=== PATIENT | male | born 1975 | race Hispanic/Latino ===

== ENCOUNTER 2025-02-27 14:03 | Inpatient (IN) | payer OTHER ==
[~2025-02-27] VITALS: Ht 182.9 cm; Wt 90.6 kg
[~2025-02-27 14:03] MED LIST: ATOR40TA69 PO; FAMO20TA8 PO; FLUO20TA29 PO; FOLI0.8C PO; HYDR25TA67 PO; PRAV20TA59 PO; SENN8.6T32 PO
[2025-02-27] MEDS: 0.9%NACL 1000ML 1,000 ML IV SCH ×2 (14:30→22:25)
[2025-02-27 14:57] LABS: BASOPHILS # (AUTO) 0.03 K/uL (0.00-0.20); BASOPHILS % (AUTO) 0.1 % (0.0-5.0); HEMATOCRIT 40.1 % (42-54); IMMATURE GRANULOCYTE ABSOLUTE 0.08 K/uL (0-1); LYMPHOCYTES # (AUTO) 1.2 K/uL (1.0-4.8); LYMPHOCYTES % (AUTO) 5.6 % (21.0-51.0); MEAN CORPUSCULAR HEMOGLOBIN 28.1 pg (27.0-33.0); MEAN CORPUSCULAR HGB CONC 34.2 g/dL (32.0-36.0); MEAN CORPUSCULAR VOLUME 82.3 fL (79-99); MONOCYTES # (AUTO) 0.7 K/uL (0.1-1.0); MONOCYTES % (AUTO) 3.2 % (3.0-13.0); NEUTROPHILS # (AUTO) 18.7 K/uL (1.8-7.7); NEUTROPHILS % (AUTO) 90.7 % (40.0-77.0); PLATELET COUNT (AUTO) 383 K/uL (130-400); RED BLOOD CELL COUNT(AUTO) 4.87 MIL/uL (4.50-6.20); RED CELL DISTRIBUTION WIDTH 13.9 % (11.0-15.5); WHITE BLOOD COUNT (AUTO) 20.6 K/uL (4.8-10.8)
[2025-02-27 15:01] LABS: CARBON DIOXIDE 24 mmol/L (21-32); CHLORIDE 104 mmol/L (101-111); CREATININE 4.4 mg/dL (0.5-1.3); GLOMERULAR FILTR. RATE CALC 16 mL/min (>90); GLUCOSE,RANDOM 291 mg/dL (70-105); SODIUM SERUM 141 mmol/L (136-145); UREA NITROGEN, BLOOD 51 mg/dL (7-18)
[2025-02-27 15:01] LABS: ABG BASE EXCESS -3.9 mmol/L (-2.0-3.0); ABG HCO3 20.1 mmol/L (21.0-28.0); ABG OXYGEN SATURATION 96.6 % (94.0-98.0); ABG PCO2 34 mmHg (35-48); ABG PH 7.394 (7.350-7.450); CARBON MONOXIDE 0.9 % (0.5-1.5); HHb 3.4; PO2, ARTERIAL BG 88.7 mmHg (83.0-108.0); VENT MODE, BG NC (ROOM AIR)
[2025-02-27] MEDS: hydrALAZine 20MG/ML VIAL IV STA (15:14)
[2025-02-27] MEDS: ondanSETRON 4MG INJ IVP ONE (15:15)
[2025-02-27] MEDS: FAMOTIDINE 20MG VIAL IV ONE (15:15)
[2025-02-27] MEDS: 0.9%NACL 1000ML 1,000 ML IV STA (15:17)
[2025-02-27 15:23] LABS: ALANINE AMINOTRANSFERASE 24 U/L (12-78); ALBUMIN 1.9 g/dL (3.5-5.0); ALCOHOL, BLOOD < 3 mg/dL (0-10); ASPARTATE AMINOTRANSFERASE 30 U/L (10-37); BILIRUBIN,TOTAL 0.5 mg/dL (0.2-1.0); TOTAL PROTEIN, SERUM 6.9 g/dL (6.0-8.3)
[2025-02-27 15:25] LABS: BILIRUBIN,DIRECT 0.1 mg/dL (0.0-0.3)
--- NOTE | 2025-02-27 15:33 | EKG ---
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
[2025-02-27] MEDS ORDERED: NITROGLYCERIN 0.4 MG SL TAB SL PRN (16:00)
[2025-02-27] MEDS: morPHINE 4 MG SYG IVP STA (16:01)
[2025-02-27] MEDS: ASPIRIN 81MG CHEW TAB PO STA (16:02)
[2025-02-27] MEDS: niCARDIpine 25MG INJ 50 MG in 0.9% NACL 250ML 230 ML IV STA ×2 (16:32)
--- NOTE | 2025-02-27 16:35 | NUR ---
cardene inititated at 5mg/hr for elevated blood pressure of 228/112
--- NOTE | 2025-02-27 16:47 | ERN ---
ED Note History of Present Illness Stated Complaint: VOMITTING,MULTIPLE Chief Complaint: Abdominal Pain Time Seen by MD: 14:07 Time Seen by Midlevel: 14:10 Dictation: 49 y/o male with history of HTN,CKD non HD, and DM coming in complaining of N/V/D, epigastric pain . Allergies: Coded Allergies: No Known Allergies (Verified Allergy, Unknown, 09/09/24) Home Meds Reported Medications Sennosides (Senna) 8.6 Mg Tablet, 2 TAB PO BID for constipation for 25 Days, #100 TAB 0 Refills 09/10/24 Famotidine (Famotidine) 20 Mg Tablet, 1 TAB PO HS for 30 Days, #60 TAB 0 Refills 09/10/24 Pravastatin Sodium (Pravastatin Sodium) 20 Mg Tablet, 1 TAB PO HS for 30 Days, #30 TAB 0 Refills 09/10/24 Atorvastatin Calcium (LIPITOR) 40 Mg Tablet, 1 TAB PO HS for 30 Days, #30 TAB 0 Refills 09/10/24 Folic Acid (Folic Acid) 0.8 Mg Capsule, 1 CAP PO DAILY for 30 Days, #30 CAP 0 Refills 09/10/24 Fluoxetine HCl (Fluoxetine HCl) 20 Mg Tablet, 1 TAB PO HS for 30 Days, #30 TAB 0 Refills 09/10/24 Hydralazine HCl (Hydralazine HCl) 25 Mg Tablet, 1 TAB PO TID for 30 Days, #90 TAB 0 Refills 09/10/24 Past Medical History Past Medical History: Anemia, Hypertension, Renal Disese, Renal Failure Surgical History: Other Surgical History Other: RT FOOT GREAT TOE AMPUTATION, LEFT HEEL I&D, BUTTOCK CYST Review of System Dictation Constitutional: Negative for fever,chills, and weight loss Eyes: Negative for injury, pain,redness, and discharge ENT: Negative for injury,pain or swelling Cardiovascular: Negative for chest pain, palpitations, and edema Respiratory: Negative for shortness of breath, cough, and wheezing, Abdomen/GI: Complaining of epigastric pain, nausea and vomiting Back: Negative for injury and pain : Negative for injury, bleeding and discharge MS/Extremity: Negative for injury and deformity Skin: Negative for rash, and discoloration Neuro: Negative for headache, weakness, numbness, tingling, and seizure Psych: Negative for suicide ideation, homicidal ideation, and hallucinations Review of Systems: was completed Initial Vital Sign VS Vital Signs Date Time Temp Pulse Resp B/P (MAP) Pulse Ox O2 Delivery O2 Flow Rate FiO2 02/27/25 14:16 98.2 89 16 231/118 98 0 02/27/25 14:52 Room Air* 21 Physical Exam Dictation General: awake, alert, NAD Head/Face: Normocephalic, atraumatic Eyes: PERRL, EOMI, vision at baseline ENT: oral cavity clear, TMs clear, no signs of infection Neck: Trachea midline, supple, no nuchal rigidity Cardiovascular: RRR, normal S1/S2, No MRGs, no JVD Respiratory: CTAB, no respiratory distress, No rales or wheezes Abdomen: Soft, non-tender, non-distended, normal bowel sounds, no guarding or rebound. Skin: Warm, dry, normal turgor, no rash MS/Extremity: Pulses equal, no cyanosis, neurovascular intact, FROM Neuro: COAx4, GCS 15, strength 5/5, CN 2-12 intact, normal cerebellar exam, normal gait, Psych: Normal behavior, mood, and affect normal Results (Laboratory/Radiology) Laboratory/Radiology Laboratory Tests Test 02/27/25 14:42 02/27/25 14:43 02/27/25 14:58 02/27/25 15:17 Whole Blood Glucose 265 MG/DL (70-110) H White Blood Count 20.6 K/uL (4.8-10.8) H Red Blood Count 4.87 MIL/uL (4.50-6.20) Hemoglobin 13.7 g/dL (14.0-18.0) L Hematocrit 40.1 % (42-54) L Mean Corpuscular Volume 82.3 fL (79-99) Mean Corpuscular Hemoglobin 28.1 pg (27.0-33.0) Mean Corpuscular Hemoglobin Concent 34.2 g/dL (32.0-36.0) Red Cell Distribution Width 13.9 % (11.0-15.5) Platelet Count 383 K/uL (130-400) Mean Platelet Volume 11.7 fL (7.5-10.5) H Immature Granulocyte % (Auto) 0.4 % (0-1) Neutrophils (%) (Auto) 90.7 % (40.0-77.0) H Lymphocytes (%) (Auto) 5.6 % (21.0-51.0) L Monocytes (%) (Auto) 3.2 % (3.0-13.0) Eosinophils (%) (Auto) 0.0 % (0.0-8.0) Basophils (%) (Auto) 0.1 % (0.0-5.0) Neutrophils # (Auto) 18.7 K/uL (1.8-7.7) H Lymphocytes # (Auto) 1.2 K/uL (1.0-4.8) Monocytes # (Auto) 0.7 K/uL (0.1-1.0) Eosinophils # (Auto) 0.00 K/uL (0.00-0.70) Basophils # (Auto) 0.03 K/uL (0.00-0.20) Absolute Immature Granulocyte (auto 0.08 K/uL (0-1) Nucleated Red Blood Cells 0.0 % (0.0-0.19) White Cell Morphology Comment See comments Sodium Level 141 mmol/L (136-145) Potassium Level 4.0 mmol/L (3.5-5.1) Chloride Level 104 mmol/L (101-111) Carbon Dioxide Level 24 mmol/L (21-32) Blood Urea Nitrogen 51 mg/dL (7-18) H Creatinine 4.4 mg/dL (0.5-1.3) H Glomerular Filtration Rate Calc 16 mL/min (>90) Random Glucose 291 mg/dL (70-105) H Whole Blood Ketones Quantitative 1.2 mmol/L (0.0-0.6) H Total Calcium 8.5 mg/dL (8.5-10.1) Total Bilirubin 0.5 mg/dL (0.2-1.0) Direct Bilirubin 0.1 mg/dL (0.0-0.3) Aspartate Amino Transf (AST/SGOT) 30 U/L (10-37) Alanine Aminotransferase (ALT/SGPT) 24 U/L (12-78) Alkaline Phosphatase 109 U/L (50-136) Troponin I High Sensitivity 1748 ng/L (4-75) *H Total Protein 6.9 g/dL (6.0-8.3) Albumin 1.9 g/dL (3.5-5.0) L Lipase 59 U/L (16-77) Serum Alcohol < 3 mg/dL (0-10) Blood Gas Specimen Type Arterial Arterial Blood pH 7.394 (7.350-7.450) Arterial Blood Partial Pressure CO2 34 mmHg (35-48) L Arterial Blood Partial Pressure O2 88.7 mmHg (83.0-108.0) Arterial Blood HCO3 20.1 mmol/L (21.0-28.0) L Arterial Blood Oxygen Saturation 96.6 % (94.0-98.0) Arterial Blood Base Excess -3.9 mmol/L (-2.0-3.0) L Hemoglobin (Blood Gas) 13.7 g/dL (13.5-17.5) Sodium (Blood Gas) 140 MMOL/L (136-145) Bedside Potassium (Blood Gas) 3.5 MMOL/L (3.4-4.5) Bedside Chloride (Blood Gas) 105 MMOL/L (98-107) Bedside Glucose (Blood Gas) 272 MG/DL (65-95) H Bedside Ionized Calcium (Blood Gas) 1.16 MMOL/L (1.15-1.33) Bedside Lactic Acid (Blood Gas) 1.29 MMOL/L (0.36-0.75) H Blood Gas Temperature 37.0 CELSIUS (35.5-37.0) Blood Gas Vent Mode NC (ROOM AIR) FiO2 21.0 % Blood Gas Specimen Comment MENA COELHO Lactic Acid Level 2.0 mmol/L (0.8-2.5) Test 02/27/25 15:58 02/27/25 21:01 02/27/25 21:41 02/27/25 21:44 Troponin I High Sensitivity 980 ng/L (4-75) *H 1512 ng/L (4-75) *H Urine Color LIGHT-YELLOW (YELLOW) Urine Appearance CLEAR (CLEAR) Urine pH 6.5 (5.0-8.0) Urine Specific [place] 1.019 (1.001-1.031) Urine Protein 600 mg/dL (NEGATIVE) H Urine Glucose (UA) >=1000 mg/dL (NEGATIVE) H Urine Ketones 10 mg/dL (NEGATIVE) H Urine Occult Blood MODERATE (NEGATIVE) H Urine Nitrate NEGATIVE (NEGATIVE) Urine Bilirubin NEGATIVE mg/dL (NEGATIVE) Urine Urobilinogen 0.2 mg/dL (0.2-1.0) Urine Leukocyte Esterase NEGATIVE German/uL Urine RBC 2-5 /HPF (0-1) H Urine WBC 2-5 /HPF (0-1) H Urine Squamous Epithelial Cells RARE /HPF (0-2) Urine Bacteria None /HPF (None Seen) Urine Opiates Screen NEGATIVE (NEGATIVE) Urine Barbiturates Screen NEGATIVE (NEGATIVE) Urine Phencyclidine Screen NEGATIVE (NEGATIVE) Urine Amphetamines Screen NEGATIVE (NEGATIVE) Urine Benzodiazepines Screen NEGATIVE (NEGATIVE) Urine Cocaine Screen NEGATIVE (NEGATIVE) Urine Marijuana (THC) Screen POSITIVE (NEGATIVE) H Whole Blood Glucose 215 MG/DL (70-110) H Test 02/27/25 23:15 02/28/25 01:28 02/28/25 01:30 02/28/25 06:19 Influenza Type A Antigen Negative For Type A Influenza Type B Antigen Negative For Type B SARS-CoV-2, RNA, NAAT NEGATIVE SARS CoV-2 Group A Streptococcus Rapid negative (NEGATIVE) Whole Blood Glucose 146 MG/DL (70-110) H 179 MG/DL (70-110) H White Blood Count 25.0 K/uL (4.8-10.8) H Red Blood Count 4.03 MIL/uL (4.50-6.20) L Hemoglobin 11.4 g/dL (14.0-18.0) L Hematocrit 32.7 % (42-54) L Mean Corpuscular Volume 81.1 fL (79-99) Mean Corpuscular Hemoglobin 28.3 pg (27.0-33.0) Mean Corpuscular Hemoglobin Concent 34.9 g/dL (32.0-36.0) Red Cell Distribution Width 13.9 % (11.0-15.5) Platelet Count 340 K/uL (130-400) Mean Platelet Volume 11.5 fL (7.5-10.5) H Immature Granulocyte % (Auto) 0.5 % (0-1) Neutrophils (%) (Auto) 87.0 % (40.0-77.0) H Lymphocytes (%) (Auto) 5.6 % (21.0-51.0) L Monocytes (%) (Auto) 6.7 % (3.0-13.0) Eosinophils (%) (Auto) 0.0 % (0.0-8.0) Basophils (%) (Auto) 0.2 % (0.0-5.0) Neutrophils # (Auto) 21.8 K/uL (1.8-7.7) H Lymphocytes # (Auto) 1.4 K/uL (1.0-4.8) Monocytes # (Auto) 1.7 K/uL (0.1-1.0) H Eosinophils # (Auto) 0.01 K/uL (0.00-0.70) Basophils # (Auto) 0.04 K/uL (0.00-0.20) Absolute Immature Granulocyte (auto 0.12 K/uL (0-1) Nucleated Red Blood Cells 0.0 % (0.0-0.19) Sodium Level 141 mmol/L (136-145) Potassium Level 3.2 mmol/L (3.5-5.1) L Chloride Level 108 mmol/L (101-111) Carbon Dioxide Level 26 mmol/L (21-32) Blood Urea Nitrogen 56 mg/dL (7-18) H Creatinine 4.4 mg/dL (0.5-1.3) H Glomerular Filtration Rate Calc 16 mL/min (>90) Random Glucose 164 mg/dL (70-105) H Hemoglobin A1c 7.5 % (4.0-6.0) H Estimated Average Glucose (eAG) 169 mg/dL (70-126) H Whole Blood Ketones Quantitative 0.1 mmol/L (0.0-0.6) Total Calcium 7.7 mg/dL (8.5-10.1) L Magnesium Level 1.70 mg/dL (1.80-2.40) L Iron Level 67 mcg/dL (65-175) # Total Iron Binding Capacity 169 mcg/dL (250-450) L Percent Iron Saturation 39.6 % (30-44) Total Bilirubin 0.3 mg/dL (0.2-1.0) # Aspartate Amino Transf (AST/SGOT) 22 U/L (10-37) Alanine Aminotransferase (ALT/SGPT) 21 U/L (12-78) Alkaline Phosphatase 85 U/L (50-136) Total Protein 5.5 g/dL (6.0-8.3) #L Albumin 1.5 g/dL (3.5-5.0) #L Test 02/28/25 06:30 Hemoglobin 12.1 g/dL (14.0-18.0) L Hematocrit 35.2 % (42-54) L Troponin I High Sensitivity 1402 ng/L (4-75) *H Labs Reviewed?: Yes EKG Comment: EKGs did not 15 30, sinus rhythm, rate of 88. Anterior infarct, old. No STEMI interpreted by ER MD. CT Scan Comment: [facility] [address] [place] [address] IMAGING REPORT Signed PATIENT: MOY SELF MR#: [id number] : 1975 SEX: M AGE: 49 LOCATION: [facility] ORDER 1540 STATUS: REG ER REPORT#: [id number] SERVICE 1534 REASON: cp/htn/n/v/ ORDERING PHYSICIAN: JOLENE WILLIS NP PROCEDURE: CAP WO - CT CHEST/ABD/PELV W/O CONTRAST CT CHEST/ABD/PELV W/O CONTRAST HISTORY: Chest pain COMPARISON: None TECHNIQUE: Multiple sequential axial images of the chest were obtained from the thoracic inlet through upper abdomen. Patient was not given contrast through intravenous route. FINDINGS: The study is limited due to poor positioning. Coronary arterial calcifications are seen. There is no evidence of pulmonary nodule or parenchymal disease. No pleural effusion or pericardial effusion is seen. There is no evidence of pneumothorax. There are normal size mediastinal and hilar lymph nodes. The heart is not enlarged. Degenerative changes of the thoracolumbar spine are present. There is no evidence of adrenal nodule. IMPRESSION: 1. No evidence of pulmonary nodule or effusion is seen. CT CHEST/ABD/PELV W/O CONTRAST HISTORY: Nausea and vomiting COMPARISON: None TECHNIQUE: Multiple sequential axial images of the abdomen and pelvis were obtained from the dome of the diaphragm through symphysis pubis. Patient was not given contrast through intravenous route. Oral contrast was not given. FINDINGS: Liver measures 20 cm. There are left renal cysts with the largest measuring 3.8 cm. The liver, spleen, adrenal glands and pancreas are unremarkable. There is no evidence of hydronephrosis bilaterally. Tiny 2 mm right renal pelvic stone is seen. There appears to be posterior type II right renal cyst versus cystic mass measuring 2.1 cm. Fecal material is seen in the colon. There are normal size retroperitoneal and mesenteric lymph nodes. No ascites is seen. There is diverticulosis. Appendix is not well seen limiting evaluation. Atherosclerotic changes are present. Pelvic sidewalls are symmetric bilaterally. Bladder is well distended without wall thickening. IMPRESSION: 1. Bilateral renal cysts. Diverticulosis. Tiny bilateral renal pelvic stones. CT was performed with one or more following dose reduction techniques: automated exposure control, adjustment of the mA and kv according to patient's size, or use of a iterative reconstruction technique. DICTATED BY: MARIA R LEHMAN MD DATE: 02/27/251749 ELECTRONICALLY SIGNED BY: MARIA R LEHMAN MD DATE: 02/27/251756 [place] [id number] [id number] IMAGING REPORT Signed PATIENT: MOY SELF MR#: [id number] : 1975 SEX: M AGE: 49 LOCATION: [facility] ORDER 07 STATUS: [facility] REPORT#: [id number] SERVICE REASON: htn, n/v ORDERING PHYSICIAN: JOLENE WILLIS NP PROCEDURE: HEAD WO - CT HEAD/BRAIN W/O CONTRAST CT HEAD/BRAIN W/O CONTRAST HISTORY: Hypertension, nausea and vomiting COMPARISON: None TECHNIQUE: Multiple sequential axial images of the head were obtained from the base of the skull through vertex. Patient was not given contrast through intravenous route. FINDINGS: The ventricles and extraventricular CSF spaces are dilated consistent with cerebral atrophy. Nonspecific white matter changes seen. Old right basal ganglia lacunar infarct is seen. There is no midline shift, mass effect or herniation. No acute intracranial bleed is seen. Visualized portion of the paranasal sinuses are grossly within normal limits. IMPRESSION: 1. No acute intracranial bleed is seen. 2. Atrophy with white matter changes. CT was performed with one or more following dose reduction techniques: automated exposure control, adjustment of the mA and kv according to patient's size, or use of a iterative reconstruction technique. DICTATED BY: MARIA R LEHMAN MD DATE: 02/27/251747 ELECTRONICALLY SIGNED BY: MARIA R LEHMAN MD DATE: 02/27/251754 ED Course ED Course Orders Procedure Category Date Status Time Cbc With Differential LAB 02/27/25 Complete 14:24 Basic Metabolic Panel LAB 02/27/25 Complete 14:24 Arterial Blood Gas + RT 02/27/25 Transmitted 14:24 Urinalysis Profile LAB 02/27/25 Complete 14:24 Lipase LAB 02/27/25 Complete 14:24 Hepatic Function Panel LAB 02/27/25 Complete 14:24 Ketone Blood LAB 02/27/25 Complete Quantitative 14:24 12 Lead Ekg Tracing- EKG 02/27/25 Complete Technical 14:25 Troponin I High LAB 02/27/25 Complete Sensitivity 14:25 0.9%Nacl 1000ml (Ns PHA 02/27/25 Complete 1000ml) 14:25 0.9%Nacl 1000ml (Ns PHA 02/27/25 In Process 1000ml) 14:30 Famotidine 20mg Vial PHA 02/27/25 Complete (Pepcid 20mg Vial) 14:30 Ondansetron 4mg Inj PHA 02/27/25 Complete (Zofran 4mg Inj) 14:30 Arterial Blood Gas LAB 02/27/25 Complete Arterial + 14:58 Ct Head/Brain W/O CT 02/27/25 Resulted Contrast 15:06 Lactic Acid LAB 02/27/25 Complete 15:06 Blood Cult JEANNETTE 02/27/25 In Process 15:06 Hydralazine 20mg Inj PHA 02/27/25 Complete (Apresoline 20mg In 15:06 Alcohol, Blood LAB 02/27/25 Complete 14:43 Drug Screen Urine LAB 02/27/25 Complete 14:24 Nicardipine 25mg Inj PHA 02/27/25 Complete (Cardene 25mg Inj) 15:34 Aspirin 81mg Chew Tab PHA 02/27/25 Complete (Aspirin 81mg Chew 15:34 Nitroglycerin 0.4mg PHA 02/27/25 In Process Sl Tab (Nitrostat) 16:00 Ct Chest/Abd/Pelv W/O CT 02/27/25 Resulted Contrast 15:34 Morphine 4mg Syg PHA 02/27/25 Complete (Morphine 4mg Syg) 15:41 Nicardipine 25mg Inj PHA 02/27/25 Complete (Cardene 25mg Inj) 15:45 Troponin I High LAB 02/27/25 Complete Sensitivity 15:47 Admit Orders ADM 02/27/25 Transmitted 18:39 Vital Signs(Adult CPOE 02/27/25 Transmitted Hospitalist) 19:59 Daily Weights CPOE 02/27/25 Transmitted 19:59 I&O Q Shift CPOE 02/27/25 Transmitted 19:59 Ondansetron 4mg Inj PHA 02/27/25 In Process (Zofran 4mg Inj) 20:00 Nurse To Enter Home CPOE 02/27/25 Transmitted Medication 19:59 Admit Orders ADM 02/27/25 Transmitted 19:59 Condition: CPOE 02/27/25 Transmitted 19:59 Telemetry Monitoring CPOE 02/27/25 Transmitted 19:59 Activity: Ad Ofelia CPOE 02/27/25 Transmitted 19:59 Nothing By Mouth DIET 02/28/25 Transmitted Breakfast Apply Scds CPOE 02/27/25 Transmitted 19:59 0.9%Nacl 1000ml (Ns PHA 02/27/25 In Process 1000ml) 20:00 Famotidine 20mg Vial PHA 02/28/25 Complete (Pepcid 20mg Vial) 09:00 Critcal Care Consult CONPHYSVC 02/27/25 Transmitted 19:59 Troponin I High LAB 02/27/25 Complete Sensitivity 19:59 Cardiology Consult CONPHYSVC 02/27/25 Transmitted 19:59 Occult Blood Stool LAB 02/27/25 Logged Single Only 19:59 Occult Blood, Gastric LAB 02/27/25 Logged Fluid 19:59 Iron Serum LAB 02/28/25 Complete 04:00 Iron Panel With %Sat LAB 02/28/25 Complete 04:00 Initiate MAHAD 02/27/25 In Process Hyperglycemia Protoco 19:59 Insulin Regular, PHA 02/27/25 In Process Human 3ml (Humulin R 21:00 Initiate Hypoglycemia MAHAD 02/27/25 In Process Protocol 19:59 Dextrose 50%-Water PHA 02/27/25 In Process (D50w) 20:00 Glucagon 1mg Kit PHA 02/27/25 In Process (Glucagon 1mg Kit) 20:00 Cbc With Differential LAB 02/28/25 Complete 04:00 Comprehensive LAB 02/28/25 Complete Metabolic Panel 04:00 Magnesium LAB 02/28/25 Complete 04:00 Hemoglobin A1c LAB 02/28/25 Complete 04:00 Dietary Cons For DIETOTHR 02/27/25 Transmitted Malnutrition 21:59 12 Lead Ekg Tracing- EKG 02/27/25 Complete Technical 22:29 Influenza Type A & B, LAB 02/27/25 Complete Rapid 22:46 Covid Rna Naat LAB 02/27/25 Complete 22:46 Rapid (Group A Strep) LAB 02/27/25 Complete 23:15 Pantoprazole 40mg Inj PHA 02/28/25 In Process (Protonix 40mg Inj 00:00 Mag/Alum/Simeth 30ml PHA 02/28/25 Complete (Maalox Plus 30ml) 00:00 Pantoprazole 40mg Inj PHA 02/27/25 Complete (Protonix 40mg Inj 23:45 Mag/Alum/Simeth 30ml PHA 02/27/25 Complete (Maalox Plus 30ml) 23:45 Nicardipine 25mg Inj PHA 02/28/25 In Process (Cardene 25mg Inj) 00:00 Metoprolol Tartrate PHA 02/28/25 In Process (Lopressor) 00:00 Metoprolol Tartrate PHA 02/28/25 In Process 25 Mg Tab (Lopressor 00:00 Occult Blood Stool LAB 02/27/25 Logged Single Only 23:53 Occult Blood, Gastric LAB 02/27/25 Uncollected Fluid 23:53 Troponin I High LAB 02/28/25 Complete Sensitivity 06:00 *Nursing CPOE 02/27/25 Transmitted Communication: 23:53 12 Lead Ekg Tracing- EKG 02/28/25 Complete Technical 06:00 Venous Blood Gas + RT 02/28/25 Transmitted 00:22 Ketone Blood LAB 02/28/25 Complete Quantitative 01:18 0.9% Nacl 500ml PHA 02/28/25 In Process Iv.Soln (Ns 500ml 01:30 Gastroenterology CONPHYSVC 02/28/25 Transmitted Consult 08:00 Nephrology Consult CONPHYSVC 02/28/25 Transmitted 08:00 Amlodipine 5 Mg Tab PHA 02/28/25 In Process (Norvasc 5mg Tab) 09:00 Nitroglycerin 1gm PHA 02/28/25 In Process Oint (Nitroglycerin 1g 03:30 Potassium Chloride PHA 02/28/25 Complete 10meq/100ml ([place] 04:00 Initiate Magnesium CPOE 02/28/25 Transmitted Protocol 05:52 Magnesium 2gm Premix PHA 02/28/25 In Process 50ml (Magnesium 2gm 06:00 Levofloxacin 500 PHA 02/28/25 Complete Mg/D5w 100 Ml 06:30 Hemoglobin And LAB 02/28/25 Complete Hematocrit 06:23 Hemoglobin And LAB 02/28/25 Logged Hematocrit 12:23 Hemoglobin And LAB 02/28/25 Logged Hematocrit 18:23 H&H Prn For Bleeding CPOE 02/28/25 Transmitted 06:23 Current Medications Medications (Trade) Dose Ordered Sig/Jyoti Route PRN Reason Start Time Stop Time Status Last Admin Dose Admin Aspirin (Aspirin 81mg Chew Tab) 324 mg ONCE STAT PO 02/27/25 15:34 02/27/25 15:41 DC 02/27/25 16:02 Famotidine (Pepcid 20mg Vial) 20 mg ONCE ONCE IV 02/27/25 14:30 02/27/25 14:31 DC 02/27/25 15:15 Hydralazine HCl (APRESOLine 20MG INJ) 10 mg ONCE STAT IV 02/27/25 15:06 02/27/25 15:08 DC 02/27/25 15:14 Morphine Sulfate (morPHINE 4MG SYG) 4 mg ONCE STAT IVP 02/27/25 15:41 02/27/25 15:42 DC 02/27/25 16:01 Nicardipine HCl 50 mg/Sodium Chloride 250 ml @ 0 mls/hr PROTOCOL STAT IV 02/27/25 15:34 02/27/25 15:42 DC Nicardipine HCl 50 mg/Sodium Chloride 250 ml @ 0 mls/hr PROTOCOL STAT IV 02/27/25 15:45 02/27/25 15:46 DC 02/27/25 16:32 Nitroglycerin (Nitrostat) 0.4 mg AD PRN SL CHEST PAIN 02/27/25 16:00 03/29/25 15:59 Ondansetron HCl (zoFRAN 4MG INJ) 4 mg ONCE ONCE IVP 02/27/25 14:30 02/27/25 14:31 DC 02/27/25 15:15 Sodium Chloride 1,000 ml @ 75 mls/hr [id number] IV 02/27/25 14:30 03/29/25 14:29 02/28/25 03:53 Sodium Chloride 1,000 ml @ 1,000 mls/hr Q1H STAT IV 02/27/25 14:25 02/27/25 15:24 DC 02/27/25 15:36 Vital Signs Date Time Temp Pulse Resp B/P (MAP) Pulse Ox O2 Delivery O2 Flow Rate FiO2 02/28/25 06:58 77 7 156/75 (102) 94 02/28/25 06:43 75 13 152/76 (101) 95 02/28/25 06:28 78 12 153/76 (101) 95 02/28/25 06:13 81 11 158/81 (106) 90 02/28/25 05:58 80 11 148/77 (100) 94 02/28/25 05:28 74 8 116/49 (71) 94 02/28/25 05:13 77 11 125/62 (83) 94 02/28/25 05:00 96 Room Air* 0 21 02/28/25 04:58 82 21 161/82 (108) 95 02/28/25 04:45 79 17 137/75 (95) 96 02/28/25 04:28 98.6 78 9 147/67 (93) 95 02/28/25 04:13 75 12 132/62 (85) 96 02/28/25 03:43 75 11 148/72 (97) 95 02/28/25 03:36 155/92 02/28/25 03:28 74 11 134/66 (88) 95 02/28/25 03:13 71 11 155/72 (99) 97 02/28/25 02:58 71 11 145/65 (91) 96 02/28/25 02:44 71 9 150/71 (97) 97 02/28/25 02:28 68 10 139/67 (91) 96 02/28/25 02:13 68 10 134/58 (83) 96 02/28/25 01:58 65 11 136/65 (88) 95 02/28/25 01:43 65 12 128/57 (80) 97 02/28/25 01:28 63 15 126/54 (78) 96 02/28/25 01:13 63 15 122/55 (77) 96 02/28/25 00:58 61 13 130/67 (88) 95 02/28/25 00:56 96 Room Air* 0 21 02/28/25 00:43 64 12 144/76 (98) 97 02/28/25 00:28 98.8 70 15 146/75 (98) 97 02/28/25 00:21 84 141/86 02/28/25 00:18 79 16 134/76 (95) 02/28/25 00:13 98.6 84 14 136/66 97 Room Air* 0 02/27/25 23:08 80 14 151/72 96 Room Air* 0 02/27/25 19:48 98.4 92 18 154/76 97 Room Air* 0 02/27/25 19:09 98.2 73 18 149/71 95 Room Air* 0 02/27/25 18:15 98.1 89 15 165/77 95 Room Air* 0 02/27/25 17:00 83 15 173/80 98 Room Air* 0 02/27/25 16:32 88 217/123 02/27/25 15:45 98.2 90 15 199/94 99 Room Air* 0 02/27/25 14:52 98.2 86 12 244/117 99 Room Air* 0 02/27/25 14:16 98.2 89 16 231/118 98 0 HEART Score Response (Comments) Value History: Low suspicion (0) 0 EKG: Normal 0 Age: 45-65yrs (+1) 1 Risk Factors: 3+ risk factors (+2) 2 Initial Troponin: >3x Normal Limit (+2) 2 Total 5 Medical Decision Making MDM MDM: 49 y/o male with history of HTN,CKD non HD, and DM coming in complaining of N/V/D, epigastric pain . Patient states he is noncompliant with the his diabetic and hypertensive medication. Does not recall the last time he took the medication. Denies having any fevers, blood in the stool [place] [address], this could be related to inflammatory process related to his nausea and vomiting. Mild anemia hemoglobin is 13.7 and hematocrit is 41. No thrombocytopenia. Chemistry shows no electrolyte abnormality. Elevated BUN and creatinine creatinine is 4.4, consistent with the his chronic kidney disease. Hyperglycemia of 265. PH of 7.39, pCO2 mildly low. No DKA. No transaminitis. T bili is normal. Lactic level is two. Initial troponin is 1748, aspirin, nitro, morphine initiated. Second troponin is 980. This could be related to his kidney disease as well. Patient denies having any chest pain only complaining of epigastric pain. Patient's blood pressures in the 200s, despite giving hydralazine 10 mg IV blood pressure remains in the 200s. Cardene initiated in the emergency room. Spoke to Berta ROLLER REPAIRER for hospitalist. Okay to admit patient. CT scan shows no acute findings. Differential diagnosis: DKA Rationale: Tests considered and ordered secondary to shared decision making include: labs, ECG and radiology Previous outside records reviewed: Old ER visits. Risk of complication and/or morbidity or mortality of patient management: None Medications-Per medication reconciliation Need for hospitalization: Patient does meet criteria for hospitalization. Need for emergency major/minor surgery: No There are no social concerns with this patient. Prescription drug management Prescriptions will include symptomatic care Patient's prior external medical records from other ER visits were reviewed by me as indicated. Prior testing and results from previous visits were reviewed. Prior tests were taken into account with medical decision making and resource utilization, independent historian/historians were used to obtain complete medical history. I independently interpreted the test that were performed, results were reviewed by me and considered findings on radiology if ordered. Medical management and examination interpretation discussions were had by me with other qualified healthcare professionals as indicated for the patient's care. DX & DISP Disposition: Inpatient Decision to Admit Date: Feb 27, 2025 Decision to Admit Time: 18:42 Departure Impression: Primary Impression: Elevated troponin Additional Impressions: Hypertensive emergency, CKD (chronic kidney disease) Critical Time: 30 minutes (Critical Care Procedure NoteAuthorized and Performed by: meTotal critical care time: Approximately 36 minutesDue to a high probability of clinically significant, life threatening deterioration, the patient required my highest level of preparedness to intervene emergently and I personally spent this critical care time directly and personally managing the patient. This critical care time included obtaining a history; examining the pat ient; pulse oximetry; ordering and review of studies; arranging urgent treatment with development of a management plan; evaluation of patient's response to treatment; frequent reassessment; and, discussions with other providers.This critical care time was performed to assess and manage the high probability of imminent, life-threatening deterioration that could result in multi-organ failure. It was exclusive of separately billable procedures and treating other patients and teaching time.Please see MDM section and the rest of the note for further information on patient assessment and treatment.) Condition: Stable Referrals: SELF,REFERRAL (PCP) Time of Disposition: 18:42 I have reviewed the case, and I agree with, Diagnosis and Plan I performed a substantive portion of the visit. I have reviewed and personally made and approve the management plan that is documented in the notes by myself with KIERRA/resident. I acknowledged full responsibility for the patient's management plan. JOLENE WILLIS NP Feb 27, 2025 16:47 LINDA FRAZIER DO Feb 28, 2025 08:33
--- NOTE | 2025-02-27 17:55 | HMCIMG ---
CT HEAD/BRAIN W/O CONTRAST HISTORY: Hypertension, nausea and vomiting COMPARISON: None TECHNIQUE: Multiple sequential axial images of the head were obtained from the base of the skull through vertex. Patient was not given contrast through intravenous route. FINDINGS: The ventricles and extraventricular CSF spaces are dilated consistent with cerebral atrophy. Nonspecific white matter changes seen. Old right basal ganglia lacunar infarct is seen. There is no midline shift, mass effect or herniation. No acute intracranial bleed is seen. Visualized portion of the paranasal sinuses are grossly within normal limits. IMPRESSION: 1. No acute intracranial bleed is seen. 2. Atrophy with white matter changes. CT was performed with one or more following dose reduction techniques: automated exposure control, adjustment of the mA and kv according to patient's size, or use of a iterative reconstruction technique.
--- NOTE | 2025-02-27 17:57 | HMCIMG ---
CT CHEST/ABD/PELV W/O CONTRAST HISTORY: Chest pain COMPARISON: None TECHNIQUE: Multiple sequential axial images of the chest were obtained from the thoracic inlet through upper abdomen. Patient was not given contrast through intravenous route. FINDINGS: The study is limited due to poor positioning. Coronary arterial calcifications are seen. There is no evidence of pulmonary nodule or parenchymal disease. No pleural effusion or pericardial effusion is seen. There is no evidence of pneumothorax. There are normal size mediastinal and hilar lymph nodes. The heart is not enlarged. Degenerative changes of the thoracolumbar spine are present. There is no evidence of adrenal nodule. IMPRESSION: 1. No evidence of pulmonary nodule or effusion is seen. CT CHEST/ABD/PELV W/O CONTRAST HISTORY: Nausea and vomiting COMPARISON: None TECHNIQUE: Multiple sequential axial images of the abdomen and pelvis were obtained from the dome of the diaphragm through symphysis pubis. Patient was not given contrast through intravenous route. Oral contrast was not given. FINDINGS: Liver measures 20 cm. There are left renal cysts with the largest measuring 3.8 cm. The liver, spleen, adrenal glands and pancreas are unremarkable. There is no evidence of hydronephrosis bilaterally. Tiny 2 mm right renal pelvic stone is seen. There appears to be posterior type II right renal cyst versus cystic mass measuring 2.1 cm. Fecal material is seen in the colon. There are normal size retroperitoneal and mesenteric lymph nodes. No ascites is seen. There is diverticulosis. Appendix is not well seen limiting evaluation. Atherosclerotic changes are present. Pelvic sidewalls are symmetric bilaterally. Bladder is well distended without wall thickening. IMPRESSION: 1. Bilateral renal cysts. Diverticulosis. Tiny bilateral renal pelvic stones. CT was performed with one or more following dose reduction techniques: automated exposure control, adjustment of the mA and kv according to patient's size, or use of a iterative reconstruction technique.
--- NOTE | 2025-02-27 19:48 | NUR ---
YG ECHOCARDIOGRAPHER AT BEDSIDE
[2025-02-27] MEDS ORDERED: DEXTROSE 50%-WATER 50 ML DISP.SYRIN IV PRN (20:00)
[2025-02-27] MEDS ORDERED: GLUCAGON 1MG KIT 1 MG ML IM PRN (20:00)
[2025-02-27 21:18] LABS: AMPHET/METH SCREEN,URINE NEGATIVE (NEGATIVE); BARBITURATE SCREEN, URINE NEGATIVE (NEGATIVE); BENZODIAZEPINES SCREEN,URINE NEGATIVE (NEGATIVE); CANNABINOID SCREEN,URINE POSITIVE (NEGATIVE); COCAINE SCREEN,URINE NEGATIVE (NEGATIVE); OPIATE SCREEN,URINE NEGATIVE (NEGATIVE); PHENCYCLIDINE SCREEN,URINE NEGATIVE (NEGATIVE)
[2025-02-27 21:28] LABS: ADD UA MICROSCOPIC YES; APPEARANCE,URINE CLEAR (CLEAR); BILIRUBIN,URINE NEGATIVE (NEGATIVE); COLOR,URINE LIGHT-YELLOW (YELLOW); GLUCOSE, URINE (UA) >=1000 mg/dL (NEGATIVE); KETONES,URINE 10 mg/dL (NEGATIVE); LEUKOCYTE ESTERASE ,URINE NEGATIVE Leu/uL (NEGATIVE); NITRATE,URINE NEGATIVE (NEGATIVE); OCCULT BLOOD,URINE MODERATE (NEGATIVE); PH,URINE 6.5 (5.0-8.0); PROTEIN,URINE 600 mg/dL (NEGATIVE); UROBILINOGEN,URINE 0.2 mg/dL (0.2-1.0)
[2025-02-27 21:29] LABS: SQUAMOUS EPITHELIAL CELL,UR RARE /HPF (0-2)
[2025-02-27] MEDS: INSULIN humuLIN R 100 UNIT/ML 3ML SQ SCH (21:53)
--- NOTE | 2025-02-27 22:06 | HP ---
[facility] HISTORY AND PHYSICAL Date of Service: Feb 27, 2025 Time of Service: 21:39 PCP: Self-referral HISTORY OF PRESENT ILLNESS: This is a 49-year-old male with history of anemia, hypertension, chronic kidney disease non hemodialysis, diabetes who presents to the ED for complaints of nausea vomiting and diarrhea and epigastric pain which started three days ago.As per patient he has been having bloody emesis upon ER arrival and was reported to the ER nurse.Patient reported he is using marijuana and denies alcohol,cigarette and cocaine use.Patient also reports he is not good in taking his medications and checking his BP and blood sugar at home.Patient also reports he has not seen a PCP. Seen and examined patient in the ER awake,alert and coherent.Patient denies fe glendy,chills,chest pain,palpitation and shortness of breath.Vital signs upon ER arrival temperature 98.2, heart rate 89, blood pressure 231/118 saturation 98% on room air. Labs: WBC 20 with negative left shift of neutrophils 90, globin 13, hematocrit 40, platelet count 383. BUN 51, creatinine 4.4, GFR 16 glucose 291 ketones 1.2 lactic acid two troponin 1748 to 980. Albumin 1.9. Urine toxicology positive for marijuana. CT head without contrast result is unremarkable. CT chest result revealed no evidence of pulmonary nodule or effusion is seen. CT abdomen and pelvis result revealed bilateral renal cyst diverticulosis. Tiny bilateral renal pelvic stones. While in the ER patient started on 1 L NS bolus, famotidine 20 mg IV, Zofran 4 mg IV hydralazine 10 mg IV and patient was started on Cardene drip. Patient also received aspirin 324 mg p.o.. We will admit patient to ICU for further medical management. REVIEW OF SYSTEMS CONSTITUTIONAL: Denies fevers, chills, or night sweats. No unintentional weight loss reported. NEUROLOGICAL: Denies headache, amaurosis fugax, motor weakness, sensory deficit, vertigo/spinning sensation, gait abnormalities, or tremors. ENT: No hearing loss, otalgia, otorrhea, rhinitis, rhinorrhea, hoarseness, or sore throat. CARDIOVASCULAR: Denies any exertional angina, dyspnea on exertion, orthopnea, paroxysmal nocturnal dyspnea, palpitations, life-threatening arrhythmias, claudication. PULMONARY: Denies any shortness of breath, cough, phlegm/sputum, hemoptysis, pleuritic chest pain. SLEEP: Denies morning headaches, daytime somnolence or napping. Denies difficulty falling asleep, staying asleep, waking from sleep. Denies knowledge of snoring. GASTROINTESTINAL: Patient complained of nausea, vomiting , hematemesis, diarrhea and epigastric pain Denies any type of dysphagia to either liquids or solids. Denies pyrosis, early satiety, constipation, or changes in stool consistency or caliber. Denies hematochezia, or melanotic stools. GENITOURINARY: Denies frequency, urgency, nocturia, hematuria or incontinence (Storage/Irritative symptoms.) Low urinary stream, straining to void, urinary intermittency or hesitancy, splitting of the voiding stream, terminal dribbling. ENDOCRINOLOGIC: Denies polyuria, polydipsia, polyphagia or heat/cold intol erances. HEMATOLOGIC: Denies thrombophilia/previous clots, or coagulopathy/bleeding disorders. ONCOLOGIC: Denies personal history of malignancy. DERMATOLOGIC: Denies rashes or pruritus. PSYCHIATRIC: Denies any suicidal or homicidal ideation. Denies hallucinations. PAST MEDICAL HISTORY: [ Diabetes type 2, hypertension, chronic kidney disease stage 3 ] PAST SURGICAL HISTORY: [ History of right a toe amputation and left heel I and D and left buttock I and D] PAST SOCIAL HISTORY: [Patient lives with mother Nesha . Patient admits to smoking marijuana last use was Wednesday two days ago patient denies alcohol cocaine and cigarette use. ] FAMILY HISTORY: [ Noncontributory] Coded Allergies: No Known Allergies (Verified Allergy, Unknown, 09/09/24) PHYSICAL EXAM GENERAL APPEARANCE: The patient is awake, alert, and oriented, in no acute cardiopulmonary distress. NEUROLOGICAL: Cranial nerves II-XII grossly intact. Motor is 5/5 in bilateral upper and lower extremities proximal to distal. No sensory deficits. HEENT: Face is symmetric. Pupils are equal and reactive. Extraocular movements are intact. NECK: Supple. No JVD. No thyromegaly. No submental, submandibular, pre- /postauricular, occipital or supraclavicular lymphadenopathy. CHEST: Normal chest expansion. No Telemetry. LUNGS: Absence of any rales, rhonchi or any wheezing. CARDIOVASCULAR: Regular. S1 and S2 normal. No appreciable rubs, murmurs or gallops. ABDOMEN: Soft, nontender, and nondistended. There is no rebound, voluntary guarding, or rigidity. : Deferred. No Shields. EXTREMITIES: Non-edematous and not cyanotic. No clubbing. Good capillary refill. SKIN: No skin breakdown. Vital Sign (Last 24 Hours) 02/27/25 19:48 Temp 98.4 Pulse 92 Resp 18 B/P (MAP) 154/76 Pulse Ox 97 O2 Delivery Room Air* O2 Flow Rate 0 FiO2 21 LABS: Laboratory: Test 02/27/25 21:01 02/27/25 15:58 02/27/25 15:17 02/27/25 14:58 Range/Units Urine Color LIGHT-YELLOW YELLOW Urine Appearance CLEAR CLEAR Urine pH 6.5 5.0-8.0 Urine Specific [place] 1.019 1.001-1.031 Urine Protein 600 H NEGATIVE mg/dL Urine Glucose (UA) >=1000 H NEGATIVE mg/dL Urine Ketones 10 H NEGATIVE mg/dL Urine Occult Blood MODERATE H NEGATIVE Urine Nitrate NEGATIVE NEGATIVE Urine Bilirubin NEGATIVE NEGATIVE mg/dL Urine Urobilinogen 0.2 0.2-1.0 mg/dL Urine Leukocyte Esterase NEGATIVE NEGATIVE [place]/uL Urine RBC 2-5 H 0-1 /HPF Urine WBC 2-5 H 0-1 /HPF Urine Squamous Epithelial Cells RARE 0-2 /HPF Urine Bacteria None None Seen /HPF Urine Opiates Screen NEGATIVE NEGATIVE Urine Barbiturates Screen NEGATIVE NEGATIVE Urine Phencyclidine Screen NEGATIVE NEGATIVE Urine Amphetamines Screen NEGATIVE NEGATIVE Urine Benzodiazepines Screen NEGATIVE NEGATIVE Urine Cocaine Screen NEGATIVE NEGATIVE Urine Marijuana (THC) Screen POSITIVE H NEGATIVE Troponin I High Sensitivity 980 *H 4-75 ng/L Lactic Acid Level 2.0 0.8-2.5 mmol/L Blood Gas Specimen Type Arterial Arterial Blood pH 7.394 7.350-7.450 Arterial Blood Partial Pressure CO2 34 L 35-48 mmHg Arterial Blood Partial Pressure O2 88.7 83.0-108.0 mmHg Arterial Blood HCO3 20.1 L 21.0-28.0 mmol/L Arterial Blood Oxygen Saturation 96.6 94.0-98.0 % Arterial Blood Base Excess -3.9 L -2.0-3.0 mmol/L Hemoglobin (Blood Gas) 13.7 13.5-17.5 g/dL Sodium (Blood Gas) 140 136-145 MMOL/L Bedside Potassium (Blood Gas) 3.5 3.4-4.5 MMOL/L Bedside Chloride (Blood Gas) 105 98-107 MMOL/L Bedside Glucose (Blood Gas) 272 H 65-95 MG/DL Bedside Ionized Calcium (Blood Gas) 1.16 1.15-1.33 MMOL/L Bedside Lactic Acid (Blood Gas) 1.29 H 0.36-0.75 MMOL/L Blood Gas Temperature 37.0 35.5-37.0 CELSIUS Blood Gas Vent Mode NC ROOM AIR FiO2 21.0 % Blood Gas Specimen Comment MENA COELHO Test 02/27/25 14:43 02/27/25 14:42 Range/Units White Blood Count 20.6 H 4.8-10.8 K/uL Red Blood Count 4.87 4.50-6.20 MIL/uL Hemoglobin 13.7 L 14.0-18.0 g/dL Hematocrit 40.1 L 42-54 % Mean Corpuscular Volume 82.3 79-99 fL Mean Corpuscular Hemoglobin 28.1 27.0-33.0 pg Mean Corpuscular Hemoglobin Concent 34.2 32.0-36.0 g/dL Red Cell Distribution Width 13.9 11.0-15.5 % Platelet Count 383 130-400 K/uL Mean Platelet Volume 11.7 H 7.5-10.5 fL Immature Granulocyte % (Auto) 0.4 0-1 % Neutrophils (%) (Auto) 90.7 H 40.0-77.0 % Lymphocytes (%) (Auto) 5.6 L 21.0-51.0 % Monocytes (%) (Auto) 3.2 3.0-13.0 % Eosinophils (%) (Auto) 0.0 0.0-8.0 % Basophils (%) (Auto) 0.1 0.0-5.0 % Neutrophils # (Auto) 18.7 H 1.8-7.7 K/uL Lymphocytes # (Auto) 1.2 1.0-4.8 K/uL Monocytes # (Auto) 0.7 0.1-1.0 K/uL Eosinophils # (Auto) 0.00 0.00-0.70 K/uL Basophils # (Auto) 0.03 0.00-0.20 K/uL Absolute Immature Granulocyte (auto 0.08 0-1 K/uL Nucleated Red Blood Cells 0.0 0.0-0.19 % White Cell Morphology Comment See comments Sodium Level 141 136-145 mmol/L Potassium Level 4.0 3.5-5.1 mmol/L Chloride Level 104 101-111 mmol/L Carbon Dioxide Level 24 21-32 mmol/L Blood Urea Nitrogen 51 H 7-18 mg/dL Creatinine 4.4 H 0.5-1.3 mg/dL Glomerular Filtration Rate Calc 16 >90 mL/min Random Glucose 291 H 70-105 mg/dL Whole Blood Ketones Quantitative 1.2 H 0.0-0.6 mmol/L Total Calcium 8.5 8.5-10.1 mg/dL Total Bilirubin 0.5 0.2-1.0 mg/dL Direct Bilirubin 0.1 0.0-0.3 mg/dL Aspartate Amino Transf (AST/SGOT) 30 10-37 U/L Alanine Aminotransferase (ALT/SGPT) 24 12-78 U/L Alkaline Phosphatase 109 50-136 U/L Total Protein 6.9 6.0-8.3 g/dL Albumin 1.9 L 3.5-5.0 g/dL Lipase 59 16-77 U/L Serum Alcohol < 3 0-10 mg/dL Whole Blood Glucose 265 H 70-110 MG/DL Current Medications Medications (Trade) Dose Ordered Sig/Jyoti Route PRN Reason Start Time Stop Time Status Last Admin Dose Admin Aspirin (Aspirin 81mg Chew Tab) 324 mg ONCE STAT PO 02/27/25 15:34 02/27/25 15:41 DC 02/27/25 16:02 324 MG Dextrose (D50w) 50 ml AD PRN IV HYPOGLYCEMIA PROTOCOL 02/27/25 20:00 03/29/25 19:59 Famotidine (Pepcid 20mg Vial) 20 mg DAILY IV 02/28/25 09:00 03/30/25 08:59 Glucagon (Glucagon 1mg Kit) 1 mg AD PRN IM HYPOGLYCEMIA PROTOCOL 02/27/25 20:00 03/29/25 19:59 Hydralazine HCl (APRESOLine 20MG INJ) 10 mg ONCE STAT IV 02/27/25 15:06 02/27/25 15:08 DC 02/27/25 15:14 10 MG Insulin Human Regular (humuLIN R 100 UNIT/ML 3ML) INSULIN SLIDING SCAL... ACHS SQ 02/27/25 21:00 03/29/25 20:59 Morphine Sulfate (morPHINE 4MG SYG) 4 mg ONCE STAT IVP 02/27/25 15:41 02/27/25 15:42 DC 02/27/25 16:01 4 MG Nicardipine HCl 50 mg/Sodium Chloride 250 ml @ 0 mls/hr PROTOCOL STAT IV 02/27/25 15:34 02/27/25 15:42 DC Nicardipine HCl 50 mg/Sodium Chloride 250 ml @ 0 mls/hr PROTOCOL STAT IV 02/27/25 15:45 02/27/25 15:46 DC 02/27/25 16:32 5 MLS/HR Nitroglycerin (Nitrostat) 0.4 mg AD PRN SL CHEST PAIN 02/27/25 16:00 03/29/25 15:59 Ondansetron HCl (zoFRAN 4MG INJ) 4 mg Q6H PRN IV NAUSEA/VOMITING 02/27/25 20:00 03/29/25 19:59 Sodium Chloride 1,000 ml @ 75 mls/hr [id number] IV 02/27/25 14:30 03/29/25 14:29 Sodium Chloride 1,000 ml @ 75 mls/hr [id number] IV 02/27/25 20:00 03/29/25 19:59 Sodium Chloride 1,000 ml @ 1,000 mls/hr Q1H STAT IV 02/27/25 14:25 02/27/25 15:24 DC 02/27/25 15:36 1,000 MLS/HR DIAGNOSTICS / RADIOLOGY: [ ] ASSESSMENT: Hypertensive emergency POA Elevated troponin POA Acute on chronic kidney disease POA Chronic anemia due to CKD POA Acute leukocytosis POA Uncontrolled diabetes POA Uncontrolled hypertension POA Medical noncompliance POA Severe protein calorie malnutrition POA Cannabinoid hyperemesis syndrome POA Positive marijuana POA Suspected hematemesis POA PLAN: We will admit patient in ICU We will keep patient nothing by mouth We will start NS @ 75 ml / hr x1 bag and re evaluate We will continue Cardene drip and titrate per ICU protocol We will start on Famotidine 20 mg IV daily for GI prophylaxis We will replace electrolytes as needed per protocol We will start on insulin sliding scale AC & HS with hypoglycemia protocol We will add prn medication for fever,pain,cough , nausea and vomiting We will request for fecal occult blood and occult blood gastric fluid analysis We will trend troponin q.6 x3 We will start aspirin once occult and gastric fluid result is negative We will reconcile home meds once medlist available We will seek critical care consultation We will seek Cardiology consultation Counseled patient on marijuana use cessation We will request dietary consultation to assess for malnutrition We will request labs in am Will do serial H&H Q6H x3 and H&H prn bleeding Further orders to follow depending on above results Case discussed with attending physician and came up with above treatment and plan of care. ADVANCED CARE PLANNING 1. Which of the following were discussed? Hospice Care - No Therapeutic options - Yes Advance Directives - No Other discussions - 2. Discussed with who? Patient and mother Nesha 3. Voluntary nature of this service was explained to the patient? Yes 4. Amount of time spent - _27 5. Reviewed by Physician? (if this service was performed by NPP) Yes Patient seen and examined by me. Agree with note by FINANCE CONTROLLER SEE ADDITIONAL ORDERS PER CHART DISCUSSED WITH NURSING STAFF WENCESLAO RONQUILLOP Feb 27, 2025 22:06
--- NOTE | 2025-02-27 22:20 | NUR ---
BENCHMARK AWARE OF LATEST TROP 1512- NO FURTHER ORDERS
[2025-02-27] MEDS: ondanSETRON 4MG INJ IV PRN (22:25)
--- NOTE | 2025-02-27 22:38 | CONS ---
[facility] CONSULTATION NOTE Date Patient Seen: Feb 27, 2025 Time of Visit: 22:38 Supervising Physician: Dr. Hernandez Reason for Consultation: Critical care management Primary Care Physician: Attending group: [facility] hospitalist team Outpatient Specialists: Inpatient Consults: Critical Care team Cardiology PROBLEM LIST: Hypertensive emergency, POA NSTEMI, POA Metabolic acidosis, POA, anion gap 14.9 on arrival Cannabinoid hyperemesis syndrome POA Acute dehydration/ketonuria/ ketonemia 2/2 N/V/D Acute kidney injury, GFR 16 Hematemesis, POA Acute on chronic kidney disease, POA, (GFR 26 on 09/16/2024) Chronic anemia due to CKD, POA Acute leukocytosis, POA Uncontrolled diabetes, POA Uncontrolled hypertension, POA Medical noncompliance, POA Albuminemia/ malnutrition, POA Positive marijuana POA HPI: Mr. Pham is a 49-year-old male with history of anemia, hypertension, chronic kidney disease non hemodialysis, diabetes who [place] [facility] [place] of nausea, bloody emesis, diarrhea, and epigastric pain onset three days ago. Patient reported he is using marijuana and denies alcohol, cigarette and cocaine use. Patient also reports he is not good in taking his medications and checking his BP and blood sugar at home. Patient also reports he has not seen a PCP. Vital signs upon ER arrival temperature 98.2, heart rate 89, blood pressure 231/118 saturation 98% on room air. Labs: WBC 20 with negative left shift of neutrophils 90, hemoglobin 13, hematocrit 40, platelet count 383. BUN 51, creatinine 4.4, GFR 16, glucose 291, ketones 1.2, lactic acid 2.0, troponin 1748 to 980. Albumin 1.9. Urine toxicology positive for marijuana. CT head without contrast result is unremarkable. CT chest result revealed no evidence of pulmonary nodule or effusion is seen. CT abdomen and pelvis result revealed bilateral renal cyst diverticulosis. Tiny bilateral renal pelvic stones. ABGs: PH 7.394, pCO2 34, PO2 88.7, bicarbonate 20.1, O2 sats 96.6, base excess-3.9. In the ER patient received aspirin 324 mg p.o., 1 L NS bolus, famotidine 20 mg IV, Zofran 4 mg IV, hydralazine 10 mg IV, and started on Cardene drip. Patient also received aspirin 324 mg p... We will admit patient to ICU for further medical management. I assessed the patient in room number ER 16. No family at bedside. Breathing was even, unlabored, in no distress. The patient was unkempt, had foul odor, reports epigastric pain. The patient denied chest pain, shortness of breath, any other pain, problem or concern. I informed patient of labs, diagnostics, plan of care. The patient verbalized understanding and is in agreement with the plan. Plan and assessment are listed below. Addendum: Anion gap was 14.9. Added venous blood gases, anion gap was 12, ketones improved from 1.2 to 0.1. BIS team we will continue monitoring patient closely. Addendum: 02/29/2020 01/31/2000 30: Dr. Woo, senior media planner has seen the patient, we will follow his recommendations. PAST MEDICAL HX: see above PAST SURGICAL HX: Right toe amputation and left heel I and D Buttocks I&D SOCIAL HISTORY: Admits to smoking marijuana, last use was Wednesday (two days ago). No tobacco, ETOH, or other illicit drug use Lives with mother. Coded Allergies: No Known Allergies (Verified Allergy, Unknown, 09/09/24) REVIEW OF SYSTEMS: 12 point ROS reviewed with patient. Pertinent positives mentioned above. Otherwise negative. PHYSICAL EXAM: GENERAL: Alert, weak, awake oriented x 3 HEENT: EOMI, Sclera non icteric, moist mucosa NECK: Supple, no JVD, trachea midline LUNGS: Clear breath sounds bilaterally. No wheezes HEART: Regular rate and rhythm. Normal S1 and S2, without murmurs ABD: Abdomen soft, nontender. Bowel sounds present EXT: No clubbing cyanosis or edema NEURO: Alert and oriented X3, follows commands Vital Signs (last 8hr) Date Time Temp Pulse Resp B/P (MAP) Pulse Ox O2 Delivery O2 Flow Rate FiO2 02/27/25 19:48 98.4 92 18 154/76 97 Room Air* 0 02/27/25 19:09 98.2 73 18 149/71 95 Room Air* 0 02/27/25 18:15 98.1 89 15 165/77 95 Room Air* 0 02/27/25 17:00 83 15 173/80 98 Room Air* 0 02/27/25 16:32 88 217/123 02/27/25 15:45 98.2 90 15 199/94 99 Room Air* 0 21 02/27/25 14:52 98.2 86 12 244/117 99 Room Air* 0 21 LABS: Hematology Labs: Test 02/27/25 14:43 Range/Units White Blood Count 20.6 H 4.8-10.8 K/uL Red Blood Count 4.87 4.50-6.20 MIL/uL Hemoglobin 13.7 L 14.0-18.0 g/dL Hematocrit 40.1 L 42-54 % Mean Corpuscular Volume 82.3 79-99 fL Mean Corpuscular Hemoglobin 28.1 27.0-33.0 pg Mean Corpuscular Hemoglobin Concent 34.2 32.0-36.0 g/dL Red Cell Distribution Width 13.9 11.0-15.5 % Platelet Count 383 130-400 K/uL Mean Platelet Volume 11.7 H 7.5-10.5 fL Immature Granulocyte % (Auto) 0.4 0-1 % Neutrophils (%) (Auto) 90.7 H 40.0-77.0 % Lymphocytes (%) (Auto) 5.6 L 21.0-51.0 % Monocytes (%) (Auto) 3.2 3.0-13.0 % Eosinophils (%) (Auto) 0.0 0.0-8.0 % Basophils (%) (Auto) 0.1 0.0-5.0 % Neutrophils # (Auto) 18.7 H 1.8-7.7 K/uL Lymphocytes # (Auto) 1.2 1.0-4.8 K/uL Monocytes # (Auto) 0.7 0.1-1.0 K/uL Eosinophils # (Auto) 0.00 0.00-0.70 K/uL Basophils # (Auto) 0.03 0.00-0.20 K/uL Absolute Immature Granulocyte (auto 0.08 0-1 K/uL Nucleated Red Blood Cells 0.0 0.0-0.19 % White Cell Morphology Comment See comments Chemistry Labs: Test 02/27/25 21:44 02/27/25 21:41 02/27/25 15:17 02/27/25 14:43 Range/Units Troponin I High Sensitivity 1512 *H 4-75 ng/L Whole Blood Glucose 215 H 70-110 MG/DL Lactic Acid Level 2.0 0.8-2.5 mmol/L Sodium Level 141 136-145 mmol/L Potassium Level 4.0 3.5-5.1 mmol/L Chloride Level 104 101-111 mmol/L Carbon Dioxide Level 24 21-32 mmol/L Blood Urea Nitrogen 51 H 7-18 mg/dL Creatinine 4.4 H 0.5-1.3 mg/dL Glomerular Filtration Rate Calc 16 >90 mL/min Random Glucose 291 H 70-105 mg/dL Whole Blood Ketones Quantitative 1.2 H 0.0-0.6 mmol/L Total Calcium 8.5 8.5-10.1 mg/dL Total Bilirubin 0.5 0.2-1.0 mg/dL Direct Bilirubin 0.1 0.0-0.3 mg/dL Aspartate Amino Transf (AST/SGOT) 30 10-37 U/L Alanine Aminotransferase (ALT/SGPT) 24 12-78 U/L Alkaline Phosphatase 109 50-136 U/L Total Protein 6.9 6.0-8.3 g/dL Albumin 1.9 L 3.5-5.0 g/dL Lipase 59 16-77 U/L DIAGNOSTICS / RADIOLOGY RESULTS: [ ] PLAN Admit to ICU with continuous cardiac and pulse oximetry monitoring. Continue Cardene drip per protocol. NS 500 mL bolus. Continue NS at 75 mL an hour. Monitor for fluid overload. Vital signs per ICU. Cardiology has seen patient, we will follow his recommendations. -metoprolol 12.5 mg q.8 hours, metoprolol5 mg IV q.4 to 6 hours prn systolic blood pressure greater than 150. -prn topical nitrites. -avoid heparin IV given reported upper GI bleed with hematemesis -avoid dual antiplatelet therapy for now - mg p.o. daily pending assessment of GI bleed. -if no evidence of GI be advanced to dual antiplatelet therapy. -add amlodipine5 mg p.o. daily after initial control of blood pressure with Cardene drip. Echo in a.m. [facility] heart clinic to read. Consult GI and nephrology. Monitor renal and liver function. Monitor electrolytes and treat accordingly. Trend troponins and H&H q.6 hours. Trend EKG DVT and GI prophylaxis: SCDs and Protonix. Glucometer checks with insulin sliding scale a.c. and HS with hypoglycemia protocol. P.r.n. medications for pain management, fever, nausea, vomiting, constipation, hypertension. Obtain stool for Hemoccult. Echo in a.m.. Reconcile home medications once available. Education on marijuana cessation. Education on medication compliance. A.m. labs. Further orders per hospitalization course. NEURO: Minimize central acting medications as possible. Fall Precautions. Well lighted room through the day and minimize interruptions through the night to prevent acute delirium. PULMONARY: Supplemental 02 as needed Titrate Fio2 to keep Spo2 > or = 90% DuoNebs and CPT as needed IS hourly while awake for pulmonary hygiene Out of bed to chair as tolerated VAP Bundle CARDIOVASCULAR: Follow hemodynamics. Titrate vasopressor to keep MAP >65 or systolic blood pressure >95mmHg GI & NUTRITION: Continue nutritional support Aspirations precautions Prokinetic agents and laxatives as needed KIDNEYS & ELECTROLYTES: Strict monitoring of intake and output Daily weights Avoid nephrotoxic agents Monitor electrolytes and replace as needed Goal urine output of 30mL/hr or 0.5mL/kg/hr ENDOCRINE: Maintain blood glucose between 100-180 at all times. Insulin sliding scale for blood glucose management INFECTIOUS DISEASE: Trend temperature. Pruitt-culture if febrile. HEMATOLOGY & COAGULATION: Monitor H&H. Keep Hgb > 7 Transfuse 1 unit of PRBC for Hgb < 7 Transfuse 1 pack of platelets of platelets < 20, 000 Watch for any signs and symptoms of bleeding SKIN: Pressure ulcer prevention per facility protocol Rehab: PT/OT Code Status: Full Resuscitation Disposition: [Admit to ICU ] ATTESTATION BY PHYSICIAN I attest that I reviewed and discussed the case with the Physician Statistics Teacher as well as agree with the Physician Statistics Teacher's findings, plans of care, and documentation above. Keon Scruggs MD, [facility] Feb 27, 2025 22:38
--- NOTE | 2025-02-27 23:11 | NUR ---
PER YG LANDFILL GAS TECHNICIAN, DR. MARTINEZ MADE AWARE OF CARDIOLOGY CONSULT.
[2025-02-27 23:34] LABS: SARS-CoV-2, RNA, NAAT NEGATIVE SARS CoV-2 (NEGATIVE)
[2025-02-27 23:40] LABS: INFLUENZA TYPE A Negative For Type A (NEGATIVE); INFLUENZA TYPE B Negative For Type B (NEGATIVE)
--- NOTE | 2025-02-27 23:43 | NUR ---
DR. MARTINEZ AT BEDSIDE AT THIS TIME
[2025-02-27] MEDS: MAG/ALUM/SIMETH 30 ML UDCUP PO ONE (23:54)
[2025-02-27] MEDS: PANTOPrazole 40 MG/VIAL IVP SCH (23:54)
[2025-02-27] MEDS: MAG/ALUM/SIMETH 30 ML UDCUP ONE (23:56)
[2025-02-27] MEDS: PANTOPrazole 40 MG/VIAL ONE (23:56)
[2025-02-28] VITALS (93 sets, daily range): BP systolic 116–188; BP diastolic 49–98; PULSE 57–82; RESP 5–32; TEMP 97.9–98.8; O2SAT 95–97
--- NOTE | 2025-02-28 00:05 | NUR ---
REPORT GIVEN TO SPEEDY BRENNAN
[2025-02-28] MEDS: metoPROLOL tartRATE 25 MG TAB PO SCH ×2 (00:17→09:02)
[2025-02-28] MEDS: niCARDIpine 25MG INJ 25 MG in 0.9% NACL 250ML 240 ML IV SCH (00:21)
--- NOTE | 2025-02-28 00:31 | CONS ---
[facility] CARDIOLOGY CONSULTATION REPORT Date Patient Seen: Feb 28, 2025 Time of Visit: 00:01 Requesting Physician: Chantal UFLLER Reason for Consultation: Elevated troponins History of Present Illness: This 49-year-old [place] male with a history of essential hypertension, type 2 diabetes with renal manifestations, chronic marijuana use, and history of gastritis presented with three days of recurrent nausea, vomiting, and epigastric pain. The patient relates that he has a history of prior gastritis, has not been taking his blood pressure diabetes medications, and has not followed up with a PCP since moving to the [facility] from [place] in June. Today he developed an episode of precordial chest discomfort associat ed with right facial numbness, right hand flapping movement, and right eye pressure and he sought medical attention in the ER today. On arrival he had severe uncontrolled hypertension (231/118 mm of mercury) and was initiated on a Cardene drip. His EKG demonstrates sinus rhythm, left axis deviation, and evidence of a possible old anterior MD with QS complexes in V1 and V2. There were no acute ST elevations or depressions consistent with ischemia. He had J- point elevation in lead V2 with persistent concavity of the ST segment consistent with LVH changes. He had no recurrent chest discomfort since arrival in the emergency department. Of note the patient also reported emesis of blood beginning today. A CT of the chest without contrast demonstrated no acute pathology. A CT of the abdomen and pelvis demonstrated bilateral renal cysts, tiny bilateral ureteral stones, and diverticulosis. Admission labs were remarkable for an initial troponin of 1512 decreasing to 980 and then increasing to 1748. Initial BUN was 51, creatinine 4.4, potassium 4.0, hemoglobin 13.7, hematocrit 40.1, white count 20.6 with 90.7% neutrophils, and platelet count of 445280. Arterial blood gas demonstrated a pH of 7.39, pCO2 of 34, PO2 of 88.7 with a base excess of-3.9. Twelve lead EKG x2 demonstrated sinus rhythm, left anterior fascicular block, QS complexes in V1 and V2 consistent with possible prior anteroseptal MD, and J- point elevation continue with LVH. There was 1/[address] elevation of AVR of uncertain significance. Past Medical History: Type 2 diabetes, insulin-dependent Essential hypertension Noncompliance Chronic marijuana use Chronic gastritis Chronic renal insufficiency Past Surgical History: Left heel infection status post incision and drainage Right great toe amputation Family History: Noncontributory. Social History: Moved to the [facility] from [place] June 2024 Habits: Never smoker. Rare alcohol consumption. Chronic marijuana use illicit drug use. Home Meds: None currently Review of Systems: CONST: No fever, fatigue, or weight changes. EYES: No recent vision problems. ENT: No congestion, ear pain, or sore throat. C/V: Single episode of chest pain prompting ER visit lasting 10 minutes at approximately noon today. Denies palpitations, edema, congestive symptoms. RESP: No cough, congestion, wheezing or shortness of breath. GI: Recurrent nausea and vomiting x3 days associated with midepigastric abdominal pain. Denies constipation and diarrhea. : No incontinence or dysuria. SKIN: No rash. NEURO: No headache, focal numbness or weakness, dizziness, or seizures. PSYCH: No depression or anxiety. HEME: No abnormal bruising or bleeding. LYMPH: No swollen glands. Physical Examination: GENERAL: No acute distress. HEAD: Normal with no signs of head trauma. EYES: PERRLA, EOMI, conjunctiva and sclera normal. ENT: Hearing grossly intact, normal oropharynx. NECK: Supple without JVD. There is no tenderness, lymphadenopathy, or masses. No thyromegaly. Hyperdynamic carotid upstrokes without bruits. LUNGS: Clear breath sounds bilaterally. No wheezes, or rhonchi. HEART: Normal rate and rhythm. Normal S1 and S2 without mumurs, gallop or rub. VASC: Peripheral pulses +2 bilaterally. ABD: Mild midepigastric tenderness. Bowel sounds normal, soft, nontender, no masses, no organomegaly. No audible bruits. : Not examined LYMPH: No lymphadenopathy noted. EXT: No clubbing, cyanosis or edema. SKIN: No rashes or lesions noted. NEURO: Awake, alert, and oriented x3. No focal sensory or strength deficits noted. Vital Signs (last 8hr) Date Time Temp Pulse Resp B/P (MAP) Pulse Ox O2 Delivery O2 Flow Rate FiO2 02/27/25 23:08 80 14 151/72 96 Room Air* 0 21 02/27/25 19:48 98.4 92 18 154/76 97 Room Air* 0 21 02/27/25 19:09 98.2 73 18 149/71 95 Room Air* 0 02/27/25 18:15 98.1 89 15 165/77 95 Room Air* 0 02/27/25 17:00 83 15 173/80 98 Room Air* 0 02/27/25 16:32 88 217/123 Laboratory: Hematology Labs: Test 02/27/25 14:43 Range/Units White Blood Count 20.6 H 4.8-10.8 K/uL Red Blood Count 4.87 4.50-6.20 MIL/uL Hemoglobin 13.7 L 14.0-18.0 g/dL Hematocrit 40.1 L 42-54 % Mean Corpuscular Volume 82.3 79-99 fL Mean Corpuscular Hemoglobin 28.1 27.0-33.0 pg Mean Corpuscular Hemoglobin Concent 34.2 32.0-36.0 g/dL Red Cell Distribution Width 13.9 11.0-15.5 % Platelet Count 383 130-400 K/uL Mean Platelet Volume 11.7 H 7.5-10.5 fL Immature Granulocyte % (Auto) 0.4 0-1 % Neutrophils (%) (Auto) 90.7 H 40.0-77.0 % Lymphocytes (%) (Auto) 5.6 L 21.0-51.0 % Monocytes (%) (Auto) 3.2 3.0-13.0 % Eosinophils (%) (Auto) 0.0 0.0-8.0 % Basophils (%) (Auto) 0.1 0.0-5.0 % Neutrophils # (Auto) 18.7 H 1.8-7.7 K/uL Lymphocytes # (Auto) 1.2 1.0-4.8 K/uL Monocytes # (Auto) 0.7 0.1-1.0 K/uL Eosinophils # (Auto) 0.00 0.00-0.70 K/uL Basophils # (Auto) 0.03 0.00-0.20 K/uL Absolute Immature Granulocyte (auto 0.08 0-1 K/uL Nucleated Red Blood Cells 0.0 0.0-0.19 % White Cell Morphology Comment See comments Chemistry Labs: Test 02/27/25 21:44 02/27/25 21:41 02/27/25 15:17 02/27/25 14:43 Range/Units Troponin I High Sensitivity 1512 *H 4-75 ng/L Whole Blood Glucose 215 H 70-110 MG/DL Lactic Acid Level 2.0 0.8-2.5 mmol/L Sodium Level 141 136-145 mmol/L Potassium Level 4.0 3.5-5.1 mmol/L Chloride Level 104 101-111 mmol/L Carbon Dioxide Level 24 21-32 mmol/L Blood Urea Nitrogen 51 H 7-18 mg/dL Creatinine 4.4 H 0.5-1.3 mg/dL Glomerular Filtration Rate Calc 16 >90 mL/min Random Glucose 291 H 70-105 mg/dL Whole Blood Ketones Quantitative 1.2 H 0.0-0.6 mmol/L Total Calcium 8.5 8.5-10.1 mg/dL Total Bilirubin 0.5 0.2-1.0 mg/dL Direct Bilirubin 0.1 0.0-0.3 mg/dL Aspartate Amino Transf (AST/SGOT) 30 10-37 U/L Alanine Aminotransferase (ALT/SGPT) 24 12-78 U/L Alkaline Phosphatase 109 50-136 U/L Total Protein 6.9 6.0-8.3 g/dL Albumin 1.9 L 3.5-5.0 g/dL Lipase 59 16-77 U/L Diagnostics / Radiology: Head CT 02/27/2025: No acute findings. Atrophy changes. CT chest, abdomen, pelvis noncontrast 02/27/2025: Bilateral tiny ureteral stones, bilateral renal cysts, diverticulosis, no lymphadenopathy or chest findings. Impression and Plan: Acute gastroenteritis: Upper GI bleeding by history (suspected hematemesis), possible G[place]-Mayo tear, possibly secondary to gastritis or peptic ulcer disease: -ensure cardiac status stable for 24 hours prior to clearing for upper endoscopy, with associated decline in cardiac enzymes -medical therapy with IV Protonix 40 q.12 hours, Zofran p.r.n. -follow serial H&H. Non ST-elevation MD with peak troponin thus far 1748: Abnormal EKG with evidence of possible old anteroseptal wall MD: Hypertensive emergency with admission blood pressure of 231/118 mm of mercury: -begin beta-clare therapy with metoprolol 12.5 mg Q 8 hours, IV metoprolol 5q 4-6 hours p.r.n. systolic blood pressure greater than 150 mm of mercury, and if needed topical nitrates -avoid IV heparin given reported upper GI bleeding with hematemesis -avoid dual antiplatelet therapy for now, agree with low-dose aspirin 81 mg daily pending assessment of GI bleeding. If no evidence of GI bleeding advanced to dual antiplatelet therapy. -GI evaluation -add amlodipine 5 mg p.o. daily after initial control of blood pressure with Cardene drip. -proceed with routine 2D echo in a.m. -case discussed with ALINA Angulo Acute on chronic renal insufficiency with admission BUN of 51 and creatinine of 4.4, uncertain baseline: -obtain records from the office of Dr. Ryan Woo, who has seen the patient in his office -avoid DRAKE inhibitor -cautious hydration Comorbidities: Type 2 diabetes mellitus previously on insulin, noncompliant Noncompliance Essential hypertension Chronic marijuana use SOLA WOO MD Feb 28, 2025 00:31
[2025-02-28] MEDS ORDERED: 0.9% NACL 500ML IV.SOLN 500 ML IV SCH (01:30)
[2025-02-28 01:40] LABS: BASOPHILS # (AUTO) 0.04 K/uL (0.00-0.20); BASOPHILS % (AUTO) 0.2 % (0.0-5.0); EOSINOPHILS # (AUTO) 0.01 K/uL (0.00-0.70); HEMATOCRIT 32.7 % (42-54); IMMATURE GRANULOCYTE ABSOLUTE 0.12 K/uL (0-1); LYMPHOCYTES # (AUTO) 1.4 K/uL (1.0-4.8); LYMPHOCYTES % (AUTO) 5.6 % (21.0-51.0); MEAN CORPUSCULAR HEMOGLOBIN 28.3 pg (27.0-33.0); MEAN CORPUSCULAR HGB CONC 34.9 g/dL (32.0-36.0); MEAN CORPUSCULAR VOLUME 81.1 fL (79-99); MONOCYTES # (AUTO) 1.7 K/uL (0.1-1.0); MONOCYTES % (AUTO) 6.7 % (3.0-13.0); NEUTROPHILS # (AUTO) 21.8 K/uL (1.8-7.7); PLATELET COUNT (AUTO) 340 K/uL (130-400); RED BLOOD CELL COUNT(AUTO) 4.03 MIL/uL (4.50-6.20); RED CELL DISTRIBUTION WIDTH 13.9 % (11.0-15.5)
[2025-02-28 01:56] LABS: % IRON SATURATION 39.6 % (30-44)
[2025-02-28 02:23] LABS: HEMOGLOBIN A1C 7.5 % (4.0-6.0)
[2025-02-28 02:24] LABS: ALBUMIN 1.5 g/dL (3.5-5.0); BILIRUBIN,TOTAL 0.3 mg/dL (0.2-1.0); CREATININE 4.4 mg/dL (0.5-1.3); MAGNESIUM 1.7 mg/dL (1.80-2.40); POTASSIUM 3.2 mmol/L (3.5-5.1); TOTAL PROTEIN, SERUM 5.5 g/dL (6.0-8.3)
[2025-02-28] MEDS: NITROGLYCERIN 1GM OINT 1 INCH/1GM TD SCH (03:53)
[2025-02-28] MEDS: PoTASSium chloRIDE 10MEQ/100ML 100 ML IV ONE (03:54)
[2025-02-28] MEDS: MAGNESIUM 2GM PREMIX 50ML 50 ML IV PRN (06:15)
[2025-02-28] MEDS ORDERED: levoFLOXacin 500 MG/D5W 100 ML 100 ML IV SCH (06:30)
[2025-02-28 06:42] LABS: HEMATOCRIT 35.2 % (42-54)
--- NOTE | 2025-02-28 07:15 | EKG ---
[facility] Test Date: 2025-02-28 Test Time: 05:16:47 Pat Name: MOY SELF Department: [facility] Room: 208 1 Gender: M Resourcing Advisor: LIZBETH BRENNAN : 1975 Requested By: SOLA MARTINEZ Order Number: [id number] Reading MD: Kristi Alvarado Measurements Intervals [place] Rate: 81 P: 67 [place]: 142 QRS: -40 QRSD: 96 T: 72 QT: 394 QTc: 457 Interpretive Statements Normal sinus rhythm Left axis deviation Nonspecific T wave abnormality Compared to ECG 02/27/2025 22:32:20 Left-axis deviation now present T-wave abnormality now present ST (T wave) deviation no longer present Myocardial infarct finding no longer present Electronically Signed On 03-01-2025 15:05:46 CDT by Kristi Alvarado Please click the below link to view image of tracing.
--- NOTE | 2025-02-28 07:15 | EKG ---
[facility] Test Date: 2025-02-27 Test Time: 22:32:20 Pat Name: MOY SELF Department: [facility] Room: 208 1 Gender: M Sack Keeper: [id number] : 1975 Requested By: ANTWAN KNIGHT Order Number: [id number] Reading MD: Kristi Alvarado Measurements Intervals [place] Rate: 87 P: 60 [place]: 142 QRS: -32 QRSD: 96 T: 60 QT: 390 QTc: 469 Interpretive Statements Sinus rhythm Probable left ventricular hypertrophy ST elevation, consider anterolateral injury Compared to ECG 02/27/2025 15:30:52 ST (T wave) deviation now present Myocardial infarct finding still present Electronically Signed On 03-01-2025 15:05:43 CDT by Kristi Alvarado Please click the below link to view image of tracing.
--- NOTE | 2025-02-28 08:50 | NUR ---
CONSULTED NEPHROLOGY CONSULT HAD PREVIOUSLY BEEN MADE FOR DR. MARTINEZ
--- NOTE | 2025-02-28 08:55 | NUR ---
DR MARTINEZ ROUNDED ON PATIENT UPDATED DR MARTINEZ ON STATUS OF PATIENT MD STATED HE WILL CHANGE MEDICATIONS
[2025-02-28] MEDS ORDERED: FAMOTIDINE 20MG VIAL IV SCH (09:00)
[2025-02-28] MEDS ORDERED: PoTASSium chloRIDE 10MEQ/100ML 100 ML IV PRN (09:00)
[2025-02-28] MEDS ORDERED: PoTASSium chloRIDE 20MEQ ER 20 MEQ ERTAB PO PRN (09:00)
[2025-02-28] MEDS ORDERED: amLODIPine 5 MG TAB PO SCH (09:00)
--- NOTE | 2025-02-28 09:01 | PN ---
[facility] PROGRESS NOTE Date Patient Seen: Feb 28, 2025 Time of Visit: 09:01 Supervising Physician: [ KEON LARSEN MD ] Primary Care Physician: Attending group: [facility] hospitalist team Outpatient Specialists: Inpatient Consults: Critical Care team Cardiology PROBLEM LIST: Hypertensive emergency, POA, RESOLVING NSTEMI, POA, on medical management Metabolic acidosis, POA, anion gap 14.9 on arrival, NOW RESOLVED Cannabinoid hyperemesis syndrome POA Acute dehydration/ketonuria/ ketonemia 2/2 N/V/D Acute kidney injury, GFR 16 Hematemesis, POA Acute on chronic kidney disease, POA, (GFR 26 on 09/16/2024) Chronic anemia due to CKD, POA Upper GI bleeding by history (suspected hematemesis), possible Gila-Mayo tear, possibly secondary to gastritis or peptic ulcer disease, POA Acute leukocytosis, POA Uncontrolled diabetes, POA Uncontrolled hypertension, POA Medical noncompliance, POA Albuminemia/ malnutrition, POA Positive marijuana POA INTERVAL HISTORY: Mr. Pham is a 49-year-old male with history of anemia, hypertension, chronic kidney disease non hemodialysis, diabetes who presented to [facility] evaluation of nausea, bloody emesis, diarrhea, and epigastric pain onset three days ago. Patient reported he is using marijuana and denies alcohol, cigarette and cocaine use. Patient also reports he is not good in taking his medications and checking his BP and blood sugar at home. Patient also reports he has not seen a PCP. Vital signs upon ER arrival temperature 98.2, heart rate 89, blood pressure 231/118 saturation 98% on room air. 02/28/25- DAY #2 IN ICU. Cardene gtt continues at a low dose. 2.5mg/hr. We will continue to wean. Per RN no major overnight events. Patient denies any chest pain palpitations or shortness for breath. Per Cardiology recommendations medical management unable to anticoagulate with heparin due to upper GI bleeding with hematemesis. Cardiology wants to void antiplatelet for now low-dose aspirin to continue pending assessment of GI. For now patient continues on low-dose aspirin. We have changed amlodipine to isosorbide mononitrate 30 mg p.o. daily plus hydralazine 25 mg q.i.d. for now. Latest blood pressure 119/78 with a map of 92 heart rate in the 70s respiratory rate of 13 unlabored saturating 95% on room air and afebrile. White count is 25 H&H is 11.9/34.2 platelet count of 340 K neutrophils 87 trending down. Blood cultures negative for growth. Renal artery doppler US -Normal bilateral renal artery Doppler ultrasound study.. CT Chest abdomen and pelvis with bilateral renal cysts, diverticulosis, tiny bilateral renal pelvic stones. We will await further cardiology recs and GI eval and recommendations. REVIEW OF SYSTEMS: General: No malaise or fever. Neurological: No fainting episodes or seizures. HEENT: No nasal congestion or nasal secretion. Respiratory: No cough, shortness of breath, or wheezing Cardiac: No chest pain or palpitations. Gastrointestinal: No vomiting or diarrhea. Genitourinary: No dysuria hematuria. Skin: No rashes or lesions. Hematological: No bruises or bleeding. Musculoskeletal: No joint pains or arthralgias. Psychiatric: No depression or panic attacks. PHYSICAL EXAM: GENERAL: Alert, weak, awake oriented x 3 HEENT: EOMI, Sclera non icteric, moist mucosa NECK: Supple, no JVD, trachea midline LUNGS: Clear breath sounds bilaterally. No wheezes HEART: Regular rate and rhythm. Normal S1 and S2, without murmurs ABD: Abdomen soft, nontender. Bowel sounds present EXT: No clubbing cyanosis or edema NEURO: Alert and oriented X3, follows commands Vital Signs (last 8hr) Date Time Temp Pulse Resp B/P (MAP) Pulse Ox O2 Delivery O2 Flow Rate FiO2 02/28/25 06:58 77 7 156/75 (102) 02/28/25 06:43 75 13 152/76 (101) 02/28/25 06:28 78 12 153/76 (101) 02/28/25 06:13 81 11 158/81 (106) 90 02/28/25 05:58 80 11 148/77 (100) 94 02/28/25 05:28 74 8 116/49 (71) 94 02/28/25 05:13 77 11 125/62 (83) 94 02/28/25 05:00 96 Room Air* 0 21 02/28/25 04:58 82 21 161/82 (108) 95 02/28/25 04:45 79 17 137/75 (95) 96 02/28/25 04:28 98.6 78 9 147/67 (93) 95 02/28/25 04:13 75 12 132/62 (85) 96 02/28/25 03:43 75 11 148/72 (97) 95 02/28/25 03:36 155/92 02/28/25 03:28 74 11 134/66 (88) 95 02/28/25 03:13 71 11 155/72 (99) 97 02/28/25 02:58 71 11 145/65 (91) 96 02/28/25 02:44 71 9 150/71 (97) 97 02/28/25 02:28 68 10 139/67 (91) 96 02/28/25 02:13 68 10 134/58 (83) 96 02/28/25 01:58 65 11 136/65 (88) 95 02/28/25 01:43 65 12 128/57 (80) 97 02/28/25 01:28 63 15 126/54 (78) 96 02/28/25 01:13 63 15 122/55 (77) 96 LABS: Hematology Labs: Test 02/28/25 06:30 02/28/25 01:30 02/27/25 14:43 Range/Units Hemoglobin 12.1 L 14.0-18.0 g/dL Hematocrit 35.2 L 42-54 % White Blood Count 25.0 H 4.8-10.8 K/uL Red Blood Count 4.03 L 4.50-6.20 MIL/uL Mean Corpuscular Volume 81.1 79-99 fL Mean Corpuscular Hemoglobin 28.3 27.0-33.0 pg Mean Corpuscular Hemoglobin Concent 34.9 32.0-36.0 g/dL Red Cell Distribution Width 13.9 11.0-15.5 % Platelet Count 340 130-400 K/uL Mean Platelet Volume 11.5 H 7.5-10.5 fL Immature Granulocyte % (Auto) 0.5 0-1 % Neutrophils (%) (Auto) 87.0 H 40.0-77.0 % Lymphocytes (%) (Auto) 5.6 L 21.0-51.0 % Monocytes (%) (Auto) 6.7 3.0-13.0 % Eosinophils (%) (Auto) 0.0 0.0-8.0 % Basophils (%) (Auto) 0.2 0.0-5.0 % Neutrophils # (Auto) 21.8 H 1.8-7.7 K/uL Lymphocytes # (Auto) 1.4 1.0-4.8 K/uL Monocytes # (Auto) 1.7 H 0.1-1.0 K/uL Eosinophils # (Auto) 0.01 0.00-0.70 K/uL Basophils # (Auto) 0.04 0.00-0.20 K/uL Absolute Immature Granulocyte (auto 0.12 0-1 K/uL Nucleated Red Blood Cells 0.0 0.0-0.19 % White Cell Morphology Comment See comments Chemistry Labs: Test 02/28/25 06:30 02/28/25 06:19 02/28/25 01:30 02/27/25 15:17 Range/Units Troponin I High Sensitivity 1402 *H 4-75 ng/L Whole Blood Glucose 179 H 70-110 MG/DL Sodium Level 141 136-145 mmol/L Potassium Level 3.2 L 3.5-5.1 mmol/L Chloride Level 108 101-111 mmol/L Carbon Dioxide Level 26 21-32 mmol/L Blood Urea Nitrogen 56 H 7-18 mg/dL Creatinine 4.4 H 0.5-1.3 mg/dL Glomerular Filtration Rate Calc 16 >90 mL/min Random Glucose 164 H 70-105 mg/dL Hemoglobin A1c 7.5 H 4.0-6.0 % Estimated Average Glucose (eAG) 169 H 70-126 mg/dL Whole Blood Ketones Quantitative 0.1 0.0-0.6 mmol/L Total Calcium 7.7 L 8.5-10.1 mg/dL Magnesium Level 1.70 L 1.80-2.40 mg/dL Iron Level 67 # 65-175 mcg/dL Total Iron Binding Capacity 169 L 250-450 mcg/dL Percent Iron Saturation 39.6 30-44 % Total Bilirubin 0.3 # 0.2-1.0 mg/dL Aspartate Amino Transf (AST/SGOT) 22 10-37 U/L Alanine Aminotransferase (ALT/SGPT) 21 12-78 U/L Alkaline Phosphatase 85 50-136 U/L Total Protein 5.5 #L 6.0-8.3 g/dL Albumin 1.5 #L 3.5-5.0 g/dL Lactic Acid Level 2.0 0.8-2.5 mmol/L Test 02/27/25 14:43 Range/Units Direct Bilirubin 0.1 0.0-0.3 mg/dL Lipase 59 16-77 U/L DIAGNOSTICS / RADIOLOGY RESULTS: [[facility] [address] [place] [address] IMAGING REPORT Signed PATIENT: MOY PHAM MR#: [id number] : 1975 SEX: M AGE: 49 LOCATION: 2BH ORDER 1304 STATUS: ADM IN REPORT#: [id number] SERVICE 1302 REASON: R/O renal artery stenosis ORDERING PHYSICIAN: PAOLO SANCHEZ PROCEDURE: LEO ART DO - US RENAL ARTERY DOPPLER US RENAL ARTERY DOPPLER HISTORY: Renal artery stenosis COMPARISON: None TECHNIQUE: Renal and renal arterial Doppler ultrasound study was performed. FINDINGS: The right kidney measures 14 x 6.6 x 6.2 cm. The left kidney measures 12.7 x 5.9 x 4.4 cm. There are bilateral simple renal cyst with largest on the right measuring 2.4 x 2.5 x 2.4 cm and on the left measuring 3.8 x 2.9 x 3.2 cm. No evidence of hydronephrosis is seen of either kidney. Both kidneys are seen. Normal arterial waveforms are noted renal arteries bilaterally. Peak systolic velocity of right internal artery is 128 cm/s, left renal artery is 114 cm/s in the abdominal aorta is adjacent second. Right renal artery aortic ratio is 1.2. Left renal artery aortic ratio is 1.1. IMPRESSION: 1. No hydronephrosis is seen. 2. Normal bilateral renal artery Doppler ultrasound study. DICTATED BY: MARIA R LEHMAN MD DATE: 02/28/25 1517 ELECTRONICALLY SIGNED BY: MARIA R LEMHAN MD DATE: 02/28/25 1523 ] PLAN continue baby aspirin daily start indur 30mg po daily hydralazine 25mg po qid wean cardene as possible 2D echo pending follow GI recs follow cardiology recs follow nephrology recs DUE to CKD avoid DRAKE/ARBs NEURO: Minimize central acting medications as possible. Fall Precautions. Well lighted room through the day and minimize interruptions through the night to prevent acute delirium. PULMONARY: Supplemental 02 as needed Titrate Fio2 to keep Spo2 > or = 90% DuoNebs and CPT as needed IS hourly while awake for pulmonary hygiene Out of bed to chair as tolerated VAP Bundle CARDIOVASCULAR: Follow hemodynamics. Titrate vasopressor to keep MAP >65 or systolic blood pressure >95mmHg GI & NUTRITION: Continue nutritional support Aspirations precautions Prokinetic agents and laxatives as needed KIDNEYS & ELECTROLYTES: Strict monitoring of intake and output Daily weights Avoid nephrotoxic agents Monitor electrolytes and replace as needed Goal urine output of 30mL/hr or 0.5mL/kg/hr ENDOCRINE: Maintain blood glucose between 100-180 at all times. Insulin sliding scale for blood glucose management INFECTIOUS DISEASE: Trend temperature. Pruitt-culture if febrile. HEMATOLOGY & COAGULATION: Monitor H&H. Keep Hgb > 7 Transfuse 1 unit of PRBC for Hgb < 7 Transfuse 1 pack of platelets of platelets < 20, 000 Watch for any signs and symptoms of bleeding SKIN: Pressure ulcer prevention per facility protocol Rehab: PT/OT Code Status: Full Resuscitation Disposition: TBD Critical care time This patient required multiple bedside visits to manage the patient, review blood gases, coordinate with respiratory, nurses, review radiology exams, talk to the family members and discuss advanced directives. I personally spent [45] minutes of critical care time in treatment of this patient. This includes patient management, time at bedside, time reviewing tests, labs, appropriate images and studies, documentation, and patient care coordination. This time excludes separately billable procedures. ATTESTATION BY PHYSICIAN I attest that I reviewed and discussed the case with the Physician Cardiovascular Surgeon as well as agree with the Physician Cardiovascular Surgeon's findings, plans of care, and documentation above. Keon Scruggs MD, [facility] Feb 28, 2025 09:01
[2025-02-28] MEDS: SODIUM BICARBONATE 650 MG TAB PO SCH (09:11)
--- NOTE | 2025-02-28 09:31 | PN ---
[facility] PROGRESS NOTE Date Patient Seen: Feb 28, 2025 Time of Visit: 09:14 Interval History: This 49-year-old Latin-Swedish male with a history of essential hypertension, type 2 diabetes with renal manifestations, chronic marijuana use, and history of gastritis presented with three days of recurrent nausea, vomiting, bloody emesis, and epigastric pain followed by onset of chest pressure associated with right facial numbness, right hand flapping movement, and right eye pressure on the date of admission. On arrival he had severe uncontrolled hypertension (231/118 mm Hg), no acute EKG changes, and serial troponins of 1512 >>> 980 >>> 1748 >>> 1402. Admission labs were also remarkable for a BUN of 51, creatinine 4.4, potassium 4.0, hemoglobin 13.7, hematocrit 40.1, white count 20.6 with 90.7% neutrophils, and platelet count of 383,000. Arterial blood gas demonstrated a pH of 7.39, pCO2 of 34, PO2 of 88.7 with a base excess of -3.9. He was initiated on IV Protonix, IV Cardene, metoprolol, and normal saline hydration. A CT of the chest without contrast demonstrated no acute pathology. A CT of the abdomen and pelvis demonstrated bilateral renal cysts, tiny bilateral ureteral stones, and diverticulosis. Twelve lead EKG x2 demonstrated sinus rhythm, left anterior fascicular block, QS complexes in V1 and V2 consistent with possible prior anteroseptal DE, and J- point elevation continue with LVH. There was 1/[address] elevation of AVR of uncertain significance. Physical Examination: GENERAL: No acute distress. HEAD: Normal with no signs of head trauma. EYES: PERRLA, EOMI, conjunctiva and sclera normal. NECK: Supple without JVD. There is no tenderness, lymphadenopathy, or masses. No thyromegaly. Normal carotid upstrokes without bruits. LUNGS: Clear breath sounds bilaterally. No wheezes, or rhonchi. HEART: Normal rate and rhythm. Normal S1 and S2 without murmurs, gallop or rub. VASC: Peripheral pulses +2 bilaterally. EXT: No clubbing, cyanosis or edema. NEURO: Awake, alert, and oriented x3. No focal neurological deficits noted. Laboratory: Hematology Labs: Test 02/28/25 06:30 02/28/25 01:30 02/27/25 14:43 Range/Units Hemoglobin 12.1 L 14.0-18.0 g/dL Hematocrit 35.2 L 42-54 % White Blood Count 25.0 H 4.8-10.8 K/uL Red Blood Count 4.03 L 4.50-6.20 MIL/uL Mean Corpuscular Volume 81.1 79-99 fL Mean Corpuscular Hemoglobin 28.3 27.0-33.0 pg Mean Corpuscular Hemoglobin Concent 34.9 32.0-36.0 g/dL Red Cell Distribution Width 13.9 11.0-15.5 % Platelet Count 340 130-400 K/uL Mean Platelet Volume 11.5 H 7.5-10.5 fL Immature Granulocyte % (Auto) 0.5 0-1 % Neutrophils (%) (Auto) 87.0 H 40.0-77.0 % Lymphocytes (%) (Auto) 5.6 L 21.0-51.0 % Monocytes (%) (Auto) 6.7 3.0-13.0 % Eosinophils (%) (Auto) 0.0 0.0-8.0 % Basophils (%) (Auto) 0.2 0.0-5.0 % Neutrophils # (Auto) 21.8 H 1.8-7.7 K/uL Lymphocytes # (Auto) 1.4 1.0-4.8 K/uL Monocytes # (Auto) 1.7 H 0.1-1.0 K/uL Eosinophils # (Auto) 0.01 0.00-0.70 K/uL Basophils # (Auto) 0.04 0.00-0.20 K/uL Absolute Immature Granulocyte (auto 0.12 0-1 K/uL Nucleated Red Blood Cells 0.0 0.0-0.19 % White Cell Morphology Comment See comments Chemistry Labs: Test 02/28/25 06:30 02/28/25 06:19 02/28/25 01:30 02/27/25 15:17 Range/Units Troponin I High Sensitivity 1402 *H 4-75 ng/L Whole Blood Glucose 179 H 70-110 MG/DL Sodium Level 141 136-145 mmol/L Potassium Level 3.2 L 3.5-5.1 mmol/L Chloride Level 108 101-111 mmol/L Carbon Dioxide Level 26 21-32 mmol/L Blood Urea Nitrogen 56 H 7-18 mg/dL Creatinine 4.4 H 0.5-1.3 mg/dL Glomerular Filtration Rate Calc 16 >90 mL/min Random Glucose 164 H 70-105 mg/dL Hemoglobin A1c 7.5 H 4.0-6.0 % Estimated Average Glucose (eAG) 169 H 70-126 mg/dL Whole Blood Ketones Quantitative 0.1 0.0-0.6 mmol/L Total Calcium 7.7 L 8.5-10.1 mg/dL Magnesium Level 1.70 L 1.80-2.40 mg/dL Iron Level 67 # 65-175 mcg/dL Total Iron Binding Capacity 169 L 250-450 mcg/dL Percent Iron Saturation 39.6 30-44 % Total Bilirubin 0.3 # 0.2-1.0 mg/dL Aspartate Amino Transf (AST/SGOT) 22 10-37 U/L Alanine Aminotransferase (ALT/SGPT) 21 12-78 U/L Alkaline Phosphatase 85 50-136 U/L Total Protein 5.5 #L 6.0-8.3 g/dL Albumin 1.5 #L 3.5-5.0 g/dL Lactic Acid Level 2.0 0.8-2.5 mmol/L Test 02/27/25 14:43 Range/Units Direct Bilirubin 0.1 0.0-0.3 mg/dL Lipase 59 16-77 U/L Diagnostics / Radiology: Impression and Plan: Acute gastroenteritis: Upper GI bleeding by history (suspected hematemesis), possible Gila-Mayo tear, possibly secondary to gastritis or peptic ulcer disease: -cardiac enzymes are declining and blood pressure is under improved control. Cleared for upper endoscopy 03/01/2025 if continues stable and blood pressure normalized -medical therapy with IV Protonix 40 q.12 hours, Zofran p.r.n. -follow serial H&H. 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 systolic blood pressure -avoid IV heparin given reported upper GI bleeding with hematemesis -avoid dual antiplatelet therapy for now, agree with low-dose aspirin 81 mg daily pending assessment of GI bleeding. If no evidence of GI bleeding advance to dual antiplatelet therapy. -GI evaluation (cardiac enzymes are declining and blood pressure is under improved control. Cleared for upper endoscopy 03/01/2025 if continues stable and blood pressure normalized) -add amlodipine 5 mg p.o. daily -proceed with routine 2D echo this a.m. -no plans for invasive evaluation given creatinine of 4.4 (EGFR of 16) -consider Lexiscan Cardiolite stress test Wednesday a.m. Acute on chronic renal insufficiency with admission BUN of 51 and creatinine of 4.4 >>> 56 and 4.4 on 02/28/2025 with uncertain baseline: -obtain records from the office of Dr. Ryan Martinez, who has seen the patient in his office -avoid DRAKE inhibitor -continue cautious hydration Comorbidities: Type 2 diabetes mellitus previously on insulin, noncompliant Noncompliance Essential hypertension Chronic marijuana use SOLA MARTINEZ MD Feb 28, 2025 09:31
--- NOTE | 2025-02-28 11:00 | PN ---
[facility] PROGRESS NOTE Date of Service: Feb 28, 2025 Time of Service: 10:52 SUBJECTIVE: This is a 49-year-old male with history of anemia, hypertension, chronic kidney disease non hemodialysis, diabetes who presented to the ED February 27, 2025 for complaints of nausea vomiting and diarrhea and epigastric pain which started three days ago.As per patient he has been having bloody emesis upon ER arrival and was reported to the ER nurse.Patient reported he is using marijuana and denied alcohol,cigarette and cocaine use.Patient also reported he is not good in taking his medications and checking his BP and blood sugar at home. Seen and examined patient in the ER awake,alert and coherent.Patient denied fever,chills,chest pain,palpitation and shortness of breath. Vital signs upon ER arrival temperature 98.2, heart rate 89, blood pressure 231/118 saturation 98% on room air. In the ER Labs: WBC 20 with negative left shift of neutrophils 90, globin 13, hematocrit 40, platelet count 383. BUN 51, creatinine 4.4, GFR 16 glucose 291 ketones 1.2 lactic acid two troponin 1748 to 980. Albumin 1.9. Urine toxicology positive for marijuana. CT head without contrast result is unremarkable. CT chest result revealed no evidence of pulmonary nodule or effusion is seen. CT abdomen and pelvis result revealed bilateral renal cyst diverticulosis. Tiny bilateral renal pelvic stones. While in the ER patient started on 1 L NS bolus, famotidine 20 mg IV, Zofran 4 mg IV hydralazine 10 mg IV and patient was started on Cardene drip. Patient also received aspirin 324 mg p.o.. Patient admitted to the intensive care unit for further evaluation and medical management 02/28 patient remains admitted to the intensive care unit, BP 156/75, heart rate of 77, afebrile, saturating 94% on room air. Hemoglobin of 12.1, hematocrit 35.2, platelet count of 340, WBC 25.0, sodium 141, potassium 3.2, glucose 164, BUN of 56, creatinine 4.4, magnesium 1.7, albumin 1.5, serology test to include influenza, SARS antigen and group a strep negative, CT chest abdomen and pelvis no evidence of pulmonary nodule or effusion, bilateral renal cysts, diverticulosis, tiny bilateral renal pelvic stones, patient on amlodipine 10 mg p.o. daily, sodium bicarbonate 650 mg p.o. t.i.d., hypokalemia protocol, metoprolol tartrate 25 mg p.o. t.i.d., Patient on PPI with Protonix 40 mg IV b.i.d.. Twelve lead EKG demonstrated sinus rhythm, left anterior fascicular block, complex in V1 and V2 consistent with a possible prior anteroseptal GA and J-point elevation continue with the LVH. There was a 1/[address] elevation of AVR of uncertain significance. Cardiac consultation requested due to positive troponin, per cardiac input, cardiac enzymes are declining and blood pressure is under improved control, cleared for upper endoscopy. Increase metoprolol to 25 mg p.o. q.8 hours and continue IV metoprolol as needed, avoid IV heparin, avoid dual antiplatelet therapy, agreed with low-dose aspirin 81 mg p.o. daily pending assessment by GI, add amlodipine 5 mg p.o. daily, follow echocardiogram to assess LVEF, no plan for invasive evaluation given creatinine of 4.4, consider Lexiscan Cardiolite stress test Wednesday a.m.. Due to creatinine of 4.4, obtain records from the office of Dr. Brian Woo, fluid DRAKE inhibitors, continue cautious hydration. We will follow GI input and recommendation. During my visit today the patient is sitting comfortable at the edge of the bed, alert oriented x3, no chest pain, shortness shortness for breath, no nausea, no vomiting, off nicardipine drip. REVIEW OF SYSTEMS CONSTITUTIONAL: Denies fevers, chills, or night sweats. No unintentional weight loss reported. NEUROLOGICAL: Denies headache, amaurosis fugax, motor weakness, sensory deficit, vertigo/spinning sensation, gait abnormalities, or tremors. ENT: No hearing loss, otalgia, otorrhea, rhinitis, rhinorrhea, hoarseness, or sore throat. CARDIOVASCULAR: Denies any exertional angina, dyspnea on exertion, orthopnea, paroxysmal nocturnal dyspnea, palpitations, life-threatening arrhythmias, cl audication. PULMONARY: Denies any shortness of breath, cough, phlegm/sputum, hemoptysis, pleuritic chest pain. SLEEP: Denies morning headaches, daytime somnolence or napping. Denies difficulty falling asleep, staying asleep, waking from sleep. Denies knowledge of snoring. GASTROINTESTINAL: Patient complained of nausea, vomiting , hematemesis, diarrhea and epigastric pain Denies any type of dysphagia to either liquids or solids. Denies pyrosis, early satiety, constipation, or changes in stool consistency or caliber. Denies hematochezia, or melanotic stools. GENITOURINARY: Denies frequency, urgency, nocturia, hematuria or incontinence (Storage/Irritative symptoms.) Low urinary stream, straining to void, urinary intermittency or hesitancy, splitting of the voiding stream, terminal dribbling. ENDOCRINOLOGIC: Denies polyuria, polydipsia, polyphagia or heat/cold intolerances. HEMATOLOGIC: Denies thrombophilia/previous clots, or coagulopathy/bleeding disorders. ONCOLOGIC: Denies personal history of malignancy. DERMATOLOGIC: Denies rashes or pruritus. PSYCHIATRIC: Denies any suicidal or homicidal ideation. Denies hallucinations. PHYSICAL EXAM GENERAL APPEARANCE: The patient is awake, alert, and oriented, in no acute cardiopulmonary distress. NEUROLOGICAL: Cranial nerves II-XII grossly intact. Motor is 5/5 in bilateral upper and lower extremities proximal to distal. No sensory deficits. HEENT: Face is symmetric. Pupils are equal and reactive. Extraocular movements are intact. NECK: Supple. No JVD. No thyromegaly. No submental, submandibular, pre- /postauricular, occipital or supraclavicular lymphadenopathy. CHEST: Normal chest expansion. No Telemetry. LUNGS: Absence of any rales, rhonchi or any wheezing. CARDIOVASCULAR: Regular. S1 and S2 normal. No appreciable rubs, murmurs or gallops. ABDOMEN: Soft, nontender, and nondistended. There is no rebound, voluntary guarding, or rigidity. : Deferred. No Shields. EXTREMITIES: Non-edematous and not cyanotic. No clubbing. Good capillary refill. SKIN: No skin breakdown. Vital Signs (last 8hr) Date Time Temp Pulse Resp B/P (MAP) Pulse Ox O2 Delivery O2 Flow Rate FiO2 02/28/25 06:58 77 7 156/75 (102) 94 02/28/25 06:43 75 13 152/76 (101) 95 02/28/25 06:28 78 12 153/76 (101) 95 02/28/25 06:13 81 11 158/81 (106) 90 02/28/25 05:58 80 11 148/77 (100) 94 02/28/25 05:28 74 8 116/49 (71) 94 02/28/25 05:13 77 11 125/62 (83) 94 02/28/25 05:00 96 Room Air* 0 21 02/28/25 04:58 82 21 161/82 (108) 95 02/28/25 04:45 79 17 137/75 (95) 96 02/28/25 04:28 98.6 78 9 147/67 (93) 95 02/28/25 04:13 75 12 132/62 (85) 96 02/28/25 03:43 75 11 148/72 (97) 95 02/28/25 03:36 155/92 02/28/25 03:28 74 11 134/66 (88) 95 02/28/25 03:13 71 11 155/72 (99) 97 02/28/25 02:58 71 11 145/65 (91) 96 LABS: Laboratory: Test 02/28/25 06:30 02/28/25 06:19 02/28/25 01:30 02/27/25 23:15 Range/Units Hemoglobin 12.1 L 14.0-18.0 g/dL Hematocrit 35.2 L 42-54 % Troponin I High Sensitivity 1402 *H 4-75 ng/L Whole Blood Glucose 179 H 70-110 MG/DL White Blood Count 25.0 H 4.8-10.8 K/uL Red Blood Count 4.03 L 4.50-6.20 MIL/uL Mean Corpuscular Volume 81.1 79-99 fL Mean Corpuscular Hemoglobin 28.3 27.0-33.0 pg Mean Corpuscular Hemoglobin Concent 34.9 32.0-36.0 g/dL Red Cell Distribution Width 13.9 11.0-15.5 % Platelet Count 340 130-400 K/uL Mean Platelet Volume 11.5 H 7.5-10.5 fL Immature Granulocyte % (Auto) 0.5 0-1 % Neutrophils (%) (Auto) 87.0 H 40.0-77.0 % Lymphocytes (%) (Auto) 5.6 L 21.0-51.0 % Monocytes (%) (Auto) 6.7 3.0-13.0 % Eosinophils (%) (Auto) 0.0 0.0-8.0 % Basophils (%) (Auto) 0.2 0.0-5.0 % Neutrophils # (Auto) 21.8 H 1.8-7.7 K/uL Lymphocytes # (Auto) 1.4 1.0-4.8 K/uL Monocytes # (Auto) 1.7 H 0.1-1.0 K/uL Eosinophils # (Auto) 0.01 0.00-0.70 K/uL Basophils # (Auto) 0.04 0.00-0.20 K/uL Absolute Immature Granulocyte (auto 0.12 0-1 K/uL Nucleated Red Blood Cells 0.0 0.0-0.19 % Sodium Level 141 136-145 mmol/L Potassium Level 3.2 L 3.5-5.1 mmol/L Chloride Level 108 101-111 mmol/L Carbon Dioxide Level 26 21-32 mmol/L Blood Urea Nitrogen 56 H 7-18 mg/dL Creatinine 4.4 H 0.5-1.3 mg/dL Glomerular Filtration Rate Calc 16 >90 mL/min Random Glucose 164 H 70-105 mg/dL Hemoglobin A1c 7.5 H 4.0-6.0 % Estimated Average Glucose (eAG) 169 H 70-126 mg/dL Whole Blood Ketones Quantitative 0.1 0.0-0.6 mmol/L Total Calcium 7.7 L 8.5-10.1 mg/dL Magnesium Level 1.70 L 1.80-2.40 mg/dL Iron Level 67 # 65-175 mcg/dL Total Iron Binding Capacity 169 L 250-450 mcg/dL Percent Iron Saturation 39.6 30-44 % Total Bilirubin 0.3 # 0.2-1.0 mg/dL Aspartate Amino Transf (AST/SGOT) 22 10-37 U/L Alanine Aminotransferase (ALT/SGPT) 21 12-78 U/L Alkaline Phosphatase 85 50-136 U/L Total Protein 5.5 #L 6.0-8.3 g/dL Albumin 1.5 #L 3.5-5.0 g/dL Influenza Type A Antigen Negative For Type A NEGATIVE Influenza Type B Antigen Negative For Type B NEGATIVE SARS-CoV-2, RNA, NAAT NEGATIVE SARS CoV-2 NEGATIVE Group A Streptococcus Rapid negative NEGATIVE Test 02/27/25 21:01 02/27/25 15:17 02/27/25 14:58 02/27/25 14:43 Range/Units Urine Color LIGHT-YELLOW YELLOW Urine Appearance CLEAR CLEAR Urine pH 6.5 5.0-8.0 Urine Specific [place] 1.019 1.001-1.031 Urine Protein 600 H NEGATIVE mg/dL Urine Glucose (UA) >=1000 H NEGATIVE mg/dL Urine Ketones 10 H NEGATIVE mg/dL Urine Occult Blood MODERATE H NEGATIVE Urine Nitrate NEGATIVE NEGATIVE Urine Bilirubin NEGATIVE NEGATIVE mg/dL Urine Urobilinogen 0.2 0.2-1.0 mg/dL Urine Leukocyte Esterase NEGATIVE NEGATIVE [place]/uL Urine RBC 2-5 H 0-1 /HPF Urine WBC 2-5 H 0-1 /HPF Urine Squamous Epithelial Cells RARE 0-2 /HPF Urine Bacteria None None Seen /HPF Urine Opiates Screen NEGATIVE NEGATIVE Urine Barbiturates Screen NEGATIVE NEGATIVE Urine Phencyclidine Screen NEGATIVE NEGATIVE Urine Amphetamines Screen NEGATIVE NEGATIVE Urine Benzodiazepines Screen NEGATIVE NEGATIVE Urine Cocaine Screen NEGATIVE NEGATIVE Urine Marijuana (THC) Screen POSITIVE H NEGATIVE Lactic Acid Level 2.0 0.8-2.5 mmol/L Blood Gas Specimen Type Arterial Arterial Blood pH 7.394 7.350-7.450 Arterial Blood Partial Pressure CO2 34 L 35-48 mmHg Arterial Blood Partial Pressure O2 88.7 83.0-108.0 mmHg Arterial Blood HCO3 20.1 L 21.0-28.0 mmol/L Arterial Blood Oxygen Saturation 96.6 94.0-98.0 % Arterial Blood Base Excess -3.9 L -2.0-3.0 mmol/L Hemoglobin (Blood Gas) 13.7 13.5-17.5 g/dL Sodium (Blood Gas) 140 136-145 MMOL/L Bedside Potassium (Blood Gas) 3.5 3.4-4.5 MMOL/L Bedside Chloride (Blood Gas) 105 98-107 MMOL/L Bedside Glucose (Blood Gas) 272 H 65-95 MG/DL Bedside Ionized Calcium (Blood Gas) 1.16 1.15-1.33 MMOL/L Bedside Lactic Acid (Blood Gas) 1.29 H 0.36-0.75 MMOL/L Blood Gas Temperature 37.0 35.5-37.0 CELSIUS Blood Gas Vent Mode NC ROOM AIR FiO2 21.0 % Blood Gas Specimen Comment MENA [place]ELHO White Cell Morphology Comment See comments Direct Bilirubin 0.1 0.0-0.3 mg/dL Lipase 59 16-77 U/L Serum Alcohol < 3 0-10 mg/dL Current Medications Medications (Trade) Dose Ordered Sig/Jyoti Route PRN Reason Start Time Stop Time Status Last Admin Dose Admin Amlodipine Besylate (NorvASC 5MG TAB) 5 mg DAILY PO 02/28/25 09:00 02/28/25 09:02 DC Amlodipine Besylate (NorvASC 5MG TAB) 10 mg DAILY PO 03/01/25 09:00 03/31/25 08:59 Aspirin (Aspirin 81mg Chew Tab) 324 mg ONCE STAT PO 02/27/25 15:34 02/27/25 15:41 DC 02/27/25 16:02 324 MG Dextrose (D50w) 50 ml AD PRN IV HYPOGLYCEMIA PROTOCOL 02/27/25 20:00 03/29/25 19:59 Famotidine (Pepcid 20mg Vial) 20 mg DAILY IV 02/28/25 09:00 02/27/25 23:45 DC Glucagon (Glucagon 1mg Kit) 1 mg AD PRN IM HYPOGLYCEMIA PROTOCOL 02/27/25 20:00 03/29/25 19:59 Hydralazine HCl (APRESOLine 20MG INJ) 10 mg ONCE STAT IV 02/27/25 15:06 02/27/25 15:08 DC 02/27/25 15:14 10 MG Insulin Human Regular (humuLIN R 100 UNIT/ML 3ML) INSULIN SLIDING SCAL... ACHS SQ 02/27/25 21:00 03/29/25 20:59 02/28/25 06:28 2 UNIT Levofloxacin/ Dextrose 100 ml @ 100 mls/hr Q24H IV 02/28/25 06:30 02/28/25 06:46 DC Magnesium Sulfate 50 ml @ 0 mls/hr PROTOCOL PRN IV MAGNESIUM PROTOCOL 02/28/25 06:00 03/30/25 05:59 02/28/25 06:15 25 MLS/HR Metoprolol Tartrate (loprESSOR) 5 mg Q4H PRN IV ADMINISTER FOR SBP > 150 02/28/25 00:00 03/30/25 00:00 Metoprolol Tartrate (loprESSOR) 12.5 mg TID PO 02/28/25 00:00 02/28/25 08:58 DC 02/28/25 00:17 12.5 MG Metoprolol Tartrate (loprESSOR) 25 mg TID PO 02/28/25 09:00 03/30/25 08:59 02/28/25 09:02 25 MG Morphine Sulfate (morPHINE 4MG SYG) 4 mg ONCE STAT IVP 02/27/25 15:41 02/27/25 15:42 DC 02/27/25 16:01 4 MG Nicardipine HCl 25 mg/Sodium Chloride 250 ml @ 0 mls/hr PROTOCOL IV 02/28/25 00:00 03/30/25 00:00 02/28/25 03:36 75 MLS/HR Nicardipine HCl 50 mg/Sodium Chloride 250 ml @ 0 mls/hr PROTOCOL STAT IV 02/27/25 15:34 02/27/25 15:42 DC Nicardipine HCl 50 mg/Sodium Chloride 250 ml @ 0 mls/hr PROTOCOL STAT IV 02/27/25 15:45 02/27/25 15:46 DC 02/27/25 16:32 5 MLS/HR Nitroglycerin (Nitroglycerin 1gm Oint) 1 inch Q8H TD 02/28/25 03:30 03/30/25 03:29 02/28/25 03:53 1 INCH Nitroglycerin (Nitrostat) 0.4 mg AD PRN SL CHEST PAIN 02/27/25 16:00 03/29/25 15:59 Ondansetron HCl (zoFRAN 4MG INJ) 4 mg Q6H PRN IV NAUSEA/VOMITING 02/27/25 20:00 03/29/25 19:59 02/27/25 22:25 4 MG Pantoprazole Sodium (PROTonix 40MG INJ) 40 mg BID IVP 02/28/25 00:00 03/30/25 00:00 02/28/25 09:01 40 MG Potassium Chloride 100 ml @ 100 mls/hr AD PRN IV POTASSIUM PROTOCOL 02/28/25 09:00 02/28/25 09:06 DC Potassium Chloride 100 ml @ 100 mls/hr AD PRN IV POTASSIUM PROTOCOL 02/28/25 09:00 03/30/25 08:59 Potassium Chloride (K-Dur/Klor-Con 20meq) 10 meq AD PRN PO POTASSIUM PROTOCOL 02/28/25 09:00 03/30/25 08:59 Potassium Chloride (KCl 10% Elixir 20meq/15ml) 10 meq AD PRN PO POTASSIUM PROTOCOL 02/28/25 09:00 03/30/25 08:59 Sodium Bicarbonate (Sodium Bicarbonate) 650 mg TID PO 02/28/25 09:00 03/30/25 08:59 02/28/25 09:11 650 MG Sodium Chloride 500 ml @ 0 mls/hr Q0M IV 02/28/25 01:30 02/28/25 08:58 DC Sodium Chloride 1,000 ml @ 75 mls/hr [id number] IV 02/27/25 14:30 03/29/25 14:29 02/28/25 03:53 75 MLS/HR Sodium Chloride 1,000 ml @ 75 mls/hr [id number] IV 02/27/25 20:00 03/29/25 19:59 02/28/25 09:27 75 MLS/HR Sodium Chloride 1,000 ml @ 1,000 mls/hr Q1H STAT IV 02/27/25 14:25 02/27/25 15:24 DC 02/27/25 15:36 1,000 MLS/HR DIAGNOSTICS / RADIOLOGY: [ ] ASSESSMENT: Hypertensive emergency POA Non ST-elevation GA POA Abnormal EKG with the evidence of possible old anteroseptal wall GA Acute on chronic kidney disease POA Chronic anemia due to CKD POA Possible acute upper gastrointestinal bleed Acute leukocytosis POA Uncontrolled diabetes mellitus type 2 POA Uncontrolled hypertension POA Medical noncompliance POA Severe protein calorie malnutrition POA Cannabinoid hyperemesis syndrome POA Positive marijuana POA PLAN: patient remains admitted to the intensive care unit, BP 156/75, heart rate of 77, afebrile, saturating 94% on room air. Hemoglobin of 12.1, hematocrit 35.2, platelet count of 340, WBC 25.0, sodium 141, potassium 3.2, glucose 164, BUN of 56, creatinine 4.4, magnesium 1.7, albumin 1.5, serology test to include influenza, SARS antigen and group a strep negative, CT chest abdomen and pelvis no evidence of pulmonary nodule or effusion, bilateral renal cysts, diverticulosis, tiny bilateral renal pelvic stones, patient on amlodipine 10 mg p.o. daily, sodium bicarbonate 650 mg p.o. t.i.d., hypokalemia protocol, metoprolol tartrate 25 mg p.o. t.i.d., as well as nicardipine drip. Patient on PPI with Protonix 40 mg IV b.i.d.. Twelve lead EKG demonstrated sinus rhythm, left anterior fascicular block, complex in V1 and V2 consistent with a possible prior anteroseptal GA and J-point elevation continue with the LVH. There was a 1/[address] elevation of AVR of uncertain significance. Cardiac consultation requested due to positive troponin, per cardiac input, cardiac enzymes are declining and blood pressure is under improved control, cleared for upper endoscopy. Increase metoprolol to 25 mg p.o. q.8 hours and continue IV metoprolol as needed, avoid IV heparin, avoid dual antiplatelet therapy, agreed with low-dose aspirin 81 mg p.o. daily pending assessment by GI, add amlodipine 5 mg p.o. daily, follow echocardiogram to assess LVEF, no plan for invasive evaluation given creatinine of 4.4, consider Lexiscan Cardiolite stress test Wednesday a.m.. Due to creatinine of 4.4, obtain records from the office of Dr. Brian Woo, fluid DRAKE inhibitors, continue cautious hydration. We will follow GI input and recommendation. NEURO: Minimize central acting medications as possible. Fall Precautions. Well lighted room through the day and minimize interruptions through the night to prevent acute delirium. PULMONARY: Supplemental 02 as needed BiPAP as necessary, for respiratory distress Titrate Fio2 to keep Spo2 > or = 90% DuoNebs and CPT as needed IS hourly while awake for pulmonary hygiene prn Out of bed to chair as tolerated Maintain aspiration precautions at all times CARDIOVASCULAR: Follow hemodynamics. Vital signs per facility protocol GI & NUTRITION: Continue nutritional support Aspirations precautions Prokinetic agents and laxatives as needed KIDNEYS & ELECTROLYTES: Strict monitoring of intake and output Daily weights Avoid nephrotoxic agents Monitor electrolytes and replace as needed Goal urine output of 30mL/hr or 0.5mL/kg/hr Medications to be dosed according to renal function. Avoid contrast if possible ENDOCRINE: Maintain blood glucose between 100-180 at all times. Insulin sliding scale for blood glucose management Hypoglycemia and hyperglycemia protocol in place INFECTIOUS DISEASE: Trend temperature, WBC and procalcitonin level Follow cultures, deescalate antibiotics as soon as possible. Panculture if new onset fever HEMATOLOGY & COAGULATION: Monitor H&H. Keep Hgb > 7 Transfuse 1 unit of PRBC for Hgb < 7 Transfuse 1 pack of platelets of platelets < 20, 000 Watch for any signs and symptoms of bleeding SKIN: Pressure ulcer prevention per facility protocol Specialty mattress as needed ORTHO/REHAB Continue PT/OT PRN: MEDICATIONS Tylenol 650 mg po every 4 hrs for fever zofran 4 mg IV every 6 hrs for n/v Hydralazine 5 mg IV every 4 hrs systolic pressure > 160 bowel regiment: lactulose 20 gm PO BID PRN constipation Supportive measures: Continue GI and DVT prophylaxis Disposition: Pending improvement in clinical condition All questions answered time spent: > 35 min ANTWAN KNIGHT MD Feb 28, 2025 11:00
--- NOTE | 2025-02-28 11:30 | NUR ---
SENT RELEASE OF MEDICAL RECORDS TO DR. MARTINEZ' ([facility]) OFFICE FOR LABS OF LAST VISIT. FAXED FORM TO [phone].
--- NOTE | 2025-02-28 11:47 | CONS ---
REFERRING PHYSICIAN: Jaime Salvador MD REASON FOR CONSULTATION: Renal failure, uncontrolled hypertension. HISTORY OF PRESENT ILLNESS: A 49-year-old male with a history of diabetes mellitus and hypertension. The patient with a history of known chronic renal insufficiency. The patient presented to the hospital with epigastric pain. The patient is also complaining of hematemesis. The patient was found to have hypertensive urgency with systolic blood pressure is about 200 mmHg. Laboratory values revealed an elevated creatinine. The patient was also noted to have elevated troponin. The patient was started on nicardipine and he is being seen in consultation for all the above. The patient does admit to noncompliance as an outpatient. PAST MEDICAL HISTORY: Diabetes mellitus, hypertension, renal dysfunction, and vascular disease. PAST SURGICAL HISTORY: Foot surgery, I and D of wounds. SOCIAL HISTORY: He lives independently. There is no alcohol or tobacco use. He does have a history of marijuana use. FAMILY HISTORY: There is no renal disease in the family. ALLERGIES: There are no allergies. MEDICATIONS: Noted. REVIEW OF SYSTEMS: GENERAL: He is feeling weak and tired. HEENT: No change in vision. No change in hearing. CARDIOVASCULAR: There is no current chest pain or palpitation. PULMONARY: There is no shortness of breath or orthopnea. GASTROINTESTINAL: As described above. MUSCULOSKELETAL: Complains of weakness. NEUROLOGIC: No history of seizures or focal deficit. PSYCHIATRIC: No history of hallucinations or psychosis. ENDOCRINE: Diabetes mellitus. No history of thyroid disease. HEME: No history of anemia or malignancy. PHYSICAL EXAMINATION: VITAL SIGNS: Blood pressure is 156/75, pulse 70s. He is afebrile. GENERAL: He is a chronically ill, much older than appearing male, lying in bed on the medical floor. HEENT: Head is atraumatic. Pupils are equal, roving to light. Oropharynx is without exudate. Nares clear. NECK: There is no JVP. There is no thyromegaly, no mass. CARDIOVASCULAR: Regular. There is no S3 or S4 gallop. LUNGS: Coarse with equal thoracic movement. ABDOMEN: Soft, nondistended, nontender. EXTREMITIES: There is no edema. NEUROLOGICAL: He is awake. He is alert. He is oriented. SKIN: Reveals no rash or nodules. BACK: There is no CVA tenderness or back deformities. LABORATORY DATA: Sodium 141, potassium 3.2, BUN 56, creatinine is 4.4, albumin is 1.5. Troponin is 1500. Hemoglobin 12, hematocrit 35. Urinalysis reveals protein and blood in the urine. IMPRESSION: * Acute on chronic renal dysfunction. * Hypertensive urgency. * Coronary artery disease. * Diabetes mellitus. PLAN: The patient presents with hypertensive urgency. The patient has been started on a Cardene drip. The patient has been resumed on his antihypertensive medications. The patient's Cardene will be weaned as tolerated. The patient does have hematuria on urinalysis. We will obtain a CPK for completeness. We will send of a spot urine for protein and creatinine as the patient most likely has diabetic nephropathy. We will continue to follow closely. There is no acute need for any form of renal replacement therapy at this time. All labs can be repeated in the morning. TID: [id number] RECEIPT: [id number]
--- NOTE | 2025-02-28 12:20 | HMCIMG ---
CHEST 1VW HISTORY: Leukocytosis COMPARISON: None FINDINGS: A frontal projection of the chest was obtained. No acute pulmonary infiltrates is seen. The heart is borderline enlarged. Degenerative changes are seen. Prominent interstitial markings are seen. No evidence of aortic calcification is seen. IMPRESSION: 1. No acute pulmonary infiltrate is seen.
[2025-02-28 12:23] LABS: HEMATOCRIT 36.7 % (42-54)
--- NOTE | 2025-02-28 12:26 | CONS ---
GASTROENTEROLOGY CONSULTATION NOTE Date of Consultation: Feb 28, 2025 Time of Consultation: 12:26 History of Present Illness: This is a 49-year-old male with past medical history of anemia, hypertension, CKD, diabetes who presented due to nausea, vomiting and diarrhea. He also reported epigastric pain and hematemesis. Patient does report marijuana use however denies alcohol and cocaine use. Upon further evaluation he underwent CT scan which revealed diverticulosis. Hemoglobin on admission was 13.7 and has been trending down to 11.4. Platelet count 340. He had an elevated troponin for which cardiology is following. BUN and creatinine were elevated. Review of Systems: CONSTITUTIONAL: No malaise or change in sensation of wellbeing. ENMT: No rhinorrhea, otorrhea, sinus pain, ear ache. CARDIOVASCULAR: No angina, palpitations, orthopnea or paroxysmal dyspnea. RESPIRATORY: No SOB. GASTROINTESTINAL: No abdominal pain, nausea, vomiting, diarrhea, hematemesis, melena or change in the patient's habitual bowel movements consistency/number. GENITOURINARY: No dysuria, hematuria or change in bladder continence. MUSCULOSKELETAL: No new muscle pain or decrease in muscular strength. No new joint swelling, redness or tenderness. SKIN: No new rash. Past Medical History: PAST MEDICAL HISTORY: [ Diabetes type 2, hypertension, chronic kidney disease stage 3 ] PAST SURGICAL HISTORY: [ History of right a toe amputation and left heel I and D and left buttock I and D] PAST SOCIAL HISTORY: [Patient lives with mother Nesha . Patient admits to smoking marijuana last use was Wednesday two days ago patient denies alcohol cocaine and cigarette use. ] FAMILY HISTORY: [ Noncontributory] Coded Allergies: No Known Allergies (Verified Allergy, Unknown, 09/09/24) Physical Exam: GEN: Awake, alert, oriented in person, time and place, and in no acute distress. HEENT: No sinus tenderness. Tympanic membranes were not examined. No rhinorrhea. Oral pharyngeal mucosa is pink, moist and within normal limits. Neck is supple with no cervical lymphadenopathy, thyromegaly or JVD. CHEST: Inspection, palpation and percussion of the chest were unremarkable. Lung auscultation revealed normal breath sounds bilaterally. CARDIAC: PMI is within normal limits. Heart sounds are regular. Normal S1, S2. No gallop or murmur. ABD: Soft, non-tender and not distended. No peritoneal signs on palpation. No organomegaly. Normal bowel sounds. EXT: No cyanosis or clubbing. No edema. SKIN: Intact. No rashes. JOINTS: No evidence of synovitis or acute arthritis. NEURO: Alert and oriented to name, place and person. Cranial nerve examination is unremarkable. No focal motor deficits. Normal speech. Gait is normal. Strength is normal. Vital Sign (Last 24 Hours) 02/28/25 02/28/25 02/28/25 05:00 06:58 08:00 Temp 98.4 Pulse 77 Resp 7 B/P (MAP) 156/75 (102) Pulse Ox 94 O2 Delivery Room Air* O2 Flow Rate 0 FiO2 21 Intake & Output (last 24hrs) 02/27/25 02/27/25 02/28/25 15:00 23:00 07:00 Intake Total 1132.5 ml Output Total 450 ml Balance 682.5 ml Laboratory: [ ] Laboratory: Test 02/28/25 12:17 02/28/25 06:30 02/28/25 06:19 02/28/25 01:30 Range/Units Hemoglobin 12.3 L 14.0-18.0 g/dL Hematocrit 36.7 L 42-54 % Troponin I High Sensitivity 1402 *H 4-75 ng/L Whole Blood Glucose 179 H 70-110 MG/DL White Blood Count 25.0 H 4.8-10.8 K/uL Red Blood Count 4.03 L 4.50-6.20 MIL/uL Mean Corpuscular Volume 81.1 79-99 fL Mean Corpuscular Hemoglobin 28.3 27.0-33.0 pg Mean Corpuscular Hemoglobin Concent 34.9 32.0-36.0 g/dL Red Cell Distribution Width 13.9 11.0-15.5 % Platelet Count 340 130-400 K/uL Mean Platelet Volume 11.5 H 7.5-10.5 fL Immature Granulocyte % (Auto) 0.5 0-1 % Neutrophils (%) (Auto) 87.0 H 40.0-77.0 % Lymphocytes (%) (Auto) 5.6 L 21.0-51.0 % Monocytes (%) (Auto) 6.7 3.0-13.0 % Eosinophils (%) (Auto) 0.0 0.0-8.0 % Basophils (%) (Auto) 0.2 0.0-5.0 % Neutrophils # (Auto) 21.8 H 1.8-7.7 K/uL Lymphocytes # (Auto) 1.4 1.0-4.8 K/uL Monocytes # (Auto) 1.7 H 0.1-1.0 K/uL Eosinophils # (Auto) 0.01 0.00-0.70 K/uL Basophils # (Auto) 0.04 0.00-0.20 K/uL Absolute Immature Granulocyte (auto 0.12 0-1 K/uL Nucleated Red Blood Cells 0.0 0.0-0.19 % Sodium Level 141 136-145 mmol/L Potassium Level 3.2 L 3.5-5.1 mmol/L Chloride Level 108 101-111 mmol/L Carbon Dioxide Level 26 21-32 mmol/L Blood Urea Nitrogen 56 H 7-18 mg/dL Creatinine 4.4 H 0.5-1.3 mg/dL Glomerular Filtration Rate Calc 16 >90 mL/min Random Glucose 164 H 70-105 mg/dL Hemoglobin A1c 7.5 H 4.0-6.0 % Estimated Average Glucose (eAG) 169 H 70-126 mg/dL Whole Blood Ketones Quantitative 0.1 0.0-0.6 mmol/L Total Calcium 7.7 L 8.5-10.1 mg/dL Magnesium Level 1.70 L 1.80-2.40 mg/dL Iron Level 67 # 65-175 mcg/dL Total Iron Binding Capacity 169 L 250-450 mcg/dL Percent Iron Saturation 39.6 30-44 % Total Bilirubin 0.3 # 0.2-1.0 mg/dL Aspartate Amino Transf (AST/SGOT) 22 10-37 U/L Alanine Aminotransferase (ALT/SGPT) 21 12-78 U/L Alkaline Phosphatase 85 50-136 U/L Total Protein 5.5 #L 6.0-8.3 g/dL Albumin 1.5 #L 3.5-5.0 g/dL Test 02/27/25 23:15 02/27/25 21:01 02/27/25 15:17 02/27/25 14:58 Range/Units Influenza Type A Antigen Negative For Type A NEGATIVE Influenza Type B Antigen Negative For Type B NEGATIVE SARS-CoV-2, RNA, NAAT NEGATIVE SARS CoV-2 NEGATIVE Group A Streptococcus Rapid negative NEGATIVE Urine Color LIGHT-YELLOW YELLOW Urine Appearance CLEAR CLEAR Urine pH 6.5 5.0-8.0 Urine Specific [place] 1.019 1.001-1.031 Urine Protein 600 H NEGATIVE mg/dL Urine Glucose (UA) >=1000 H NEGATIVE mg/dL Urine Ketones 10 H NEGATIVE mg/dL Urine Occult Blood MODERATE H NEGATIVE Urine Nitrate NEGATIVE NEGATIVE Urine Bilirubin NEGATIVE NEGATIVE mg/dL Urine Urobilinogen 0.2 0.2-1.0 mg/dL Urine Leukocyte Esterase NEGATIVE NEGATIVE German/uL Urine RBC 2-5 H 0-1 /HPF Urine WBC 2-5 H 0-1 /HPF Urine Squamous Epithelial Cells RARE 0-2 /HPF Urine Bacteria None None Seen /HPF Urine Opiates Screen NEGATIVE NEGATIVE Urine Barbiturates Screen NEGATIVE NEGATIVE Urine Phencyclidine Screen NEGATIVE NEGATIVE Urine Amphetamines Screen NEGATIVE NEGATIVE Urine Benzodiazepines Screen NEGATIVE NEGATIVE Urine Cocaine Screen NEGATIVE NEGATIVE Urine Marijuana (THC) Screen POSITIVE H NEGATIVE Lactic Acid Level 2.0 0.8-2.5 mmol/L Blood Gas Specimen Type Arterial Arterial Blood pH 7.394 7.350-7.450 Arterial Blood Partial Pressure CO2 34 L 35-48 mmHg Arterial Blood Partial Pressure O2 88.7 83.0-108.0 mmHg Arterial Blood HCO3 20.1 L 21.0-28.0 mmol/L Arterial Blood Oxygen Saturation 96.6 94.0-98.0 % Arterial Blood Base Excess -3.9 L -2.0-3.0 mmol/L Hemoglobin (Blood Gas) 13.7 13.5-17.5 g/dL Sodium (Blood Gas) 140 136-145 MMOL/L Bedside Potassium (Blood Gas) 3.5 3.4-4.5 MMOL/L Bedside Chloride (Blood Gas) 105 98-107 MMOL/L Bedside Glucose (Blood Gas) 272 H 65-95 MG/DL Bedside Ionized Calcium (Blood Gas) 1.16 1.15-1.33 MMOL/L Bedside Lactic Acid (Blood Gas) 1.29 H 0.36-0.75 MMOL/L Blood Gas Temperature 37.0 35.5-37.0 CELSIUS Blood Gas Vent Mode NC ROOM AIR FiO2 21.0 % Blood Gas Specimen Comment MENA COELHO Test 02/27/25 14:43 Range/Units White Cell Morphology Comment See comments Direct Bilirubin 0.1 0.0-0.3 mg/dL Lipase 59 16-77 U/L Serum Alcohol < 3 0-10 mg/dL Current Medications Medications (Trade) Dose Ordered Sig/Jyoti Route PRN Reason Start Time Stop Time Status Last Admin Dose Admin Amlodipine Besylate (NorvASC 5MG TAB) 5 mg DAILY PO 02/28/25 09:00 02/28/25 09:02 DC Amlodipine Besylate (NorvASC 5MG TAB) 10 mg DAILY PO 03/01/25 09:00 03/31/25 08:59 Aspirin (Aspirin 81mg Chew Tab) 324 mg ONCE STAT PO 02/27/25 15:34 02/27/25 15:41 DC 02/27/25 16:02 324 MG Dextrose (D50w) 50 ml AD PRN IV HYPOGLYCEMIA PROTOCOL 02/27/25 20:00 03/29/25 19:59 Famotidine (Pepcid 20mg Vial) 20 mg DAILY IV 02/28/25 09:00 02/27/25 23:45 DC Glucagon (Glucagon 1mg Kit) 1 mg AD PRN IM HYPOGLYCEMIA PROTOCOL 02/27/25 20:00 03/29/25 19:59 Hydralazine HCl (APRESOLine 20MG INJ) 10 mg ONCE STAT IV 02/27/25 15:06 02/27/25 15:08 DC 02/27/25 15:14 10 MG Insulin Human Regular (humuLIN R 100 UNIT/ML 3ML) INSULIN SLIDING SCAL... ACHS SQ 02/27/25 21:00 03/29/25 20:59 02/28/25 06:28 2 UNIT Levofloxacin/ Dextrose 100 ml @ 100 mls/hr Q24H IV 02/28/25 06:30 02/28/25 06:46 DC Magnesium Sulfate 50 ml @ 0 mls/hr PROTOCOL PRN IV MAGNESIUM PROTOCOL 02/28/25 06:00 03/30/25 05:59 02/28/25 06:15 25 MLS/HR Metoprolol Tartrate (loprESSOR) 5 mg Q4H PRN IV ADMINISTER FOR SBP > 150 02/28/25 00:00 03/30/25 00:00 Metoprolol Tartrate (loprESSOR) 12.5 mg TID PO 02/28/25 00:00 02/28/25 08:58 DC 02/28/25 00:17 12.5 MG Metoprolol Tartrate (loprESSOR) 25 mg TID PO 02/28/25 09:00 03/30/25 08:59 02/28/25 09:02 25 MG Morphine Sulfate (morPHINE 4MG SYG) 4 mg ONCE STAT IVP 02/27/25 15:41 02/27/25 15:42 DC 02/27/25 16:01 4 MG Nicardipine HCl 25 mg/Sodium Chloride 250 ml @ 0 mls/hr PROTOCOL IV 02/28/25 00:00 03/30/25 00:00 02/28/25 03:36 75 MLS/HR Nicardipine HCl 50 mg/Sodium Chloride 250 ml @ 0 mls/hr PROTOCOL STAT IV 02/27/25 15:34 02/27/25 15:42 DC Nicardipine HCl 50 mg/Sodium Chloride 250 ml @ 0 mls/hr PROTOCOL STAT IV 02/27/25 15:45 02/27/25 15:46 DC 02/27/25 16:32 5 MLS/HR Nitroglycerin (Nitroglycerin 1gm Oint) 1 inch Q8H TD 02/28/25 03:30 03/30/25 03:29 02/28/25 03:53 1 INCH Nitroglycerin (Nitrostat) 0.4 mg AD PRN SL CHEST PAIN 02/27/25 16:00 03/29/25 15:59 Ondansetron HCl (zoFRAN 4MG INJ) 4 mg Q6H PRN IV NAUSEA/VOMITING 02/27/25 20:00 03/29/25 19:59 02/27/25 22:25 4 MG Pantoprazole Sodium (PROTonix 40MG INJ) 40 mg BID IVP 02/28/25 00:00 03/30/25 00:00 02/28/25 09:01 40 MG Potassium Chloride 100 ml @ 100 mls/hr AD PRN IV POTASSIUM PROTOCOL 02/28/25 09:00 02/28/25 09:06 DC Potassium Chloride 100 ml @ 100 mls/hr AD PRN IV POTASSIUM PROTOCOL 02/28/25 09:00 03/30/25 08:59 Potassium Chloride (K-Dur/Klor-Con 20meq) 10 meq AD PRN PO POTASSIUM PROTOCOL 02/28/25 09:00 03/30/25 08:59 Potassium Chloride (KCl 10% Elixir 20meq/15ml) 10 meq AD PRN PO POTASSIUM PROTOCOL 02/28/25 09:00 03/30/25 08:59 Sodium Bicarbonate (Sodium Bicarbonate) 650 mg TID PO 02/28/25 09:00 03/30/25 08:59 02/28/25 09:11 650 MG Sodium Chloride 500 ml @ 0 mls/hr Q0M IV 02/28/25 01:30 02/28/25 08:58 DC Sodium Chloride 1,000 ml @ 75 mls/hr [id number] IV 02/27/25 14:30 03/29/25 14:29 02/28/25 03:53 75 MLS/HR Sodium Chloride 1,000 ml @ 75 mls/hr [id number] IV 02/27/25 20:00 03/29/25 19:59 02/28/25 09:27 75 MLS/HR Sodium Chloride 1,000 ml @ 1,000 mls/hr Q1H STAT IV 02/27/25 14:25 02/27/25 15:24 DC 02/27/25 15:36 1,000 MLS/HR Diagnostics / Radiology: [COPY/PASTE HERE IF NO REPORTS PLEASE DELETE SECTION] Assessment: Hematemesis Epigastric pain CKD DM Plan: 1. NPO 2. EGD in AM. I have discussed the risks, benefits, alternatives, and potential complications. Questions were answered and they agree to proceed. 3. GI prophylaxis 4. Protonix PO BID 5. Recommend checking Hg every 6 hours and transfuse to goal Hg >7. Please do not overtransfuse 6. Please contact our service if the patient has significant bleeding such as hematemesis and we can proceed sooner with the EGD Thanks you for allowing us to participate in the care of this patient! [facility] Feb 28, 2025 12:26
--- NOTE | 2025-02-28 13:42 | NUR ---
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 Pt considers himself homeless, he has family in [place] - mother Nesha Lora [phone] .Pt does not like mother's and will not stay there permanently. Pt states he stays "here and there" with family or friends. Pt was at mother's home when he became ill and states he will return there for a few days at [place]. Pt is waiting for SSD determination. Pt is independent of ADLS, uses a walking stick, no in home care services. No PCP and uses [facility] for rx. MPOA completed, copy placed on shelton and original given to pt. DCP home with mother Addendum: 02/28/25 at 1343 by TALIA CASH Amended: Links added.
[2025-02-28] MEDS: ASPIRIN 81 MG EC TAB PO SCH (13:46)
[2025-02-28] MEDS: ISOSORBIDE MONO 30MG SR TAB PO SCH (13:54)
[2025-02-28] MEDS: hydrALAZine 25MG TABLET PO SCH ×2 (13:55→16:48)
--- NOTE | 2025-02-28 14:41 | NUR ---
Nutritional Note: Chart, meds, and labs Reviewed. Recommend: -when medically feasible advance diet to 75gm cc Renal non HD diet as tolerated. -Nephrovite MVI combination of B vitamins may be used to treat or prevent vitamin deficiency due to poor diet.- Electrolyte replacements per protocol -Monitor feeding tolerance, %, wt, and labs -Document PO intake and wt daily. -If No BM >3days consider bowel stimulant. -Schedule outpatient RD f/u for long-term nutrition care. - Notify RD if additional nutrition concerns arise. SEE RD Nutritional Assessment for additional assessment information. Addendum: 02/28/25 at [address] Amended: Links added.
--- NOTE | 2025-02-28 15:05 | NUR ---
[facility] ICU Skin Assessment: Patient assessed by wound healing team. Patient with no wounds or skin breakdown noted. Assessment and recommendations provided to primary nurse. Education provided. Addendum: 03/01/25 at 1338 by CAMILO BUNDY RN RN/ Amended: Links added.
--- NOTE | 2025-02-28 15:23 | HMCIMG ---
US RENAL ARTERY DOPPLER HISTORY: Renal artery stenosis COMPARISON: None TECHNIQUE: Renal and renal arterial Doppler ultrasound study was performed. FINDINGS: The right kidney measures 14 x 6.6 x 6.2 cm. The left kidney measures 12.7 x 5.9 x 4.4 cm. There are bilateral simple renal cyst with largest on the right measuring 2.4 x 2.5 x 2.4 cm and on the left measuring 3.8 x 2.9 x 3.2 cm. No evidence of hydronephrosis is seen of either kidney. Both kidneys are seen. Normal arterial waveforms are noted renal arteries bilaterally. Peak systolic velocity of right internal artery is 128 cm/s, left renal artery is 114 cm/s in the abdominal aorta is adjacent second. Right renal artery aortic ratio is 1.2. Left renal artery aortic ratio is 1.1. IMPRESSION: 1. No hydronephrosis is seen. 2. Normal bilateral renal artery Doppler ultrasound study.
[2025-02-28 15:40] LABS: CREATININE,URINE RANDOM 76.3 mg/dL (30-135)
--- NOTE | 2025-02-28 15:49 | NUR ---
Spoke with Ted Dunn NP regarding patient downgrade. Updated FUSING LINE INSPECTOR on patient status. FUSING LINE INSPECTOR ordered changes to medications and stated we can downgrade at 2100 if systolic is <160. Addendum: 02/28/25 at 1553 by DUONG GRAMAJO RN RN May downgrade as long as systolic stays below 170.
[2025-02-28] MEDS: PoTASSium chloRIDE 10MEQ SR 10 MEQ/TAB TAB.SR.24H PO PRN (17:06)
[2025-02-28] MEDS: metoPROLOL tartRATE 1 MG/ML 5ML VIAL IV PRN (18:40)
[2025-02-28 19:13] LABS: HEMATOCRIT 34.2 % (42-54)
[2025-03-01] VITALS (87 sets, daily range): BP systolic 124–188; BP diastolic 53–114; PULSE 60–85; RESP 5–45; TEMP 97.9–98.5; O2SAT 94–97
[2025-03-01 04:26] LABS: BASOPHILS # (AUTO) 0.04 K/uL (0.00-0.20); BASOPHILS % (AUTO) 0.3 % (0.0-5.0); EOSINOPHILS # (AUTO) 0.08 K/uL (0.00-0.70); EOSINOPHILS % (AUTO) 0.5 % (0.0-8.0); HEMATOCRIT 36.6 % (42-54); IMMATURE GRANULOCYTE ABSOLUTE 0.07 K/uL (0-1); LYMPHOCYTES # (AUTO) 1.8 K/uL (1.0-4.8); LYMPHOCYTES % (AUTO) 11.8 % (21.0-51.0); MEAN CORPUSCULAR HEMOGLOBIN 27.9 pg (27.0-33.0); MEAN CORPUSCULAR HGB CONC 33.3 g/dL (32.0-36.0); MEAN CORPUSCULAR VOLUME 83.6 fL (79-99); MONOCYTES # (AUTO) 0.9 K/uL (0.1-1.0); MONOCYTES % (AUTO) 5.9 % (3.0-13.0); NEUTROPHILS # (AUTO) 12.6 K/uL (1.8-7.7); PLATELET COUNT (AUTO) 364 K/uL (130-400); RED BLOOD CELL COUNT(AUTO) 4.38 MIL/uL (4.50-6.20); RED CELL DISTRIBUTION WIDTH 13.5 % (11.0-15.5); WHITE BLOOD COUNT (AUTO) 15.5 K/uL (4.8-10.8)
[2025-03-01 04:54] LABS: B-TYPE NATRIURETIC PEPTIDE 475 pg/mL (0-100)
[2025-03-01 04:57] LABS: ALBUMIN 1.7 g/dL (3.5-5.0); BILIRUBIN,TOTAL 0.4 mg/dL (0.2-1.0); CREATININE 4.2 mg/dL (0.5-1.3); PHOSPHORUS 5.1 mg/dL (2.5-4.9); POTASSIUM 3.3 mmol/L (3.5-5.1); TOTAL PROTEIN, SERUM 5.8 g/dL (6.0-8.3)
[2025-03-01] MEDS: PoTASSium chloRIDE 10MEQ/100ML 100 ML IV PRN (05:34)
--- NOTE | 2025-03-01 08:14 | NUR ---
PATIENT TAKEN TO GI LAB VIA STRETCHER BY BURR FILER.
--- NOTE | 2025-03-01 08:54 | NUR ---
Dr. Woo (nephrology) rounded on patient. MD updated on patient status. No new orders given.
--- NOTE | 2025-03-01 08:56 | NUR ---
Dr. Woo (cardiology) rounded on patient. MD updated on patient status. MD spoke with critical care regarding patient hypertensive medication and will make changes. No other orders given.
--- NOTE | 2025-03-01 08:59 | PN ---
[facility] PROGRESS NOTE Date Patient Seen: Mar 01, 2025 Time of Visit: 08:59 Supervising Physician: [KEON LARSEN MD ] Primary Care Physician: Attending group: [facility] hospitalist team Outpatient Specialists: Inpatient Consults: Critical Care team Cardiology PROBLEM LIST: Hypertensive emergency, POA, RESOLVING NSTEMI, POA, on medical management Metabolic acidosis, POA, anion gap 14.9 on arrival, NOW RESOLVED Cannabinoid hyperemesis syndrome POA Acute dehydration/ketonuria/ ketonemia 2/2 N/V/D Acute kidney injury, GFR 16 Hematemesis, POA Acute on chronic kidney disease, POA, (GFR 26 on 09/16/2024) Chronic anemia due to CKD, POA Upper GI bleeding by history (suspected hematemesis), possible Gila-Mayo tear, possibly secondary to gastritis or peptic ulcer disease, POA s/p EGD findingd of LAD esophagitis POA Acute leukocytosis, POA Uncontrolled diabetes, POA Uncontrolled hypertension, POA Medical noncompliance, POA Albuminemia/ malnutrition, POA Positive marijuana POA INTERVAL HISTORY: Mr. Pham is a 49-year-old male with history of anemia, hypertension, chronic kidney disease non hemodialysis, diabetes who presented to [facility] ED evaluation of nausea, bloody emesis, diarrhea, and epigastric pain onset three days ago. Patient reported he is using marijuana and denies alcohol, cigarette and cocaine use. Patient also reports he is not good in taking his medications and checking his BP and blood sugar at home. Patient also reports he has not seen a PCP. Vital signs upon ER arrival temperature 98.2, heart rate 89, blood pressure 231/118 saturation 98% on room air. 02/28/25- DAY #2 IN ICU. Cardene gtt continues at a low dose. 2.5mg/hr. We will continue to wean. Per RN no major overnight events. Patient denies any chest pain palpitations or shortness for breath. Per Cardiology recommendations medical management unable to anticoagulate with heparin due to upper GI bleeding with hematemesis. Cardiology wants to void antiplatelet for now low-dose aspirin to continue pending assessment of GI. For now patient continues on low-dose aspirin. We have changed amlodipine to isosorbide mononitrate 30 mg p.o. daily plus hydralazine 25 mg q.i.d. for now. Latest blood pressure 119/78 with a map of 92 heart rate in the 70s respiratory rate of 13 unlabored saturating 95% on room air and afebrile. White count is 25 H&H is 11.9/34.2 platelet count of 340 K neutrophils 87 trending down. Blood cultures negative for growth. Renal artery doppler US -Normal bilateral renal artery Doppler ultrasound study.. CT Chest abdomen and pelvis with bilateral renal cysts, diverticulosis, tiny bilateral renal pelvic stones. We will await further cardiology recs and GI eval and recommendations. 03/01/25- DAY 3 IN ICU. Patient was restarted on Cardene drip this morning at 5 milligrams/hour. Per sales agent financial report service stop hydralazine due to pt with Hx of noncompliance and would benefit from a once a day amlodipine 10 mg, instead of hydralazine. Metoprolol XL 100 mg p.o. daily also has been added. We will follow cardiology recs for antihypertensive medications. Otherwise pt with no major complains other than feeling "very tired". Plans for lexiscan per cardiology. He is pending a 2D echo today to assess EF. Creatinine is 4.2. H&H stable 12.2/36.6. otherwise unremarkable. will keep in ICU due to cardene gtt. REVIEW OF SYSTEMS: General: No malaise or fever. Neurological: No fainting episodes or seizures. HEENT: No nasal congestion or nasal secretion. Respiratory: No cough, shortness of breath, or wheezing Cardiac:+ fatigue Gastrointestinal: No vomiting or diarrhea. Genitourinary: No dysuria hematuria. Skin: No rashes or lesions. Hematological: No bruises or bleeding. Musculoskeletal: No joint pains or arthralgias. Psychiatric: No depression or panic attacks. PHYSICAL EXAM: GENERAL: Alert, weak, awake oriented x 3 HEENT: EOMI, Sclera non icteric, moist mucosa NECK: Supple, no JVD, trachea midline LUNGS: Clear breath sounds bilaterally. No wheezes HEART: Regular rate and rhythm. Normal S1 and S2, without murmurs ABD: Abdomen soft, nontender. Bowel sounds present EXT: No clubbing cyanosis or edema NEURO: Alert and oriented X3, follows commands Vital Signs (last 8hr) Date Time Temp Pulse Resp B/P (MAP) Pulse Ox O2 Delivery O2 Flow Rate FiO2 03/01/25 06:33 171/89 03/01/25 06:14 80 9 166/90 (115) 95 03/01/25 05:58 79 13 171/89 (116) 96 03/01/25 05:43 83 172/88 (116) 97 03/01/25 05:13 73 166/78 (107) 97 03/01/25 04:58 72 10 160/76 (104) 93 03/01/25 04:43 70 6 159/65 (96) 97 03/01/25 04:28 71 9 154/74 (100) 96 03/01/25 04:13 97.9 73 6 170/73 (105) 97 03/01/25 04:06 96 Room Air* 0 21 03/01/25 03:43 76 5 179/89 (119) 97 03/01/25 03:13 73 11 158/80 (106) 94 03/01/25 02:58 69 17 151/68 (95) 94 03/01/25 02:43 71 10 156/63 (94) 84 03/01/25 02:28 73 5 160/66 (97) 96 03/01/25 02:13 78 11 171/78 (109) 93 03/01/25 01:43 69 5 143/77 (99) 95 03/01/25 01:28 62 7 124/53 (76) 95 03/01/25 01:13 61 7 135/54 (81) 94 LABS: Hematology Labs: Test 03/01/25 04:08 02/27/25 14:43 Range/Units White Blood Count 15.5 H 4.8-10.8 K/uL Red Blood Count 4.38 L 4.50-6.20 MIL/uL Hemoglobin 12.2 L 14.0-18.0 g/dL Hematocrit 36.6 L 42-54 % Mean Corpuscular Volume 83.6 79-99 fL Mean Corpuscular Hemoglobin 27.9 27.0-33.0 pg Mean Corpuscular Hemoglobin Concent 33.3 32.0-36.0 g/dL Red Cell Distribution Width 13.5 11.0-15.5 % Platelet Count 364 130-400 K/uL Mean Platelet Volume 11.4 H 7.5-10.5 fL Immature Granulocyte % (Auto) 0.5 0-1 % Neutrophils (%) (Auto) 81.0 H 40.0-77.0 % Lymphocytes (%) (Auto) 11.8 L 21.0-51.0 % Monocytes (%) (Auto) 5.9 3.0-13.0 % Eosinophils (%) (Auto) 0.5 0.0-8.0 % Basophils (%) (Auto) 0.3 0.0-5.0 % Neutrophils # (Auto) 12.6 H 1.8-7.7 K/uL Lymphocytes # (Auto) 1.8 1.0-4.8 K/uL Monocytes # (Auto) 0.9 0.1-1.0 K/uL Eosinophils # (Auto) 0.08 0.00-0.70 K/uL Basophils # (Auto) 0.04 0.00-0.20 K/uL Absolute Immature Granulocyte (auto 0.07 0-1 K/uL Nucleated Red Blood Cells 0.0 0.0-0.19 % White Cell Morphology Comment See comments Chemistry Labs: Test 03/01/25 06:36 03/01/25 04:08 02/28/25 01:30 02/27/25 14:43 Range/Units Whole Blood Glucose 155 H 70-110 MG/DL Sodium Level 142 136-145 mmol/L Potassium Level 3.3 L 3.5-5.1 mmol/L Chloride Level 107 101-111 mmol/L Carbon Dioxide Level 24 21-32 mmol/L Blood Urea Nitrogen 51 H 7-18 mg/dL Creatinine 4.2 H 0.5-1.3 mg/dL Glomerular Filtration Rate Calc 16 >90 mL/min Random Glucose 171 H 70-105 mg/dL Lactic Acid Level 1.2 0.8-2.5 mmol/L Total Calcium 7.9 L 8.5-10.1 mg/dL Phosphorus Level 5.1 H 2.5-4.9 mg/dL Total Bilirubin 0.4 0.2-1.0 mg/dL Aspartate Amino Transf (AST/SGOT) 21 10-37 U/L Alanine Aminotransferase (ALT/SGPT) 22 12-78 U/L Alkaline Phosphatase 88 50-136 U/L Total Creatine Kinase 266 #H 21-232 U/L Troponin I High Sensitivity 1259.6 *H 4-75 ng/L B-Type Natriuretic Peptide 475 H 0-100 pg/mL Total Protein 5.8 L 6.0-8.3 g/dL Albumin 1.7 L 3.5-5.0 g/dL Procalcitonin < 0.05 L 0.05-0.5 ng/mL Hemoglobin A1c 7.5 H 4.0-6.0 % Estimated Average Glucose (eAG) 169 H 70-126 mg/dL Whole Blood Ketones Quantitative 0.1 0.0-0.6 mmol/L Magnesium Level 1.70 L 1.80-2.40 mg/dL Iron Level 67 # 65-175 mcg/dL Total Iron Binding Capacity 169 L 250-450 mcg/dL Percent Iron Saturation 39.6 30-44 % Direct Bilirubin 0.1 0.0-0.3 mg/dL Lipase 59 16-77 U/L DIAGNOSTICS / RADIOLOGY RESULTS: [[facility] [address] [place] [address] IMAGING REPORT Signed PATIENT: MOY PHAM MR#: [id number] : 1975 SEX: M AGE: 49 LOCATION: 2BH ORDER 1304 STATUS: ADM IN REPORT#: [id number] SERVICE 1302 REASON: R/O renal artery stenosis ORDERING PHYSICIAN: PAOLO SANCHEZ PROCEDURE: LEO ART DO - US RENAL ARTERY DOPPLER US RENAL ARTERY DOPPLER HISTORY: Renal artery stenosis COMPARISON: None TECHNIQUE: Renal and renal arterial Doppler ultrasound study was performed. FINDINGS: The right kidney measures 14 x 6.6 x 6.2 cm. The left kidney measures 12.7 x 5.9 x 4.4 cm. There are bilateral simple renal cyst with largest on the right measuring 2.4 x 2.5 x 2.4 cm and on the left measuring 3.8 x 2.9 x 3.2 cm. No evidence of hydronephrosis is seen of either kidney. Both kidneys are seen. Normal arterial waveforms are noted renal arteries bilaterally. Peak systolic velocity of right internal artery is 128 cm/s, left renal artery is 114 cm/s in the abdominal aorta is adjacent second. Right renal artery aortic ratio is 1.2. Left renal artery aortic ratio is 1.1. IMPRESSION: 1. No hydronephrosis is seen. 2. Normal bilateral renal artery Doppler ultrasound study. DICTATED BY: MARIA R LEHMAN MD DATE: 02/28/25 1517 ELECTRONICALLY SIGNED BY: MARIA R LEHMAN MD DATE: 02/28/25 1523 ] PLAN continue baby aspirin daily wean Cardene as possible Antihypertensives per Cardiology 2D echo pending reading follow GI recs post EGD with findings of LAD esophagitis, continue protonix po bid cleared from GI for DAPT follow cardiology recs follow nephrology recs DUE to CKD avoid DRAKE/ARBs NEURO: Minimize central acting medications as possible. Fall Precautions. Well lighted room through the day and minimize interruptions through the night to prevent acute delirium. PULMONARY: Supplemental 02 as needed Titrate Fio2 to keep Spo2 > or = 90% DuoNebs and CPT as needed IS hourly while awake for pulmonary hygiene Out of bed to chair as tolerated VAP Bundle CARDIOVASCULAR: Follow hemodynamics. Titrate vasopressor to keep MAP >65 or systolic blood pressure >95mmHg GI & NUTRITION: Continue nutritional support Aspirations precautions Prokinetic agents and laxatives as needed KIDNEYS & ELECTROLYTES: Strict monitoring of intake and output Daily weights Avoid nephrotoxic agents Monitor electrolytes and replace as needed Goal urine output of 30mL/hr or 0.5mL/kg/hr ENDOCRINE: Maintain blood glucose between 100-180 at all times. Insulin sliding scale for blood glucose management INFECTIOUS DISEASE: Trend temperature. Pruitt-culture if febrile. HEMATOLOGY & COAGULATION: Monitor H&H. Keep Hgb > 7 Transfuse 1 unit of PRBC for Hgb < 7 Transfuse 1 pack of platelets of platelets < 20, 000 Watch for any signs and symptoms of bleeding SKIN: Pressure ulcer prevention per facility protocol Rehab: PT/OT Code Status: Full Resuscitation Disposition: TBD Critical care time This patient required multiple bedside visits to manage the patient, review blood gases, coordinate with respiratory, nurses, review radiology exams, talk to the family members and discuss advanced directives. I personally spent [45] minutes of critical care time in treatment of this patient. This includes patient management, time at bedside, time reviewing tests, labs, appropriate images and studies, documentation, and patient care coordination. This time excludes separately billable procedures. ATTESTATION BY PHYSICIAN I attest that I reviewed and discussed the case with the Physician Wet Process Operator as well as agree with the Physician Wet Process Operator's findings, plans of care, and documentation above. Keon Scruggs MD, [facility] Mar 01, 2025 08:59
[2025-03-01] MEDS ORDERED: amLODIPine 5 MG TAB PO SCH (09:00)
[2025-03-01] MEDS ORDERED: proPOFol 10 MG/ML 20ML VIAL IV ONE (09:02)
[2025-03-01] MEDS ORDERED: LIDOCAINE PF 100MG/5ML (2%) SYRINGE 5ML ONE (09:02)
--- NOTE | 2025-03-01 09:11 | PN ---
[facility]IOLOG[facility] PROGRESS NOTE Date Patient Seen: Mar 01, 2025 Time of Visit: 09:05 Interval History: This 49-year-old Latin-E[place]ian male with a history of essential hypertension, type 2 diabetes with renal manifestations, chronic marijuana use, and history of gastritis presented with three days of recurrent nausea, vomiting, bloody emesis, and epigastric pain followed by onset of chest pressure associated with right facial numbness, right hand flapping movement, and right eye pressure on the date of admission. On arrival he had severe uncontrolled hypertension (231/118 mm Hg), no acute EKG changes, and serial troponins of 1512 >>> 980 >>> 1748 >>> 1402. Admission labs were also remarkable for a BUN of 51, creatinine 4.4, potassium 4.0, hemoglobin 13.7, hematocrit 40.1, white count 20.6 with 90.7% neutrophils, and platelet count of 383,000. Arterial blood gas demonstrated a pH of 7.39, pCO2 of 34, PO2 of 88.7 with a base excess of -3.9. He was initiated on IV Protonix, IV Cardene, metoprolol, and normal saline hydration. He is currently undergoing upper endoscopy by our GI colleagues. A 2D echo is pending this morning. We would like to use once daily medications given history of noncompliance. Plans are for a Lexiscan Cardiolite stress test tomorrow to screen for residual reversible ischemia. Physical Examination: Not examined 03/01/2025 (in endoscopy suite) Previously: GENERAL: No acute distress. HEAD: Normal with no signs of head trauma. EYES: PERRLA, EOMI, conjunctiva and sclera normal. NECK: Supple without JVD. There is no tenderness, lymphadenopathy, or masses. No thyromegaly. Normal carotid upstrokes without bruits. LUNGS: Clear breath sounds bilaterally. No wheezes, or rhonchi. HEART: Normal rate and rhythm. Normal S1 and S2 without murmurs, gallop or rub. VASC: Peripheral pulses +2 bilaterally. EXT: No clubbing, cyanosis or edema. NEURO: Awake, alert, and oriented x3. No focal neurological deficits noted. Laboratory: Hematology Labs: Test 03/01/25 04:08 02/27/25 14:43 Range/Units White Blood Count 15.5 H 4.8-10.8 K/uL Red Blood Count 4.38 L 4.50-6.20 MIL/uL Hemoglobin 12.2 L 14.0-18.0 g/dL Hematocrit 36.6 L 42-54 % Mean Corpuscular Volume 83.6 79-99 fL Mean Corpuscular Hemoglobin 27.9 27.0-33.0 pg Mean Corpuscular Hemoglobin Concent 33.3 32.0-36.0 g/dL Red Cell Distribution Width 13.5 11.0-15.5 % Platelet Count 364 130-400 K/uL Mean Platelet Volume 11.4 H 7.5-10.5 fL Immature Granulocyte % (Auto) 0.5 0-1 % Neutrophils (%) (Auto) 81.0 H 40.0-77.0 % Lymphocytes (%) (Auto) 11.8 L 21.0-51.0 % Monocytes (%) (Auto) 5.9 3.0-13.0 % Eosinophils (%) (Auto) 0.5 0.0-8.0 % Basophils (%) (Auto) 0.3 0.0-5.0 % Neutrophils # (Auto) 12.6 H 1.8-7.7 K/uL Lymphocytes # (Auto) 1.8 1.0-4.8 K/uL Monocytes # (Auto) 0.9 0.1-1.0 K/uL Eosinophils # (Auto) 0.08 0.00-0.70 K/uL Basophils # (Auto) 0.04 0.00-0.20 K/uL Absolute Immature Granulocyte (auto 0.07 0-1 K/uL Nucleated Red Blood Cells 0.0 0.0-0.19 % White Cell Morphology Comment See comments Chemistry Labs: Test 03/01/25 06:36 03/01/25 04:08 02/28/25 01:30 02/27/25 14:43 Range/Units Whole Blood Glucose 155 H 70-110 MG/DL Sodium Level 142 136-145 mmol/L Potassium Level 3.3 L 3.5-5.1 mmol/L Chloride Level 107 101-111 mmol/L Carbon Dioxide Level 24 21-32 mmol/L Blood Urea Nitrogen 51 H 7-18 mg/dL Creatinine 4.2 H 0.5-1.3 mg/dL Glomerular Filtration Rate Calc 16 >90 mL/min Random Glucose 171 H 70-105 mg/dL Lactic Acid Level 1.2 0.8-2.5 mmol/L Total Calcium 7.9 L 8.5-10.1 mg/dL Phosphorus Level 5.1 H 2.5-4.9 mg/dL Total Bilirubin 0.4 0.2-1.0 mg/dL Aspartate Amino Transf (AST/SGOT) 21 10-37 U/L Alanine Aminotransferase (ALT/SGPT) 22 12-78 U/L Alkaline Phosphatase 88 50-136 U/L Total Creatine Kinase 266 #H 21-232 U/L Troponin I High Sensitivity 1259.6 *H 4-75 ng/L B-Type Natriuretic Peptide 475 H 0-100 pg/mL Total Protein 5.8 L 6.0-8.3 g/dL Albumin 1.7 L 3.5-5.0 g/dL Procalcitonin < 0.05 L 0.05-0.5 ng/mL Hemoglobin A1c 7.5 H 4.0-6.0 % Estimated Average Glucose (eAG) 169 H 70-126 mg/dL Whole Blood Ketones Quantitative 0.1 0.0-0.6 mmol/L Magnesium Level 1.70 L 1.80-2.40 mg/dL Iron Level 67 # 65-175 mcg/dL Total Iron Binding Capacity 169 L 250-450 mcg/dL Percent Iron Saturation 39.6 30-44 % Direct Bilirubin 0.1 0.0-0.3 mg/dL Lipase 59 16-77 U/L Diagnostics / Radiology: 2D echo 03/01/2025: Pending Impression and Plan: Acute gastroenteritis: Upper GI bleeding by history (suspected hematemesis), possible Gila-Mayo tear, possibly secondary to gastritis or peptic ulcer disease: Hemoglobin dropped from 13.7 on admission to 12.2 03/01/2025: -upper endoscopy in progress this morning -medical therapy with IV Protonix 40 q.12 hours, Zofran p.r.n. Non ST-elevation [place] with serial troponins of 1512 >>> 980 >>> 1748 >>> 1402: Abnormal EKG with evidence of possible old anteroseptal wall [place]: Hypertensive emergency with admission blood pressure of 231/118 mm of mercury: -transition metoprolol to metoprolol succinate ER 100 mg daily -avoid dual antiplatelet therapy for now, agree with low-dose aspirin 81 mg daily pending assessment of GI bleeding. If no evidence of GI bleeding advance to dual antiplatelet therapy. -continue amlodipine 10 mg p.o. daily -proceed with routine 2D echo this a.m. -no plans for invasive evaluation given creatinine of 4.4 (EGFR of 16) -Lexiscan Cardiolite stress test scheduled for 03/02/2025 Acute on chronic renal insufficiency with admission BUN of 51 and creatinine of 4.4 >>> 51 and 4.2 on 02/28/2025 with uncertain baseline: -obtain records from the office of Dr. Ryan Martinez, who has seen the patient in his office -avoid DRAKE inhibitor -continue cautious hydration Comorbidities: Type 2 diabetes mellitus previously on insulin, noncompliant Noncompliance Essential hypertension Chronic marijuana use SOLA MARTINEZ MD Mar 01, 2025 09:11
--- NOTE | 2025-03-01 09:19 | PN ---
SUBJECTIVE: A 49-year-old male initially presented with hypertensive urgency. The patient has had acute on chronic renal failure in the hospital. The patient also with upper GI bleed. The patient is scheduled for EGD later today. He remains on the nicardipine drip. I did discuss the case in detail with Cardiology and the patient is being seen as a followup visit for all of the above. REVIEW OF SYSTEMS: CONSTITUTIONAL: He is feeling somewhat improved. HEENT: No change in vision. No change in hearing. CARDIOVASCULAR: There is no current chest pain or palpitation. PULMONARY: Denies any shortness of breath. GASTROINTESTINAL: As described above. MUSCULOSKELETAL: Complains of weakness. PHYSICAL EXAMINATION: VITAL SIGNS: Blood pressure is 171/89, pulse 80s, afebrile. GENERAL: Chronically ill male, lying in bed on the medical floor. HEENT: Head is atraumatic. Pupils are equal, roving to light. Oropharynx is without exudate. Nares clear. NECK: There is no JVP. There is no thyromegaly, no mass. CARDIOVASCULAR: Regular. There is no S3 or S4 gallop. LUNGS: Coarse with equal thoracic movement. ABDOMEN: Abdomen is soft, nondistended, and nontender. EXTREMITIES: There is no clubbing, no cyanosis. NEUROLOGICAL: He is awake. He is alert. He is at his baseline. LABORATORY DATA: Hemoglobin 12, hematocrit 36, white blood cell count is 15,000. BUN 51, creatinine is 4, potassium is 3.3. Troponin is 1200. IMPRESSION: * Acute on chronic renal failure. * Hypertensive urgency. * GI bleeding. * Coronary artery disease. PLAN: The patient's creatinine has remained fairly stable overnight. The patient's blood pressure medications continue to be adjusted. The patient is scheduled for EGD later today. I did discuss the case in detail with Cardiology. The patient would be extremely high risk for any contrast load. We will continue to follow closely. All labs can be repeated in the morning. TID: [id number] RECEIPT: [id number]
--- NOTE | 2025-03-01 09:22 | NUR ---
Patient returned from GI procedure.
[2025-03-01] MEDS: amLODIPine 5 MG TAB PO SCH (10:10)
[2025-03-01] MEDS: metOPROLol sucCINATE 50 MG TAB.SR.24H PO SCH (10:10)
--- NOTE | 2025-03-01 10:51 | PN ---
[facility] PROGRESS NOTE Date of Service: Mar 01, 2025 Time of Service: 10:48 SUBJECTIVE: This is a 49-year-old male with history of anemia, hypertension, chronic kidney disease non hemodialysis, diabetes who presented to the ED February 27, 2025 for complaints of nausea vomiting and diarrhea and epigastric pain which started three days ago.As per patient he has been having bloody emesis upon ER arrival and was reported to the ER nurse.Patient reported he is using marijuana and denied alcohol,cigarette and cocaine use.Patient also reported he is not good in taking his medications and checking his BP and blood sugar at home. Seen and examined patient in the ER awake,alert and coherent.Patient denied fever,chills,chest pain,palpitation and shortness of breath. Vital signs upon ER arrival temperature 98.2, heart rate 89, blood pressure 231/118 saturation 98% on room air. In the ER Labs: WBC 20 with negative left shift of neutrophils 90, globin 13, hematocrit 40, platelet count 383. BUN 51, creatinine 4.4, GFR 16 glucose 291 ketones 1.2 lactic acid two troponin 1748 to 980. Albumin 1.9. Urine toxicology positive for marijuana. CT head without contrast result is unremarkable. CT chest result revealed no evidence of pulmonary nodule or effusion is seen. CT abdomen and pelvis result revealed bilateral renal cyst diverticulosis. Tiny bilateral renal pelvic stones. While in the ER patient started on 1 L NS bolus, famotidine 20 mg IV, Zofran 4 mg IV hydralazine 10 mg IV and patient was started on Cardene drip. Patient also received aspirin 324 mg p.o.. Patient admitted to the intensive care unit for further evaluation and medical management 02/28 patient remains admitted to the intensive care unit, BP 156/75, heart rate of 77, afebrile, saturating 94% on room air. Hemoglobin of 12.1, hematocrit 35.2, platelet count of 340, WBC 25.0, sodium 141, potassium 3.2, glucose 164, BUN of 56, creatinine 4.4, magnesium 1.7, albumin 1.5, serology test to include influenza, SARS antigen and group a strep negative, CT chest abdomen and pelvis no evidence of pulmonary nodule or effusion, bilateral renal cysts, diverticulosis, tiny bilateral renal pelvic stones, patient on amlodipine 10 mg p.o. daily, sodium bicarbonate 650 mg p.o. t.i.d., hypokalemia protocol, metoprolol tartrate 25 mg p.o. t.i.d., Patient on PPI with Protonix 40 mg IV b.i.d.. Twelve lead EKG demonstrated sinus rhythm, left anterior fascicular block, complex in V1 and V2 consistent with a possible prior anteroseptal KS and J-point elevation continue with the LVH. There was a 1/[address] elevation of AVR of uncertain significance. Cardiac consultation requested due to positive troponin, per cardiac input, cardiac enzymes are declining and blood pressure is under improved control, cleared for upper endoscopy. Increase metoprolol to 25 mg p.o. q.8 hours and continue IV metoprolol as needed, avoid IV heparin, avoid dual antiplatelet therapy, agreed with low-dose aspirin 81 mg p.o. daily pending assessment by GI, add amlodipine 5 mg p.o. daily, follow echocardiogram to assess LVEF, no plan for invasive evaluation given creatinine of 4.4, consider Lexiscan Cardiolite stress test Wednesday a.m.. Due to creatinine of 4.4, obtain records from the office of Dr. Brian Woo, fluid DRAKE inhibitors, continue cautious hydration. We will follow GI input and recommendation. During my visit today the patient is sitting comfortable at the edge of the bed, alert oriented x3, no chest pain, shortness shortness for breath, no nausea, no vomiting, off nicardipine drip. 03/01 patient admitted secondary to hematemesis, patient remains admitted to the intensive care unit, AO x 3, case discussed with RN, no acute events, denies dizziness, no chest pain, blood pressure 171/89, afebrile, saturating normal on room air, leukocytosis improving, WBC 15.5. Creatinine 4.2. Latest troponin 1259. Toxicology screen positive for marijuana. Cardiology consultation requested, cleared for upper endoscopy by GI. Doppler of the renal arteries normal. Remains on Carafate 1 g p.o. q.6 hours, and Protonix 40 mg IV b.i.d.. Cardiology input noted and appreciated, -no plans for invasive evaluation given creatinine of 4.4 (EGFR of 16), Lexiscan Cardiolite stress test scheduled for 03/02/2025 EGD done, impression: -LA grade D esophagitis with no bleeding -esophageal ulcers -erythematous mucosa in the stomach -normal duodenal bulb and 2nd portion of the duodenum Recommendations: -clear liquid diet -Protonix 40 mg p.o. b.i.d. -Carafate 1 g p.o. q.i.d. REVIEW OF SYSTEMS CONSTITUTIONAL: Denies fevers, chills, or night sweats. No unintentional weight loss reported. NEUROLOGICAL: Denies headache, amaurosis fugax, motor weakness, sensory deficit, vertigo/spinning sensation, gait abnormalities, or tremors. ENT: No hearing loss, otalgia, otorrhea, rhinitis, rhinorrhea, hoarseness, or sore throat. CARDIOVASCULAR: Denies any exertional angina, dyspnea on exertion, orthopnea, paroxysmal nocturnal dyspnea, palpitations, life-threatening arrhythmias, claudication. PULMONARY: Denies any shortness of breath, cough, phlegm/sputum, hemoptysis, pleuritic chest pain. SLEEP: Denies morning headaches, daytime somnolence or napping. Denies difficulty falling asleep, staying asleep, waking from sleep. Denies knowledge of snoring. GASTROINTESTINAL: Patient complained of nausea, vomiting , hematemesis, diarrhea and epigastric pain Denies any type of dysphagia to either liquids or solids. Denies pyrosis, early satiety, constipation, or changes in stool consistency or caliber. Denies hematochezia, or melanotic stools. GENITOURINARY: Denies frequency, urgency, nocturia, hematuria or incontinence (Storage/Irritative symptoms.) Low urinary stream, straining to void, urinary intermittency or hesitancy, splitting of the voiding stream, terminal dribbling. ENDOCRINOLOGIC: Denies polyuria, polydipsia, polyphagia or heat/cold intolerances. HEMATOLOGIC: Denies thrombophilia/previous clots, or coagulopathy/bleeding disorders. ONCOLOGIC: Denies personal history of malignancy. DERMATOLOGIC: Denies rashes or pruritus. PSYCHIATRIC: Denies any suicidal or homicidal ideation. Denies hallucinations. PHYSICAL EXAM GENERAL APPEARANCE: The patient is awake, alert, and oriented, in no acute cardiopulmonary distress. NEUROLOGICAL: Cranial nerves II-XII grossly intact. Motor is 5/5 in bilateral upper and lower extremities proximal to distal. No sensory deficits. HEENT: Face is symmetric. Pupils are equal and reactive. Extraocular movements are intact. NECK: Supple. No JVD. No thyromegaly. No submental, submandibular, pre- /postauricular, occipital or supraclavicular lymphadenopathy. CHEST: Normal chest expansion. No Telemetry. LUNGS: Absence of any rales, rhonchi or any wheezing. CARDIOVASCULAR: Regular. S1 and S2 normal. No appreciable rubs, murmurs or gallops. ABDOMEN: Soft, nontender, and nondistended. There is no rebound, voluntary guarding, or rigidity. : Deferred. No Shields. EXTREMITIES: Non-edematous and not cyanotic. No clubbing. Good capillary refill. SKIN: No skin breakdown. Vital Signs (last 8hr) Date Time Temp Pulse Resp B/P (MAP) Pulse Ox O2 Delivery O2 Flow Rate FiO2 03/01/25 08:00 98.2 03/01/25 06:33 171/89 03/01/25 06:14 80 9 166/90 (115) 95 03/01/25 05:58 79 13 171/89 (116) 96 03/01/25 05:43 83 172/88 (116) 97 03/01/25 05:13 73 166/78 (107) 97 03/01/25 04:58 72 10 160/76 (104) 93 03/01/25 04:43 70 6 159/65 (96) 97 03/01/25 04:28 71 9 154/74 (100) 96 03/01/25 04:13 97.9 73 6 170/73 (105) 97 03/01/25 04:06 96 Room Air* 0 21 03/01/25 03:43 76 5 179/89 (119) 97 03/01/25 03:13 73 11 158/80 (106) 94 03/01/25 02:58 69 17 151/68 (95) 94 LABS: Laboratory: Test 03/01/25 06:36 03/01/25 04:08 02/28/25 15:10 02/28/25 01:30 Range/Units Whole Blood Glucose 155 H 70-110 MG/DL White Blood Count 15.5 H 4.8-10.8 K/uL Red Blood Count 4.38 L 4.50-6.20 MIL/uL Hemoglobin 12.2 L 14.0-18.0 g/dL Hematocrit 36.6 L 42-54 % Mean Corpuscular Volume 83.6 79-99 fL Mean Corpuscular Hemoglobin 27.9 27.0-33.0 pg Mean Corpuscular Hemoglobin Concent 33.3 32.0-36.0 g/dL Red Cell Distribution Width 13.5 11.0-15.5 % Platelet Count 364 130-400 K/uL Mean Platelet Volume 11.4 H 7.5-10.5 fL Immature Granulocyte % (Auto) 0.5 0-1 % Neutrophils (%) (Auto) 81.0 H 40.0-77.0 % Lymphocytes (%) (Auto) 11.8 L 21.0-51.0 % Monocytes (%) (Auto) 5.9 3.0-13.0 % Eosinophils (%) (Auto) 0.5 0.0-8.0 % Basophils (%) (Auto) 0.3 0.0-5.0 % Neutrophils # (Auto) 12.6 H 1.8-7.7 K/uL Lymphocytes # (Auto) 1.8 1.0-4.8 K/uL Monocytes # (Auto) 0.9 0.1-1.0 K/uL Eosinophils # (Auto) 0.08 0.00-0.70 K/uL Basophils # (Auto) 0.04 0.00-0.20 K/uL Absolute Immature Granulocyte (auto 0.07 0-1 K/uL Nucleated Red Blood Cells 0.0 0.0-0.19 % Sodium Level 142 136-145 mmol/L Potassium Level 3.3 L 3.5-5.1 mmol/L Chloride Level 107 101-111 mmol/L Carbon Dioxide Level 24 21-32 mmol/L Blood Urea Nitrogen 51 H 7-18 mg/dL Creatinine 4.2 H 0.5-1.3 mg/dL Glomerular Filtration Rate Calc 16 >90 mL/min Random Glucose 171 H 70-105 mg/dL Lactic Acid Level 1.2 0.8-2.5 mmol/L Total Calcium 7.9 L 8.5-10.1 mg/dL Phosphorus Level 5.1 H 2.5-4.9 mg/dL Total Bilirubin 0.4 0.2-1.0 mg/dL Aspartate Amino Transf (AST/SGOT) 21 10-37 U/L Alanine Aminotransferase (ALT/SGPT) 22 12-78 U/L Alkaline Phosphatase 88 50-136 U/L Total Creatine Kinase 266 #H 21-232 U/L Troponin I High Sensitivity 1259.6 *H 4-75 ng/L B-Type Natriuretic Peptide 475 H 0-100 pg/mL Total Protein 5.8 L 6.0-8.3 g/dL Albumin 1.7 L 3.5-5.0 g/dL Procalcitonin < 0.05 L 0.05-0.5 ng/mL Urine Random Creatinine 76.30 30-135 mg/dL Urine Random Total Protein 1398.0 H 0-11.9 mg/dL Hemoglobin A1c 7.5 H 4.0-6.0 % Estimated Average Glucose (eAG) 169 H 70-126 mg/dL Whole Blood Ketones Quantitative 0.1 0.0-0.6 mmol/L Magnesium Level 1.70 L 1.80-2.40 mg/dL Iron Level 67 # 65-175 mcg/dL Total Iron Binding Capacity 169 L 250-450 mcg/dL Percent Iron Saturation 39.6 30-44 % Test 02/27/25 23:15 02/27/25 21:01 02/27/25 14:58 02/27/25 14:43 Range/Units Influenza Type A Antigen Negative For Type A NEGATIVE Influenza Type B Antigen Negative For Type B NEGATIVE SARS-CoV-2, RNA, NAAT NEGATIVE SARS CoV-2 NEGATIVE Group A Streptococcus Rapid negative NEGATIVE Urine Color LIGHT-YELLOW YELLOW Urine Appearance CLEAR CLEAR Urine pH 6.5 5.0-8.0 Urine Specific [place] 1.019 1.001-1.031 Urine Protein 600 H NEGATIVE mg/dL Urine Glucose (UA) >=1000 H NEGATIVE mg/dL Urine Ketones 10 H NEGATIVE mg/dL Urine Occult Blood MODERATE H NEGATIVE Urine Nitrate NEGATIVE NEGATIVE Urine Bilirubin NEGATIVE NEGATIVE mg/dL Urine Urobilinogen 0.2 0.2-1.0 mg/dL Urine Leukocyte Esterase NEGATIVE NEGATIVE German/uL Urine RBC 2-5 H 0-1 /HPF Urine WBC 2-5 H 0-1 /HPF Urine Squamous Epithelial Cells RARE 0-2 /HPF Urine Bacteria None None Seen /HPF Urine Opiates Screen NEGATIVE NEGATIVE Urine Barbiturates Screen NEGATIVE NEGATIVE Urine Phencyclidine Screen NEGATIVE NEGATIVE Urine Amphetamines Screen NEGATIVE NEGATIVE Urine Benzodiazepines Screen NEGATIVE NEGATIVE Urine Cocaine Screen NEGATIVE NEGATIVE Urine Marijuana (THC) Screen POSITIVE H NEGATIVE Blood Gas Specimen Type Arterial Arterial Blood pH 7.394 7.350-7.450 Arterial Blood Partial Pressure CO2 34 L 35-48 mmHg Arterial Blood Partial Pressure O2 88.7 83.0-108.0 mmHg Arterial Blood HCO3 20.1 L 21.0-28.0 mmol/L Arterial Blood Oxygen Saturation 96.6 94.0-98.0 % Arterial Blood Base Excess -3.9 L -2.0-3.0 mmol/L Hemoglobin (Blood Gas) 13.7 13.5-17.5 g/dL Sodium (Blood Gas) 140 136-145 MMOL/L Bedside Potassium (Blood Gas) 3.5 3.4-4.5 MMOL/L Bedside Chloride (Blood Gas) 105 98-107 MMOL/L Bedside Glucose (Blood Gas) 272 H 65-95 MG/DL Bedside Ionized Calcium (Blood Gas) 1.16 1.15-1.33 MMOL/L Bedside Lactic Acid (Blood Gas) 1.29 H 0.36-0.75 MMOL/L Blood Gas Temperature 37.0 35.5-37.0 CELSIUS Blood Gas Vent Mode NC ROOM AIR FiO2 21.0 % Blood Gas Specimen Comment RBMENA White Cell Morphology Comment See comments Direct Bilirubin 0.1 0.0-0.3 mg/dL Lipase 59 16-77 U/L Serum Alcohol < 3 0-10 mg/dL Current Medications Medications (Trade) Dose Ordered Sig/Jyoti Route PRN Reason Start Time Stop Time Status Last Admin Dose Admin Amlodipine Besylate (NorvASC 5MG TAB) 5 mg DAILY PO 02/28/25 09:00 02/28/25 09:02 DC Amlodipine Besylate (NorvASC 5MG TAB) 10 mg DAILY PO 03/01/25 09:00 02/28/25 13:09 DC Amlodipine Besylate (NorvASC 5MG TAB) 10 mg DAILY PO 03/01/25 09:00 03/31/25 08:59 03/01/25 10:10 10 MG Aspirin (Aspirin 81mg Chew Tab) 324 mg ONCE STAT PO 02/27/25 15:34 02/27/25 15:41 DC 02/27/25 16:02 324 MG Aspirin (Aspirin 81mg Ec Tab) 81 mg DAILY PO 02/28/25 13:30 03/30/25 13:29 03/01/25 10:09 81 MG Dextrose (D50w) 50 ml AD PRN IV HYPOGLYCEMIA PROTOCOL 02/27/25 20:00 03/29/25 19:59 Famotidine (Pepcid 20mg Vial) 20 mg DAILY IV 02/28/25 09:00 02/27/25 23:45 DC Glucagon (Glucagon 1mg Kit) 1 mg AD PRN IM HYPOGLYCEMIA PROTOCOL 02/27/25 20:00 03/29/25 19:59 Hydralazine HCl (APRESOLine 20MG INJ) 10 mg ONCE STAT IV 02/27/25 15:06 02/27/25 15:08 DC 02/27/25 15:14 10 MG Hydralazine HCl ([id number] TAB) 25 mg QID PO 02/28/25 17:00 03/01/25 08:58 DC 02/28/25 19:46 25 MG Hydralazine HCl ([id number] TAB) 25 mg TID PO 02/28/25 14:00 02/28/25 15:49 DC 02/28/25 13:55 25 MG Insulin Human Regular (humuLIN R 100 UNIT/ML 3ML) INSULIN SLIDING SCAL... ACHS SQ 02/27/25 21:00 03/29/25 20:59 02/28/25 06:28 2 UNIT Isosorbide Mononitrate (Imdur 30mg Sr) 30 mg DAILY PO 02/28/25 13:30 03/30/25 13:29 03/01/25 10:09 30 MG Levofloxacin/ Dextrose 100 ml @ 100 mls/hr Q24H IV 02/28/25 06:30 02/28/25 06:46 DC Magnesium Sulfate 50 ml @ 0 mls/hr PROTOCOL PRN IV MAGNESIUM PROTOCOL 02/28/25 06:00 03/30/25 05:59 02/28/25 06:15 25 MLS/HR Metoprolol Succinate (TopROL XL) 100 mg DAILY PO 03/01/25 09:00 03/31/25 08:59 03/01/25 10:10 100 MG Metoprolol Tartrate (loprESSOR) 5 mg Q4H PRN IV ADMINISTER FOR SBP > 150 02/28/25 00:00 03/30/25 00:00 02/28/25 22:09 5 MG Metoprolol Tartrate (loprESSOR) 12.5 mg TID PO 02/28/25 00:00 02/28/25 08:58 DC 02/28/25 00:17 12.5 MG Metoprolol Tartrate (loprESSOR) 25 mg TID PO 02/28/25 09:00 03/01/25 08:58 DC 02/28/25 19:46 25 MG Morphine Sulfate (morPHINE 4MG SYG) 4 mg ONCE STAT IVP 02/27/25 15:41 02/27/25 15:42 DC 02/27/25 16:01 4 MG Nicardipine HCl 25 mg/Sodium Chloride 250 ml @ 0 mls/hr PROTOCOL IV 02/28/25 00:00 03/30/25 00:00 03/01/25 06:33 50 MLS/HR Nicardipine HCl 50 mg/Sodium Chloride 250 ml @ 0 mls/hr PROTOCOL STAT IV 02/27/25 15:34 02/27/25 15:42 DC Nicardipine HCl 50 mg/Sodium Chloride 250 ml @ 0 mls/hr PROTOCOL STAT IV 02/27/25 15:45 02/27/25 15:46 DC 02/27/25 16:32 5 MLS/HR Nitroglycerin (Nitroglycerin 1gm Oint) 1 inch Q8H TD 02/28/25 03:30 02/28/25 13:09 DC 02/28/25 03:53 1 INCH Nitroglycerin (Nitrostat) 0.4 mg AD PRN SL CHEST PAIN 02/27/25 16:00 03/29/25 15:59 Ondansetron HCl (zoFRAN 4MG INJ) 4 mg Q6H PRN IV NAUSEA/VOMITING 02/27/25 20:00 03/29/25 19:59 02/27/25 22:25 4 MG Pantoprazole Sodium (PROTonix 40MG INJ) 40 mg BID IVP 02/28/25 00:00 03/30/25 00:00 03/01/25 10:07 40 MG Potassium Chloride 100 ml @ 100 mls/hr AD PRN IV POTASSIUM PROTOCOL 02/28/25 09:00 02/28/25 09:06 DC Potassium Chloride 100 ml @ 100 mls/hr AD PRN IV POTASSIUM PROTOCOL 02/28/25 09:00 03/30/25 08:59 03/01/25 05:34 100 MLS/HR Potassium Chloride (K-Dur 10meq Sr Tab) 10 meq AD PRN PO POTASSIUM PROTOCOL 02/28/25 16:30 03/30/25 08:59 02/28/25 17:06 10 MEQ Potassium Chloride (K-Dur/Klor-Con 20meq) 10 meq AD PRN PO POTASSIUM PROTOCOL 02/28/25 09:00 02/28/25 16:29 DC Potassium Chloride (KCl 10% Elixir 20meq/15ml) 10 meq AD PRN PO POTASSIUM PROTOCOL 02/28/25 09:00 03/30/25 08:59 Sodium Bicarbonate (Sodium Bicarbonate) 650 mg TID PO 02/28/25 09:00 03/30/25 08:59 03/01/25 10:10 650 MG Sodium Chloride 500 ml @ 0 mls/hr Q0M IV 02/28/25 01:30 02/28/25 08:58 DC Sodium Chloride 1,000 ml @ 75 mls/hr [id number] IV 02/27/25 14:30 03/29/25 14:29 03/01/25 05:34 75 MLS/HR Sodium Chloride 1,000 ml @ 75 mls/hr [id number] IV 02/27/25 20:00 02/28/25 13:11 DC 02/28/25 09:27 75 MLS/HR Sodium Chloride 1,000 ml @ 1,000 mls/hr Q1H STAT IV 02/27/25 14:25 02/27/25 15:24 DC 02/27/25 15:36 1,000 MLS/HR Sucralfate (Carafate) 1 gm Q6H PO 03/01/25 12:00 03/31/25 11:59 DIAGNOSTICS / RADIOLOGY: [ ] ASSESSMENT: Hypertensive emergency POA Non ST-elevation KS POA Abnormal EKG with the evidence of 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 Acute on chronic kidney disease POA Chronic anemia due to CKD POA Acute upper GI bleed, POA Status post EGD 03/01/2025 -LA grade D esophagitis with no bleeding -esophageal ulcers -erythematous mucosa in the stomach -normal duodenal bulb and 2nd portion of the duodenum Acute leukocytosis POA Uncontrolled diabetes mellitus type 2 POA Uncontrolled hypertension POA Medical noncompliance POA Severe protein calorie malnutrition POA Cannabinoid hyperemesis syndrome POA Positive marijuana POA PLAN: patient admitted secondary to hematemesis, patient remains admitted to the intensive care unit, blood pressure 171/89, afebrile, saturating normal on room air, leukocytosis improving, WBC 15.5. Creatinine 4.2. Latest troponin 1259. Toxicology screen positive for marijuana. Cardiology consultation requested, cleared for upper endoscopy by GI. Doppler of the renal arteries normal. Remains on Carafate 1 g p.o. q.6 hours, and Protonix 40 mg IV b.i.d.. Cardiology input noted and appreciated, -no plans for invasive evaluation given creatinine of 4.4 (EGFR of 16), Lexiscan Cardiolite stress test scheduled for 03/02/2025 EGD done, impression: -LA grade D esophagitis with no bleeding -esophageal ulcers -erythematous mucosa in the stomach -normal duodenal bulb and 2nd portion of the duodenum Recommendations: -clear liquid diet -Protonix 40 mg p.o. b.i.d. -Carafate 1 g p.o. q.i.d. NEURO: Minimize central acting medications as possible. Fall Precautions. Well lighted room through the day and minimize interruptions through the night to prevent acute delirium. PULMONARY: Supplemental 02 as needed BiPAP as necessary, for respiratory distress Titrate Fio2 to keep Spo2 > or = 90% DuoNebs and CPT as needed IS hourly while awake for pulmonary hygiene prn Out of bed to chair as tolerated Maintain aspiration precautions at all times CARDIOVASCULAR: Follow hemodynamics. Vital signs per facility protocol GI & NUTRITION: Continue nutritional support Aspirations precautions Prokinetic agents and laxatives as needed KIDNEYS & ELECTROLYTES: Strict monitoring of intake and output Daily weights Avoid nephrotoxic agents Monitor electrolytes and replace as needed Goal urine output of 30mL/hr or 0.5mL/kg/hr Medications to be dosed according to renal function. Avoid contrast if possible ENDOCRINE: Maintain blood glucose between 100-180 at all times. Insulin sliding scale for blood glucose management Hypoglycemia and hyperglycemia protocol in place INFECTIOUS DISEASE: Trend temperature, WBC and procalcitonin level Follow cultures, deescalate antibiotics as soon as possible. Panculture if new onset fever HEMATOLOGY & COAGULATION: Monitor H&H. Keep Hgb > 7 Transfuse 1 unit of PRBC for Hgb < 7 Transfuse 1 pack of platelets of platelets < 20, 000 Watch for any signs and symptoms of bleeding SKIN: Pressure ulcer prevention per facility protocol Specialty mattress as needed ORTHO/REHAB Continue PT/OT PRN: MEDICATIONS Tylenol 650 mg po every 4 hrs for fever zofran 4 mg IV every 6 hrs for n/v Hydralazine 5 mg IV every 4 hrs systolic pressure > 160 bowel regiment: lactulose 20 gm PO BID PRN constipation Supportive measures: Continue GI and DVT prophylaxis Disposition: Pending improvement in clinical condition All questions answered time spent: > 35 min ANTWAN KNIGHT MD Mar 01, 2025 10:51
[2025-03-01 12:11] LABS: BASE EXCESS,VENOUS BLOOD GAS -3.1 (-2.0-3.0); DEVICE COMMENT VENOUS RN; HCO3,VENOUS BLOOD GAS 21.2 (22.0-29.0); PCO2,VENOUS BLOOD GAS 36 (38-54); PH,VENOUS BLOOD GAS 7.392 (7.320-7.430); PO2,VENOUS BLOOD GAS 78.7 mmHg (23.0-48.0); VENT MODE, BG RA (ROOM AIR)
[2025-03-01] MEDS: SUCRALFATE 1 GM/10 ML PO SCH (12:18)
--- NOTE | 2025-03-01 12:47 | NUR ---
Dr. Salvador rounded on patient. Updated MD on patient status. No new orders given.
[2025-03-01] MEDS: NITROGLYCERIN 1GM OINT 1 INCH/1GM TD SCH (15:12)
--- NOTE | 2025-03-01 17:30 | HMCSR ---
APPROVED REPORT EXAM: Two-dimensional and M-mode echocardiogram with Doppler and color Doppler. INDICATION ICD: Assess ejection fraction 2D Dimensions RVDd4.3 cmLVEF(%)61.7 (>50%)LVED Vol(simp.)124.0 mL IVSd1.1 (0.7-1.1cm)FS(%)33 %LVES Vol(simp.)49.0 mL LVDd5.2 (3.8-5.6cm)LA (2D)4.2 (1.6-4.0cm)LVEF(%, simp.)60 % PWd1.5 (0.7-1.1cm)Ao Root(2D)3.4 (2.0-3.7cm)LA ESV INDEX (BP)44.09 mL/m2 LVDs3.5 (2.5-4.0cm)LVOT diam2.2 (1.8-2.4cm) IVC diam1.3 cm Deformation Strain Apical 4-15.7 % Apical 2-20.1 % Apical 3-15.5 % Global Strain-17.1 % M-Mode Dimensions EPSS0.9 cm LA (MM)4.2 (1.6-4.0cm) Ao Root(MM)3.0 (2.0-3.7cm) Aortic Valve AoV Vmax1.5 m/Jace Peak GR8.6 mmHgLVOT Vmax1.2 m/s AoV VTI0.3 mAo Mean GR4.5 mmHgLVOT VTI0.24 m STEPHANIE (VMAX)2.95 cm2AVA (VTI) 2.8 cm2 Mitral Valve MV E Vmax94.6 cm/sDECEL [id number] msMV Peak GR4 mmHg MV A Vmax77.8 cm/sP 1/2 T52 msMV Mean GR1 mmHg E/A ratio1.2MVA (PHT)4.3 cm2MVA (VTI)3.16 cm2 TDI E/E' [id number]/E' [id number] Medial E' Peak V5.92 cm/sLateral E' Peak V6.78 cm/s Pulmonary Valve PV Vmax1.1 m/sPV VTI0.26 mPV Mean GR2.5 mmHg PV Peak GR4.5 mmHg Tricuspid Valve RAP (EST) 8 mmHgRVSP8.0 mmHg Left Ventricle The left ventricle is normal size. GLS -17.0%. Moderate concentric left ventricular hypertrophy. LVE F is 55-60%.3D volume EF 58%. Indeterminate diastolic dysfunction. Right Ventricle The right ventricle is mildly dilated. The right ventricular systolic function is normal. RV GLS -16. 0%. Atria The left atrium is moderately dilated. The right atrium is moderately dilated. Aortic Valve The aortic valve is normal in structure. No aortic regurgitation is present. There is no aortic valvu lar stenosis. Mitral Valve The mitral valve is normal in structure. There is no mitral valve regurgitation noted. There is no mi tral valve stenosis. Tricuspid Valve The tricuspid valve is normal in structure. There is trace of tricuspid valve regurgitation noted. Pulmonic Valve The pulmonary valve is normal in structure. There is no pulmonic valvular regurgitation. Great Vessels The aortic root is normal in size. The IVC is normal in size and collapses <50% with inspiration. Pericardium There is trace of pericardial effusion. Other Information Quality : Adequate Conclusion The left ventricle is normal size. Moderate concentric left ventricular hypertrophy. LVEF is 55-60%.3D volume EF 58%. Indeterminate diastolic dysfunction. The right ventricle is mildly dilated. The right ventricular systolic function is normal. RV GLS -16.0%. The left atrium is moderately dilated. The right atrium is moderately dilated. There is trace of pericardial effusion.
[2025-03-01] MEDS ORDERED: ONDA-104 PO (18:30)
[2025-03-01] MEDS ORDERED: FOLI0.8C PO (18:30)
[2025-03-01] MEDS ORDERED: METO25TA6 PO (18:30)
[2025-03-01] MEDS ORDERED: CLON0.1T PO (18:30)
[2025-03-01] MEDS ORDERED: NIFE-79 PO (18:30)
[2025-03-01] MEDS ORDERED: HYDR50TA37 PO (18:30)
[2025-03-01] MEDS ORDERED: ondanSETRON 4MG TABLET PO PRN (21:00)
[2025-03-01] MEDS ORDERED: metoPROLOL tartRATE 25 MG TAB PO SCH (21:00)
[2025-03-01] MEDS: FLUoxetine HCL 20 MG CAPSULE PO SCH (21:18)
[2025-03-01] MEDS: FAMOTIDINE 20MG TAB PO SCH (21:19)
[2025-03-01] MEDS: atorVAStatin 40 MG TABLET PO SCH (21:19)
[2025-03-01] MEDS: hydrALAZine 25MG TABLET PO SCH (21:19)
[2025-03-01] MEDS: acetaMINOPHEN 325 MG TAB PO PRN (21:31)
[2025-03-02] VITALS (37 sets, daily range): BP systolic 136–189; BP diastolic 61–99; PULSE 54–86; RESP 8–21; TEMP 98.1–98.9; O2SAT 95–98
[2025-03-02] MEDS: cloNIDine HCL 0.1 MG TABLET PO PRN (04:11)
[2025-03-02 06:03] LABS: BASOPHILS # (AUTO) 0.05 K/uL (0.00-0.20); BASOPHILS % (AUTO) 0.5 % (0.0-5.0); EOSINOPHILS % (AUTO) 1.9 % (0.0-8.0); HEMATOCRIT 31.7 % (42-54); IMMATURE GRANULOCYTE ABSOLUTE 0.04 K/uL (0-1); LYMPHOCYTES % (AUTO) 18.8 % (21.0-51.0); MEAN CORPUSCULAR HEMOGLOBIN 27.9 pg (27.0-33.0); MEAN CORPUSCULAR HGB CONC 34.4 g/dL (32.0-36.0); MEAN CORPUSCULAR VOLUME 81.1 fL (79-99); MONOCYTES % (AUTO) 9.8 % (3.0-13.0); NEUTROPHILS # (AUTO) 7.2 K/uL (1.8-7.7); NEUTROPHILS % (AUTO) 68.6 % (40.0-77.0); PLATELET COUNT (AUTO) 326 K/uL (130-400); RED BLOOD CELL COUNT(AUTO) 3.91 MIL/uL (4.50-6.20); RED CELL DISTRIBUTION WIDTH 13.4 % (11.0-15.5); WHITE BLOOD COUNT (AUTO) 10.4 K/uL (4.8-10.8)
[2025-03-02 06:16] LABS: ALBUMIN 1.5 g/dL (3.5-5.0); BILIRUBIN,TOTAL 0.3 mg/dL (0.2-1.0); CREATININE 4.1 mg/dL (0.5-1.3); POTASSIUM 3.2 mmol/L (3.5-5.1)
[2025-03-02] MEDS ORDERED: REGADENOSON 0.4 MG/5 ML PF SYG IVP ONE (07:54)
[2025-03-02] MEDS: FOLic ACID 1 MG TABLET PO SCH (07:54)
[2025-03-02] MEDS: nifeDIPine ER 30 MG TAB PO SCH (07:55)
--- NOTE | 2025-03-02 08:00 | PN ---
[facility] PROGRESS NOTE Date Patient Seen: Mar 02, 2025 Time of Visit: 08:00 Supervising Physician: Keon Hernandez MD Primary Care Physician: Attending group: [facility] hospitalist team Outpatient Specialists: Inpatient Consults: Critical Care team Cardiology PROBLEM LIST: Hypertensive emergency, POA, RESOLVING NSTEMI, POA, on medical management Metabolic acidosis, POA, anion gap 14.9 on arrival, NOW RESOLVED Cannabinoid hyperemesis syndrome POA Acute dehydration/ketonuria/ ketonemia 2/2 N/V/D Acute kidney injury, GFR 16 Hematemesis, POA Acute on chronic kidney disease, POA, (GFR 26 on 09/16/2024) Chronic anemia due to CKD, POA Upper GI bleeding by history (suspected hematemesis), possible Gila-Mayo tear, possibly secondary to gastritis or peptic ulcer disease, POA s/p EGD findingd of LAD esophagitis POA Acute leukocytosis, POA Uncontrolled diabetes, POA Uncontrolled hypertension, POA Medical noncompliance, POA Albuminemia/ malnutrition, POA Positive marijuana POA INTERVAL HISTORY: Mr. Pham is a 49-year-old male with history of anemia, hypertension, chronic kidney disease non hemodialysis, diabetes who [place] [facility] [place] of nausea, bloody emesis, diarrhea, and epigastric pain onset three days ago. Pat shabbir reported he is using marijuana and denies alcohol, cigarette and cocaine use. Patient also reports he is not good in taking his medications and checking his BP and blood sugar at home. Patient also reports he has not seen a PCP. Vital signs upon ER arrival temperature 98.2, heart rate 89, blood pressure 231/118 saturation 98% on room air. 03/02/25- Day 4 in ICU. Off Cardene gtt since yesterday. stable to downgrade to PCCU w/ cardiac monitoring. undergoing Lexiscan today per cardiology recs. 2D echo shows EF of 55-60%. Blood pressures have improved. Pt has been afebrile. White count has improved. CR 4.1 , BUN of 48 and GFR of 17. K 3.2 covered per protocol. Continue to follow cardiology and nephrology recommendations. REVIEW OF SYSTEMS: General: No malaise or fever. Neurological: No fainting episodes or seizures. HEENT: No nasal congestion or nasal secretion. Respiratory: No cough, shortness of breath, or wheezing Cardiac:+ fatigue Gastrointestinal: No vomiting or diarrhea. Genitourinary: No dysuria hematuria. Skin: No rashes or lesions. Hematological: No bruises or bleeding. Musculoskeletal: No joint pains or arthralgias. Psychiatric: No depression or panic attacks. PHYSICAL EXAM: GENERAL: Alert, weak, awake oriented x 3 HEENT: EOMI, Sclera non icteric, moist mucosa NECK: Supple, no JVD, trachea midline LUNGS: Clear breath sounds bilaterally. No wheezes HEART: Regular rate and rhythm. Normal S1 and S2, without murmurs ABD: Abdomen soft, nontender. Bowel sounds present EXT: No clubbing cyanosis or edema NEURO: Alert and oriented X3, follows commands Vital Signs (last 8hr) Date Time Temp Pulse Resp B/P (MAP) Pulse Ox O2 Delivery O2 Flow Rate FiO2 03/02/25 06:15 58 10 161/61 (94) 93 03/02/25 06:00 59 10 157/67 (97) 95 21 03/02/25 05:45 63 10 167/68 (101) 94 03/02/25 05:30 65 14 167/88 (114) 96 03/02/25 05:15 56 14 147/70 (95) 95 03/02/25 05:00 54 10 137/77 (97) 97 21 03/02/25 04:45 56 13 138/73 (94) 93 03/02/25 04:30 57 11 153/69 (97) 93 03/02/25 04:15 62 11 186/81 (116) 96 03/02/25 04:11 64 170/79 03/02/25 04:00 95 Room Air* 0 21 03/02/25 04:00 99.0 68 10 178/86 (116) 96 03/02/25 03:00 64 11 159/70 (99) 96 03/02/25 02:00 61 11 166/79 (108) 98 03/02/25 01:00 60 9 150/67 (94) 96 LABS: Hematology Labs: Test 03/02/25 05:47 Range/Units White Blood Count 10.4 4.8-10.8 K/uL Red Blood Count 3.91 L 4.50-6.20 MIL/uL Hemoglobin 10.9 L 14.0-18.0 g/dL Hematocrit 31.7 L 42-54 % Mean Corpuscular Volume 81.1 79-99 fL Mean Corpuscular Hemoglobin 27.9 27.0-33.0 pg Mean Corpuscular Hemoglobin Concent 34.4 32.0-36.0 g/dL Red Cell Distribution Width 13.4 11.0-15.5 % Platelet Count 326 130-400 K/uL Mean Platelet Volume 11.4 H 7.5-10.5 fL Immature Granulocyte % (Auto) 0.4 0-1 % Neutrophils (%) (Auto) 68.6 40.0-77.0 % Lymphocytes (%) (Auto) 18.8 L 21.0-51.0 % Monocytes (%) (Auto) 9.8 3.0-13.0 % Eosinophils (%) (Auto) 1.9 0.0-8.0 % Basophils (%) (Auto) 0.5 0.0-5.0 % Neutrophils # (Auto) 7.2 1.8-7.7 K/uL Lymphocytes # (Auto) 2.0 1.0-4.8 K/uL Monocytes # (Auto) 1.0 0.1-1.0 K/uL Eosinophils # (Auto) 0.20 0.00-0.70 K/uL Basophils # (Auto) 0.05 0.00-0.20 K/uL Absolute Immature Granulocyte (auto 0.04 0-1 K/uL Nucleated Red Blood Cells 0.0 0.0-0.19 % Chemistry Labs: Test 03/02/25 05:47 03/01/25 21:23 03/01/25 04:08 Range/Units Sodium Level 141 136-145 mmol/L Potassium Level 3.2 L 3.5-5.1 mmol/L Chloride Level 110 101-111 mmol/L Carbon Dioxide Level 22 21-32 mmol/L Blood Urea Nitrogen 48 H 7-18 mg/dL Creatinine 4.1 H 0.5-1.3 mg/dL Glomerular Filtration Rate Calc 17 >90 mL/min Random Glucose 133 H 70-105 mg/dL Lactic Acid Level 0.9 0.8-2.5 mmol/L Total Calcium 7.6 L 8.5-10.1 mg/dL Magnesium Level 2.00 1.80-2.40 mg/dL Total Bilirubin 0.3 0.2-1.0 mg/dL Aspartate Amino Transf (AST/SGOT) 16 10-37 U/L Alanine Aminotransferase (ALT/SGPT) 15 12-78 U/L Alkaline Phosphatase 74 50-136 U/L Total Protein 5.0 L 6.0-8.3 g/dL Albumin 1.5 L 3.5-5.0 g/dL Whole Blood Glucose 134 H 70-110 MG/DL Phosphorus Level 5.1 H 2.5-4.9 mg/dL Total Creatine Kinase 266 #H 21-232 U/L Troponin I High Sensitivity 1259.6 *H 4-75 ng/L B-Type Natriuretic Peptide 475 H 0-100 pg/mL Procalcitonin < 0.05 L 0.05-0.5 ng/mL DIAGNOSTICS / RADIOLOGY RESULTS: [ ] PLAN downgrade to PCCU continue baby aspirin daily off cardene Antihypertensives per Cardiology Lexiscan today follow GI recs post EGD with findings of LAD esophagitis,continue protonix cleared from GI for DAPT follow cardiology recs follow nephrology recs DUE to CKD avoid DRAKE/ARBs NEURO: Minimize central acting medications as possible. Fall Precautions. Well lighted room through the day and minimize interruptions through the night to prevent acute delirium. PULMONARY: Supplemental 02 as needed Titrate Fio2 to keep Spo2 > or = 90% DuoNebs and CPT as needed IS hourly while awake for pulmonary hygiene Out of bed to chair as tolerated VAP Bundle CARDIOVASCULAR: Follow hemodynamics. Titrate vasopressor to keep MAP >65 or systolic blood pressure >95mmHg GI & NUTRITION: Continue nutritional support Aspirations precautions Prokinetic agents and laxatives as needed KIDNEYS & ELECTROLYTES: Strict monitoring of intake and output Daily weights Avoid nephrotoxic agents Monitor electrolytes and replace as needed Goal urine output of 30mL/hr or 0.5mL/kg/hr ENDOCRINE: Maintain blood glucose between 100-180 at all times. Insulin sliding scale for blood glucose management INFECTIOUS DISEASE: Trend temperature. Pruitt-culture if febrile. HEMATOLOGY & COAGULATION: Monitor H&H. Keep Hgb > 7 Transfuse 1 unit of PRBC for Hgb < 7 Transfuse 1 pack of platelets of platelets < 20, 000 Watch for any signs and symptoms of bleeding SKIN: Pressure ulcer prevention per facility protocol Rehab: PT/OT Code Status: Full Resuscitation Disposition: TBD Critical care time This patient required multiple bedside visits to manage the patient, review blood gases, coordinate with respiratory, nurses, review radiology exams, talk to the family members and discuss advanced directives. I personally spent [45] minutes of critical care time in treatment of this patient. This includes patient management, time at bedside, time reviewing tests, labs, appropriate images and studies, documentation, and patient care coordination. This time excludes separately billable procedures. ATTESTATION BY PHYSICIAN I attest that I reviewed and discussed the case with the Physician Tap Grinder as well as agree with the Physician Tap Grinder's findings, plans of care, and documentation above. Keon Scruggs MD, NELLY J ARNP Mar 02, 2025 08:00
--- NOTE | 2025-03-02 08:59 | PN ---
[facility] CARDIOLOGY PROGRESS NOTE Date Patient Seen: Mar 02, 2025 Time of Visit: 08:50 Interval History: This 49-year-old [place] male with a history of essential hypertension, type 2 diabetes with renal manifestations, chronic marijuana use, and history of gastritis presented with three days of recurrent nausea, vomiting, bloody emesis, and epigastric pain followed by onset of chest pressure associated with right facial numbness, right hand flapping movement, and right eye pressure on the date of admission. On arrival he had severe uncontrolled hypertension (231/118 mm Hg), no acute EKG changes, and serial troponins of 1512 >>> 980 >>> 1748 >>> 1402. Admission labs were also remarkable for a BUN of 51, creatinine 4.4, potassium 4.0, hemoglobin 13.7, hematocrit 40.1, white count 20.6 with 90.7% neutrophils, and platelet count of 383,000. A 2D echocardiogram on 03/01/2025 demonstrated a normal LVEF of 55-60%. The patient is currently undergoing a Lexiscan Cardiolite stress test. Per nursing, no acute events overnight and the EGD was reported to be unremarkable yesterday. Report pending review. Physical Examination: Physical exam deferred, patient is currently undergoing Lexiscan Cardiolite stress test Laboratory: Hematology Labs: Test 03/02/25 05:47 Range/Units White Blood Count 10.4 4.8-10.8 K/uL Red Blood Count 3.91 L 4.50-6.20 MIL/uL Hemoglobin 10.9 L 14.0-18.0 g/dL Hematocrit 31.7 L 42-54 % Mean Corpuscular Volume 81.1 79-99 fL Mean Corpuscular Hemoglobin 27.9 27.0-33.0 pg Mean Corpuscular Hemoglobin Concent 34.4 32.0-36.0 g/dL Red Cell Distribution Width 13.4 11.0-15.5 % Platelet Count 326 130-400 K/uL Mean Platelet Volume 11.4 H 7.5-10.5 fL Immature Granulocyte % (Auto) 0.4 0-1 % Neutrophils (%) (Auto) 68.6 40.0-77.0 % Lymphocytes (%) (Auto) 18.8 L 21.0-51.0 % Monocytes (%) (Auto) 9.8 3.0-13.0 % Eosinophils (%) (Auto) 1.9 0.0-8.0 % Basophils (%) (Auto) 0.5 0.0-5.0 % Neutrophils # (Auto) 7.2 1.8-7.7 K/uL Lymphocytes # (Auto) 2.0 1.0-4.8 K/uL Monocytes # (Auto) 1.0 0.1-1.0 K/uL Eosinophils # (Auto) 0.20 0.00-0.70 K/uL Basophils # (Auto) 0.05 0.00-0.20 K/uL Absolute Immature Granulocyte (auto 0.04 0-1 K/uL Nucleated Red Blood Cells 0.0 0.0-0.19 % Chemistry Labs: Test 03/02/25 05:47 03/01/25 21:23 03/01/25 04:08 Range/Units Sodium Level 141 136-145 mmol/L Potassium Level 3.2 L 3.5-5.1 mmol/L Chloride Level 110 101-111 mmol/L Carbon Dioxide Level 22 21-32 mmol/L Blood Urea Nitrogen 48 H 7-18 mg/dL Creatinine 4.1 H 0.5-1.3 mg/dL Glomerular Filtration Rate Calc 17 >90 mL/min Random Glucose 133 H 70-105 mg/dL Lactic Acid Level 0.9 0.8-2.5 mmol/L Total Calcium 7.6 L 8.5-10.1 mg/dL Magnesium Level 2.00 1.80-2.40 mg/dL Total Bilirubin 0.3 0.2-1.0 mg/dL Aspartate Amino Transf (AST/SGOT) 16 10-37 U/L Alanine Aminotransferase (ALT/SGPT) 15 12-78 U/L Alkaline Phosphatase 74 50-136 U/L Total Protein 5.0 L 6.0-8.3 g/dL Albumin 1.5 L 3.5-5.0 g/dL Whole Blood Glucose 134 H 70-110 MG/DL Phosphorus Level 5.1 H 2.5-4.9 mg/dL Total Creatine Kinase 266 #H 21-232 U/L Troponin I High Sensitivity 1259.6 *H 4-75 ng/L B-Type Natriuretic Peptide 475 H 0-100 pg/mL Procalcitonin < 0.05 L 0.05-0.5 ng/mL Diagnostics / Radiology: 2D echo 03/01/2025: Conclusion The left ventricle is normal size. Moderate concentric left ventricular hypertrophy. LVEF is 55-60%.3D volume EF 58%. Indeterminate diastolic dysfunction. The right ventricle is mildly dilated. The right ventricular systolic function is normal. RV GLS -16.0%. The left atrium is moderately dilated. The right atrium is moderately dilated. There is trace of pericardial effusion. Impression and Plan: Acute gastroenteritis: Upper GI bleeding by history (suspected hematemesis): Hemoglobin dropped from 13.7 on admission to 12.2 03/01/2025: -EGD 03/01/2025 reported unremarkable -medical therapy with IV Protonix 40 q.12 hours, Zofran p.r.n. Non ST-elevation AK with serial troponins of 1512 >>> 980 >>> 1748 >>> 1402: Abnormal EKG with evidence of possible old anteroseptal wall AK: Hypertensive emergency with admission blood pressure of 231/118 mm of mercury: Normal LV systolic function with an LVEF of 55-60% by 2D echocardiogram 0 03/01/2025: -continue metoprolol succinate ER 100 mg daily -avoid dual antiplatelet therapy for now, agree with low-dose aspirin 81 mg daily pending assessment of GI bleeding. If no evidence of GI bleeding advance to dual antiplatelet therapy. -amlodipine has been transitioned to nifedipine ER 60 mg p.o. b.i.d. today and we will monitor blood pressure response -if blood pressure remains elevated, add doxazosin to his medical regimen. Avoid Edmond/Arb given his advanced renal failure -continue oral nitrates and hydralazine -no plans for invasive evaluation given creatinine of 4.4 (EGFR of 16) -await results of the Lexiscan Cardiolite stress test to screen for any residual ischemia Acute on chronic renal insufficiency with admission BUN of 51 and creatinine of 4.4 >>> 51 and 4.2 on 02/28/2025 with uncertain baseline: -avoid EDMOND inhibitor -continue cautious hydration Comorbidities: Type 2 diabetes mellitus previously on insulin, noncompliant Noncompliance Essential hypertension Chronic marijuana use TYRA FONTANA Mar 02, 2025 08:59
--- NOTE | 2025-03-02 09:10 | NUR ---
[facility] ICU Skin Assessment: Patient assessed by wound healing team. Patient with no wounds or skin breakdown noted. Assessment and recommendations provided to primary nurse. Education provided. Addendum: 03/02/25 at 1230 by CAMILO BUNDY RN RN/ Amended: Links added.
--- NOTE | 2025-03-02 11:11 | PN ---
GASTROENTEROLOGY PROGRESS NOTE Date of Visit: Mar 02, 2025 Time of Visit: 11:11 Events / Notes: [ ] Review of Systems: CONSTITUTIONAL: No malaise or change in sensation of wellbeing. ENMT: No rhinorrhea, otorrhea, sinus pain, ear ache. CARDIOVASCULAR: No angina, palpitations, orthopnea or paroxysmal dyspnea. RESPIRATORY: No SOB. GASTROINTESTINAL: No abdominal pain, nausea, vomiting, diarrhea, hematemesis, melena or change in the patient's habitual bowel movements consistency/number. GENITOURINARY: No dysuria, hematuria or change in bladder continence. MUSCULOSKELETAL: No new muscle pain or decrease in muscular strength. No new joint swelling, redness or tenderness. SKIN: No new rash. Physical Exam: GEN: Awake, alert, oriented in person, time and place, and in no acute distress. HEENT: No sinus tenderness. Tympanic membranes were not examined. No rhinorrhea. Oral pharyngeal mucosa is pink, moist and within normal limits. Neck is supple with no cervical lymphadenopathy, thyromegaly or JVD. CHEST: Inspection, palpation and percussion of the chest were unremarkable. Lung auscultation revealed normal breath sounds bilaterally. CARDIAC: PMI is within normal limits. Heart sounds are regular. Normal S1, S2. No gallop or murmur. ABD: Soft, non-tender and not distended. No peritoneal signs on palpation. No organomegaly. Normal bowel sounds. EXT: No cyanosis or clubbing. No edema. SKIN: Intact. No rashes. JOINTS: No evidence of synovitis or acute arthritis. NEURO: Alert and oriented to name, place and person. Cranial nerve examination is unremarkable. No focal motor deficits. Normal speech. Gait is normal. Strength is normal. Vital Signs (last 8hr) Date Time Temp Pulse Resp B/P (MAP) Pulse Ox O2 Delivery O2 Flow Rate FiO2 03/02/25 10:00 98.8 70 10 165/79 96 Room Air 03/02/25 09:43 68 13 167/77 97 Room Air 03/02/25 09:28 65 14 175/96 97 Room Air 03/02/25 09:13 62 11 164/78 96 Room Air 03/02/25 09:00 86 15 170/61 97 Room Air 03/02/25 09:00 98 Room Air* 0 21 03/02/25 08:52 67 9 158/85 98 Room Air 03/02/25 07:45 68 8 189/99 (129) 97 21 03/02/25 07:43 68 8 189/99 97 Room Air 03/02/25 07:33 65 10 173/89 (117) 96 21 03/02/25 07:33 65 10 173/89 96 Room Air 03/02/25 07:32 66 11 170/94 96 Room Air 03/02/25 07:32 66 11 170/94 (119) 96 21 03/02/25 07:30 63 10 164/75 (104) 95 21 03/02/25 07:28 63 10 164/75 95 Room Air 03/02/25 07:15 61 10 155/76 (102) 95 21 03/02/25 07:13 61 10 155/76 95 Room Air 03/02/25 07:00 61 9 166/75 (105) 95 21 03/02/25 06:45 61 13 94 21 03/02/25 06:15 58 10 161/61 (94) 93 03/02/25 06:00 59 10 157/67 (97) 95 21 03/02/25 05:45 63 10 167/68 (101) 94 03/02/25 05:30 65 14 167/88 (114) 96 03/02/25 05:15 56 14 147/70 (95) 95 03/02/25 05:00 54 10 137/77 (97) 97 21 03/02/25 04:45 56 13 138/73 (94) 93 03/02/25 04:30 57 11 153/69 (97) 93 03/02/25 04:15 62 11 186/81 (116) 96 03/02/25 04:11 64 170/79 03/02/25 04:00 95 Room Air* 0 21 03/02/25 04:00 99.0 68 10 178/86 (116) 96 Laboratory: [ ] Laboratory: Test 03/02/25 05:47 03/01/25 21:23 03/01/25 04:08 02/28/25 15:10 Range/Units White Blood Count 10.4 4.8-10.8 K/uL Red Blood Count 3.91 L 4.50-6.20 MIL/uL Hemoglobin 10.9 L 14.0-18.0 g/dL Hematocrit 31.7 L 42-54 % Mean Corpuscular Volume 81.1 79-99 fL Mean Corpuscular Hemoglobin 27.9 27.0-33.0 pg Mean Corpuscular Hemoglobin Concent 34.4 32.0-36.0 g/dL Red Cell Distribution Width 13.4 11.0-15.5 % Platelet Count 326 130-400 K/uL Mean Platelet Volume 11.4 H 7.5-10.5 fL Immature Granulocyte % (Auto) 0.4 0-1 % Neutrophils (%) (Auto) 68.6 40.0-77.0 % Lymphocytes (%) (Auto) 18.8 L 21.0-51.0 % Monocytes (%) (Auto) 9.8 3.0-13.0 % Eosinophils (%) (Auto) 1.9 0.0-8.0 % Basophils (%) (Auto) 0.5 0.0-5.0 % Neutrophils # (Auto) 7.2 1.8-7.7 K/uL Lymphocytes # (Auto) 2.0 1.0-4.8 K/uL Monocytes # (Auto) 1.0 0.1-1.0 K/uL Eosinophils # (Auto) 0.20 0.00-0.70 K/uL Basophils # (Auto) 0.05 0.00-0.20 K/uL Absolute Immature Granulocyte (auto 0.04 0-1 K/uL Nucleated Red Blood Cells 0.0 0.0-0.19 % Sodium Level 141 136-145 mmol/L Potassium Level 3.2 L 3.5-5.1 mmol/L Chloride Level 110 101-111 mmol/L Carbon Dioxide Level 22 21-32 mmol/L Blood Urea Nitrogen 48 H 7-18 mg/dL Creatinine 4.1 H 0.5-1.3 mg/dL Glomerular Filtration Rate Calc 17 >90 mL/min Random Glucose 133 H 70-105 mg/dL Lactic Acid Level 0.9 0.8-2.5 mmol/L Total Calcium 7.6 L 8.5-10.1 mg/dL Magnesium Level 2.00 1.80-2.40 mg/dL Total Bilirubin 0.3 0.2-1.0 mg/dL Aspartate Amino Transf (AST/SGOT) 16 10-37 U/L Alanine Aminotransferase (ALT/SGPT) 15 12-78 U/L Alkaline Phosphatase 74 50-136 U/L Total Protein 5.0 L 6.0-8.3 g/dL Albumin 1.5 L 3.5-5.0 g/dL Whole Blood Glucose 134 H 70-110 MG/DL Phosphorus Level 5.1 H 2.5-4.9 mg/dL Total Creatine Kinase 266 #H 21-232 U/L Troponin I High Sensitivity 1259.6 *H 4-75 ng/L B-Type Natriuretic Peptide 475 H 0-100 pg/mL Procalcitonin < 0.05 L 0.05-0.5 ng/mL Urine Random Creatinine 76.30 30-135 mg/dL Urine Random Total Protein 1398.0 H 0-11.9 mg/dL Current Medications Medications (Trade) Dose Ordered Sig/Jyoti Route PRN Reason Start Time Stop Time Status Last Admin Dose Admin Acetaminophen (TYLenol 325MG TAB) 650 mg Q6H PRN PO MILD PAIN (1-3) 03/01/25 21:00 03/31/25 20:59 03/01/25 21:31 650 MG Amlodipine Besylate (NorvASC 5MG TAB) 5 mg DAILY PO 02/28/25 09:00 02/28/25 09:02 DC Amlodipine Besylate (NorvASC 5MG TAB) 10 mg DAILY PO 03/01/25 09:00 02/28/25 13:09 DC Amlodipine Besylate (NorvASC 5MG TAB) 10 mg DAILY PO 03/01/25 09:00 03/01/25 21:31 DC 03/01/25 10:10 10 MG Aspirin (Aspirin 81mg Chew Tab) 324 mg ONCE STAT PO 02/27/25 15:34 02/27/25 15:41 DC 02/27/25 16:02 324 MG Aspirin (Aspirin 81mg Ec Tab) 81 mg DAILY PO 02/28/25 13:30 03/30/25 13:29 03/02/25 07:54 81 MG Atorvastatin Calcium (LIPItor 40MG) 40 mg HS PO 03/01/25 21:00 03/31/25 20:59 03/01/25 21:19 40 MG Clonidine HCl (CATApres 0.1 mg TAB) 0.1 mg Q8H PRN PO IF SBP GREATER THAN 160 03/01/25 21:00 03/31/25 20:59 03/02/25 04:11 0.1 MG Dextrose (D50w) 50 ml AD PRN IV HYPOGLYCEMIA PROTOCOL 02/27/25 20:00 03/29/25 19:59 Famotidine (Pepcid 20mg Vial) 20 mg DAILY IV 02/28/25 09:00 02/27/25 23:45 DC Famotidine (Pepcid 20mg Tab) 20 mg Q48H PO 03/01/25 21:00 03/31/25 20:59 03/01/25 21:19 20 MG Fluoxetine HCl (FLUoxetine HCL 20 MG CAPSULE) 20 mg HS PO 03/01/25 21:00 03/31/25 20:59 03/01/25 21:18 20 MG Folic Acid (FOLic ACID 1 MG TABLET) 1 mg DAILY PO 03/02/25 09:00 04/01/25 08:59 03/02/25 07:54 1 MG Glucagon (Glucagon 1mg Kit) 1 mg AD PRN IM HYPOGLYCEMIA PROTOCOL 02/27/25 20:00 03/29/25 19:59 Hydralazine HCl (APRESOLine 20MG INJ) 10 mg ONCE STAT IV 02/27/25 15:06 02/27/25 15:08 DC 02/27/25 15:14 10 MG Hydralazine HCl ([id number] TAB) 25 mg QID PO 02/28/25 17:00 03/01/25 08:58 DC 02/28/25 19:46 25 MG Hydralazine HCl ([id number] TAB) 25 mg TID PO 02/28/25 14:00 02/28/25 15:49 DC 02/28/25 13:55 25 MG Hydralazine HCl ([id number] TAB) 50 mg TID PO 03/01/25 21:00 03/31/25 20:59 03/02/25 08:04 50 MG Insulin Human Regular (humuLIN R 100 UNIT/ML 3ML) INSULIN SLIDING SCAL... ACHS SQ 02/27/25 21:00 03/29/25 20:59 02/28/25 06:28 2 UNIT Isosorbide Mononitrate (Imdur 30mg Sr) 30 mg DAILY PO 02/28/25 13:30 03/30/25 13:29 03/02/25 07:55 30 MG Levofloxacin/ Dextrose 100 ml @ 100 mls/hr Q24H IV 02/28/25 06:30 02/28/25 06:46 DC Magnesium Sulfate 50 ml @ 0 mls/hr PROTOCOL PRN IV MAGNESIUM PROTOCOL 02/28/25 06:00 03/30/25 05:59 02/28/25 06:15 25 MLS/HR Metoprolol Succinate (TopROL XL) 100 mg DAILY PO 03/01/25 09:00 03/31/25 08:59 03/02/25 08:09 100 MG Metoprolol Tartrate (loprESSOR) 5 mg Q4H PRN IV ADMINISTER FOR SBP > 150 02/28/25 00:00 03/30/25 00:00 02/28/25 22:09 5 MG Metoprolol Tartrate (loprESSOR) 12.5 mg TID PO 02/28/25 00:00 02/28/25 08:58 DC 02/28/25 00:17 12.5 MG Metoprolol Tartrate (loprESSOR) 25 mg BID PO 03/01/25 21:00 03/01/25 21:30 DC Metoprolol Tartrate (loprESSOR) 25 mg TID PO 02/28/25 09:00 03/01/25 08:58 DC 02/28/25 19:46 25 MG Morphine Sulfate (morPHINE 4MG SYG) 4 mg ONCE STAT IVP 02/27/25 15:41 02/27/25 15:42 DC 02/27/25 16:01 4 MG Nicardipine HCl 25 mg/Sodium Chloride 250 ml @ 0 mls/hr PROTOCOL IV 02/28/25 00:00 03/30/25 00:00 03/01/25 12:24 20 MLS/HR Nicardipine HCl 50 mg/Sodium Chloride 250 ml @ 0 mls/hr PROTOCOL STAT IV 02/27/25 15:34 02/27/25 15:42 DC Nicardipine HCl 50 mg/Sodium Chloride 250 ml @ 0 mls/hr PROTOCOL STAT IV 02/27/25 15:45 02/27/25 15:46 DC 02/27/25 16:32 5 MLS/HR Nifedipine (adALAT 30MG) 60 mg BID PO 03/02/25 09:00 04/01/25 08:59 03/02/25 07:55 60 MG Nitroglycerin (Nitroglycerin 1gm Oint) 1 inch Q6H6 TD 03/01/25 15:00 03/31/25 14:59 03/02/25 05:40 1 INCH Nitroglycerin (Nitroglycerin 1gm Oint) 1 inch Q8H TD 02/28/25 03:30 02/28/25 13:09 DC 02/28/25 03:53 1 INCH Nitroglycerin (Nitrostat) 0.4 mg AD PRN SL CHEST PAIN 02/27/25 16:00 03/29/25 15:59 Ondansetron HCl (zoFRAN 4MG TABLET) 4 mg Q6H6 PRN PO nausea/vomiting 03/01/25 21:00 03/31/25 20:59 Ondansetron HCl (zoFRAN 4MG INJ) 4 mg Q6H PRN IV NAUSEA/VOMITING 02/27/25 20:00 03/01/25 20:41 DC 02/27/25 22:25 4 MG Pantoprazole Sodium (PROTonix 40MG INJ) 40 mg BID IVP 02/28/25 00:00 03/30/25 00:00 03/02/25 07:54 40 MG Potassium Chloride 100 ml @ 100 mls/hr AD PRN IV POTASSIUM PROTOCOL 02/28/25 09:00 02/28/25 09:06 DC Potassium Chloride 100 ml @ 100 mls/hr AD PRN IV POTASSIUM PROTOCOL 02/28/25 09:00 03/30/25 08:59 03/02/25 06:53 100 MLS/HR Potassium Chloride (K-Dur 10meq Sr Tab) 10 meq AD PRN PO POTASSIUM PROTOCOL 02/28/25 16:30 03/30/25 08:59 03/01/25 18:37 10 MEQ Potassium Chloride (K-Dur/Klor-Con 20meq) 10 meq AD PRN PO POTASSIUM PROTOCOL 02/28/25 09:00 02/28/25 16:29 DC Potassium Chloride (KCl 10% Elixir 20meq/15ml) 10 meq AD PRN PO POTASSIUM PROTOCOL 02/28/25 09:00 03/30/25 08:59 Sodium Bicarbonate (Sodium Bicarbonate) 650 mg TID PO 02/28/25 09:00 03/30/25 08:59 03/02/25 08:07 650 MG Sodium Chloride 500 ml @ 0 mls/hr Q0M IV 02/28/25 01:30 02/28/25 08:58 DC Sodium Chloride 1,000 ml @ 75 mls/hr [id number] IV 02/27/25 14:30 03/29/25 14:29 03/02/25 06:54 75 MLS/HR Sodium Chloride 1,000 ml @ 75 mls/hr [id number] IV 02/27/25 20:00 02/28/25 13:11 DC 02/28/25 09:27 75 MLS/HR Sodium Chloride 1,000 ml @ 1,000 mls/hr Q1H STAT IV 02/27/25 14:25 02/27/25 15:24 DC 02/27/25 15:36 1,000 MLS/HR Sucralfate (Carafate) 1 gm Q6H PO 03/01/25 12:00 03/31/25 11:59 03/01/25 18:37 1 GM Diagnostics / Radiology: [COPY/PASTE HERE IF NO REPORTS PLEASE DELETE SECTION] Assessment: Hematemesis Epigastric pain CKD DM Plan: [facility] Mar 02, 2025 11:11
[2025-03-02 11:48] LABS: HIV 1&2 ANTIBODY Non-Reactive (Negative); HIV-1 p24 Antigen Non-Reactive (Negative)
--- NOTE | 2025-03-02 12:45 | PN ---
[facility] PROGRESS NOTE Date of Service: Mar 02, 2025 Time of Service: 12:35 SUBJECTIVE: This is a 49-year-old male with history of anemia, hypertension, chronic kidney disease non hemodialysis, diabetes who presented to the ED February 27, 2025 for complaints of nausea vomiting and diarrhea and epigastric pain which started three days ago.As per patient he has been having bloody emesis upon ER arrival and was reported to the ER nurse.Patient reported he is using marijuana and denied alcohol,cigarette and cocaine use.Patient also reported he is not good in taking his medications and checking his BP and blood sugar at home. Seen and examined patient in the ER awake,alert and coherent.Patient denied fever,chills,chest pain,palpitation and shortness of breath. Vital signs upon ER arrival temperature 98.2, heart rate 89, blood pressure 231/118 saturation 98% on room air. In the ER Labs: WBC 20 with negative left shift of neutrophils 90, globin 13, hematocrit 40, platelet count 383. BUN 51, creatinine 4.4, GFR 16 glucose 291 ketones 1.2 lactic acid two troponin 1748 to 980. Albumin 1.9. Urine toxicology positive for marijuana. CT head without contrast result is unremarkable. CT chest result revealed no evidence of pulmonary nodule or effusion is seen. CT abdomen and pelvis result revealed bilateral renal cyst diverticulosis. Tiny bilateral renal pelvic stones. While in the ER patient started on 1 L NS bolus, famotidine 20 mg IV, Zofran 4 mg IV hydralazine 10 mg IV and patient was started on Cardene drip. Patient also received aspirin 324 mg p.o.. Patient admitted to the intensive care unit for further evaluation and medical management 02/28 patient remains admitted to the intensive care unit, BP 156/75, heart rate of 77, afebrile, saturating 94% on room air. Hemoglobin of 12.1, hematocrit 35.2, platelet count of 340, WBC 25.0, sodium 141, potassium 3.2, glucose 164, BUN of 56, creatinine 4.4, magnesium 1.7, albumin 1.5, serology test to include influenza, SARS antigen and group a strep negative, CT chest abdomen and pelvis no evidence of pulmonary nodule or effusion, bilateral renal cysts, diverticulosis, tiny bilateral renal pelvic stones, patient on amlodipine 10 mg p.o. daily, sodium bicarbonate 650 mg p.o. t.i.d., hypokalemia protocol, metoprolol tartrate 25 mg p.o. t.i.d., Patient on PPI with Protonix 40 mg IV b.i.d.. Twelve lead EKG demonstrated sinus rhythm, left anterior fascicular block, complex in V1 and V2 consistent with a possible prior anteroseptal AZ and J-point elevation continue with the LVH. There was a 1/[address] elevation of AVR of uncertain significance. Cardiac consultation requested due to positive troponin, per cardiac input, cardiac enzymes are declining and blood pressure is under improved control, cleared for upper endoscopy. Increase metoprolol to 25 mg p.o. q.8 hours and continue IV metoprolol as needed, avoid IV heparin, avoid dual antiplatelet therapy, agreed with low-dose aspirin 81 mg p.o. daily pending assessment by GI, add amlodipine 5 mg p.o. daily, follow echocardiogram to assess LVEF, no plan for invasive evaluation given creatinine of 4.4, consider Lexiscan Cardiolite stress test Wednesday a.m.. Due to creatinine of 4.4, obtain records from the office of Dr. Brian Woo, fluid DRAKE inhibitors, continue cautious hydration. We will follow GI input and recommendation. During my visit today the patient is sitting comfortable at the edge of the bed, alert oriented x3, no chest pain, shortness shortness for breath, no nausea, no vomiting, off nicardipine drip. 03/01 patient admitted secondary to hematemesis, patient remains admitted to the intensive care unit, AO x 3, case discussed with RN, no acute events, denies dizziness, no chest pain, blood pressure 171/89, afebrile, saturating normal on room air, leukocytosis improving, WBC 15.5. Creatinine 4.2. Latest troponin 1259. Toxicology screen positive for marijuana. Cardiology consultation requested, cleared for upper endoscopy by GI. Doppler of the renal arteries normal. Remains on Carafate 1 g p.o. q.6 hours, and Protonix 40 mg IV b.i.d.. Cardiology input noted and appreciated, -no plans for invasive evaluation given creatinine of 4.4 (EGFR of 16), Lexiscan Cardiolite stress test scheduled for 03/02/2025 EGD done, impression: -LA grade D esophagitis with no bleeding -esophageal ulcers -erythematous mucosa in the stomach -normal duodenal bulb and 2nd portion of the duodenum Recommendations: -clear liquid diet -Protonix 40 mg p.o. b.i.d. -Carafate 1 g p.o. q.i.d. 03/02 No acute events overnight, blood pressure mildly elevated, nifedipine 60mg twice daily. Stress test pending today, will follow up. Patient with nephrotic range proteinuria, possibly due to hx of diabetes however patient is young and elevated troponins unaccounted for. May be secondary to other underlying cause will order, HIV, Hepatitis, SIMI, C3/C4, SPEP, UPEP, and [place]/Lambda light chains and follow up. REVIEW OF SYSTEMS 12 point ROS negative unless noted in HPI PHYSICAL EXAM GENERAL APPEARANCE: The patient is awake, alert, and oriented, in no acute cardiopulmonary distress. NEUROLOGICAL: Cranial nerves II-XII grossly intact. Motor is 5/5 in bilateral upper and lower extremities proximal to distal. No sensory deficits. HEENT: Face is symmetric. Pupils are equal and reactive. Extraocular movements are intact. NECK: Supple. No JVD. No thyromegaly. No submental, submandibular, pre- /postauricular, occipital or supraclavicular lymphadenopathy. CHEST: Normal chest expansion. No Telemetry. LUNGS: Absence of any rales, rhonchi or any wheezing. CARDIOVASCULAR: Regular. S1 and S2 normal. No appreciable rubs, murmurs or gallops. ABDOMEN: Soft, nontender, and nondistended. There is no rebound, voluntary guarding, or rigidity. : Deferred. No Shields. EXTREMITIES: Non-edematous and not cyanotic. No clubbing. Good capillary refill. SKIN: No skin breakdown. Vital Signs (last 8hr) Date Time Temp Pulse Resp B/P (MAP) Pulse Ox O2 Delivery O2 Flow Rate FiO2 03/02/25 10:00 98.8 70 10 165/79 96 Room Air 03/02/25 09:43 68 13 167/77 97 Room Air 03/02/25 09:28 65 14 175/96 97 Room Air 03/02/25 09:13 62 11 164/78 96 Room Air 03/02/25 09:00 86 15 170/61 97 Room Air 03/02/25 09:00 98 Room Air* 0 21 03/02/25 08:52 67 9 158/85 98 Room Air 03/02/25 07:45 68 8 189/99 (129) 97 21 03/02/25 07:43 68 8 189/99 97 Room Air 03/02/25 07:33 65 10 173/89 (117) 96 21 03/02/25 07:33 65 10 173/89 96 Room Air 03/02/25 07:32 66 11 170/94 96 Room Air 03/02/25 07:32 66 11 170/94 (119) 96 21 03/02/25 07:30 63 10 164/75 (104) 95 21 03/02/25 07:28 63 10 164/75 95 Room Air 03/02/25 07:15 61 10 155/76 (102) 95 21 03/02/25 07:13 61 10 155/76 95 Room Air 03/02/25 07:00 61 9 166/75 (105) 95 21 03/02/25 06:45 61 13 94 21 03/02/25 06:15 58 10 161/61 (94) 93 03/02/25 06:00 59 10 157/67 (97) 95 21 03/02/25 05:45 63 10 167/68 (101) 94 03/02/25 05:30 65 14 167/88 (114) 96 03/02/25 05:15 56 14 147/70 (95) 95 03/02/25 05:00 54 10 137/77 (97) 97 21 03/02/25 04:45 56 13 138/73 (94) 93 LABS: Laboratory: Test 03/02/25 11:52 03/02/25 10:23 03/02/25 05:47 03/01/25 04:08 Range/Units Whole Blood Glucose 171 H 70-110 MG/DL HIV (1&2) Antibody Non-Reactive Negative HIV P24 Antigen, Qualitative Non-Reactive Negative White Blood Count 10.4 4.8-10.8 K/uL Red Blood Count 3.91 L 4.50-6.20 MIL/uL Hemoglobin 10.9 L 14.0-18.0 g/dL Hematocrit 31.7 L 42-54 % Mean Corpuscular Volume 81.1 79-99 fL Mean Corpuscular Hemoglobin 27.9 27.0-33.0 pg Mean Corpuscular Hemoglobin Concent 34.4 32.0-36.0 g/dL Red Cell Distribution Width 13.4 11.0-15.5 % Platelet Count 326 130-400 K/uL Mean Platelet Volume 11.4 H 7.5-10.5 fL Immature Granulocyte % (Auto) 0.4 0-1 % Neutrophils (%) (Auto) 68.6 40.0-77.0 % Lymphocytes (%) (Auto) 18.8 L 21.0-51.0 % Monocytes (%) (Auto) 9.8 3.0-13.0 % Eosinophils (%) (Auto) 1.9 0.0-8.0 % Basophils (%) (Auto) 0.5 0.0-5.0 % Neutrophils # (Auto) 7.2 1.8-7.7 K/uL Lymphocytes # (Auto) 2.0 1.0-4.8 K/uL Monocytes # (Auto) 1.0 0.1-1.0 K/uL Eosinophils # (Auto) 0.20 0.00-0.70 K/uL Basophils # (Auto) 0.05 0.00-0.20 K/uL Absolute Immature Granulocyte (auto 0.04 0-1 K/uL Nucleated Red Blood Cells 0.0 0.0-0.19 % Sodium Level 141 136-145 mmol/L Potassium Level 3.2 L 3.5-5.1 mmol/L Chloride Level 110 101-111 mmol/L Carbon Dioxide Level 22 21-32 mmol/L Blood Urea Nitrogen 48 H 7-18 mg/dL Creatinine 4.1 H 0.5-1.3 mg/dL Glomerular Filtration Rate Calc 17 >90 mL/min Random Glucose 133 H 70-105 mg/dL Lactic Acid Level 0.9 0.8-2.5 mmol/L Total Calcium 7.6 L 8.5-10.1 mg/dL Magnesium Level 2.00 1.80-2.40 mg/dL Total Bilirubin 0.3 0.2-1.0 mg/dL Aspartate Amino Transf (AST/SGOT) 16 10-37 U/L Alanine Aminotransferase (ALT/SGPT) 15 12-78 U/L Alkaline Phosphatase 74 50-136 U/L Total Protein 5.0 L 6.0-8.3 g/dL Albumin 1.5 L 3.5-5.0 g/dL Phosphorus Level 5.1 H 2.5-4.9 mg/dL Total Creatine Kinase 266 #H 21-232 U/L Troponin I High Sensitivity 1259.6 *H 4-75 ng/L B-Type Natriuretic Peptide 475 H 0-100 pg/mL Procalcitonin < 0.05 L 0.05-0.5 ng/mL Test 02/28/25 15:10 Range/Units Urine Random Creatinine 76.30 30-135 mg/dL Urine Random Total Protein 1398.0 H 0-11.9 mg/dL Current Medications Medications (Trade) Dose Ordered Sig/Jyoti Route PRN Reason Start Time Stop Time Status Last Admin Dose Admin Acetaminophen (TYLenol 325MG TAB) 650 mg Q6H PRN PO MILD PAIN (1-3) 03/01/25 21:00 03/31/25 20:59 03/01/25 21:31 650 MG Amlodipine Besylate (NorvASC 5MG TAB) 5 mg DAILY PO 02/28/25 09:00 02/28/25 09:02 DC Amlodipine Besylate (NorvASC 5MG TAB) 10 mg DAILY PO 03/01/25 09:00 02/28/25 13:09 DC Amlodipine Besylate (NorvASC 5MG TAB) 10 mg DAILY PO 03/01/25 09:00 03/01/25 21:31 DC 03/01/25 10:10 10 MG Aspirin (Aspirin 81mg Chew Tab) 324 mg ONCE STAT PO 02/27/25 15:34 02/27/25 15:41 DC 02/27/25 16:02 324 MG Aspirin (Aspirin 81mg Ec Tab) 81 mg DAILY PO 02/28/25 13:30 03/30/25 13:29 03/02/25 07:54 81 MG Atorvastatin Calcium (LIPItor 40MG) 40 mg HS PO 03/01/25 21:00 03/31/25 20:59 03/01/25 21:19 40 MG Clonidine HCl (CATApres 0.1 mg TAB) 0.1 mg Q8H PRN PO IF SBP GREATER THAN 160 03/01/25 21:00 03/31/25 20:59 03/02/25 04:11 0.1 MG Dextrose (D50w) 50 ml AD PRN IV HYPOGLYCEMIA PROTOCOL 02/27/25 20:00 03/29/25 19:59 Famotidine (Pepcid 20mg Vial) 20 mg DAILY IV 6/18/25 09:00 02/27/25 23:45 DC Famotidine (Pepcid 20mg Tab) 20 mg Q48H PO 03/01/25 21:00 03/31/25 20:59 03/01/25 21:19 20 MG Fluoxetine HCl (FLUoxetine HCL 20 MG CAPSULE) 20 mg HS PO 03/01/25 21:00 03/31/25 20:59 03/01/25 21:18 20 MG Folic Acid (FOLic ACID 1 MG TABLET) 1 mg DAILY PO 03/02/25 09:00 04/01/25 08:59 03/02/25 07:54 1 MG Glucagon (Glucagon 1mg Kit) 1 mg AD PRN IM HYPOGLYCEMIA PROTOCOL 02/27/25 20:00 03/29/25 19:59 Hydralazine HCl (APRESOLine 20MG INJ) 10 mg ONCE STAT IV 02/27/25 15:06 02/27/25 15:08 DC 02/27/25 15:14 10 MG Hydralazine HCl ([id number] TAB) 25 mg QID PO 02/28/25 17:00 03/01/25 08:58 DC 02/28/25 19:46 25 MG Hydralazine HCl ([id number] TAB) 25 mg TID PO 02/28/25 14:00 02/28/25 15:49 DC 02/28/25 13:55 25 MG Hydralazine HCl ([id number] TAB) 50 mg TID PO 03/01/25 21:00 03/31/25 20:59 03/02/25 08:04 50 MG Insulin Human Regular (humuLIN R 100 UNIT/ML 3ML) INSULIN SLIDING SCAL... ACHS SQ 02/27/25 21:00 03/29/25 20:59 02/28/25 06:28 2 UNIT Isosorbide Mononitrate (Imdur 30mg Sr) 30 mg DAILY PO 02/28/25 13:30 03/30/25 13:29 03/02/25 07:55 30 MG Levofloxacin/ Dextrose 100 ml @ 100 mls/hr Q24H IV 02/28/25 06:30 02/28/25 06:46 DC Magnesium Sulfate 50 ml @ 0 mls/hr PROTOCOL PRN IV MAGNESIUM PROTOCOL 02/28/25 06:00 03/30/25 05:59 02/28/25 06:15 25 MLS/HR Metoprolol Succinate (TopROL XL) 100 mg DAILY PO 03/01/25 09:00 03/31/25 08:59 03/02/25 08:09 100 MG Metoprolol Tartrate (loprESSOR) 5 mg Q4H PRN IV ADMINISTER FOR SBP > 150 02/28/25 00:00 03/30/25 00:00 02/28/25 22:09 5 MG Metoprolol Tartrate (loprESSOR) 12.5 mg TID PO 02/28/25 00:00 02/28/25 08:58 DC 02/28/25 00:17 12.5 MG Metoprolol Tartrate (loprESSOR) 25 mg BID PO 03/01/25 21:00 03/01/25 21:30 DC Metoprolol Tartrate (loprESSOR) 25 mg TID PO 02/28/25 09:00 03/01/25 08:58 DC 02/28/25 19:46 25 MG Morphine Sulfate (morPHINE 4MG SYG) 4 mg ONCE STAT IVP 02/27/25 15:41 02/27/25 15:42 DC 02/27/25 16:01 4 MG Nicardipine HCl 25 mg/Sodium Chloride 250 ml @ 0 mls/hr PROTOCOL IV 02/28/25 00:00 03/30/25 00:00 03/01/25 12:24 20 MLS/HR Nicardipine HCl 50 mg/Sodium Chloride 250 ml @ 0 mls/hr PROTOCOL STAT IV 02/27/25 15:34 02/27/25 15:42 DC Nicardipine HCl 50 mg/Sodium Chloride 250 ml @ 0 mls/hr PROTOCOL STAT IV 02/27/25 15:45 02/27/25 15:46 DC 02/27/25 16:32 5 MLS/HR Nifedipine (adALAT 30MG) 60 mg BID PO 03/02/25 09:00 04/01/25 08:59 03/02/25 07:55 60 MG Nitroglycerin (Nitroglycerin 1gm Oint) 1 inch Q6H6 TD 03/01/25 15:00 03/31/25 14:59 03/02/25 12:03 1 INCH Nitroglycerin (Nitroglycerin 1gm Oint) 1 inch Q8H TD 02/28/25 03:30 02/28/25 13:09 DC 02/28/25 03:53 1 INCH Nitroglycerin (Nitrostat) 0.4 mg AD PRN SL CHEST PAIN 02/27/25 16:00 03/29/25 15:59 Ondansetron HCl (zoFRAN 4MG TABLET) 4 mg Q6H6 PRN PO nausea/vomiting 03/01/25 21:00 03/31/25 20:59 Ondansetron HCl (zoFRAN 4MG INJ) 4 mg Q6H PRN IV NAUSEA/VOMITING 02/27/25 20:00 03/01/25 20:41 DC 02/27/25 22:25 4 MG Pantoprazole Sodium (PROTonix 40MG INJ) 40 mg BID IVP 02/28/25 00:00 03/30/25 00:00 03/02/25 07:54 40 MG Potassium Chloride 100 ml @ 100 mls/hr AD PRN IV POTASSIUM PROTOCOL 02/28/25 09:00 02/28/25 09:06 DC Potassium Chloride 100 ml @ 100 mls/hr AD PRN IV POTASSIUM PROTOCOL 02/28/25 09:00 03/30/25 08:59 03/02/25 06:53 100 MLS/HR Potassium Chloride (K-Dur 10meq Sr Tab) 10 meq AD PRN PO POTASSIUM PROTOCOL 02/28/25 16:30 03/30/25 08:59 03/02/25 12:26 10 MEQ Potassium Chloride (K-Dur/Klor-Con 20meq) 10 meq AD PRN PO POTASSIUM PROTOCOL 02/28/25 09:00 02/28/25 16:29 DC Potassium Chloride (KCl 10% Elixir 20meq/15ml) 10 meq AD PRN PO POTASSIUM PROTOCOL 02/28/25 09:00 03/30/25 08:59 Sodium Bicarbonate (Sodium Bicarbonate) 650 mg TID PO 02/28/25 09:00 03/30/25 08:59 03/02/25 08:07 650 MG Sodium Chloride 500 ml @ 0 mls/hr Q0M IV 02/28/25 01:30 02/28/25 08:58 DC Sodium Chloride 1,000 ml @ 75 mls/hr [id number] IV 02/27/25 14:30 03/02/25 11:18 DC 03/02/25 06:54 75 MLS/HR Sodium Chloride 1,000 ml @ 75 mls/hr [id number] IV 02/27/25 20:00 02/28/25 13:11 DC 02/28/25 09:27 75 MLS/HR Sodium Chloride 1,000 ml @ 1,000 mls/hr Q1H STAT IV 02/27/25 14:25 02/27/25 15:24 DC 02/27/25 15:36 1,000 MLS/HR Sucralfate (Carafate) 1 gm Q6H PO 03/01/25 12:00 03/31/25 11:59 03/02/25 12:00 1 GM DIAGNOSTICS / RADIOLOGY: [ ] ASSESSMENT: Hypertensive emergency POA Non ST-elevation AZ POA Abnormal EKG with the evidence of possible old anteroseptal wall AZ Acute on chronic kidney disease POA Chronic anemia due to CKD POA Acute upper GI bleed, POA Status post EGD 03/01/2025 -LA grade D esophagitis with no bleeding -esophageal ulcers -erythematous mucosa in the stomach -normal duodenal bulb and 2nd portion of the duodenum Acute leukocytosis POA Uncontrolled diabetes mellitus type 2 POA Uncontrolled hypertension POA Medical noncompliance POA Severe protein calorie malnutrition POA Cannabinoid hyperemesis syndrome POA Positive marijuana POA PLAN: - Stress test pending, will follow up - HIV, Hep B panels pending, will follow up - SIMI, C3/C4 pending, will follow up - SPEP, UPEP and [place] light chains ordered, will follow up - Continue nifedipine 60mg BID - Continue atorvastatin 40mg HS - Continue metoprolol 100mg q24h - Continue isosorbide mononitrate 30mg q24h - Continue aspirin 81mg q24h - Continue sliding scale insulin - Continue hypoglycemia protocol - Cardiology consulted, appreciate recommendations - Nephrology consulted, appreciate recommendations Disposition: Pending improvement in clinical status Greater than 35 minutes ICU time spent in care of patient JOS PATEL MD Mar 02, 2025 12:45
--- NOTE | 2025-03-02 13:11 | HMCSR ---
APPROVED REPORT Height: 6 ft 0in Weight: 184 lbs TEST INDICATIONS Non STEMI The imaging protocol used to acquire images was Rest Tc-99m/stress Tc-99m 1 day Consent: The procedure was explained and understood by the patient. Informerd consent was witnessed William Nam RN First, low dose rest was performed then high dose stress. RESTING DATA: The resting ekg shows: NSR with poor R wave progression, TWI aVL Rest SPECT myocardial perfusion imaging was performed in supine position minutes following the intra venous injection of 11 mCi of Tc-99 Sestamibi. Time of rest injection: 07:30: Date: 03/02/2025 PHARMACOLOGIC STRESS: Pharmacologic stress test was performed by injecting regadenoson 0.4 mg IV push followed by the intra venous injection of 28 mCi of Tc-99 Sestamibi. Time of stress injection: 08:55: Date: 03/02/2025 Heart Rate at time of stress injection: 57 bpm. Gated Stress SPECT was performed 60 minutes after stress injection. The images were gated to evaluate regional wall motion and calculate left ventricular ejection fracti on. STRESS DETAILS Reason for Termination: Infusion complete Stress Symptoms: Dyspnea Max HR Achieved: 67 bpm % of APMHR Achieved: 46 Max Blood Pressure: 162/79 mmHg Stress ECG: NSR with poor R wave progression Arrhythmia: No. ST Change: No. LEFT VENTRICLE Size: The left ventricular size is normal. Systolic Function:The left ventricular systolic function is borderline decreased. Wall Motion: Global hypokinesis of the left ventricle. The left ventricular ejection fraction was calculated to be 40%.TID = 1.13. LV PERFUSION Small size mild severity reversible perfusion defect of the lateral wall. There are perfusion defects at rest involving the inferolateral and distal septal segments however wi th partial improvement in stress imaging. RV Size/Shape Not well visualized. IMPRESSION Abnormal nuclear stress test. Diseased Vessels: Left Circumflex Global LV Function: Mildy reduced Stress ECG Summary: Nondiagnostic LV Perfusion Summary: Abnormal LV Viability Summary: Potentially viable myocardium Conclusion Small degree of ischemia involving the lateral wall. Borderline decreased left ventricular systolic function with LVEF 40% however no regional wall motion abnormalities
[2025-03-02 15:32] LABS: HEPATITIS B SURFACE ANTIGEN Non-Reactive (Nonreactive)
[2025-03-02 15:33] LABS: HEPATITIS B CORE AB TOTAL Non-Reactive (Nonreactive); HEPATITIS B CORE IGM ANTIBODY Non-Reactive (Negative); HEPATITIS B SURFACE ANTIBODY Negative (Reactive); HEPATITIS C ANTIBODY Non-Reactive (Nonreactive)
--- NOTE | 2025-03-02 17:10 | PN ---
FOLLOWUP PROGRESS NOTE SUBJECTIVE: A 49-year-old male, history of diabetes mellitus, hypertension. The patient presented to the hospital with underlying GI bleeding. The patient was found to have peptic ulcer disease. The patient has had acute on chronic renal failure in the hospital. Creatinine has remained fairly stable. He has known advanced renal dysfunction. Blood pressure is under better control and he is being seen as a followup visit for all of the above. REVIEW OF SYSTEMS: CONSTITUTIONAL: He is feeling weak and tired. HEENT: No change in vision. No change in hearing. CARDIOVASCULAR: There is no current chest pain or palpitations. PULMONARY: He denies any shortness of breath. GASTROINTESTINAL: The patient is on a liquid diet. MUSCULOSKELETAL: Complains of weakness. OBJECTIVE: VITAL SIGNS: Blood pressure is 167/77, pulse 60s, afebrile. GENERAL: He is a chronically ill male, much older than appearing. HEENT: Head is atraumatic. Pupils are equal, roving to light. Oropharynx is without exudate. Nares are clear. NECK: There is no JVP. There is no thyromegaly. No mass. CARDIOVASCULAR: Regular. There is no S3, S4 gallop. LUNGS: Coarse with equal thoracic movement. ABDOMEN: Soft, nondistended, nontender. EXTREMITIES: No clubbing, no cyanosis. NEUROLOGICAL: He is awake. He is alert. LABORATORY DATA: Sodium 141, potassium 3.2, BUN 48, creatinine is 4. Hemoglobin 10, hematocrit 31. IMPRESSION: * Acute on chronic renal failure. * Difficult to control hypertension. * Peptic ulcer disease. * Anemia. PLAN: The patient's creatinine has remained fairly stable. There is no acute need for any form of renal replacement therapy at this time. Blood pressure is under better control. The patient's GI workup is ongoing. IV fluids can safely be discontinued and we will follow closely. TID: [id number] RECEIPT: [id number]
[2025-03-03] VITALS (11 sets, daily range): BP systolic 138–166; BP diastolic 69–87; PULSE 57–69; RESP 18; TEMP 97.4–98.4; O2SAT 96–98
[2025-03-03 03:47] LABS: BASOPHILS # (AUTO) 0.06 K/uL (0.00-0.20); BASOPHILS % (AUTO) 0.6 % (0.0-5.0); EOSINOPHILS # (AUTO) 0.31 K/uL (0.00-0.70); EOSINOPHILS % (AUTO) 3.1 % (0.0-8.0); HEMATOCRIT 31.8 % (42-54); IMMATURE GRANULOCYTE ABSOLUTE 0.05 K/uL (0-1); LYMPHOCYTES # (AUTO) 2.2 K/uL (1.0-4.8); LYMPHOCYTES % (AUTO) 21.8 % (21.0-51.0); MEAN CORPUSCULAR HEMOGLOBIN 27.6 pg (27.0-33.0); MEAN CORPUSCULAR VOLUME 83.5 fL (79-99); MONOCYTES # (AUTO) 0.9 K/uL (0.1-1.0); MONOCYTES % (AUTO) 9.4 % (3.0-13.0); NEUTROPHILS # (AUTO) 6.4 K/uL (1.8-7.7); NEUTROPHILS % (AUTO) 64.6 % (40.0-77.0); PLATELET COUNT (AUTO) 295 K/uL (130-400); RED BLOOD CELL COUNT(AUTO) 3.81 MIL/uL (4.50-6.20); RED CELL DISTRIBUTION WIDTH 13.3 % (11.0-15.5)
[2025-03-03 04:14] LABS: ALBUMIN 1.5 g/dL (3.5-5.0); BILIRUBIN,TOTAL 0.2 mg/dL (0.2-1.0); CREATININE 4.2 mg/dL (0.5-1.3); POTASSIUM 3.6 mmol/L (3.5-5.1)
[2025-03-03] MEDS: PANTOPrazole 40 MG TAB DR PO SCH (08:58)
--- NOTE | 2025-03-03 09:05 | HMCIMG ---
Exam Type: CHEST 1VW Clinical Information: hypoxic resp failure Comparison: None Findings: Ill-defined infiltrates of both lungs are seen consistent with bilateral pneumonia. . The heart is normal in size. The bony and soft tissue structures show no worrisome pathology. IMPRESSION: Findings consistent with pneumonia. Follow-up is advised.
--- NOTE | 2025-03-03 09:51 | PN ---
[facility] PROGRESS NOTE Date Patient Seen: Mar 03, 2025 Time of Visit: 09:50 Supervising Physician: Cristobal Lira MD Primary Care Physician: Attending group: [facility] hospitalist team Outpatient Specialists: Inpatient Consults: Critical Care team Cardiology PROBLEM LIST: NSTEMI, POA, on medical management Abnormal nuclear stress test on 03/03/25 Hypertensive emergency, POA, RESOLVING Acute on chronic HFpEF LVEF 40% on Lexiscan 02/2025 Cannabinoid hyperemesis syndrome POA, resolved Acute kidney injury on CKD stage IV , POA Hematemesis, POA Acute on chronic kidney disease, POA, (GFR 26 on 09/16/2024) Chronic anemia due to CKD, POA Upper GI bleeding by history (suspected hematemesis), possible Gila-Mayo tear, possibly secondary to gastritis or peptic ulcer disease, POA s/p EGD findingd of LAD esophagitis POA Acute leukocytosis, POA Uncontrolled diabetes, POA Uncontrolled hypertension, POA Medical noncompliance, POA Albuminemia/ malnutrition, POA Positive marijuana POA INTERVAL HISTORY: Mr. Pham is a 49-year-old male with history of anemia, hypertension, chronic kidney disease non hemodialysis, diabetes who [place] [facility] [place] of nausea, bloody emesis, diarrhea, and epigastric pain onset three days ago. Patient reported he is using marijuana and denies alcohol, cigarette and cocaine use. Patient also reports he is not good in taking his medications and checking his BP and blood sugar at home. Patient also reports he has not seen a PCP. Vital signs upon ER arrival temperature 98.2, heart rate 89, blood pressure 231/118 saturation 98% on room air. 03/02/25- Pt has Abnormal nuclear stress test.Small degree of ischemia involving the lateral wall. Borderline decreased left ventricular systolic function with LVEF 40% however no regional wall motion abnormalities. The patient would be at high risk of any form of contrast from a renal standpoint. No major overnight events. Patient is hemodynamically stable saturating 98% on room air and afebrile. Pending further Cardiology recommendations at this time. REVIEW OF SYSTEMS: General: No malaise or fever. Neurological: No fainting episodes or seizures. HEENT: No nasal congestion or nasal secretion. Respiratory: No cough, shortness of breath, or wheezing Cardiac:+ fatigue Gastrointestinal: No vomiting or diarrhea. Genitourinary: No dysuria hematuria. Skin: No rashes or lesions. Hematological: No bruises or bleeding. Musculoskeletal: No joint pains or arthralgias. Psychiatric: No depression or panic attacks. PHYSICAL EXAM: GENERAL: Alert, weak, awake oriented x 3 HEENT: EOMI, Sclera non icteric, moist mucosa NECK: Supple, no JVD, trachea midline LUNGS: Clear breath sounds bilaterally. No wheezes HEART: Regular rate and rhythm. Normal S1 and S2, without murmurs ABD: Abdomen soft, nontender. Bowel sounds present EXT: No clubbing cyanosis or edema NEURO: Alert and oriented X3, follows commands Vital Signs (last 8hr) Date Time Temp Pulse Resp B/P (MAP) Pulse Ox O2 Delivery O2 Flow Rate FiO2 03/03/25 07:58 98.1 63 18 144/87 95 Room Air 03/03/25 03:50 98.4 61 18 138/69 96 Room Air LABS: Hematology Labs: Test 03/03/25 03:36 Range/Units White Blood Count 10.0 4.8-10.8 K/uL Red Blood Count 3.81 L 4.50-6.20 MIL/uL Hemoglobin 10.5 L 14.0-18.0 g/dL Hematocrit 31.8 L 42-54 % Mean Corpuscular Volume 83.5 79-99 fL Mean Corpuscular Hemoglobin 27.6 27.0-33.0 pg Mean Corpuscular Hemoglobin Concent 33.0 32.0-36.0 g/dL Red Cell Distribution Width 13.3 11.0-15.5 % Platelet Count 295 130-400 K/uL Mean Platelet Volume 11.4 H 7.5-10.5 fL Immature Granulocyte % (Auto) 0.5 0-1 % Neutrophils (%) (Auto) 64.6 40.0-77.0 % Lymphocytes (%) (Auto) 21.8 21.0-51.0 % Monocytes (%) (Auto) 9.4 3.0-13.0 % Eosinophils (%) (Auto) 3.1 0.0-8.0 % Basophils (%) (Auto) 0.6 0.0-5.0 % Neutrophils # (Auto) 6.4 1.8-7.7 K/uL Lymphocytes # (Auto) 2.2 1.0-4.8 K/uL Monocytes # (Auto) 0.9 0.1-1.0 K/uL Eosinophils # (Auto) 0.31 0.00-0.70 K/uL Basophils # (Auto) 0.06 0.00-0.20 K/uL Absolute Immature Granulocyte (auto 0.05 0-1 K/uL Nucleated Red Blood Cells 0.0 0.0-0.19 % Chemistry Labs: Test 03/03/25 06:40 03/03/25 03:36 03/02/25 05:47 Range/Units Whole Blood Glucose 141 H 70-110 MG/DL Sodium Level 138 136-145 mmol/L Potassium Level 3.6 3.5-5.1 mmol/L Chloride Level 106 101-111 mmol/L Carbon Dioxide Level 24 21-32 mmol/L Blood Urea Nitrogen 48 H 7-18 mg/dL Creatinine 4.2 H 0.5-1.3 mg/dL Glomerular Filtration Rate Calc 16 >90 mL/min Random Glucose 170 H 70-105 mg/dL Lactic Acid Level 0.9 0.8-2.5 mmol/L Total Calcium 7.7 L 8.5-10.1 mg/dL Total Bilirubin 0.2 # 0.2-1.0 mg/dL Aspartate Amino Transf (AST/SGOT) 19 10-37 U/L Alanine Aminotransferase (ALT/SGPT) 16 12-78 U/L Alkaline Phosphatase 69 50-136 U/L B-Type Natriuretic Peptide 425 H 0-100 pg/mL Total Protein 5.0 L 6.0-8.3 g/dL Albumin 1.5 L 3.5-5.0 g/dL Magnesium Level 2.00 1.80-2.40 mg/dL DIAGNOSTICS / RADIOLOGY RESULTS: IMPRESSION Abnormal nuclear stress test. Diseased Vessels: Left Circumflex Global LV Function: Mildy reduced Stress ECG Summary: Nondiagnostic LV Perfusion Summary: Abnormal LV Viability Summary: Potentially viable myocardium Conclusion Small degree of ischemia involving the lateral wall. Borderline decreased left ventricular systolic function with LVEF 40% however no regional wall motion abnormalities PLAN Continue cardioprotective medication: Aspirin Atorvastatin Metoprolol follow cardiology medications NEURO: Minimize central acting medications as possible. Maintain fall precautions, adequate lighting during the day PULMONARY: Supplemental 02 as needed. Maintain aspiration precautions at all times CARDIOVASCULAR: Follow hemodynamics. Vital signs per facility protocol GI & NUTRITION: Continue with nutritional support. Continue stool softeners and laxatives as needed. KIDNEYS & ELECTROLYTES: Strict monitoring of intake, output and overall fluid balance. Avoid nephrotoxic medications to the extent possible. Medications to be dosed according to renal function. Monitor electrolytes and replace as needed ENDOCRINE: Maintain blood glucose between 100-180 at all times. Hypoglycemia protocol in place INFECTIOUS DISEASE: Trend temperature, WBC and procalcitonin level Follow cultures, deescalate antibiotics as soon as possible. Panculture if new onset fever ONCOLOGY/HEMATOLOGY/COAGULATION: Monitor for s/s of bleeding Monitor hemoglobin, coagulation studies as needed SKIN: Pressure ulcer prevention per facility protocol Specialty mattress ORTHO/REHAB: Continue PT/OT Prophylaxis: Continue GI and DVT prophylaxis Code Status: Full Resuscitation Disposition: TBD Other: ATTESTATION BY PHYSICIAN I reviewed the documentation, medical decision making, and treatment plan as noted by the mid-level provider above. I agree with the findings and plan of care. Cristobal Lira MD, NELLY J ARNP Mar 03, 2025 09:51
[2025-03-03] MEDS ORDERED: IpraTROPium 0.5 MG/2.5 ML INH IH PRN (10:00)
[2025-03-03] MEDS: furoSEMIDE 20MG VIAL IV ONE (10:13)
[2025-03-03] MEDS: LACTULOSE 20 GM/30 ML UDCUP PO ONE (10:13)
[2025-03-03] MEDS: PoTASSium chl 10% ELIXIR 20MEQ 20 MEQ/15 ML UDCUP PO PRN (10:16)
[2025-03-03] MEDS ORDERED: LACTULOSE 20 GM/30 ML UDCUP PO PRN (10:30)
--- NOTE | 2025-03-03 12:10 | PN ---
FOLLOWUP PROGRESS NOTE SUBJECTIVE: A 49-year-old male initially presented with hypertensive urgency. The patient has a history of known chronic renal insufficiency. The patient's creatinine has been elevated. The patient is also being seen by Cardiology. The patient did undergo stress test, results of which are all noted, and the patient is being seen as a followup visit for all of the above. REVIEW OF SYSTEMS: CONSTITUTIONAL: He is feeling improved. HEENT: No change in vision. No change in hearing. CARDIOVASCULAR: There is no current chest pain or palpitations. PULMONARY: He denies any shortness of breath. GASTROINTESTINAL: He has now been started on a diet. MUSCULOSKELETAL: Complaints of weakness. PHYSICAL EXAMINATION: VITAL SIGNS: Blood pressure is 144/87, pulse in the 60s. He is afebrile. GENERAL: He is a chronically ill male, much older than appearing. HEENT: Head is atraumatic. Pupils are equal, roving to light. Oropharynx is without exudate. Nares clear. NECK: There is no JVP. There is no thyromegaly. No mass. CARDIOVASCULAR: Regular. There is no S3 or S4 gallop. LUNGS: Coarse with equal thoracic movement. ABDOMEN: Soft, nondistended, nontender. EXTREMITIES: There is no edema. NEUROLOGICAL: He is awake. He is alert. LABORATORY DATA: BUN 48, creatinine is 4.2. Hemoglobin 10, hematocrit 31. IMPRESSION: * Acute on chronic renal failure. * Hypertensive urgency. * Coronary artery disease. * Anemia. PLAN: The patient does have advanced renal dysfunction. The patient's blood pressure is under much better control. The patient is encouraged with his compliance. The patient's stress test is noted. The patient would be at high risk of any form of contrast from a renal standpoint. We will continue to follow closely. I did discuss previously with Cardiology. TID: [id number] RECEIPT: [id number]
--- NOTE | 2025-03-03 13:25 | PN ---
[facility] PROGRESS NOTE Date of Service: Mar 03, 2025 Time of Service: 13:22 SUBJECTIVE: This is a 49-year-old male with history of anemia, hypertension, chronic kidney disease non hemodialysis, diabetes who presented to the ED February 27, 2025 for complaints of nausea vomiting and diarrhea and epigastric pain which started three days ago.As per patient he has been having bloody emesis upon ER arrival and was reported to the ER nurse.Patient reported he is using marijuana and denied alcohol,cigarette and cocaine use.Patient also reported he is not good in taking his medications and checking his BP and blood sugar at home. Seen and examined patient in the ER awake,alert and coherent.Patient denied fever,chills,chest pain,palpitation and shortness of breath. Vital signs upon ER arrival temperature 98.2, heart rate 89, blood pressure 231/118 saturation 98% on room air. In the ER Labs: WBC 20 with negative left shift of neutrophils 90, globin 13, hematocrit 40, platelet count 383. BUN 51, creatinine 4.4, GFR 16 glucose 291 ketones 1.2 lactic acid two troponin 1748 to 980. Albumin 1.9. Urine toxicology positive for marijuana. CT head without contrast result is unremarkable. CT chest result revealed no evidence of pulmonary nodule or effusion is seen. CT abdomen and pelvis result revealed bilateral renal cyst diverticulosis. Tiny bilateral renal pelvic stones. While in the ER patient started on 1 L NS bolus, famotidine 20 mg IV, Zofran 4 mg IV hydralazine 10 mg IV and patient was started on Cardene drip. Patient also received aspirin 324 mg p.o.. Patient admitted to the intensive care unit for further evaluation and medical management 02/28 patient remains admitted to the intensive care unit, BP 156/75, heart rate of 77, afebrile, saturating 94% on room air. Hemoglobin of 12.1, hematocrit 35.2, platelet count of 340, WBC 25.0, sodium 141, potassium 3.2, glucose 164, BUN of 56, creatinine 4.4, magnesium 1.7, albumin 1.5, serology test to include influenza, SARS antigen and group a strep negative, CT chest abdomen and pelvis no evidence of pulmonary nodule or effusion, bilateral renal cysts, diverticulosis, tiny bilateral renal pelvic stones, patient on amlodipine 10 mg p.o. daily, sodium bicarbonate 650 mg p.o. t.i.d., hypokalemia protocol, metoprolol tartrate 25 mg p.o. t.i.d., Patient on PPI with Protonix 40 mg IV b.i.d.. Twelve lead EKG demonstrated sinus rhythm, left anterior fascicular block, complex in V1 and V2 consistent with a possible prior anteroseptal GA and J-point elevation continue with the LVH. There was a 1/[address] elevation of AVR of uncertain significance. Cardiac consultation requested due to positive troponin, per cardiac input, cardiac enzymes are declining and blood pressure is under improved control, cleared for upper endoscopy. Increase metoprolol to 25 mg p.o. q.8 hours and continue IV metoprolol as needed, avoid IV heparin, avoid dual antiplatelet therapy, agreed with low-dose aspirin 81 mg p.o. daily pending assessment by GI, add amlodipine 5 mg p.o. daily, follow echocardiogram to assess LVEF, no plan for invasive evaluation given creatinine of 4.4, consider Lexiscan Cardiolite stress test Wednesday a.m.. Due to creatinine of 4.4, obtain records from the office of Dr. Brian Woo, fluid DRAKE inhibitors, continue cautious hydration. We will follow GI input and recommendation. During my visit today the patient is sitting comfortable at the edge of the bed, alert oriented x3, no chest pain, shortness shortness for breath, no nausea, no vomiting, off nicardipine drip. 03/01 patient admitted secondary to hematemesis, patient remains admitted to the intensive care unit, AO x 3, case discussed with RN, no acute events, denies dizziness, no chest pain, blood pressure 171/89, afebrile, saturating normal on room air, leukocytosis improving, WBC 15.5. Creatinine 4.2. Latest troponin 1259. Toxicology screen positive for marijuana. Cardiology consultation requested, cleared for upper endoscopy by GI. Doppler of the renal arteries normal. Remains on Carafate 1 g p.o. q.6 hours, and Protonix 40 mg IV b.i.d.. Cardiology input noted and appreciated, -no plans for invasive evaluation given creatinine of 4.4 (EGFR of 16), Lexiscan Cardiolite stress test scheduled for 03/02/2025 EGD done, impression: -LA grade D esophagitis with no bleeding -esophageal ulcers -erythematous mucosa in the stomach -normal duodenal bulb and 2nd portion of the duodenum Recommendations: -clear liquid diet -Protonix 40 mg p.o. b.i.d. -Carafate 1 g p.o. q.i.d. 03/02 No acute events overnight, blood pressure mildly elevated, nifedipine 60mg twice daily. Stress test pending today, will follow up. Patient with nephrotic range proteinuria, possibly due to hx of diabetes however patient is young and elevated troponins unaccounted for. May be secondary to other underlying cause will order, HIV, Hepatitis, ISMI, C3/C4, SPEP, UPEP, and Leith/Lambda light chains and follow up. 03/03 No acute events overnight. Abnormal stress test, however patient high risk for contrast load due to underlying renal dysfunction. Will follow up with cardiology recommendations. Creatinine stable at 4.2, remainder of vitals and labs relatively unremarkable. REVIEW OF SYSTEMS 12 point ROS negative unless noted in HPI PHYSICAL EXAM GENERAL APPEARANCE: The patient is awake, alert, and oriented, in no acute cardiopulmonary distress. NEUROLOGICAL: Cranial nerves II-XII grossly intact. Motor is 5/5 in bilateral upper and lower extremities proximal to distal. No sensory deficits. HEENT: Face is symmetric. Pupils are equal and reactive. Extraocular movements are intact. NECK: Supple. No JVD. No thyromegaly. No submental, submandibular, pre- /postauricular, occipital or supraclavicular lymphadenopathy. CHEST: Normal chest expansion. No Telemetry. LUNGS: Absence of any rales, rhonchi or any wheezing. CARDIOVASCULAR: Regular. S1 and S2 normal. No appreciable rubs, murmurs or gallops. ABDOMEN: Soft, nontender, and nondistended. There is no rebound, voluntary guarding, or rigidity. : Deferred. No Shields. EXTREMITIES: Non-edematous and not cyanotic. No clubbing. Good capillary refill. SKIN: No skin breakdown. Vital Signs (last 8hr) Date Time Temp Pulse Resp B/P (MAP) Pulse Ox O2 Delivery O2 Flow Rate FiO2 03/03/25 12:11 97.3 59 18 159/76 96 Room Air 03/03/25 11:40 69 18 N/A Room Air 21 03/03/25 07:58 98.1 63 18 144/87 95 Room Air 03/03/25 07:30 98 Room Air* 0 21 LABS: Laboratory: Test 03/03/25 12:15 03/03/25 03:36 03/02/25 10:23 03/02/25 05:47 Range/Units Whole Blood Glucose 203 H 70-110 MG/DL White Blood Count 10.0 4.8-10.8 K/uL Red Blood Count 3.81 L 4.50-6.20 MIL/uL Hemoglobin 10.5 L 14.0-18.0 g/dL Hematocrit 31.8 L 42-54 % Mean Corpuscular Volume 83.5 79-99 fL Mean Corpuscular Hemoglobin 27.6 27.0-33.0 pg Mean Corpuscular Hemoglobin Concent 33.0 32.0-36.0 g/dL Red Cell Distribution Width 13.3 11.0-15.5 % Platelet Count 295 130-400 K/uL Mean Platelet Volume 11.4 H 7.5-10.5 fL Immature Granulocyte % (Auto) 0.5 0-1 % Neutrophils (%) (Auto) 64.6 40.0-77.0 % Lymphocytes (%) (Auto) 21.8 21.0-51.0 % Monocytes (%) (Auto) 9.4 3.0-13.0 % Eosinophils (%) (Auto) 3.1 0.0-8.0 % Basophils (%) (Auto) 0.6 0.0-5.0 % Neutrophils # (Auto) 6.4 1.8-7.7 K/uL Lymphocytes # (Auto) 2.2 1.0-4.8 K/uL Monocytes # (Auto) 0.9 0.1-1.0 K/uL Eosinophils # (Auto) 0.31 0.00-0.70 K/uL Basophils # (Auto) 0.06 0.00-0.20 K/uL Absolute Immature Granulocyte (auto 0.05 0-1 K/uL Nucleated Red Blood Cells 0.0 0.0-0.19 % Sodium Level 138 136-145 mmol/L Potassium Level 3.6 3.5-5.1 mmol/L Chloride Level 106 101-111 mmol/L Carbon Dioxide Level 24 21-32 mmol/L Blood Urea Nitrogen 48 H 7-18 mg/dL Creatinine 4.2 H 0.5-1.3 mg/dL Glomerular Filtration Rate Calc 16 >90 mL/min Random Glucose 170 H 70-105 mg/dL Lactic Acid Level 0.9 0.8-2.5 mmol/L Total Calcium 7.7 L 8.5-10.1 mg/dL Total Bilirubin 0.2 # 0.2-1.0 mg/dL Aspartate Amino Transf (AST/SGOT) 19 10-37 U/L Alanine Aminotransferase (ALT/SGPT) 16 12-78 U/L Alkaline Phosphatase 69 50-136 U/L B-Type Natriuretic Peptide 425 H 0-100 pg/mL Total Protein 5.0 L 6.0-8.3 g/dL Albumin 1.5 L 3.5-5.0 g/dL Procalcitonin < 0.05 L 0.05-0.5 ng/mL Anti-Nuclear Antibody Screen Negative Negative MILLICENT-1 Antibody SS-A/Ro Antibody SS-B/La Antibody Sm (Roblero) IgG Antibody, Quant CAR BUILDER IgG Antibody, Quantitative Scl-70 (Scleroderma) Antibody Anti-Double Strand DNA Antibody Anti-Centromere IgG Antibody Hepatitis B Surface Antigen. Non-Reactive Nonreactive Hepatitis B Surface Antibody. Negative L Reactive Hepatitis B Core Total Antibody. Non-Reactive Nonreactive Hepatitis B Core IgM Antibody Non-Reactive Negative Hepatitis C Antibody Non-Reactive Nonreactive HIV (1&2) Antibody Non-Reactive Negative HIV P24 Antigen, Qualitative Non-Reactive Negative Magnesium Level 2.00 1.80-2.40 mg/dL Current Medications Medications (Trade) Dose Ordered Sig/Jyoti Route PRN Reason Start Time Stop Time Status Last Admin Dose Admin Acetaminophen (TYLenol 325MG TAB) 650 mg Q6H PRN PO MILD PAIN (1-3) 03/01/25 21:00 03/31/25 20:59 03/01/25 21:31 650 MG Amlodipine Besylate (NorvASC 5MG TAB) 5 mg DAILY PO 02/28/25 09:00 02/28/25 09:02 DC Amlodipine Besylate (NorvASC 5MG TAB) 10 mg DAILY PO 03/01/25 09:00 02/28/25 13:09 DC Amlodipine Besylate (NorvASC 5MG TAB) 10 mg DAILY PO 03/01/25 09:00 03/01/25 21:31 DC 03/01/25 10:10 10 MG Aspirin (Aspirin 81mg Chew Tab) 324 mg ONCE STAT PO 02/27/25 15:34 02/27/25 15:41 DC 02/27/25 16:02 324 MG Aspirin (Aspirin 81mg Ec Tab) 81 mg DAILY PO 02/28/25 13:30 03/30/25 13:29 03/03/25 08:58 81 MG Atorvastatin Calcium (LIPItor 40MG) 40 mg HS PO 03/01/25 21:00 03/31/25 20:59 03/02/25 20:36 40 MG Clonidine HCl (CATApres 0.1 mg TAB) 0.1 mg Q8H PRN PO IF SBP GREATER THAN 160 03/01/25 21:00 03/31/25 20:59 03/02/25 04:11 0.1 MG Dextrose (D50w) 50 ml AD PRN IV HYPOGLYCEMIA PROTOCOL 02/27/25 20:00 03/29/25 19:59 Famotidine (Pepcid 20mg Vial) 20 mg DAILY IV 02/28/25 09:00 02/27/25 23:45 DC Famotidine (Pepcid 20mg Tab) 20 mg Q48H PO 03/01/25 21:00 03/03/25 08:00 DC 03/01/25 21:19 20 MG Fluoxetine HCl (FLUoxetine HCL 20 MG CAPSULE) 20 mg HS PO 03/01/25 21:00 03/31/25 20:59 03/02/25 20:36 20 MG Folic Acid (FOLic ACID 1 MG TABLET) 1 mg DAILY PO 03/02/25 09:00 04/01/25 08:59 03/03/25 08:58 1 MG Glucagon (Glucagon 1mg Kit) 1 mg AD PRN IM HYPOGLYCEMIA PROTOCOL 02/27/25 20:00 03/29/25 19:59 Hydralazine HCl (APRESOLine 20MG INJ) 10 mg ONCE STAT IV 02/27/25 15:06 02/27/25 15:08 DC 02/27/25 15:14 10 MG Hydralazine HCl ([id number] TAB) 25 mg QID PO 02/28/25 17:00 03/01/25 08:58 DC 02/28/25 19:46 25 MG Hydralazine HCl ([id number] TAB) 25 mg TID PO 02/28/25 14:00 02/28/25 15:49 DC 02/28/25 13:55 25 MG Hydralazine HCl ([id number] TAB) 50 mg TID PO 03/01/25 21:00 03/31/25 20:59 03/03/25 09:01 50 MG Insulin Human Regular (humuLIN R 100 UNIT/ML 3ML) INSULIN SLIDING SCAL... ACHS SQ 02/27/25 21:00 03/29/25 20:59 03/03/25 13:00 3 UNIT Ipratropium [place] (AtrovENT UD) 0.5 MG Q8H PRN IH SHORTNESS OF BREATH 03/03/25 10:00 04/02/25 09:59 Isosorbide Mononitrate (Imdur 30mg Sr) 30 mg DAILY PO 02/28/25 13:30 03/30/25 13:29 03/03/25 08:56 30 MG Lactulose (Constulose 20gm/ 30ml Udcup) 20 gm BID PRN PO CONSTIPATION 03/03/25 10:30 04/02/25 10:29 Levofloxacin/ Dextrose 100 ml @ 100 mls/hr Q24H IV 02/28/25 06:30 02/28/25 06:46 DC Magnesium Sulfate 50 ml @ 0 mls/hr PROTOCOL PRN IV MAGNESIUM PROTOCOL 02/28/25 06:00 03/30/25 05:59 02/28/25 06:15 25 MLS/HR Metoprolol Succinate (TopROL XL) 100 mg DAILY PO 03/01/25 09:00 03/31/25 08:59 03/03/25 08:57 100 MG Metoprolol Tartrate (loprESSOR) 5 mg Q4H PRN IV ADMINISTER FOR SBP > 150 02/28/25 00:00 03/30/25 00:00 02/28/25 22:09 5 MG Metoprolol Tartrate (loprESSOR) 12.5 mg TID PO 02/28/25 00:00 02/28/25 08:58 DC 02/28/25 00:17 12.5 MG Metoprolol Tartrate (loprESSOR) 25 mg BID PO 03/01/25 21:00 03/01/25 21:30 DC Metoprolol Tartrate (loprESSOR) 25 mg TID PO 02/28/25 09:00 03/01/25 08:58 DC 02/28/25 19:46 25 MG Morphine Sulfate (morPHINE 4MG SYG) 4 mg ONCE STAT IVP 02/27/25 15:41 02/27/25 15:42 DC 02/27/25 16:01 4 MG Nicardipine HCl 25 mg/Sodium Chloride 250 ml @ 0 mls/hr PROTOCOL IV 02/28/25 00:00 03/03/25 13:17 DC 03/01/25 12:24 20 MLS/HR Nicardipine HCl 50 mg/Sodium Chloride 250 ml @ 0 mls/hr PROTOCOL STAT IV 02/27/25 15:34 02/27/25 15:42 DC Nicardipine HCl 50 mg/Sodium Chloride 250 ml @ 0 mls/hr PROTOCOL STAT IV 02/27/25 15:45 02/27/25 15:46 DC 02/27/25 16:32 5 MLS/HR Nifedipine (adALAT 30MG) 60 mg BID PO 03/02/25 09:00 04/01/25 08:59 03/03/25 08:57 120 MG Nitroglycerin (Nitroglycerin 1gm Oint) 1 inch Q6H6 TD 03/01/25 15:00 03/31/25 14:59 03/03/25 12:55 1 INCH Nitroglycerin (Nitroglycerin 1gm Oint) 1 inch Q8H TD 02/28/25 03:30 02/28/25 13:09 DC 02/28/25 03:53 1 INCH Nitroglycerin (Nitrostat) 0.4 mg AD PRN SL CHEST PAIN 02/27/25 16:00 03/29/25 15:59 Ondansetron HCl (zoFRAN 4MG TABLET) 4 mg Q6H6 PRN PO nausea/vomiting 03/01/25 21:00 03/31/25 20:59 Ondansetron HCl (zoFRAN 4MG INJ) 4 mg Q6H PRN IV NAUSEA/VOMITING 02/27/25 20:00 03/01/25 20:41 DC 02/27/25 22:25 4 MG Pantoprazole Sodium (PROTonix 40MG INJ) 40 mg BID IVP 02/28/25 00:00 03/03/25 07:57 DC 03/02/25 20:36 40 MG Pantoprazole Sodium (PROTonix 40MG TAB) 40 mg DAILY PO 03/03/25 09:00 04/02/25 08:59 03/03/25 08:58 40 MG Potassium Chloride 100 ml @ 100 mls/hr AD PRN IV POTASSIUM PROTOCOL 02/28/25 09:00 02/28/25 09:06 DC Potassium Chloride 100 ml @ 100 mls/hr AD PRN IV POTASSIUM PROTOCOL 02/28/25 09:00 03/30/25 08:59 03/02/25 06:53 100 MLS/HR Potassium Chloride (K-Dur 10meq Sr Tab) 10 meq AD PRN PO POTASSIUM PROTOCOL 02/28/25 16:30 03/30/25 08:59 03/03/25 05:51 10 MEQ Potassium Chloride (K-Dur/Klor-Con 20meq) 10 meq AD PRN PO POTASSIUM PROTOCOL 02/28/25 09:00 02/28/25 16:29 DC Potassium Chloride (KCl 10% Elixir 20meq/15ml) 10 meq AD PRN PO POTASSIUM PROTOCOL 02/28/25 09:00 03/30/25 08:59 03/03/25 10:16 10 MEQ Sodium Bicarbonate (Sodium Bicarbonate) 650 mg TID PO 02/28/25 09:00 03/30/25 08:59 03/03/25 08:58 650 MG Sodium Chloride 500 ml @ 0 mls/hr Q0M IV 02/28/25 01:30 02/28/25 08:58 DC Sodium Chloride 1,000 ml @ 75 mls/hr [id number] IV 02/27/25 14:30 03/02/25 11:18 DC 03/02/25 06:54 75 MLS/HR Sodium Chloride 1,000 ml @ 75 mls/hr [id number] IV 02/27/25 20:00 02/28/25 13:11 DC 02/28/25 09:27 75 MLS/HR Sodium Chloride 1,000 ml @ 1,000 mls/hr Q1H STAT IV 02/27/25 14:25 02/27/25 15:24 DC 02/27/25 15:36 1,000 MLS/HR Sucralfate (Carafate) 1 gm Q6H PO 03/01/25 12:00 03/31/25 11:59 03/03/25 12:54 1 GM DIAGNOSTICS / RADIOLOGY: [ ] ASSESSMENT: Hypertensive emergency POA Non ST-elevation GA POA Abnormal EKG with the evidence of possible old anteroseptal wall GA Acute on chronic kidney disease POA Chronic anemia due to CKD POA Acute upper GI bleed, POA Status post EGD 03/01/2025 -LA grade D esophagitis with no bleeding -esophageal ulcers -erythematous mucosa in the stomach -normal duodenal bulb and 2nd portion of the duodenum Acute leukocytosis POA Uncontrolled diabetes mellitus type 2 POA Uncontrolled hypertension POA Medical noncompliance POA Severe protein calorie malnutrition POA Cannabinoid hyperemesis syndrome POA Positive marijuana POA PLAN: - Stress test pending, will follow up - HIV, Hep B panels pending, will follow up - SIMI, C3/C4 pending, will follow up - SPEP, UPEP and kappa/kenan light chains ordered, will follow up - Continue nifedipine 60mg BID - Continue atorvastatin 40mg HS - Continue metoprolol 100mg q24h - Continue isosorbide mononitrate 30mg q24h - Continue aspirin 81mg q24h - Continue sliding scale insulin - Continue hypoglycemia protocol - Cardiology consulted, appreciate recommendations - Nephrology consulted, appreciate recommendations Disposition: Pending improvement in clinical status, cardiology recommendations JOS PATEL MD Mar 03, 2025 13:25
--- NOTE | 2025-03-03 15:30 | NUR ---
MATTHEW KAPOOR NP SPOKE WITH THE PATIENT CONCERNING HEART CATH AND THE NEED TO START DIALYSIS AFTER HEART CATH. PT STATED THAT HE WAS WILLING TO HAVE HEART CATH AND THEN START HAVING DIALYSIS DUE TO HIS KIDNEY FUNCTION AT PRESENT. WILL GET CASE MANAGEMENT TO SEE IF PT WILL BE ABLE TO QUALIFY FOR DIALYSIS AFTER HEART CATH.
--- NOTE | 2025-03-03 15:38 | PN ---
Cardiology Progress Note Date of Service: 03/03/2025 Attending Herbicide Service Sales Representative: Dr. Tristin Gauthier Primary Herbicide Service Sales Representative: Dr. Elmer Woo Reason for Consult: Elevated troponin Problem List: -Leukocytosis -Viral gastroenteritis with hematemesis s/p EGD done on 03/01/2025 which did not identify any acute abnormalities -Hypertensive emergency -ACS-NSTEMI -CKD stage IV -Normal LV systolic function (LVEF: 55-60% by echo done 03/01/2025) -Abnormal Lexiscan stress test done on 03/02/2025 -Normocytic normochromic anemia -Hypoalbuminemia -HLP -DM2 -Marijuana abuse -Noncompliance Subjective: This is a 49y/o male who was seen and evaluated at the bedside today. The patient complains of episodes of chest pain (pressure), but denies any palpitations or shortness of breath. As per the nurse, there were no overnight events. Vitals/Labs Vital Signs Date Time Temp Pulse Resp B/P (MAP) Pulse Ox O2 Delivery O2 Flow Rate FiO2 03/03/25 12:11 97.3 59 18 159/76 96 Room Air 03/03/25 11:40 21 03/03/25 07:30 0 General: Awake and alert. No acute distress. Chronically ill appearing. HEENT: Normocephalic, atraumatic, EOMI, oral mucosa was moist. Neck: No masses, JVD, or carotid bruits noted. Lungs: No respiratory distress. SCM. Bilateral air entry. Clear to auscultation bilaterally. No rales, wheezing, or rhonchi noted. Cardio: Regular rate. Normal S1 and S2. +S4. No obvious murmurs, gallops, or rubs noted. Abdomen: Soft, nontender, nondistended, no organomegaly. Normal active bowel sounds x4 quadrants. Extremities: No edema, clubbing, or cyanosis noted. +2 pulses noted throughout. Neuro: Cranial nerves II through XII are grossly intact. No focal deficit identified. Laboratory Tests 03/03/25 03:36 Assessment: -Leukocytosis -Viral gastroenteritis with hematemesis s/p EGD done on 03/01/2025 which did not identify any acute abnormalities -Hypertensive emergency -ACS-NSTEMI -CKD stage IV -Normal LV systolic function (LVEF: 55-60% by echo done 03/01/2025) -Abnormal Lexiscan stress test done on 03/02/2025 -Normocytic normochromic anemia -Hypoalbuminemia -HLP -DM2 -Marijuana abuse -Noncompliance Plan: 1. Hypertensive emergency -Continue nifedipine ER 60 mg BID, hydralazine 50 mg TID, and metoprolol succinate 100 mg daily. 2. ACS-NSTEMI -HS troponin I: 1748 -Lexiscan stress test: Small ischemia involving the lateral wall. LVEF: 40%. No wall motion abnormalities. -In order to optimize medical therapy, we will start the patient on clopidogrel 75 mg daily and increase isosorbide mononitrate ER to 60 mg daily. In addition, he will continue on aspirin 81 mg daily, metoprolol succinate 100 mg daily, and atorvastatin 40 mg QHS. -We will assess the patient's tolerance to DAPT (stability of his H/H) before we can consider pursing any further ischemic cardiac workup with an LHC/coronary angiogram. -In addition, if we proceed with a LHC/coronary angiogram with possible intervention, the procedure will likely result in the need for hemodialysis moving forward given the patient's advanced renal dysfunction. -The patient states he will discuss whether to continue on medical management vs further ischemic evaluation and probable initiation of HD with his mother and will let us know his decision in the AM, and if we proceed, then we will need CM consultation in order to determine the patient's outpatient benefits. This case was discussed with my Supervising Physician, Dr. Tristin Gauthier, and the above-mentioned plan was formulated and agreed upon. -Progress Note written by Matthew Kapoor, MSN, TRAVELERS' AID WORKER, AGACNP-BC MATTHEW KAPOOR SHEET METAL MECHANIC Mar 03, 2025 15:38
[2025-03-03] MEDS: MELATONIN 5 MG TABLET PO ONE (22:25)
[2025-03-04] VITALS (10 sets, daily range): BP systolic 146–170; BP diastolic 72–85; PULSE 61–66; RESP 18–20; TEMP 97.6–98.6; O2SAT 95–98
[2025-03-04] MEDS: cloPIDOgrel 75MG TAB PO SCH (08:41)
[2025-03-04] MEDS: ISOSORBIDE MONO 30MG SR TAB PO SCH (08:42)
--- NOTE | 2025-03-04 10:32 | PN ---
[facility] PROGRESS NOTE Date Patient Seen: Mar 04, 2025 Time of Visit: 10:32 Supervising Physician: [Cristobal Lira MD ] Primary Care Physician: Attending group: [facility] hospitalist team Outpatient Specialists: Inpatient Consults: Critical Care team Cardiology PROBLEM LIST: NSTEMI, POA, on medical management Abnormal nuclear stress test on 03/03/25 Hypertensive emergency, POA, RESOLVING Acute on chronic HFpEF LVEF 40% on Lexiscan 02/2025 Cannabinoid hyperemesis syndrome POA, resolved Acute kidney injury on CKD stage IV , POA Hematemesis, POA Acute on chronic kidney disease, POA, (GFR 26 on 09/16/2024) Chronic anemia due to CKD, POA Upper GI bleeding by history (suspected hematemesis), possible Gila-Mayo tear, possibly secondary to gastritis or peptic ulcer disease, POA s/p EGD findingd of LAD esophagitis POA Acute leukocytosis, POA Uncontrolled diabetes, POA Uncontrolled hypertension, POA Medical noncompliance, POA Albuminemia/ malnutrition, POA Positive marijuana POA INTERVAL HISTORY: Mr. Pham is a 49-year-old male with history of anemia, hypertension, chronic kidney disease non hemodialysis, diabetes who presented to [facility] ED evaluation of nausea, bloody emesis, diarrhea, and epigastric pain onset three days ago. Patient reported he is using marijuana and denies alcohol, cigarette and cocaine use. Patient also reports he is not good in taking his medications and checking his BP and blood sugar at home. Patient also reports he has not seen a PCP. Vital signs upon ER arrival temperature 98.2, heart rate 89, blood pressure 231/118 saturation 98% on room air. 03/04/25: Patient is awake alert and oriented x3. No chest pain palpitation or shortness for breath over the night. He has been afebrile blood pressure of 146/73, heart rate in the 60s respiratory rate of 19 saturating 98% on room air. No labs for today. Currently on medical management for NSTEMI. We will continue to follow cardiology and Nephrology recommendation REVIEW OF SYSTEMS: General: No malaise or fever. Neurological: No fainting episodes or seizures. HEENT: No nasal congestion or nasal secretion. Respiratory: No cough, shortness of breath, or wheezing Cardiac:+ fatigue Gastrointestinal: No vomiting or diarrhea. Genitourinary: No dysuria hematuria. Skin: No rashes or lesions. Hematological: No bruises or bleeding. Musculoskeletal: No joint pains or arthralgias. Psychiatric: No depression or panic attacks. PHYSICAL EXAM: GENERAL: Alert, weak, awake oriented x 3 HEENT: EOMI, Sclera non icteric, moist mucosa NECK: Supple, no JVD, trachea midline LUNGS: Clear breath sounds bilaterally. No wheezes HEART: Regular rate and rhythm. Normal S1 and S2, without murmurs ABD: Abdomen soft, nontender. Bowel sounds present EXT: No clubbing cyanosis or edema NEURO: Alert and oriented X3, follows commands Vital Signs (last 8hr) Date Time Temp Pulse Resp B/P (MAP) Pulse Ox O2 Delivery O2 Flow Rate FiO2 03/04/25 08:00 98.1 62 19 146/73 94 Room Air 03/04/25 07:25 98 Room Air* 0 21 03/04/25 07:00 66 18 N/A Room Air 21 03/04/25 04:40 98.6 61 18 151/72 97 Room Air LABS: Hematology Labs: Test 03/03/25 03:36 Range/Units White Blood Count 10.0 4.8-10.8 K/uL Red Blood Count 3.81 L 4.50-6.20 MIL/uL Hemoglobin 10.5 L 14.0-18.0 g/dL Hematocrit 31.8 L 42-54 % Mean Corpuscular Volume 83.5 79-99 fL Mean Corpuscular Hemoglobin 27.6 27.0-33.0 pg Mean Corpuscular Hemoglobin Concent 33.0 32.0-36.0 g/dL Red Cell Distribution Width 13.3 11.0-15.5 % Platelet Count 295 130-400 K/uL Mean Platelet Volume 11.4 H 7.5-10.5 fL Immature Granulocyte % (Auto) 0.5 0-1 % Neutrophils (%) (Auto) 64.6 40.0-77.0 % Lymphocytes (%) (Auto) 21.8 21.0-51.0 % Monocytes (%) (Auto) 9.4 3.0-13.0 % Eosinophils (%) (Auto) 3.1 0.0-8.0 % Basophils (%) (Auto) 0.6 0.0-5.0 % Neutrophils # (Auto) 6.4 1.8-7.7 K/uL Lymphocytes # (Auto) 2.2 1.0-4.8 K/uL Monocytes # (Auto) 0.9 0.1-1.0 K/uL Eosinophils # (Auto) 0.31 0.00-0.70 K/uL Basophils # (Auto) 0.06 0.00-0.20 K/uL Absolute Immature Granulocyte (auto 0.05 0-1 K/uL Nucleated Red Blood Cells 0.0 0.0-0.19 % Chemistry Labs: Test 03/04/25 05:34 03/03/25 03:36 Range/Units Whole Blood Glucose 114 H 70-110 MG/DL Sodium Level 138 136-145 mmol/L Potassium Level 3.6 3.5-5.1 mmol/L Chloride Level 106 101-111 mmol/L Carbon Dioxide Level 24 21-32 mmol/L Blood Urea Nitrogen 48 H 7-18 mg/dL Creatinine 4.2 H 0.5-1.3 mg/dL Glomerular Filtration Rate Calc 16 >90 mL/min Random Glucose 170 H 70-105 mg/dL Lactic Acid Level 0.9 0.8-2.5 mmol/L Total Calcium 7.7 L 8.5-10.1 mg/dL Total Bilirubin 0.2 # 0.2-1.0 mg/dL Aspartate Amino Transf (AST/SGOT) 19 10-37 U/L Alanine Aminotransferase (ALT/SGPT) 16 12-78 U/L Alkaline Phosphatase 69 50-136 U/L B-Type Natriuretic Peptide 425 H 0-100 pg/mL Total Protein 5.0 L 6.0-8.3 g/dL Albumin 1.5 L 3.5-5.0 g/dL Procalcitonin < 0.05 L 0.05-0.5 ng/mL DIAGNOSTICS / RADIOLOGY RESULTS: [ ] PLAN Continue cardioprotective medication: Aspirin Atorvastatin Metoprolol follow cardiology medications NEURO: Minimize central acting medications as possible. Maintain fall precautions, adequate lighting during the day PULMONARY: Supplemental 02 as needed. Maintain aspiration precautions at all times CARDIOVASCULAR: Follow hemodynamics. Vital signs per facility protocol GI & NUTRITION: Continue with nutritional support. Continue stool softeners and laxatives as needed. KIDNEYS & ELECTROLYTES: Strict monitoring of intake, output and overall fluid balance. Avoid nephrotoxic medications to the extent possible. Medications to be dosed according to renal function. Monitor electrolytes and replace as needed ENDOCRINE: Maintain blood glucose between 100-180 at all times. Hypoglycemia protocol in place INFECTIOUS DISEASE: Trend temperature, WBC and procalcitonin level Follow cultures, deescalate antibiotics as soon as possible. Panculture if new onset fever ONCOLOGY/HEMATOLOGY/COAGULATION: Monitor for s/s of bleeding Monitor hemoglobin, coagulation studies as needed SKIN: Pressure ulcer prevention per facility protocol Specialty mattress ORTHO/REHAB: Continue PT/OT Prophylaxis: Continue GI and DVT prophylaxis Code Status: Full Resuscitation Disposition: TBD Other: ATTESTATION BY PHYSICIAN I reviewed the documentation, medical decision making, and treatment plan as noted by the mid-level provider above. I agree with the findings and plan of care. Cristobal Lira MD, NELLY J RESPIRATORY SCIENTIST Mar 04, 2025 10:32
--- NOTE | 2025-03-04 12:51 | PN ---
FOLLOWUP PROGRESS NOTE SUBJECTIVE: A 49-year-old male with a history of diabetes mellitus and hypertension. The patient with a history of difficult to control hypertension. He remains on multiple antihypertensive medications. Blood pressure is under better control. The patient did have stress test that revealed underlying ischemia. The patient has been offered heart catheterization and the patient is being seen for all of the above. REVIEW OF SYSTEMS: CONSTITUTIONAL: He is feeling improved. HEENT: No change in vision. No change in hearing. CARDIOVASCULAR: There is no chest pain or palpitations. PULMONARY: There is no shortness of breath. GASTROINTESTINAL: The patient is tolerating a diet. MUSCULOSKELETAL: Complaints of weakness. PHYSICAL EXAMINATION: VITAL SIGNS: Blood pressure is 146/73, pulse in the 60s. He is afebrile. GENERAL: He is a chronically ill male, much older than appearing. HEENT: Head is atraumatic. Pupils are equal, roving to light. Oropharynx is without exudate. Nares clear. NECK: There is no JVP. There is no thyromegaly. No mass. CARDIOVASCULAR: Regular. There is no S3 or S4 gallop. LUNGS: Coarse with equal thoracic movement. ABDOMEN: Soft, nondistended, and nontender. EXTREMITIES: There is no clubbing or cyanosis. NEUROLOGICAL: He is awake. He is alert. LABORATORY DATA: BUN 48, creatinine is 4.2. IMPRESSION: * Advanced renal dysfunction. * Coronary artery disease. * Hypertension. * Diabetes mellitus. PLAN: I did have a long discussion with the patient. He has a history of known chronic renal insufficiency. The patient would be at high risk for any contrast load from a renal standpoint. The patient has to agree with dialysis if needed with the heart cath. The patient is to discuss with the patient's family. Blood pressure is under much better control. Electrolytes have all been aggressively repleted. All labs can be repeated in the morning. TID: [id number] RECEIPT: [id number]
--- NOTE | 2025-03-04 14:03 | PN ---
[facility] PROGRESS NOTE Date of Service: Mar 04, 2025 Time of Service: 13:59 SUBJECTIVE: This is a 49-year-old male with history of anemia, hypertension, chronic kidney disease non hemodialysis, diabetes who presented to the ED February 27, 2025 for complaints of nausea vomiting and diarrhea and epigastric pain which started three days ago.As per patient he has been having bloody emesis upon ER arrival and was reported to the ER nurse.Patient reported he is using marijuana and denied alcohol,cigarette and cocaine use.Patient also reported he is not good in taking his medications and checking his BP and blood sugar at home. Seen and examined patient in the ER awake,alert and coherent.Patient denied fever,chills,chest pain,palpitation and shortness of breath. Vital signs upon ER arrival temperature 98.2, heart rate 89, blood pressure 231/118 saturation 98% on room air. In the ER Labs: WBC 20 with negative left shift of neutrophils 90, globin 13, hematocrit 40, platelet count 383. BUN 51, creatinine 4.4, GFR 16 glucose 291 ketones 1.2 lactic acid two troponin 1748 to 980. Albumin 1.9. Urine toxicology positive for marijuana. CT head without contrast result is unremarkable. CT chest result revealed no evidence of pulmonary nodule or effusion is seen. CT abdomen and pelvis result revealed bilateral renal cyst diverticulosis. Tiny bilateral renal pelvic stones. While in the ER patient started on 1 L NS bolus, famotidine 20 mg IV, Zofran 4 mg IV hydralazine 10 mg IV and patient was started on Cardene drip. Patient also received aspirin 324 mg p.o.. Patient admitted to the intensive care unit for further evaluation and medical management 02/28 patient remains admitted to the intensive care unit, BP 156/75, heart rate of 77, afebrile, saturating 94% on room air. Hemoglobin of 12.1, hematocrit 35.2, platelet count of 340, WBC 25.0, sodium 141, potassium 3.2, glucose 164, BUN of 56, creatinine 4.4, magnesium 1.7, albumin 1.5, serology test to include influenza, SARS antigen and group a strep negative, CT chest abdomen and pelvis no evidence of pulmonary nodule or effusion, bilateral renal cysts, diverticulosis, tiny bilateral renal pelvic stones, patient on amlodipine 10 mg p.o. daily, sodium bicarbonate 650 mg p.o. t.i.d., hypokalemia protocol, metoprolol tartrate 25 mg p.o. t.i.d., Patient on PPI with Protonix 40 mg IV b.i.d.. Twelve lead EKG demonstrated sinus rhythm, left anterior fascicular block, complex in V1 and V2 consistent with a possible prior anteroseptal PA and J-point elevation continue with the LVH. There was a 1/[address] elevation of AVR of uncertain significance. Cardiac consultation requested due to positive troponin, per cardiac input, cardiac enzymes are declining and blood pressure is under improved control, cleared for upper endoscopy. Increase metoprolol to 25 mg p.o. q.8 hours and continue IV metoprolol as needed, avoid IV heparin, avoid dual antiplatelet therapy, agreed with low-dose aspirin 81 mg p.o. daily pending assessment by GI, add amlodipine 5 mg p.o. daily, follow echocardiogram to assess LVEF, no plan for invasive evaluation given creatinine of 4.4, consider Lexiscan Cardiolite stress test Wednesday a.m.. Due to creatinine of 4.4, obtain records from the office of Dr. Brian Woo, fluid DRAKE inhibitors, continue cautious hydration. We will follow GI input and recommendation. During my visit today the patient is sitting comfortable at the edge of the bed, alert oriented x3, no chest pain, shortness shortness for breath, no nausea, no vomiting, off nicardipine drip. 03/01 patient admitted secondary to hematemesis, patient remains admitted to the intensive care unit, AO x 3, case discussed with RN, no acute events, denies dizziness, no chest pain, blood pressure 171/89, afebrile, saturating normal on room air, leukocytosis improving, WBC 15.5. Creatinine 4.2. Latest troponin 1259. Toxicology screen positive for marijuana. Cardiology consultation requested, cleared for upper endoscopy by GI. Doppler of the renal arteries normal. Remains on Carafate 1 g p.o. q.6 hours, and Protonix 40 mg IV b.i.d.. Cardiology input noted and appreciated, -no plans for invasive evaluation given creatinine of 4.4 (EGFR of 16), Lexiscan Cardiolite stress test scheduled for 03/02/2025 EGD done, impression: -LA grade D esophagitis with no bleeding -esophageal ulcers -erythematous mucosa in the stomach -normal duodenal bulb and 2nd portion of the duodenum Recommendations: -clear liquid diet -Protonix 40 mg p.o. b.i.d. -Carafate 1 g p.o. q.i.d. 03/02 No acute events overnight, blood pressure mildly elevated, nifedipine 60mg twice daily. Stress test pending today, will follow up. Patient with nephrotic range proteinuria, possibly due to hx of diabetes however patient is young and elevated troponins unaccounted for. May be secondary to other underlying cause will order, HIV, Hepatitis, SIMI, C3/C4, SPEP, UPEP, and Maybeury/Lambda light chains and follow up. 03/03 No acute events overnight. Abnormal stress test, however patient high risk for contrast load due to underlying renal dysfunction. Will follow up with cardiology recommendations. Creatinine stable at 4.2, remainder of vitals and labs relatively unremarkable. 03/04 no acute events overnight. Patient opting for left heart cath despite possibly requiring dialysis afterwards. Case management to determine appropriate disposition as regular dialysis appointments and medical compliance will be important REVIEW OF SYSTEMS 12 point ROS negative unless noted in HPI PHYSICAL EXAM GENERAL APPEARANCE: The patient is awake, alert, and oriented, in no acute cardiopulmonary distress. NEUROLOGICAL: Cranial nerves II-XII grossly intact. Motor is 5/5 in bilateral upper and lower extremities proximal to distal. No sensory deficits. HEENT: Face is symmetric. Pupils are equal and reactive. Extraocular movements are intact. NECK: Supple. No JVD. No thyromegaly. No submental, submandibular, pre- /postauricular, occipital or supraclavicular lymphadenopathy. CHEST: Normal chest expansion. No Telemetry. LUNGS: Absence of any rales, rhonchi or any wheezing. CARDIOVASCULAR: Regular. S1 and S2 normal. No appreciable rubs, murmurs or gallops. ABDOMEN: Soft, nontender, and nondistended. There is no rebound, voluntary guarding, or rigidity. : Deferred. No Shields. EXTREMITIES: Non-edematous and not cyanotic. No clubbing. Good capillary refill. SKIN: No skin breakdown. Vital Signs (last 8hr) Date Time Temp Pulse Resp B/P (MAP) Pulse Ox O2 Delivery O2 Flow Rate FiO2 03/04/25 12:00 98.1 64 19 150/77 94 Room Air 03/04/25 08:00 98.1 62 19 146/73 94 Room Air 03/04/25 07:25 98 Room Air* 0 21 03/04/25 07:00 66 18 N/A Room Air 21 LABS: Laboratory: Test 03/04/25 11:32 03/03/25 03:36 Range/Units Whole Blood Glucose 144 H 70-110 MG/DL White Blood Count 10.0 4.8-10.8 K/uL Red Blood Count 3.81 L 4.50-6.20 MIL/uL Hemoglobin 10.5 L 14.0-18.0 g/dL Hematocrit 31.8 L 42-54 % Mean Corpuscular Volume 83.5 79-99 fL Mean Corpuscular Hemoglobin 27.6 27.0-33.0 pg Mean Corpuscular Hemoglobin Concent 33.0 32.0-36.0 g/dL Red Cell Distribution Width 13.3 11.0-15.5 % Platelet Count 295 130-400 K/uL Mean Platelet Volume 11.4 H 7.5-10.5 fL Immature Granulocyte % (Auto) 0.5 0-1 % Neutrophils (%) (Auto) 64.6 40.0-77.0 % Lymphocytes (%) (Auto) 21.8 21.0-51.0 % Monocytes (%) (Auto) 9.4 3.0-13.0 % Eosinophils (%) (Auto) 3.1 0.0-8.0 % Basophils (%) (Auto) 0.6 0.0-5.0 % Neutrophils # (Auto) 6.4 1.8-7.7 K/uL Lymphocytes # (Auto) 2.2 1.0-4.8 K/uL Monocytes # (Auto) 0.9 0.1-1.0 K/uL Eosinophils # (Auto) 0.31 0.00-0.70 K/uL Basophils # (Auto) 0.06 0.00-0.20 K/uL Absolute Immature Granulocyte (auto 0.05 0-1 K/uL Nucleated Red Blood Cells 0.0 0.0-0.19 % Sodium Level 138 136-145 mmol/L Potassium Level 3.6 3.5-5.1 mmol/L Chloride Level 106 101-111 mmol/L Carbon Dioxide Level 24 21-32 mmol/L Blood Urea Nitrogen 48 H 7-18 mg/dL Creatinine 4.2 H 0.5-1.3 mg/dL Glomerular Filtration Rate Calc 16 >90 mL/min Random Glucose 170 H 70-105 mg/dL Lactic Acid Level 0.9 0.8-2.5 mmol/L Total Calcium 7.7 L 8.5-10.1 mg/dL Total Bilirubin 0.2 # 0.2-1.0 mg/dL Aspartate Amino Transf (AST/SGOT) 19 10-37 U/L Alanine Aminotransferase (ALT/SGPT) 16 12-78 U/L Alkaline Phosphatase 69 50-136 U/L B-Type Natriuretic Peptide 425 H 0-100 pg/mL Total Protein 5.0 L 6.0-8.3 g/dL Albumin 1.5 L 3.5-5.0 g/dL Procalcitonin < 0.05 L 0.05-0.5 ng/mL Current Medications Medications (Trade) Dose Ordered Sig/Jyoti Route PRN Reason Start Time Stop Time Status Last Admin Dose Admin Acetaminophen (TYLenol 325MG TAB) 650 mg Q6H PRN PO MILD PAIN (1-3) 03/01/25 21:00 03/31/25 20:59 03/01/25 21:31 650 MG Amlodipine Besylate (NorvASC 5MG TAB) 5 mg DAILY PO 02/28/25 09:00 02/28/25 09:02 DC Amlodipine Besylate (NorvASC 5MG TAB) 10 mg DAILY PO 03/01/25 09:00 02/28/25 13:09 DC Amlodipine Besylate (NorvASC 5MG TAB) 10 mg DAILY PO 03/01/25 09:00 03/01/25 21:31 DC 03/01/25 10:10 10 MG Aspirin (Aspirin 81mg Chew Tab) 324 mg ONCE STAT PO 02/27/25 15:34 02/27/25 15:41 DC 02/27/25 16:02 324 MG Aspirin (Aspirin 81mg Ec Tab) 81 mg DAILY PO 02/28/25 13:30 03/30/25 13:29 03/04/25 08:42 81 MG Atorvastatin Calcium (LIPItor 40MG) 40 mg HS PO 03/01/25 21:00 03/31/25 20:59 03/03/25 20:54 40 MG Clonidine HCl (CATApres 0.1 mg TAB) 0.1 mg Q8H PRN PO IF SBP GREATER THAN 160 03/01/25 21:00 03/31/25 20:59 03/02/25 04:11 0.1 MG Clopidogrel Bisulfate (plaVIX 75MG) 75 mg DAILY PO 03/04/25 09:00 04/03/25 08:59 03/04/25 08:41 75 MG Dextrose (D50w) 50 ml AD PRN IV HYPOGLYCEMIA PROTOCOL 02/27/25 20:00 03/29/25 19:59 Famotidine (Pepcid 20mg Vial) 20 mg DAILY IV 02/28/25 09:00 02/27/25 23:45 DC Famotidine (Pepcid 20mg Tab) 20 mg Q48H PO 03/01/25 21:00 03/03/25 08:00 DC 03/01/25 21:19 20 MG Fluoxetine HCl (FLUoxetine HCL 20 MG CAPSULE) 20 mg HS PO 03/01/25 21:00 03/31/25 20:59 03/03/25 20:54 20 MG Folic Acid (FOLic ACID 1 MG TABLET) 1 mg DAILY PO 03/02/25 09:00 04/01/25 08:59 03/04/25 08:43 1 MG Glucagon (Glucagon 1mg Kit) 1 mg AD PRN IM HYPOGLYCEMIA PROTOCOL 02/27/25 20:00 03/29/25 19:59 Hydralazine HCl (APRESOLine 20MG INJ) 10 mg ONCE STAT IV 02/27/25 15:06 02/27/25 15:08 DC 02/27/25 15:14 10 MG Hydralazine HCl ([id number] TAB) 25 mg QID PO 02/28/25 17:00 03/01/25 08:58 DC 02/28/25 19:46 25 MG Hydralazine HCl ([id number] TAB) 25 mg TID PO 02/28/25 14:00 02/28/25 15:49 DC 02/28/25 13:55 25 MG Hydralazine HCl ([id number] TAB) 50 mg TID PO 03/01/25 21:00 03/31/25 20:59 03/04/25 08:41 50 MG Insulin Human Regular (humuLIN R 100 UNIT/ML 3ML) INSULIN SLIDING SCAL... ACHS SQ 02/27/25 21:00 03/29/25 20:59 03/03/25 13:00 3 UNIT Ipratropium [place] (AtrovENT UD) 0.5 MG Q8H PRN IH SHORTNESS OF BREATH 03/03/25 10:00 04/02/25 09:59 Isosorbide Mononitrate (Imdur 30mg Sr) 30 mg DAILY PO 02/28/25 13:30 03/03/25 17:17 DC 03/03/25 08:56 30 MG Isosorbide Mononitrate (Imdur 30mg Sr) 60 mg DAILY PO 03/04/25 09:00 04/03/25 08:59 03/04/25 08:42 60 MG Lactulose (Constulose 20gm/ 30ml Udcup) 20 gm BID PRN PO CONSTIPATION 03/03/25 10:30 04/02/25 10:29 Levofloxacin/ Dextrose 100 ml @ 100 mls/hr Q24H IV 02/28/25 06:30 02/28/25 06:46 DC Magnesium Sulfate 50 ml @ 0 mls/hr PROTOCOL PRN IV MAGNESIUM PROTOCOL 02/28/25 06:00 03/30/25 05:59 02/28/25 06:15 25 MLS/HR Metoprolol Succinate (TopROL XL) 100 mg DAILY PO 03/01/25 09:00 03/31/25 08:59 03/04/25 08:43 100 MG Metoprolol Tartrate (loprESSOR) 5 mg Q4H PRN IV ADMINISTER FOR SBP > 150 02/28/25 00:00 03/30/25 00:00 02/28/25 22:09 5 MG Metoprolol Tartrate (loprESSOR) 12.5 mg TID PO 02/28/25 00:00 02/28/25 08:58 DC 02/28/25 00:17 12.5 MG Metoprolol Tartrate (loprESSOR) 25 mg BID PO 03/01/25 21:00 03/01/25 21:30 DC Metoprolol Tartrate (loprESSOR) 25 mg TID PO 02/28/25 09:00 03/01/25 08:58 DC 02/28/25 19:46 25 MG Morphine Sulfate (morPHINE 4MG SYG) 4 mg ONCE STAT IVP 02/27/25 15:41 02/27/25 15:42 DC 02/27/25 16:01 4 MG Nicardipine HCl 25 mg/Sodium Chloride 250 ml @ 0 mls/hr PROTOCOL IV 02/28/25 00:00 03/03/25 13:17 DC 03/01/25 12:24 20 MLS/HR Nicardipine HCl 50 mg/Sodium Chloride 250 ml @ 0 mls/hr PROTOCOL STAT IV 02/27/25 15:34 02/27/25 15:42 DC Nicardipine HCl 50 mg/Sodium Chloride 250 ml @ 0 mls/hr PROTOCOL STAT IV 02/27/25 15:45 02/27/25 15:46 DC 02/27/25 16:32 5 MLS/HR Nifedipine (adALAT 30MG) 60 mg BID PO 03/02/25 09:00 04/01/25 08:59 03/04/25 08:43 60 MG Nitroglycerin (Nitroglycerin 1gm Oint) 1 inch Q6H6 TD 03/01/25 15:00 03/03/25 17:17 DC 03/03/25 12:55 1 INCH Nitroglycerin (Nitroglycerin 1gm Oint) 1 inch Q8H TD 02/28/25 03:30 02/28/25 13:09 DC 02/28/25 03:53 1 INCH Nitroglycerin (Nitrostat) 0.4 mg AD PRN SL CHEST PAIN 02/27/25 16:00 03/29/25 15:59 Ondansetron HCl (zoFRAN 4MG TABLET) 4 mg Q6H6 PRN PO nausea/vomiting 03/01/25 21:00 03/31/25 20:59 Ondansetron HCl (zoFRAN 4MG INJ) 4 mg Q6H PRN IV NAUSEA/VOMITING 02/27/25 20:00 03/01/25 20:41 DC 02/27/25 22:25 4 MG Pantoprazole Sodium (PROTonix 40MG INJ) 40 mg BID IVP 02/28/25 00:00 03/03/25 07:57 DC 03/02/25 20:36 40 MG Pantoprazole Sodium (PROTonix 40MG TAB) 40 mg DAILY PO 03/03/25 09:00 04/02/25 08:59 03/04/25 08:43 40 MG Potassium Chloride 100 ml @ 100 mls/hr AD PRN IV POTASSIUM PROTOCOL 02/28/25 09:00 02/28/25 09:06 DC Potassium Chloride 100 ml @ 100 mls/hr AD PRN IV POTASSIUM PROTOCOL 02/28/25 09:00 03/30/25 08:59 03/02/25 06:53 100 MLS/HR Potassium Chloride (K-Dur 10meq Sr Tab) 10 meq AD PRN PO POTASSIUM PROTOCOL 02/28/25 16:30 03/30/25 08:59 03/03/25 05:51 10 MEQ Potassium Chloride (K-Dur/Klor-Con 20meq) 10 meq AD PRN PO POTASSIUM PROTOCOL 02/28/25 09:00 02/28/25 16:29 DC Potassium Chloride (KCl 10% Elixir 20meq/15ml) 10 meq AD PRN PO POTASSIUM PROTOCOL 02/28/25 09:00 03/30/25 08:59 03/03/25 10:16 10 MEQ Sodium Bicarbonate (Sodium Bicarbonate) 650 mg TID PO 02/28/25 09:00 03/30/25 08:59 03/04/25 08:42 650 MG Sodium Chloride 500 ml @ 0 mls/hr Q0M IV 02/28/25 01:30 02/28/25 08:58 DC Sodium Chloride 1,000 ml @ 75 mls/hr [id number] IV 02/27/25 14:30 03/02/25 11:18 DC 03/02/25 06:54 75 MLS/HR Sodium Chloride 1,000 ml @ 75 mls/hr [id number] IV 02/27/25 20:00 02/28/25 13:11 DC 02/28/25 09:27 75 MLS/HR Sodium Chloride 1,000 ml @ 1,000 mls/hr Q1H STAT IV 02/27/25 14:25 02/27/25 15:24 DC 02/27/25 15:36 1,000 MLS/HR Sucralfate (Carafate) 1 gm Q6H PO 03/01/25 12:00 03/31/25 11:59 03/04/25 06:22 1 GM DIAGNOSTICS / RADIOLOGY: [ ] ASSESSMENT: Hypertensive emergency POA Non ST-elevation PA POA Abnormal EKG with the evidence of possible old anteroseptal wall PA Acute on chronic kidney disease POA Chronic anemia due to CKD POA Acute upper GI bleed, POA Status post EGD 03/01/2025 -LA grade D esophagitis with no bleeding -esophageal ulcers -erythematous mucosa in the stomach -normal duodenal bulb and 2nd portion of the duodenum Acute leukocytosis POA Uncontrolled diabetes mellitus type 2 POA Uncontrolled hypertension POA Medical noncompliance POA Severe protein calorie malnutrition POA Cannabinoid hyperemesis syndrome POA Positive marijuana POA PLAN: - Stress test pending, will follow up - HIV, Hep B panels pending, will follow up - SIMI, C3/C4 pending, will follow up - SPEP, UPEP and kappa/kenan light chains ordered, will follow up - Continue nifedipine 60mg BID - Continue atorvastatin 40mg HS - Continue metoprolol 100mg q24h - Continue isosorbide mononitrate 30mg q24h - Continue aspirin 81mg q24h - Continue sliding scale insulin - Continue hypoglycemia protocol - Cardiology consulted, appreciate recommendations - Nephrology consulted, appreciate recommendations Disposition: Pending possible left heart cath, cardiology recommendations JOS PATEL MD Mar 04, 2025 14:03
--- NOTE | 2025-03-04 21:05 | PN ---
Cardiology Progress Note Date of Service: 03/04/2025 Attending Filter Helper: Dr. Tristin Gauthier Primary Filter Helper: Dr. Elmer Woo Reason for Consult: Elevated troponin Problem List: -Leukocytosis -Viral gastroenteritis with hematemesis s/p EGD done on 03/01/2025 which did not identify any acute abnormalities -Hypertensive emergency -ACS-NSTEMI -CKD stage IV -Normal LV systolic function (LVEF: 55-60% by echo done 03/01/2025) -Abnormal Lexiscan stress test done on 03/02/2025 -Normocytic normochromic anemia -Hypoalbuminemia -HLP -DM2 -Marijuana abuse -Noncompliance Subjective: This is a 49y/o male who was seen and evaluated at the bedside today. The patient denies any active complaints including recurrent chest pain, chest pressure, palpitations or shortness of breath. As per the nurse, there were no overnight events. Vitals/Labs Vital Signs Date Time Temp Pulse Resp B/P (MAP) Pulse Ox O2 Delivery O2 Flow Rate FiO2 03/04/25 19:03 64 18 N/A Room Air 21 03/04/25 16:00 97.5 150/72 96 03/04/25 07:25 0 General: Awake and alert. No acute distress. Chronically ill appearing. HEENT: Normocephalic, atraumatic, EOMI, oral mucosa was moist. Neck: No masses, JVD, or carotid bruits noted. Lungs: No respiratory distress. SCM. Bilateral air entry. Clear to auscultation bilaterally. No rales, wheezing, or rhonchi noted. Cardio: Regular rate. Normal S1 and S2. +S4. No obvious murmurs, gallops, or rubs noted. Abdomen: Soft, nontender, nondistended, no organomegaly. Normal active bowel sounds x4 quadrants. Extremities: No edema, clubbing, or cyanosis noted. +2 pulses noted throughout. Neuro: Cranial nerves II through XII are grossly intact. No focal deficit identified. Assessment: -Leukocytosis -Viral gastroenteritis with hematemesis s/p EGD done on 03/01/2025 which did not identify any acute abnormalities -Hypertensive emergency -ACS-NSTEMI -CKD stage IV -Normal LV systolic function (LVEF: 55-60% by echo done 03/01/2025) -Abnormal Lexiscan stress test done on 03/02/2025 -Normocytic normochromic anemia -Hypoalbuminemia -HLP -DM2 -Marijuana abuse -Noncompliance Plan: 1. Hypertensive emergency -Continue nifedipine ER 60 mg BID, hydralazine 50 mg TID, and metoprolol succinate 100 mg daily. 2. ACS-NSTEMI -HS troponin I: 1748 -Lexiscan stress test: Small ischemia involving the lateral wall. LVEF: 40%. No wall motion abnormalities. -The patient will continue on goal directed ACS therapy which includes aspirin 81 mg daily, clopidogrel 75 mg daily, isosorbide mononitrate ER 60 mg daily, metoprolol succinate 100 mg daily, and atorvastatin 40 mg QHS. -In order to further evaluate the patient's symptoms, we recommend he undergo a LHC/coronary angiogram with possible intervention. -However, the patient's advanced renal dysfunction places him at increased risk of contrast induced nephropathy, worsening renal dysfunction resulting in end stage renal disease > resulting in the need for initiating of hemodialysis. -The patient understands the above mentioned risks, but is requesting to speak with case management first in order to ensure that he will qualify for outpatie nt assistance with dialysis before he fully commits to undergoing the procedure. -We will reevaluate tomorrow in order to determine if we will proceed with further ischemic evaluation. This case was discussed with my Supervising Physician, Dr. Tristin Gauthier, and the above-mentioned plan was formulated and agreed upon. -Progress Note written by Matthew Kapoor, MSN, [employer]PERVISOR, AGACNP-BC MATTHEW KAPOOR NP Mar 04, 2025 21:05
[2025-03-04] MEDS: ZOLPidem TARTrate 5 MG TAB PO SCH (22:24)
[2025-03-05] VITALS (7 sets, daily range): BP systolic 137–155; BP diastolic 71–79; PULSE 59–70; RESP 18–20; TEMP 97.6–98.6; O2SAT 96–98
[2025-03-05 04:05] LABS: BASOPHILS # (AUTO) 0.06 K/uL (0.00-0.20); BASOPHILS % (AUTO) 0.6 % (0.0-5.0); EOSINOPHILS # (AUTO) 0.33 K/uL (0.00-0.70); HEMATOCRIT 30.3 % (42-54); IMMATURE GRANULOCYTE ABSOLUTE 0.05 K/uL (0-1); LYMPHOCYTES # (AUTO) 2.1 K/uL (1.0-4.8); LYMPHOCYTES % (AUTO) 19.5 % (21.0-51.0); MEAN CORPUSCULAR HEMOGLOBIN 27.8 pg (27.0-33.0); MEAN CORPUSCULAR HGB CONC 33.7 g/dL (32.0-36.0); MEAN CORPUSCULAR VOLUME 82.6 fL (79-99); MONOCYTES # (AUTO) 1.1 K/uL (0.1-1.0); NEUTROPHILS # (AUTO) 7.2 K/uL (1.8-7.7); NEUTROPHILS % (AUTO) 66.4 % (40.0-77.0); PLATELET COUNT (AUTO) 286 K/uL (130-400); RED BLOOD CELL COUNT(AUTO) 3.67 MIL/uL (4.50-6.20); RED CELL DISTRIBUTION WIDTH 13.3 % (11.0-15.5); WHITE BLOOD COUNT (AUTO) 10.9 K/uL (4.8-10.8)
[2025-03-05 04:18] LABS: MAGNESIUM 1.7 mg/dL (1.80-2.40); PHOSPHORUS 3.8 mg/dL (2.5-4.9); POTASSIUM 3.2 mmol/L (3.5-5.1)
--- NOTE | 2025-03-05 09:07 | PN ---
SUBJECTIVE: A 49-year-old male with a history of diabetes mellitus and hypertension. He initially presented with hypertensive urgency. The patient has a history of noncompliance with his general medical care including his medications. The patient's creatinine has stabilized, although he does have advanced renal dysfunction. The patient with a positive stress test. The patient is being seen by Cardiology in regards to possible heart cath, and he is being seen as a followup visit for all the above. REVIEW OF SYSTEMS: CONSTITUTIONAL: He is feeling somewhat improved since admission. HEENT: No change in vision. No change in hearing. CARDIOVASCULAR: There is no current chest pain or palpitation. PULMONARY: He denies shortness of breath. GASTROINTESTINAL: He is tolerating a diet. MUSCULOSKELETAL: Complains of weakness. PHYSICAL EXAMINATION: VITAL SIGNS: Blood pressure 154/78, pulse 60s. He is afebrile. GENERAL: He is a chronically ill male, much older than appearing. HEENT: Head is atraumatic. Pupils are equal, roving to light. Oropharynx is without exudate. Nares clear. NECK: There is no JVP. There is no thyromegaly, no mass. CARDIOVASCULAR: Regular. There is no S3 or S4 gallop. LUNGS: Coarse with equal thoracic movement. ABDOMEN: Soft, nondistended, and nontender. EXTREMITIES: There is no edema. NEUROLOGICAL: He is awake. He is alert. LABORATORY DATA: Sodium 140, potassium 3.2, BUN 44, creatinine is 4. Hemoglobin 10, hematocrit 30, white blood cell count is 10,000. IMPRESSION: * Acute on chronic renal failure. * Hypertensive urgency. * Coronary artery disease. * Anemia. PLAN: The patient does have advanced renal dysfunction. I did have a long discussion with the patient. The patient would be at extremely high risk for any contrast load from a renal standpoint. The patient must be agreeable to renal replacement therapy if needed post heart cath. The patient states he is agreeable for the risk. The patient to be seen by Cardiology. We will continue to follow closely. Blood pressure is under much better control. TID: [id number] RECEIPT: [id number]
--- NOTE | 2025-03-05 10:05 | PN ---
GASTROENTEROLOGY PROGRESS NOTE Date of Visit: Mar 05, 2025 Time of Visit: 10:05 Events / Notes: [ ] Review of Systems: CONSTITUTIONAL: No malaise or change in sensation of wellbeing. ENMT: No rhinorrhea, otorrhea, sinus pain, ear ache. CARDIOVASCULAR: No angina, palpitations, orthopnea or paroxysmal dyspnea. RESPIRATORY: No SOB. GASTROINTESTINAL: No abdominal pain, nausea, vomiting, diarrhea, hematemesis, melena or change in the patient's habitual bowel movements consistency/number. GENITOURINARY: No dysuria, hematuria or change in bladder continence. MUSCULOSKELETAL: No new muscle pain or decrease in muscular strength. No new joint swelling, redness or tenderness. SKIN: No new rash. Physical Exam: GEN: Awake, alert, oriented in person, time and place, and in no acute distress. HEENT: No sinus tenderness. Tympanic membranes were not examined. No rhinorrhea. Oral pharyngeal mucosa is pink, moist and within normal limits. Neck is supple with no cervical lymphadenopathy, thyromegaly or JVD. CHEST: Inspection, palpation and percussion of the chest were unremarkable. Lung auscultation revealed normal breath sounds bilaterally. CARDIAC: PMI is within normal limits. Heart sounds are regular. Normal S1, S2. No gallop or murmur. ABD: Soft, non-tender and not distended. No peritoneal signs on palpation. No organomegaly. Normal bowel sounds. EXT: No cyanosis or clubbing. No edema. SKIN: Intact. No rashes. JOINTS: No evidence of synovitis or acute arthritis. NEURO: Alert and oriented to name, place and person. Cranial nerve examination is unremarkable. No focal motor deficits. Normal speech. Gait is normal. Strength is normal. Vital Signs (last 8hr) Date Time Temp Pulse Resp B/P (MAP) Pulse Ox O2 Delivery O2 Flow Rate FiO2 03/05/25 08:12 70 18 N/A Room Air 21 03/05/25 08:04 98.6 65 20 154/78 96 Room Air 03/05/25 03:50 98.2 66 20 155/75 96 Laboratory: [ ] Laboratory: Test 03/05/25 05:46 03/05/25 03:54 Range/Units Whole Blood Glucose 117 H 70-110 MG/DL White Blood Count 10.9 H 4.8-10.8 K/uL Red Blood Count 3.67 L 4.50-6.20 MIL/uL Hemoglobin 10.2 L 14.0-18.0 g/dL Hematocrit 30.3 L 42-54 % Mean Corpuscular Volume 82.6 79-99 fL Mean Corpuscular Hemoglobin 27.8 27.0-33.0 pg Mean Corpuscular Hemoglobin Concent 33.7 32.0-36.0 g/dL Red Cell Distribution Width 13.3 11.0-15.5 % Platelet Count 286 130-400 K/uL Mean Platelet Volume 11.5 H 7.5-10.5 fL Immature Granulocyte % (Auto) 0.5 0-1 % Neutrophils (%) (Auto) 66.4 40.0-77.0 % Lymphocytes (%) (Auto) 19.5 L 21.0-51.0 % Monocytes (%) (Auto) 10.0 3.0-13.0 % Eosinophils (%) (Auto) 3.0 0.0-8.0 % Basophils (%) (Auto) 0.6 0.0-5.0 % Neutrophils # (Auto) 7.2 1.8-7.7 K/uL Lymphocytes # (Auto) 2.1 1.0-4.8 K/uL Monocytes # (Auto) 1.1 H 0.1-1.0 K/uL Eosinophils # (Auto) 0.33 0.00-0.70 K/uL Basophils # (Auto) 0.06 0.00-0.20 K/uL Absolute Immature Granulocyte (auto 0.05 0-1 K/uL Nucleated Red Blood Cells 0.0 0.0-0.19 % Sodium Level 140 136-145 mmol/L Potassium Level 3.2 L 3.5-5.1 mmol/L Chloride Level 108 101-111 mmol/L Carbon Dioxide Level 27 21-32 mmol/L Blood Urea Nitrogen 45 H 7-18 mg/dL Creatinine 4.0 H 0.5-1.3 mg/dL Glomerular Filtration Rate Calc 17 >90 mL/min Random Glucose 118 H 70-105 mg/dL Total Calcium 7.7 L 8.5-10.1 mg/dL Phosphorus Level 3.8 2.5-4.9 mg/dL Magnesium Level 1.70 L 1.80-2.40 mg/dL Current Medications Medications (Trade) Dose Ordered Sig/Jyoti Route PRN Reason Start Time Stop Time Status Last Admin Dose Admin Acetaminophen (TYLenol 325MG TAB) 650 mg Q6H PRN PO MILD PAIN (1-3) 03/01/25 21:00 03/31/25 20:59 03/04/25 20:18 650 MG Amlodipine Besylate (NorvASC 5MG TAB) 5 mg DAILY PO 02/28/25 09:00 02/28/25 09:02 DC Amlodipine Besylate (NorvASC 5MG TAB) 10 mg DAILY PO 03/01/25 09:00 02/28/25 13:09 DC Amlodipine Besylate (NorvASC 5MG TAB) 10 mg DAILY PO 03/01/25 09:00 03/01/25 21:31 DC 03/01/25 10:10 10 MG Aspirin (Aspirin 81mg Chew Tab) 324 mg ONCE STAT PO 02/27/25 15:34 02/27/25 15:41 DC 02/27/25 16:02 324 MG Aspirin (Aspirin 81mg Ec Tab) 81 mg DAILY PO 02/28/25 13:30 03/30/25 13:29 03/05/25 09:09 81 MG Atorvastatin Calcium (LIPItor 40MG) 40 mg HS PO 03/01/25 21:00 03/31/25 20:59 03/04/25 20:17 40 MG Clonidine HCl (CATApres 0.1 mg TAB) 0.1 mg Q8H PRN PO IF SBP GREATER THAN 160 03/01/25 21:00 03/31/25 20:59 03/02/25 04:11 0.1 MG Clopidogrel Bisulfate (plaVIX 75MG) 75 mg DAILY PO 03/04/25 09:00 04/03/25 08:59 03/05/25 09:11 75 MG Dextrose (D50w) 50 ml AD PRN IV HYPOGLYCEMIA PROTOCOL 02/27/25 20:00 03/29/25 19:59 Famotidine (Pepcid 20mg Vial) 20 mg DAILY IV 02/28/25 09:00 02/27/25 23:45 DC Famotidine (Pepcid 20mg Tab) 20 mg Q48H PO 03/01/25 21:00 03/03/25 08:00 DC 03/01/25 21:19 20 MG Fluoxetine HCl (FLUoxetine HCL 20 MG CAPSULE) 20 mg HS PO 03/01/25 21:00 03/31/25 20:59 03/04/25 20:17 20 MG Folic Acid (FOLic ACID 1 MG TABLET) 1 mg DAILY PO 03/02/25 09:00 04/01/25 08:59 03/05/25 09:11 1 MG Glucagon (Glucagon 1mg Kit) 1 mg AD PRN IM HYPOGLYCEMIA PROTOCOL 02/27/25 20:00 03/29/25 19:59 Hydralazine HCl (APRESOLine 20MG INJ) 10 mg ONCE STAT IV 02/27/25 15:06 02/27/25 15:08 DC 02/27/25 15:14 10 MG Hydralazine HCl ([id number] TAB) 25 mg QID PO 02/28/25 17:00 03/01/25 08:58 DC 02/28/25 19:46 25 MG Hydralazine HCl ([id number] TAB) 25 mg TID PO 02/28/25 14:00 02/28/25 15:49 DC 02/28/25 13:55 25 MG Hydralazine HCl ([id number] TAB) 50 mg TID PO 03/01/25 21:00 03/31/25 20:59 03/05/25 09:10 50 MG Insulin Human Regular (humuLIN R 100 UNIT/ML 3ML) INSULIN SLIDING SCAL... ACHS SQ 02/27/25 21:00 03/29/25 20:59 03/04/25 20:25 2 UNIT Ipratropium [place] (AtrovENT UD) 0.5 MG Q8H PRN IH SHORTNESS OF BREATH 03/03/25 10:00 04/02/25 09:59 Isosorbide Mononitrate (Imdur 30mg Sr) 30 mg DAILY PO 02/28/25 13:30 03/03/25 17:17 DC 03/03/25 08:56 30 MG Isosorbide Mononitrate (Imdur 30mg Sr) 60 mg DAILY PO 03/04/25 09:00 04/03/25 08:59 03/05/25 09:10 60 MG Lactulose (Constulose 20gm/ 30ml Udcup) 20 gm BID PRN PO CONSTIPATION 03/03/25 10:30 04/02/25 10:29 Levofloxacin/ Dextrose 100 ml @ 100 mls/hr Q24H IV 02/28/25 06:30 02/28/25 06:46 DC Magnesium Sulfate 50 ml @ 0 mls/hr PROTOCOL PRN IV MAGNESIUM PROTOCOL 02/28/25 06:00 03/30/25 05:59 03/05/25 05:11 20 MLS/HR Metoprolol Succinate (TopROL XL) 100 mg DAILY PO 03/01/25 09:00 03/31/25 08:59 03/05/25 09:10 100 MG Metoprolol Tartrate (loprESSOR) 5 mg Q4H PRN IV ADMINISTER FOR SBP > 150 02/28/25 00:00 03/30/25 00:00 02/28/25 22:09 5 MG Metoprolol Tartrate (loprESSOR) 12.5 mg TID PO 02/28/25 00:00 02/28/25 08:58 DC 02/28/25 00:17 12.5 MG Metoprolol Tartrate (loprESSOR) 25 mg BID PO 03/01/25 21:00 03/01/25 21:30 DC Metoprolol Tartrate (loprESSOR) 25 mg TID PO 02/28/25 09:00 03/01/25 08:58 DC 02/28/25 19:46 25 MG Morphine Sulfate (morPHINE 4MG SYG) 4 mg ONCE STAT IVP 02/27/25 15:41 02/27/25 15:42 DC 02/27/25 16:01 4 MG Nicardipine HCl 25 mg/Sodium Chloride 250 ml @ 0 mls/hr PROTOCOL IV 02/28/25 00:00 03/03/25 13:17 DC 03/01/25 12:24 20 MLS/HR Nicardipine HCl 50 mg/Sodium Chloride 250 ml @ 0 mls/hr PROTOCOL STAT IV 02/27/25 15:34 02/27/25 15:42 DC Nicardipine HCl 50 mg/Sodium Chloride 250 ml @ 0 mls/hr PROTOCOL STAT IV 02/27/25 15:45 02/27/25 15:46 DC 02/27/25 16:32 5 MLS/HR Nifedipine (adALAT 30MG) 60 mg BID PO 03/02/25 09:00 04/01/25 08:59 03/05/25 09:09 60 MG Nitroglycerin (Nitroglycerin 1gm Oint) 1 inch Q6H6 TD 03/01/25 15:00 03/03/25 17:17 DC 03/03/25 12:55 1 INCH Nitroglycerin (Nitroglycerin 1gm Oint) 1 inch Q8H TD 02/28/25 03:30 02/28/25 13:09 DC 02/28/25 03:53 1 INCH Nitroglycerin (Nitrostat) 0.4 mg AD PRN SL CHEST PAIN 02/27/25 16:00 03/29/25 15:59 Ondansetron HCl (zoFRAN 4MG TABLET) 4 mg Q6H6 PRN PO nausea/vomiting 03/01/25 21:00 03/31/25 20:59 Ondansetron HCl (zoFRAN 4MG INJ) 4 mg Q6H PRN IV NAUSEA/VOMITING 02/27/25 20:00 03/01/25 20:41 DC 02/27/25 22:25 4 MG Pantoprazole Sodium (PROTonix 40MG INJ) 40 mg BID IVP 02/28/25 00:00 03/03/25 07:57 DC 03/02/25 20:36 40 MG Pantoprazole Sodium (PROTonix 40MG TAB) 40 mg DAILY PO 03/03/25 09:00 04/02/25 08:59 03/05/25 09:09 40 MG Potassium Chloride 100 ml @ 100 mls/hr AD PRN IV POTASSIUM PROTOCOL 02/28/25 09:00 02/28/25 09:06 DC Potassium Chloride 100 ml @ 100 mls/hr AD PRN IV POTASSIUM PROTOCOL 02/28/25 09:00 03/30/25 08:59 03/02/25 06:53 100 MLS/HR Potassium Chloride (K-Dur 10meq Sr Tab) 10 meq AD PRN PO POTASSIUM PROTOCOL 02/28/25 16:30 03/30/25 08:59 03/05/25 09:11 10 MEQ Potassium Chloride (K-Dur/Klor-Con 20meq) 10 meq AD PRN PO POTASSIUM PROTOCOL 02/28/25 09:00 02/28/25 16:29 DC Potassium Chloride (KCl 10% Elixir 20meq/15ml) 10 meq AD PRN PO POTASSIUM PROTOCOL 02/28/25 09:00 03/30/25 08:59 03/03/25 10:16 10 MEQ Sodium Bicarbonate (Sodium Bicarbonate) 650 mg TID PO 02/28/25 09:00 03/30/25 08:59 03/05/25 09:09 650 MG Sodium Chloride 500 ml @ 0 mls/hr Q0M IV 02/28/25 01:30 02/28/25 08:58 DC Sodium Chloride 1,000 ml @ 75 mls/hr [id number] IV 02/27/25 14:30 03/02/25 11:18 DC 03/02/25 06:54 75 MLS/HR Sodium Chloride 1,000 ml @ 75 mls/hr [id number] IV 02/27/25 20:00 02/28/25 13:11 DC 02/28/25 09:27 75 MLS/HR Sodium Chloride 1,000 ml @ 1,000 mls/hr Q1H STAT IV 02/27/25 14:25 02/27/25 15:24 DC 02/27/25 15:36 1,000 MLS/HR Sucralfate (Carafate) 1 gm Q6H PO 03/01/25 12:00 03/31/25 11:59 03/05/25 05:11 1 GM Zolpidem Tartrate (AmbIEN) 5 mg HS PO 03/04/25 21:30 04/03/25 21:29 03/04/25 22:24 5 MG Diagnostics / Radiology: [COPY/PASTE HERE IF NO REPORTS PLEASE DELETE SECTION] Assessment: Hematemesis Epigastric pain CKD DM Plan: [facility] Mar 05, 2025 10:05
[2025-03-05 11:12] LABS: FREE KAPPA LIGHT CHAINS,S 72.7 mg/L (3.3-19.4)
--- NOTE | 2025-03-05 11:30 | PN ---
[facility] CARDIOLOGY PROGRESS NOTE Date Patient Seen: Mar 05, 2025 Time of Visit: 11:29 Problem List: ACS NSTEMI Interval History: Patient overall feels well Denies chest pain Physical Examination: GENERAL: [No acute distress.] NECK: Normal carotid upstrokes without bruits.] LUNGS: [Clear breath sounds bilaterally. No wheezes, or rhonchi.] HEART: [Normal rate and rhythm. Normal S1 and S2 without murmurs, gallop or rub.] EXT: [No edema.] SKIN: [No rashes or lesions noted.] NEURO: [Awake, alert, and oriented x3. No focal sensory or strength deficits noted.] Laboratory: [ ] Hematology Labs: Test 03/05/25 03:54 Range/Units White Blood Count 10.9 H 4.8-10.8 K/uL Red Blood Count 3.67 L 4.50-6.20 MIL/uL Hemoglobin 10.2 L 14.0-18.0 g/dL Hematocrit 30.3 L 42-54 % Mean Corpuscular Volume 82.6 79-99 fL Mean Corpuscular Hemoglobin 27.8 27.0-33.0 pg Mean Corpuscular Hemoglobin Concent 33.7 32.0-36.0 g/dL Red Cell Distribution Width 13.3 11.0-15.5 % Platelet Count 286 130-400 K/uL Mean Platelet Volume 11.5 H 7.5-10.5 fL Immature Granulocyte % (Auto) 0.5 0-1 % Neutrophils (%) (Auto) 66.4 40.0-77.0 % Lymphocytes (%) (Auto) 19.5 L 21.0-51.0 % Monocytes (%) (Auto) 10.0 3.0-13.0 % Eosinophils (%) (Auto) 3.0 0.0-8.0 % Basophils (%) (Auto) 0.6 0.0-5.0 % Neutrophils # (Auto) 7.2 1.8-7.7 K/uL Lymphocytes # (Auto) 2.1 1.0-4.8 K/uL Monocytes # (Auto) 1.1 H 0.1-1.0 K/uL Eosinophils # (Auto) 0.33 0.00-0.70 K/uL Basophils # (Auto) 0.06 0.00-0.20 K/uL Absolute Immature Granulocyte (auto 0.05 0-1 K/uL Nucleated Red Blood Cells 0.0 0.0-0.19 % Chemistry Labs: Test 03/05/25 05:46 03/05/25 03:54 Range/Units Whole Blood Glucose 117 H 70-110 MG/DL Sodium Level 140 136-145 mmol/L Potassium Level 3.2 L 3.5-5.1 mmol/L Chloride Level 108 101-111 mmol/L Carbon Dioxide Level 27 21-32 mmol/L Blood Urea Nitrogen 45 H 7-18 mg/dL Creatinine 4.0 H 0.5-1.3 mg/dL Glomerular Filtration Rate Calc 17 >90 mL/min Random Glucose 118 H 70-105 mg/dL Total Calcium 7.7 L 8.5-10.1 mg/dL Phosphorus Level 3.8 2.5-4.9 mg/dL Magnesium Level 1.70 L 1.80-2.40 mg/dL Impression and Plan: Viral gastroenteritis with hematemesis s/p EGD done on 03/01/2025 which did not identify any acute abnormalities Hypertensive emergency ACS-NSTEMI -Normal LV systolic function (LVEF: 55-60% by echo done 03/01/2025) --Lexiscan stress test: Small ischemia involving the lateral wall. LVEF: 40%. No wall motion abnormalities. 03/02/2025 CKD stage IV Normocytic normochromic anemia Hypoalbuminemia HLP DM2 Marijuana abuse Noncompliance Plan: -The patient will continue on goal directed ACS therapy which includes aspirin 81 mg daily, clopidogrel 75 mg daily, isosorbide mononitrate ER 60 mg daily, metoprolol succinate 100 mg daily, and atorvastatin 40 mg QHS. -Blood pressure continues to be uncontrolled. Will uptitrate the hydralazine. - Small degree of ischemia involving lateral wall on lexiscan . He has advanced renal dysfunction, however accepts potential risk of needing dialysis should coronary angiography be performed On my examination today, he is asymptomatic from cardiac standpoint. He had uncontrolled BP on presentation. His stress test only shows a small degree of ischemia and his LVEF by echo is normal. It may be reasonable to treat medically and discuss coronary angiography for refractory symptoms. His primary electrical repairer returns tomorrow and will allow for reassessment given that he is more familiar with the patient to make a final decision. NEERAJ ADAMS DO Mar 05, 2025 11:30
--- NOTE | 2025-03-05 13:08 | PN ---
[facility] PROGRESS NOTE Date of Service: Mar 05, 2025 Time of Service: 13:07 SUBJECTIVE: This is a 49-year-old male with history of anemia, hypertension, chronic kidney disease non hemodialysis, diabetes who presented to the ED February 27, 2025 for complaints of nausea vomiting and diarrhea and epigastric pain which started three days ago.As per patient he has been having bloody emesis upon ER arrival and was reported to the ER nurse.Patient reported he is using marijuana and denied alcohol,cigarette and cocaine use.Patient also reported he is not good in taking his medications and checking his BP and blood sugar at home. Seen and examined patient in the ER awake,alert and coherent.Patient denied fever,chills,chest pain,palpitation and shortness of breath. Vital signs upon ER arrival temperature 98.2, heart rate 89, blood pressure 231/118 saturation 98% on room air. In the ER Labs: WBC 20 with negative left shift of neutrophils 90, globin 13, hematocrit 40, platelet count 383. BUN 51, creatinine 4.4, GFR 16 glucose 291 ketones 1.2 lactic acid two troponin 1748 to 980. Albumin 1.9. Urine toxicology positive for marijuana. CT head without contrast result is unremarkable. CT chest result revealed no evidence of pulmonary nodule or effusion is seen. CT abdomen and pelvis result revealed bilateral renal cyst diverticulosis. Tiny bilateral renal pelvic stones. While in the ER patient started on 1 L NS bolus, famotidine 20 mg IV, Zofran 4 mg IV hydralazine 10 mg IV and patient was started on Cardene drip. Patient also received aspirin 324 mg p.o.. Patient admitted to the intensive care unit for further evaluation and medical management 02/28 patient remains admitted to the intensive care unit, BP 156/75, heart rate of 77, afebrile, saturating 94% on room air. Hemoglobin of 12.1, hematocrit 35.2, platelet count of 340, WBC 25.0, sodium 141, potassium 3.2, glucose 164, BUN of 56, creatinine 4.4, magnesium 1.7, albumin 1.5, serology test to include influenza, SARS antigen and group a strep negative, CT chest abdomen and pelvis no evidence of pulmonary nodule or effusion, bilateral renal cysts, diverticulosis, tiny bilateral renal pelvic stones, patient on amlodipine 10 mg p.o. daily, sodium bicarbonate 650 mg p.o. t.i.d., hypokalemia protocol, metoprolol tartrate 25 mg p.o. t.i.d., Patient on PPI with Protonix 40 mg IV b.i.d.. Twelve lead EKG demonstrated sinus rhythm, left anterior fascicular block, complex in V1 and V2 consistent with a possible prior anteroseptal UT and J-point elevation continue with the LVH. There was a 1/[address] elevation of AVR of uncertain significance. Cardiac consultation requested due to positive troponin, per cardiac input, cardiac enzymes are declining and blood pressure is under improved control, cleared for upper endoscopy. Increase metoprolol to 25 mg p.o. q.8 hours and continue IV metoprolol as needed, avoid IV heparin, avoid dual antiplatelet therapy, agreed with low-dose aspirin 81 mg p.o. daily pending assessment by GI, add amlodipine 5 mg p.o. daily, follow echocardiogram to assess LVEF, no plan for invasive evaluation given creatinine of 4.4, consider Lexiscan Cardiolite stress test Wednesday a.m.. Due to creatinine of 4.4, obtain records from the office of Dr. Brian Woo, fluid DRAKE inhibitors, continue cautious hydration. We will follow GI input and recommendation. During my visit today the patient is sitting comfortable at the edge of the bed, alert oriented x3, no chest pain, shortness shortness for breath, no nausea, no vomiting, off nicardipine drip. 03/01 patient admitted secondary to hematemesis, patient remains admitted to the intensive care unit, AO x 3, case discussed with RN, no acute events, denies dizziness, no chest pain, blood pressure 171/89, afebrile, saturating normal on room air, leukocytosis improving, WBC 15.5. Creatinine 4.2. Latest troponin 1259. Toxicology screen positive for marijuana. Cardiology consultation requested, cleared for upper endoscopy by GI. Doppler of the renal arteries normal. Remains on Carafate 1 g p.o. q.6 hours, and Protonix 40 mg IV b.i.d.. Cardiology input noted and appreciated, -no plans for invasive evaluation given creatinine of 4.4 (EGFR of 16), Lexiscan Cardiolite stress test scheduled for 03/02/2025 EGD done, impression: -LA grade D esophagitis with no bleeding -esophageal ulcers -erythematous mucosa in the stomach -normal duodenal bulb and 2nd portion of the duodenum Recommendations: -clear liquid diet -Protonix 40 mg p.o. b.i.d. -Carafate 1 g p.o. q.i.d. 03/02 No acute events overnight, blood pressure mildly elevated, nifedipine 60mg twice daily. Stress test pending today, will follow up. Patient with nephrotic range proteinuria, possibly due to hx of diabetes however patient is young and elevated troponins unaccounted for. May be secondary to other underlying cause will order, HIV, Hepatitis, SIMI, C3/C4, SPEP, UPEP, and Bolton/Lambda light chains and follow up. 03/03 No acute events overnight. Abnormal stress test, however patient high risk for contrast load due to underlying renal dysfunction. Will follow up with cardiology recommendations. Creatinine stable at 4.2, remainder of vitals and labs relatively unremarkable. 03/04 no acute events overnight. Patient opting for left heart cath despite possibly requiring dialysis afterwards. Case management to determine appropriate disposition as regular dialysis appointments and medical compliance will be important 03/05 no acute events overnight. Still pending left heart cath, will follow up with cardiology. Patient is aymptomatic. Creatinine improved from 4.2 down to 4.0. Vitals and labs otherwise unremarkable. REVIEW OF SYSTEMS 12 point ROS negative unless noted in HPI PHYSICAL EXAM GENERAL APPEARANCE: The patient is awake, alert, and oriented, in no acute cardiopulmonary distress. NEUROLOGICAL: Cranial nerves II-XII grossly intact. Motor is 5/5 in bilateral upper and lower extremities proximal to distal. No sensory deficits. HEENT: Face is symmetric. Pupils are equal and reactive. Extraocular movements are intact. NECK: Supple. No JVD. No thyromegaly. No submental, submandibular, pre-/postauricular, occipital or supraclavicular lymphadenopathy. CHEST: Normal chest expansion. No Telemetry. LUNGS: Absence of any rales, rhonchi or any wheezing. CARDIOVASCULAR: Regular. S1 and S2 normal. No appreciable rubs, murmurs or gallops. ABDOMEN: Soft, nontender, and nondistended. There is no rebound, voluntary guarding, or rigidity. : Deferred. No Shields. EXTREMITIES: Non-edematous and not cyanotic. No clubbing. Good capillary refill. SKIN: No skin breakdown. Vital Signs (last 8hr) Date Time Temp Pulse Resp B/P (MAP) Pulse Ox O2 Delivery O2 Flow Rate FiO2 03/05/25 12:00 98.1 65 20 151/73 95 Room Air 03/05/25 08:12 70 18 N/A Room Air 21 03/05/25 08:10 98 Room Air* 0 21 03/05/25 08:04 98.6 65 20 154/78 96 Room Air LABS: Laboratory: Test 03/05/25 11:40 03/05/25 03:54 Range/Units Whole Blood Glucose 124 H 70-110 MG/DL White Blood Count 10.9 H 4.8-10.8 K/uL Red Blood Count 3.67 L 4.50-6.20 MIL/uL Hemoglobin 10.2 L 14.0-18.0 g/dL Hematocrit 30.3 L 42-54 % Mean Corpuscular Volume 82.6 79-99 fL Mean Corpuscular Hemoglobin 27.8 27.0-33.0 pg Mean Corpuscular Hemoglobin Concent 33.7 32.0-36.0 g/dL Red Cell Distribution Width 13.3 11.0-15.5 % Platelet Count 286 130-400 K/uL Mean Platelet Volume 11.5 H 7.5-10.5 fL Immature Granulocyte % (Auto) 0.5 0-1 % Neutrophils (%) (Auto) 66.4 40.0-77.0 % Lymphocytes (%) (Auto) 19.5 L 21.0-51.0 % Monocytes (%) (Auto) 10.0 3.0-13.0 % Eosinophils (%) (Auto) 3.0 0.0-8.0 % Basophils (%) (Auto) 0.6 0.0-5.0 % Neutrophils # (Auto) 7.2 1.8-7.7 K/uL Lymphocytes # (Auto) 2.1 1.0-4.8 K/uL Monocytes # (Auto) 1.1 H 0.1-1.0 K/uL Eosinophils # (Auto) 0.33 0.00-0.70 K/uL Basophils # (Auto) 0.06 0.00-0.20 K/uL Absolute Immature Granulocyte (auto 0.05 0-1 K/uL Nucleated Red Blood Cells 0.0 0.0-0.19 % Sodium Level 140 136-145 mmol/L Potassium Level 3.2 L 3.5-5.1 mmol/L Chloride Level 108 101-111 mmol/L Carbon Dioxide Level 27 21-32 mmol/L Blood Urea Nitrogen 45 H 7-18 mg/dL Creatinine 4.0 H 0.5-1.3 mg/dL Glomerular Filtration Rate Calc 17 >90 mL/min Random Glucose 118 H 70-105 mg/dL Total Calcium 7.7 L 8.5-10.1 mg/dL Phosphorus Level 3.8 2.5-4.9 mg/dL Magnesium Level 1.70 L 1.80-2.40 mg/dL Current Medications Medications (Trade) Dose Ordered Sig/Jyoti Route PRN Reason Start Time Stop Time Status Last Admin Dose Admin Acetaminophen (TYLenol 325MG TAB) 650 mg Q6H PRN PO MILD PAIN (1-3) 03/01/25 21:00 03/31/25 20:59 03/04/25 20:18 650 MG Amlodipine Besylate (NorvASC 5MG TAB) 5 mg DAILY PO 02/28/25 09:00 02/28/25 09:02 DC Amlodipine Besylate (NorvASC 5MG TAB) 10 mg DAILY PO 03/01/25 09:00 02/28/25 13:09 DC Amlodipine Besylate (NorvASC 5MG TAB) 10 mg DAILY PO 03/01/25 09:00 03/01/25 21:31 DC 03/01/25 10:10 10 MG Aspirin (Aspirin 81mg Chew Tab) 324 mg ONCE STAT PO 02/27/25 15:34 02/27/25 15:41 DC 02/27/25 16:02 324 MG Aspirin (Aspirin 81mg Ec Tab) 81 mg DAILY PO 02/28/25 13:30 03/30/25 13:29 03/05/25 09:09 81 MG Atorvastatin Calcium (LIPItor 40MG) 40 mg HS PO 03/01/25 21:00 03/31/25 20:59 03/04/25 20:17 40 MG Clonidine HCl (CATApres 0.1 mg TAB) 0.1 mg Q8H PRN PO IF SBP GREATER THAN 160 03/01/25 21:00 03/31/25 20:59 03/02/25 04:11 0.1 MG Clopidogrel Bisulfate (plaVIX 75MG) 75 mg DAILY PO 03/04/25 09:00 04/03/25 08:59 03/05/25 09:11 75 MG Dextrose (D50w) 50 ml AD PRN IV HYPOGLYCEMIA PROTOCOL 02/27/25 20:00 03/29/25 19:59 Famotidine (Pepcid 20mg Vial) 20 mg DAILY IV 02/28/25 09:00 02/27/25 23:45 DC Famotidine (Pepcid 20mg Tab) 20 mg Q48H PO 03/01/25 21:00 03/03/25 08:00 DC 03/01/25 21:19 20 MG Fluoxetine HCl (FLUoxetine HCL 20 MG CAPSULE) 20 mg HS PO 03/01/25 21:00 03/31/25 20:59 03/04/25 20:17 20 MG Folic Acid (FOLic ACID 1 MG TABLET) 1 mg DAILY PO 03/02/25 09:00 04/01/25 08:59 03/05/25 09:11 1 MG Glucagon (Glucagon 1mg Kit) 1 mg AD PRN IM HYPOGLYCEMIA PROTOCOL 02/27/25 20:00 03/29/25 19:59 Hydralazine HCl (APRESOLine 20MG INJ) 10 mg ONCE STAT IV 02/27/25 15:06 02/27/25 15:08 DC 02/27/25 15:14 10 MG Hydralazine HCl ([id number] TAB) 25 mg QID PO 02/28/25 17:00 03/01/25 08:58 DC 02/28/25 19:46 25 MG Hydralazine HCl ([id number] TAB) 25 mg TID PO 02/28/25 14:00 02/28/25 15:49 DC 02/28/25 13:55 25 MG Hydralazine HCl ([id number] TAB) 50 mg TID PO 03/01/25 21:00 03/05/25 11:32 DC 03/05/25 09:10 50 MG Hydralazine HCl ([id number] TAB) 75 mg TID PO 03/05/25 14:00 04/04/25 13:59 Insulin Human Regular (humuLIN R 100 UNIT/ML 3ML) INSULIN SLIDING SCAL... ACHS SQ 02/27/25 21:00 03/29/25 20:59 03/04/25 20:25 2 UNIT Ipratropium Mcdermott (AtrovENT UD) 0.5 MG Q8H PRN IH SHORTNESS OF BREATH 03/03/25 10:00 04/02/25 09:59 Isosorbide Mononitrate (Imdur 30mg Sr) 30 mg DAILY PO 02/28/25 13:30 03/03/25 17:17 DC 03/03/25 08:56 30 MG Isosorbide Mononitrate (Imdur 30mg Sr) 60 mg DAILY PO 03/04/25 09:00 04/03/25 08:59 03/05/25 09:10 60 MG Lactulose (Constulose 20gm/ 30ml Udcup) 20 gm BID PRN PO CONSTIPATION 03/03/25 10:30 04/02/25 10:29 Levofloxacin/ Dextrose 100 ml @ 100 mls/hr Q24H IV 02/28/25 06:30 02/28/25 06:46 DC Magnesium Sulfate 50 ml @ 0 mls/hr PROTOCOL PRN IV MAGNESIUM PROTOCOL 02/28/25 06:00 03/30/25 05:59 03/05/25 05:11 20 MLS/HR Metoprolol Succinate (TopROL XL) 100 mg DAILY PO 03/01/25 09:00 03/31/25 08:59 03/05/25 09:10 100 MG Metoprolol Tartrate (loprESSOR) 5 mg Q4H PRN IV ADMINISTER FOR SBP > 150 02/28/25 00:00 03/30/25 00:00 02/28/25 22:09 5 MG Metoprolol Tartrate (loprESSOR) 12.5 mg TID PO 02/28/25 00:00 02/28/25 08:58 DC 02/28/25 00:17 12.5 MG Metoprolol Tartrate (loprESSOR) 25 mg BID PO 03/01/25 21:00 03/01/25 21:30 DC Metoprolol Tartrate (loprESSOR) 25 mg TID PO 02/28/25 09:00 03/01/25 08:58 DC 02/28/25 19:46 25 MG Morphine Sulfate (morPHINE 4MG SYG) 4 mg ONCE STAT IVP 02/27/25 15:41 02/27/25 15:42 DC 02/27/25 16:01 4 MG Nicardipine HCl 25 mg/Sodium Chloride 250 ml @ 0 mls/hr PROTOCOL IV 02/28/25 00:00 03/03/25 13:17 DC 03/01/25 12:24 20 MLS/HR Nicardipine HCl 50 mg/Sodium Chloride 250 ml @ 0 mls/hr PROTOCOL STAT IV 02/27/25 15:34 02/27/25 15:42 DC Nicardipine HCl 50 mg/Sodium Chloride 250 ml @ 0 mls/hr PROTOCOL STAT IV 02/27/25 15:45 02/27/25 15:46 DC 02/27/25 16:32 5 MLS/HR Nifedipine (adALAT 30MG) 60 mg BID PO 03/02/25 09:00 04/01/25 08:59 03/05/25 09:09 60 MG Nitroglycerin (Nitroglycerin 1gm Oint) 1 inch Q6H6 TD 03/01/25 15:00 03/03/25 17:17 DC 03/03/25 12:55 1 INCH Nitroglycerin (Nitroglycerin 1gm Oint) 1 inch Q8H TD 02/28/25 03:30 02/28/25 13:09 DC 02/28/25 03:53 1 INCH Nitroglycerin (Nitrostat) 0.4 mg AD PRN SL CHEST PAIN 02/27/25 16:00 03/29/25 15:59 Ondansetron HCl (zoFRAN 4MG TABLET) 4 mg Q6H6 PRN PO nausea/vomiting 03/01/25 21:00 03/31/25 20:59 Ondansetron HCl (zoFRAN 4MG INJ) 4 mg Q6H PRN IV NAUSEA/VOMITING 02/27/25 20:00 03/01/25 20:41 DC 02/27/25 22:25 4 MG Pantoprazole Sodium (PROTonix 40MG INJ) 40 mg BID IVP 02/28/25 00:00 03/03/25 07:57 DC 03/02/25 20:36 40 MG Pantoprazole Sodium (PROTonix 40MG TAB) 40 mg DAILY PO 03/03/25 09:00 04/02/25 08:59 03/05/25 09:09 40 MG Potassium Chloride 100 ml @ 100 mls/hr AD PRN IV POTASSIUM PROTOCOL 02/28/25 09:00 02/28/25 09:06 DC Potassium Chloride 100 ml @ 100 mls/hr AD PRN IV POTASSIUM PROTOCOL 02/28/25 09:00 03/30/25 08:59 03/02/25 06:53 100 MLS/HR Potassium Chloride (K-Dur 10meq Sr Tab) 10 meq AD PRN PO POTASSIUM PROTOCOL 02/28/25 16:30 03/30/25 08:59 03/05/25 09:11 10 MEQ Potassium Chloride (K-Dur/Klor-Con 20meq) 10 meq AD PRN PO POTASSIUM PROTOCOL 02/28/25 09:00 02/28/25 16:29 DC Potassium Chloride (KCl 10% Elixir 20meq/15ml) 10 meq AD PRN PO POTASSIUM PROTOCOL 02/28/25 09:00 03/30/25 08:59 03/03/25 10:16 10 MEQ Sodium Bicarbonate (Sodium Bicarbonate) 650 mg TID PO 02/28/25 09:00 03/30/25 08:59 03/05/25 09:09 650 MG Sodium Chloride 500 ml @ 0 mls/hr Q0M IV 02/28/25 01:30 02/28/25 08:58 DC Sodium Chloride 1,000 ml @ 75 mls/hr [id number] IV 02/27/25 14:30 03/02/25 11:18 DC 03/02/25 06:54 75 MLS/HR Sodium Chloride 1,000 ml @ 75 mls/hr [id number] IV 02/27/25 20:00 02/28/25 13:11 DC 02/28/25 09:27 75 MLS/HR Sodium Chloride 1,000 ml @ 1,000 mls/hr Q1H STAT IV 02/27/25 14:25 02/27/25 15:24 DC 02/27/25 15:36 1,000 MLS/HR Sucralfate (Carafate) 1 gm Q6H PO 03/01/25 12:00 03/31/25 11:59 03/05/25 12:36 1 GM Zolpidem Tartrate (AmbIEN) 5 mg HS PO 03/04/25 21:30 04/03/25 21:29 03/04/25 22:24 5 MG DIAGNOSTICS / RADIOLOGY: [ ] ASSESSMENT: Hypertensive emergency POA Non ST-elevation UT POA Abnormal EKG with the evidence of possible old anteroseptal wall UT Acute on chronic kidney disease POA Chronic anemia due to CKD POA Acute upper GI bleed, POA Status post EGD 03/01/2025 -LA grade D esophagitis with no bleeding -esophageal ulcers -erythematous mucosa in the stomach -normal duodenal bulb and 2nd portion of the duodenum Acute leukocytosis POA Uncontrolled diabetes mellitus type 2 POA Uncontrolled hypertension POA Medical noncompliance POA Severe protein calorie malnutrition POA Cannabinoid hyperemesis syndrome POA Positive marijuana POA PLAN: - Stress test pending, will follow up - HIV, Hep B panels pending, will follow up - SIMI, C3/C4 pending, will follow up - SPEP, UPEP and kappa/kenan light chains ordered, will follow up - Continue nifedipine 60mg BID - Continue atorvastatin 40mg HS - Continue metoprolol 100mg q24h - Continue isosorbide mononitrate 30mg q24h - Continue aspirin 81mg q24h - Continue sliding scale insulin - Continue hypoglycemia protocol - Cardiology consulted, appreciate recommendations - Nephrology consulted, appreciate recommendations Disposition: Pending possible left heart cath, cardiology recommendations JOS PATEL MD Mar 05, 2025 13:08
[2025-03-05] MEDS: hydrALAZine 25MG TABLET PO SCH (14:00)
[2025-03-05 17:11] LABS: ALBUMIN/GLOBULIN RATIO (IFE) 0.8 (0.7-1.7); ALPHA-1 (IFE & PEP) 0.2 g/dL (0.0-0.4); ALPHA-2 (IFE & PEP) 1.1 g/dL (0.4-1.0); BETA (IFE & ELP) 0.9 g/dL (0.7-1.3); GAMMA GLOBULINS (IFE & ELP) 0.7 g/dL (0.4-1.8); GLOBULIN TOTAL (IFE) 2.8 g/dL (2.2-3.9); IGA (IFE) 320 mg/dL (90-386); IGG (IMMUNOFIXATION) 697 mg/dL (603-1613); IGM (IMMUNOFIXATION) 59 mg/dL (20-172); M-SPIKE (IEP) Not Observed g/dL (Not Observed); TOTAL PROTEIN 4.8 g/dL (6.0-8.5)
--- NOTE | 2025-03-05 20:05 | PN ---
[facility] PROGRESS NOTE Date Patient Seen: Mar 05, 2025 Time of Visit: 19:47 Supervising Physician: [SWETHA ROBLEDO MD ] Primary Care Physician: Attending group: [facility] hospitalist team Outpatient Specialists: Inpatient Consults: Critical Care team Cardiology PROBLEM LIST: NSTEMI, POA, on medical management Abnormal nuclear stress test on 03/03/25 Hypertensive emergency, POA, RESOLVING Acute on chronic HFpEF LVEF 40% on Lexiscan 02/2025 Cannabinoid hyperemesis syndrome POA, resolved Acute kidney injury on CKD stage IV , POA Hematemesis, POA Acute on chronic kidney disease, POA, (GFR 26 on 09/16/2024) Chronic anemia due to CKD, POA Bilateral renal cysts. Diverticulosis. Tiny bilateral renal pelvic stones. Upper GI bleeding by history (suspected hematemesis), possible Gila-Mayo tear, possibly secondary to gastritis or peptic ulcer disease, POA s/p EGD findingd of LAD esophagitis POA Acute leukocytosis, POA Uncontrolled diabetes, POA Uncontrolled hypertension, POA Medical noncompliance, POA Albuminemia/ malnutrition, POA Positive marijuana POA INTERVAL HISTORY: 03/05/25-no major overnight events. Patient is awake alert and oriented x3. Denies any chest pain palpitations or shortness breath. T-max of 98.6 and T low of 97.5 blood pressure of 137/71 heart rate in the 59 beats per minute, respiratory rate of 20 saturating 95% on room air. He is in no apparent distress. Per RN patient has a good urine output with the average of 0.42 mL/kilogram per hour. Balance of -300 mL. On laboratory white count trending slightly up kin 0.9 today H&H stable 10.2/30.3 with a normal platelet count. Ch emistry potassium is 3.2 covered per protocol GFR of 17 seems to be baseline. Magnesium of 1.70 covered REVIEW OF SYSTEMS: General: No malaise or fever. Neurological: No fainting episodes or seizures. HEENT: No nasal congestion or nasal secretion. Respiratory: No cough, shortness of breath, or wheezing Cardiac:+ fatigue Gastrointestinal: No vomiting or diarrhea. Genitourinary: No dysuria hematuria. Skin: No rashes or lesions. Hematological: No bruises or bleeding. Musculoskeletal: No joint pains or arthralgias. Psychiatric: No depression or panic attacks. PHYSICAL EXAM: GENERAL: Alert, weak, awake oriented x 3 HEENT: EOMI, Sclera non icteric, moist mucosa NECK: Supple, no JVD, trachea midline LUNGS: Clear breath sounds bilaterally. No wheezes HEART: Regular rate and rhythm. Normal S1 and S2, without murmurs ABD: Abdomen soft, nontender. Bowel sounds present EXT: No clubbing cyanosis or edema NEURO: Alert and oriented X3, follows commands Vital Signs (last 8hr) Date Time Temp Pulse Resp B/P (MAP) Pulse Ox O2 Delivery O2 Flow Rate FiO2 03/05/25 16:00 97.5 59 20 137/71 95 Room Air 03/05/25 12:00 98.1 65 20 151/73 95 Room Air LABS: Hematology Labs: Test 03/05/25 03:54 Range/Units White Blood Count 10.9 H 4.8-10.8 K/uL Red Blood Count 3.67 L 4.50-6.20 MIL/uL Hemoglobin 10.2 L 14.0-18.0 g/dL Hematocrit 30.3 L 42-54 % Mean Corpuscular Volume 82.6 79-99 fL Mean Corpuscular Hemoglobin 27.8 27.0-33.0 pg Mean Corpuscular Hemoglobin Concent 33.7 32.0-36.0 g/dL Red Cell Distribution Width 13.3 11.0-15.5 % Platelet Count 286 130-400 K/uL Mean Platelet Volume 11.5 H 7.5-10.5 fL Immature Granulocyte % (Auto) 0.5 0-1 % Neutrophils (%) (Auto) 66.4 40.0-77.0 % Lymphocytes (%) (Auto) 19.5 L 21.0-51.0 % Monocytes (%) (Auto) 10.0 3.0-13.0 % Eosinophils (%) (Auto) 3.0 0.0-8.0 % Basophils (%) (Auto) 0.6 0.0-5.0 % Neutrophils # (Auto) 7.2 1.8-7.7 K/uL Lymphocytes # (Auto) 2.1 1.0-4.8 K/uL Monocytes # (Auto) 1.1 H 0.1-1.0 K/uL Eosinophils # (Auto) 0.33 0.00-0.70 K/uL Basophils # (Auto) 0.06 0.00-0.20 K/uL Absolute Immature Granulocyte (auto 0.05 0-1 K/uL Nucleated Red Blood Cells 0.0 0.0-0.19 % Chemistry Labs: Test 03/05/25 15:56 03/05/25 03:54 Range/Units Whole Blood Glucose 183 H 70-110 MG/DL Sodium Level 140 136-145 mmol/L Potassium Level 3.2 L 3.5-5.1 mmol/L Chloride Level 108 101-111 mmol/L Carbon Dioxide Level 27 21-32 mmol/L Blood Urea Nitrogen 45 H 7-18 mg/dL Creatinine 4.0 H 0.5-1.3 mg/dL Glomerular Filtration Rate Calc 17 >90 mL/min Random Glucose 118 H 70-105 mg/dL Total Calcium 7.7 L 8.5-10.1 mg/dL Phosphorus Level 3.8 2.5-4.9 mg/dL Magnesium Level 1.70 L 1.80-2.40 mg/dL DIAGNOSTICS / RADIOLOGY RESULTS: [ ] PLAN Continue cardioprotective medication: Aspirin Atorvastatin Metoprolol follow cardiology medications NPO after midnight per cardiology for Possible LHC tomorrow NEURO: Minimize central acting medications as possible. Maintain fall precautions, adequate lighting during the day PULMONARY: Supplemental 02 as needed. Maintain aspiration precautions at all times CARDIOVASCULAR: Follow hemodynamics. Vital signs per facility protocol GI & NUTRITION: Continue with nutritional support. Continue stool softeners and laxatives as needed. KIDNEYS & ELECTROLYTES: Strict monitoring of intake, output and overall fluid balance. Avoid nephrotoxic medications to the extent possible. Medications to be dosed according to renal function. Monitor electrolytes and replace as needed ENDOCRINE: Maintain blood glucose between 100-180 at all times. Hypoglycemia protocol in place INFECTIOUS DISEASE: Trend temperature, WBC and procalcitonin level Follow cultures, deescalate antibiotics as soon as possible. Panculture if new onset fever ONCOLOGY/HEMATOLOGY/COAGULATION: Monitor for s/s of bleeding Monitor hemoglobin, coagulation studies as needed SKIN: Pressure ulcer prevention per facility protocol Specialty mattress ORTHO/REHAB: Continue PT/OT Prophylaxis: Continue GI and DVT prophylaxis Code Status: Full Resuscitation Disposition: TBD Other: ATTESTATION BY PHYSICIAN I reviewed the documentation, medical decision making, and treatment plan as n oted by the mid-level provider above. I agree with the findings and plan of care. Schwarcz, Swetha MD SANCHEZ,PAOLO J [facility] Mar 05, 2025 20:05
[2025-03-06] VITALS (7 sets, daily range): BP systolic 139–158; BP diastolic 71–75; PULSE 59–69; RESP 18–20; TEMP 97.9–98.6; O2SAT 96–97
[2025-03-06 03:47] LABS: BASOPHILS # (AUTO) 0.05 K/uL (0.00-0.20); BASOPHILS % (AUTO) 0.5 % (0.0-5.0); EOSINOPHILS # (AUTO) 0.34 K/uL (0.00-0.70); EOSINOPHILS % (AUTO) 3.2 % (0.0-8.0); HEMATOCRIT 29.7 % (42-54); IMMATURE GRANULOCYTE ABSOLUTE 0.05 K/uL (0-1); LYMPHOCYTES # (AUTO) 2.2 K/uL (1.0-4.8); LYMPHOCYTES % (AUTO) 20.8 % (21.0-51.0); MEAN CORPUSCULAR HEMOGLOBIN 27.7 pg (27.0-33.0); MEAN CORPUSCULAR HGB CONC 33.3 g/dL (32.0-36.0); MONOCYTES # (AUTO) 1.2 K/uL (0.1-1.0); MONOCYTES % (AUTO) 10.7 % (3.0-13.0); NEUTROPHILS # (AUTO) 6.9 K/uL (1.8-7.7); NEUTROPHILS % (AUTO) 64.3 % (40.0-77.0); PLATELET COUNT (AUTO) 278 K/uL (130-400); RED BLOOD CELL COUNT(AUTO) 3.58 MIL/uL (4.50-6.20); RED CELL DISTRIBUTION WIDTH 13.3 % (11.0-15.5); WHITE BLOOD COUNT (AUTO) 10.7 K/uL (4.8-10.8)
[2025-03-06 04:07] LABS: CREATININE 4.1 mg/dL (0.5-1.3); MAGNESIUM 1.9 mg/dL (1.80-2.40); POTASSIUM 3.6 mmol/L (3.5-5.1)
[2025-03-06 07:43] LABS: INR 0.91 (0.85-1.15); PARTIAL THROMBOPLASTIN TIME 23.4 SEC (26.3-35.5); PROTHROMBIN TIME 9.8 SEC (9.6-11.6)
--- NOTE | 2025-03-06 09:20 | PN ---
[facility] CARDIOLOGY PROGRESS NOTE Date Patient Seen: Mar 06, 2025 Time of Visit: 08:58 Interval History: This 49-year-old Latin-C[place] male with a history of essential hypertension, type 2 diabetes with renal manifestations, chronic marijuana use, and history of gastritis presented with three days of recurrent nausea, vomiting, bloody emesis, and epigastric pain followed by onset of chest pressure associated with right facial numbness, right hand flapping movement, and right eye pressure on the date of admission. On arrival he had severe uncontrolled hypertension (231/118 mm Hg), no acute EKG changes, and serial troponins of 1512 >>> 980 >>> 1748 >>> 1402. Admission labs were also remarkable for a BUN of 51, creatinine 4.4, potassium 4.0, hemoglobin 13.7, hematocrit 40.1, white count 20.6 with 90.7% neutrophils, and platelet count of 383,000. A 2D echocardiogram on 03/01/2025 demonstrated a normal LVEF of 55-60%. An EGD on 03/01/2025 demonstrated LA grade D esophagitis, esophageal ulcers and erythematous mucosa in the stomach lining. In addition a Lexiscan Cardiolite stress test on 03/02/2025 has demonstrated a small area of lateral wall ischemia with a gated EF of 40%. Physical Examination: Laboratory: [ ] Hematology Labs: Test 03/06/25 03:17 Range/Units White Blood Count 10.7 4.8-10.8 K/uL Red Blood Count 3.58 L 4.50-6.20 MIL/uL Hemoglobin 9.9 L 14.0-18.0 g/dL Hematocrit 29.7 L 42-54 % Mean Corpuscular Volume 83.0 79-99 fL Mean Corpuscular Hemoglobin 27.7 27.0-33.0 pg Mean Corpuscular Hemoglobin Concent 33.3 32.0-36.0 g/dL Red Cell Distribution Width 13.3 11.0-15.5 % Platelet Count 278 130-400 K/uL Mean Platelet Volume 12.1 H 7.5-10.5 fL Immature Granulocyte % (Auto) 0.5 0-1 % Neutrophils (%) (Auto) 64.3 40.0-77.0 % Lymphocytes (%) (Auto) 20.8 L 21.0-51.0 % Monocytes (%) (Auto) 10.7 3.0-13.0 % Eosinophils (%) (Auto) 3.2 0.0-8.0 % Basophils (%) (Auto) 0.5 0.0-5.0 % Neutrophils # (Auto) 6.9 1.8-7.7 K/uL Lymphocytes # (Auto) 2.2 1.0-4.8 K/uL Monocytes # (Auto) 1.2 H 0.1-1.0 K/uL Eosinophils # (Auto) 0.34 0.00-0.70 K/uL Basophils # (Auto) 0.05 0.00-0.20 K/uL Absolute Immature Granulocyte (auto 0.05 0-1 K/uL Nucleated Red Blood Cells 0.0 0.0-0.19 % Chemistry Labs: Test 03/06/25 05:31 03/06/25 03:17 03/05/25 03:54 Range/Units Whole Blood Glucose 119 H 70-110 MG/DL Sodium Level 140 136-145 mmol/L Potassium Level 3.6 3.5-5.1 mmol/L Chloride Level 110 101-111 mmol/L Carbon Dioxide Level 25 21-32 mmol/L Blood Urea Nitrogen 46 H 7-18 mg/dL Creatinine 4.1 H 0.5-1.3 mg/dL Glomerular Filtration Rate Calc 17 >90 mL/min Random Glucose 113 H 70-105 mg/dL Total Calcium 7.8 L 8.5-10.1 mg/dL Magnesium Level 1.90 1.80-2.40 mg/dL Phosphorus Level 3.8 2.5-4.9 mg/dL Coagulation Labs: Test 03/06/25 03:17 Range/Units Prothrombin Time 9.8 9.6-11.6 SEC Prothromb Time International Ratio 0.91 0.85-1.15 Activated Partial Thromboplast Time 23.4 L 26.3-35.5 SEC Diagnostics / Radiology: 2D echo 03/01/2025: Conclusion The left ventricle is normal size. Moderate concentric left ventricular hypertrophy. LVEF is 55-60%.3D volume EF 58%. Indeterminate diastolic dysfunction. The right ventricle is mildly dilated. The right ventricular systolic function is normal. RV GLS -16.0%. The left atrium is moderately dilated. The right atrium is moderately dilated. There is trace of pericardial effusion. Lexiscan Cardiolite stress test 03/02/2025: LEFT VENTRICLE Size: The left ventricular size is normal. Systolic Function:The left ventricular systolic function is borderline decreased. Wall Motion: Global hypokinesis of the left ventricle. The left ventricular ejection fraction was calculated to be 40%.TID = 1.13. LV PERFUSION Small size mild severity reversible perfusion defect of the lateral wall. There are perfusion defects at rest involving the inferolateral and distal septal segments however with partial improvement in stress imaging. IMPRESSION Abnormal nuclear stress test. Diseased Vessels: Left Circumflex Global LV Function: Mildy reduced Stress ECG Summary: Nondiagnostic LV Perfusion Summary: Abnormal LV Viability Summary: Potentially viable myocardium Conclusion Small degree of ischemia involving the lateral wall. Borderline decreased left ventricular systolic function with LVEF 40% however no regional wall motion abnormalities Impression and Plan: Acute gastroenteritis: Upper GI bleeding by history (suspected hematemesis): Hemoglobin dropped from 13.7 on admission to 12.2 03/01/2025: -EGD 03/01/2025 demonstrating LA grade D esophagitis, esophageal ulcers and erythematous mucosa in the stomach lining -continues on pantoprazole and sucralfate Non ST-elevation AR with serial troponins of 1512 >>> 980 >>> 1748 >>> 1402: Abnormal EKG with evidence of possible old anteroseptal wall AR: Hypertensive emergency with admission blood pressure of 231/118 mm of mercury: Normal LV systolic function with an LVEF of 55-60% by 2D echocardiogram 02/11: Lexiscan Cardiolite stress test 03/02/2025 demonstrating a small area of lateral ischemia, gated EF of 40%, with plans for continued medical management: -avoid invasive cardiac assessment given his advanced renal failure and continue plans for medical therapy -change metoprolol succinate ER 100 mg daily to labetalol 200 mg p.o. b.i.d. (for added blood pressure control) -avoid dual antiplatelet therapy given recent hematemesis and esophageal ulcers -continue clopidogrel alone with clopidogrel 75 mg p.o. daily -continue atorvastatin 40 mg p.o. daily Continue nifedipine ER 60 mg p.o. b.i.d., isosorbide mononitrate ER 60 mg daily and hydralazine 75 mg p.o. t.i.d. Acute on chronic renal insufficiency with admission BUN of 51 and creatinine of 4.4 >>> 51 and 4.2 on 02/28/2025 with uncertain baseline: -avoid DRAKE inhibitor -continue cautious hydration Comorbidities: Type 2 diabetes mellitus previously on insulin, noncompliant Noncompliance Essential hypertension Chronic marijuana use Disposition: -cleared for discharge home from cardiology standpoint -Arrange outpatient follow-up at [facility] in one week SOLA MARTINEZ MD Mar 06, 2025 09:20
[2025-03-06] MEDS ORDERED: CLOP-31 PO (11:52)
[2025-03-06] MEDS ORDERED: ISOS60TA77 PO (11:52)
[2025-03-06] MEDS ORDERED: HYDR25 PO (11:52)
[2025-03-06] MEDS ORDERED: SODI650T PO (11:52)
[2025-03-06] MEDS ORDERED: LABE200T7 PO (11:52)
--- NOTE | 2025-03-06 13:07 | DS ---
Discharge Summary Hospital Course Summary: 49-year-old male with history of anemia, hypertension, chronic kidney disease non hemodialysis, diabetes who presents to the ED for complaints of nausea vomiting and diarrhea and epigastric pain which started three days ago.As per patient he has been having bloody emesis upon ER arrival and was reported to the ER nurse.Patient reported he is using marijuana and denies alcohol,cigarette and cocaine use.Patient also reports he is not good in taking his medications and checking his BP and blood sugar at home.Patient also reports he has not seen a PCP. Patient denies fever,chills,chest pain,palpitation and shortness of breath. Vital signs upon ER arrival temperature 98.2, heart rate 89, blood pressure 231/118 saturation 98% on room air. Labs: WBC 20 with negative left shift of neutrophils 90, globin 13, hematocrit 40, platelet count 383. BUN 51, creatinine 4.4, GFR 16 glucose 291 ketones 1.2 lactic acid two troponin 1748 to 980. Albumin 1.9. Urine toxicology positive for marijuana. CT head without contrast result is unremarkable. CT chest result revealed no evidence of pulmonary nodule or effusion is seen. CT abdomen and pelvis result revealed bilateral renal cyst diverticulosis. Tiny bilateral renal pelvic stones. While in the ER patient started on 1 L NS bolus, famotidine 20 mg IV, Zofran 4 mg IV hydralazine 10 mg IV and patient was started on Cardene drip. Patient also received aspirin 324 mg p.o.. We will admit patient to ICU for further medical management. 02/28 patient remains admitted to the intensive care unit, BP 156/75, heart rate of 77, afebrile, saturating 94% on room air. Hemoglobin of 12.1, hematocrit 35.2, platelet count of 340, WBC 25.0, sodium 141, potassium 3.2, glucose 164, BUN of 56, creatinine 4.4, magnesium 1.7, albumin 1.5, serology test to include influenza, SARS antigen and group a strep negative, CT chest abdomen and pelvis no evidence of pulmonary nodule or effusion, bilateral renal cysts, diverticu losis, tiny bilateral renal pelvic stones, patient on amlodipine 10 mg p.o. daily, sodium bicarbonate 650 mg p.o. t.i.d., hypokalemia protocol, metoprolol tartrate 25 mg p.o. t.i.d., Patient on PPI with Protonix 40 mg IV b.i.d.. Twelve lead EKG demonstrated sinus rhythm, left anterior fascicular block, complex in V1 and V2 consistent with a possible prior anteroseptal NV and J-p oint elevation continue with the LVH. There was a 1/[address] elevation of AVR of uncertain significance. Cardiac consultation requested due to positive troponin, per cardiac input, cardiac enzymes are declining and blood pressure is under improved control, cleared for upper endoscopy. Increase metoprolol to 25 mg p.o. q.8 hours and continue IV metoprolol as needed, avoid IV heparin, avoid dual antiplatelet therapy, agreed with low-dose aspirin 81 mg p.o. daily pending assessment by GI, add amlodipine 5 mg p.o. daily, follow echocardiogram to assess LVEF, no plan for invasive evaluation given creatinine of 4.4, consider Lexiscan Cardiolite stress test Wednesday a.m.. Due to creatinine of 4.4, obtain records from the office of Dr. Brian Woo, fluid DRAKE inhibitors, continue cautious hydration. We will follow GI input and recommendation. During my visit today the patient is sitting comfortable at the edge of the bed, alert oriented x3, no chest pain, shortness shortness for breath, no nausea, no vomiting, off nicardipine drip. 03/01 patient admitted secondary to hematemesis, patient remains admitted to the intensive care unit, AO x 3, case discussed with RN, no acute events, denies dizziness, no chest pain, blood pressure 171/89, afebrile, saturating normal on room air, leukocytosis improving, WBC 15.5. Creatinine 4.2. Latest troponin 1259. Toxicology screen positive for marijuana. Cardiology consultation requested, cleared for upper endoscopy by GI. Doppler of the renal arteries normal. Remains on Carafate 1 g p.o. q.6 hours, and Protonix 40 mg IV b.i.d.. Cardiology input noted and appreciated, -no plans for invasive evaluation given creatinine of 4.4 (EGFR of 16), Lexiscan Cardiolite stress test scheduled for 03/02/2025 EGD done, impression: -LA grade D esophagitis with no bleeding -esophageal ulcers -erythematous mucosa in the stomach -normal duodenal bulb and 2nd portion of the duodenum Recommendations: -clear liquid diet -Protonix 40 mg p.o. b.i.d. -Carafate 1 g p.o. q.i.d. 03/02 No acute events overnight, blood pressure mildly elevated, nifedipine 60mg twice daily. Stress test pending today, will follow up. Patient with nephrotic range proteinuria, possibly due to hx of diabetes however patient is young and elevated troponins unaccounted for. May be secondary to other underlying cause will order, HIV, Hepatitis, SIMI, C3/C4, SPEP, UPEP, and [place] light chains and follow up. 03/03 No acute events overnight. Abnormal stress test, however patient high risk for contrast load due to underlying renal dysfunction. Will follow up with cardiology recommendations. Creatinine stable at 4.2, remainder of vitals and labs relatively unremarkable. 03/04 no acute events overnight. Patient opting for left heart cath despite possibly requiring dialysis afterwards. Case management to determine appropriate disposition as regular dialysis appointments and medical compliance will be important 03/05 no acute events overnight. Still pending left heart cath, will follow up with cardiology. Patient is aymptomatic. Creatinine improved from 4.2 down to 4.0. Vitals and labs otherwise unremarkable. On hospital day 7 cardiology reviewed the case once again and given what was seen on stress test, the size of the defects, the patients continued preserved ejection fraction and the patient's advanced renal disease, cardiology recommended medical management at this time to preserve tank terminal gauger renal function and close outpatient follow up. Gas Or Petroleum Operator(s): Nephrology Cardiology Procedure(s): Exam Type: CHEST 1VW Clinical Information: hypoxic resp failure Comparison: None Findings: Ill-defined infiltrates of both lungs are seen consistent with bilateral pneumonia. . The heart is normal in size. The bony and soft tissue structures show no worrisome pathology. IMPRESSION: Findings consistent with pneumonia. Follow-up is advised. Echocardiogram: Conclusion The left ventricle is normal size. Moderate concentric left ventricular hypertrophy. LVEF is 55-60%.3D volume EF 58%. Indeterminate diastolic dysfunction. The right ventricle is mildly dilated. The right ventricular systolic function is normal. RV GLS -16.0%. The left atrium is moderately dilated. The right atrium is moderately dilated. There is trace of pericardial effusion. Stress Test Conclusion Small degree of ischemia involving the lateral wall. Borderline decreased left ventricular systolic function with LVEF 40% however no regional wall motion abnormalities US RENAL ARTERY DOPPLER HISTORY: Renal artery stenosis COMPARISON: None TECHNIQUE: Renal and renal arterial Doppler ultrasound study was performed. FINDINGS: The right kidney measures 14 x 6.6 x 6.2 cm. The left kidney measures 12.7 x 5.9 x 4.4 cm. There are bilateral simple renal cyst with largest on the right measuring 2.4 x 2.5 x 2.4 cm and on the left measuring 3.8 x 2.9 x 3.2 cm. No evidence of hydronephrosis is seen of either kidney. Both kidneys are seen. Normal arterial waveforms are noted renal arteries bilaterally. Peak systolic velocity of right internal artery is 128 cm/s, left renal artery is 114 cm/s in the abdominal aorta is adjacent second. Right renal artery aortic ratio is 1.2. Left renal artery aortic ratio is 1.1. IMPRESSION: 1. No hydronephrosis is seen. 2. Normal bilateral renal artery Doppler ultrasound study. CHEST 1VW HISTORY: Leukocytosis COMPARISON: None FINDINGS: A frontal projection of the chest was obtained. No acute pulmonary infiltrates is seen. The heart is borderline enlarged. Degenerative changes are seen. Prominent interstitial markings are seen. No evidence of aortic calcification is seen. IMPRESSION: 1. No acute pulmonary infiltrate is seen. CT CHEST/ABD/PELV W/O CONTRAST HISTORY: Chest pain COMPARISON: None TECHNIQUE: Multiple sequential axial images of the chest were obtained from the thoracic inlet through upper abdomen. Patient was not given contrast through intravenous route. FINDINGS: The study is limited due to poor positioning. Coronary arterial calcifications are seen. There is no evidence of pulmonary nodule or parenchymal disease. No pleural effusion or pericardial effusion is seen. There is no evidence of pneumothorax. There are normal size mediastinal and hilar lymph nodes. The heart is not enlarged. Degenerative changes of the thoracolumbar spine are present. There is no evidence of adrenal nodule. IMPRESSION: 1. No evidence of pulmonary nodule or effusion is seen. CT CHEST/ABD/PELV W/O CONTRAST HISTORY: Nausea and vomiting COMPARISON: None TECHNIQUE: Multiple sequential axial images of the abdomen and pelvis were obtained from the dome of the diaphragm through symphysis pubis. Patient was not given contrast through intravenous route. Oral contrast was not given. FINDINGS: Liver measures 20 cm. There are left renal cysts with the largest measuring 3.8 cm. The liver, spleen, adrenal glands and pancreas are unremarkable. There is no evidence of hydronephrosis bilaterally. Tiny 2 mm right renal pelvic stone is seen. There appears to be posterior type II right renal cyst versus cystic mass measuring 2.1 cm. Fecal material is seen in the colon. There are normal size retroperitoneal and mesenteric lymph nodes. No ascites is seen. There is diverticulosis. Appendix is not well seen limiting evaluation. Atherosclerotic changes are present. Pelvic sidewalls are symmetric bilaterally. Bladder is well distended without wall thickening. IMPRESSION: 1. Bilateral renal cysts. Diverticulosis. Tiny bilateral renal pelvic stones. CT HEAD/BRAIN W/O CONTRAST HISTORY: Hypertension, nausea and vomiting COMPARISON: None TECHNIQUE: Multiple sequential axial images of the head were obtained from the base of the skull through vertex. Patient was not given contrast through intravenous route. FINDINGS: The ventricles and extraventricular CSF spaces are dilated consistent with cerebral atrophy. Nonspecific white matter changes seen. Old right basal ganglia lacunar infarct is seen. There is no midline shift, mass effect or herniation. No acute intracranial bleed is seen. Visualized portion of the paranasal sinuses are grossly within normal limits. IMPRESSION: 1. No acute intracranial bleed is seen. 2. Atrophy with white matter changes. Assessment/Plan: Hypertensive emergency POA Non ST-elevation NV POA Abnormal EKG with the evidence of possible old anteroseptal wall NV Acute on chronic kidney disease POA Chronic anemia due to CKD POA Acute upper GI bleed, POA Status post EGD 03/01/2025 -LA grade D esophagitis with no bleeding -esophageal ulcers -erythematous mucosa in the stomach -normal duodenal bulb and 2nd portion of the duodenum Acute leukocytosis POA Uncontrolled diabetes mellitus type 2 POA Uncontrolled hypertension POA Medical noncompliance POA Severe protein calorie malnutrition POA Cannabinoid hyperemesis syndrome POA Positive marijuana POA Discharge Instructions: Follow up with PCP in 3-7 days Follow up with engineering supervisor in 1-2 weeks Follow up with nephrology in 1-2 weeks Follow up with gastroenterology in 2 weeks Home Medications: Reported Medications Clonidine HCl (Clonidine HCl) 0.1 Mg Tablet, 0.1 MG PO Q8H PRN for IF SBP GREATER THAN 160, TAB 03/01/25 Folic Acid (Folic Acid) 0.8 Mg Capsule, 1 MG PO DAILY, CAP 03/01/25 Hydralazine HCl (Hydralazine HCl) 50 Mg Tablet, 1 TAB PO TID for 30 Days, #90 TAB 0 Refills 03/01/25 Metoprolol Tartrate (Metoprolol Tartrate) 25 Mg Tablet, 25 MG PO BID, TAB 03/01/25 Nifedipine (Nifedipine ER) 60 Mg Tablet.er, 60 MG PO BID, TAB 03/01/25 Ondansetron HCl (Ondansetron HCl) 4 Mg Tablet, 1 TAB PO Q6HPRN PRN for nausea/vomiting, #10 TAB 0 Refills 03/01/25 Famotidine (Famotidine) 20 Mg Tablet, 1 TAB PO HS for 30 Days, #60 TAB 0 Refills 09/10/24 Atorvastatin Calcium (LIPITOR) 40 Mg Tablet, 1 TAB PO HS for 30 Days, #30 TAB 0 Refills 09/10/24 Fluoxetine HCl (Fluoxetine HCl) 20 Mg Tablet, 1 TAB PO HS for 30 Days, #30 TAB 0 Refills 09/10/24 Discontinued Reported Medications Sennosides (Senna) 8.6 Mg Tablet, 2 TAB PO BID for constipation for 25 Days, #100 TAB 0 Refills 09/10/24 Pravastatin Sodium (Pravastatin Sodium) 20 Mg Tablet, 1 TAB PO HS for 30 Days, #30 TAB 0 Refills 09/10/24 Folic Acid (Folic Acid) 0.8 Mg Capsule, 1 CAP PO DAILY for 30 Days, #30 CAP 0 Refills 09/10/24 Hydralazine HCl (Hydralazine HCl) 25 Mg Tablet, 1 TAB PO TID for 30 Days, #90 TAB 0 Refills 09/10/24 New Medications: Isosorbide Mononitrate (Isosorbide Mononitrate ER) 60 Mg Tab.er.24h 1 TAB PO DAILY for 30 Days, #30 TAB 0 Refills Clopidogrel Bisulfate (Plavix) 75 Mg Tablet 75 MG PO DAILY, #30 TAB Hydralazine HCl (Apresoline) 25 Mg Tab 75 MG PO TID, #90 TAB 2 Refills Labetalol HCl (Labetalol HCl) 200 Mg Tablet 200 MG PO BID, #60 TAB 0 Refills Sodium Bicarbonate (Sodium Bicarbonate) 650 Mg Tablet 650 MG PO TID, #90 TAB 0 Refills Continued Medications: Atorvastatin Calcium (Lipitor) 40 Mg Tablet 1 TAB PO HS for 30 Days, #30 TAB 0 Refills Clonidine HCl (Clonidine HCl) 0.1 Mg Tablet 0.1 MG PO Q8H PRN for IF SBP GREATER THAN 160, TAB Famotidine (Famotidine) 20 Mg Tablet 1 TAB PO HS for 30 Days, #60 TAB 0 Refills Fluoxetine HCl (Fluoxetine HCl) 20 Mg Tablet 1 TAB PO HS for 30 Days, #30 TAB 0 Refills Folic Acid (Folic Acid) 0.8 Mg Capsule 1 MG PO DAILY, CAP Nifedipine (Nifedipine ER) 60 Mg Tablet.er 60 MG PO BID, TAB Ondansetron HCl (Ondansetron HCl) 4 Mg Tablet 1 TAB PO Q6HPRN PRN for nausea/vomiting, #10 TAB 0 Refills Discontinued Medications: Hydralazine HCl (Hydralazine HCl) 50 Mg Tablet 1 TAB PO TID for 30 Days, #90 TAB 0 Refills Metoprolol Tartrate (Metoprolol Tartrate) 25 Mg Tablet 25 MG PO BID, TAB Time spent arranging discharge: 31-60 minutes JOS PATEL MD Mar 06, 2025 13:07
--- NOTE | 2025-03-06 14:52 | PN ---
GASTROENTEROLOGY PROGRESS NOTE Date of Visit: Mar 06, 2025 Time of Visit: 14:52 Events / Notes: [ ] Review of Systems: CONSTITUTIONAL: No malaise or change in sensation of wellbeing. ENMT: No rhinorrhea, otorrhea, sinus pain, ear ache. CARDIOVASCULAR: No angina, palpitations, orthopnea or paroxysmal dyspnea. RESPIRATORY: No SOB. GASTROINTESTINAL: No abdominal pain, nausea, vomiting, diarrhea, hematemesis, melena or change in the patient's habitual bowel movements consistency/number. GENITOURINARY: No dysuria, hematuria or change in bladder continence. MUSCULOSKELETAL: No new muscle pain or decrease in muscular strength. No new joint swelling, redness or tenderness. SKIN: No new rash. Physical Exam: GEN: Awake, alert, oriented in person, time and place, and in no acute distress. HEENT: No sinus tenderness. Tympanic membranes were not examined. No rhinorrhea. Oral pharyngeal mucosa is pink, moist and within normal limits. Neck is supple with no cervical lymphadenopathy, thyromegaly or JVD. CHEST: Inspection, palpation and percussion of the chest were unremarkable. Lung auscultation revealed normal breath sounds bilaterally. CARDIAC: PMI is within normal limits. Heart sounds are regular. Normal S1, S2. No gallop or murmur. ABD: Soft, non-tender and not distended. No peritoneal signs on palpation. No organomegaly. Normal bowel sounds. EXT: No cyanosis or clubbing. No edema. SKIN: Intact. No rashes. JOINTS: No evidence of synovitis or acute arthritis. NEURO: Alert and oriented to name, place and person. Cranial nerve examination is unremarkable. No focal motor deficits. Normal speech. Gait is normal. Strength is normal. Vital Signs (last 8hr) Date Time Temp Pulse Resp B/P (MAP) Pulse Ox O2 Delivery O2 Flow Rate FiO2 03/06/25 12:00 98.6 69 20 139/71 97 Room Air 03/06/25 08:00 97.9 65 20 153/72 96 Room Air 03/06/25 08:00 96 Room Air* 0 21 03/06/25 07:14 64 18 N/A Room Air 21 Laboratory: [ ] Laboratory: Test 03/06/25 11:59 03/06/25 03:17 03/05/25 03:54 Range/Units Whole Blood Glucose 161 H 70-110 MG/DL White Blood Count 10.7 4.8-10.8 K/uL Red Blood Count 3.58 L 4.50-6.20 MIL/uL Hemoglobin 9.9 L 14.0-18.0 g/dL Hematocrit 29.7 L 42-54 % Mean Corpuscular Volume 83.0 79-99 fL Mean Corpuscular Hemoglobin 27.7 27.0-33.0 pg Mean Corpuscular Hemoglobin Concent 33.3 32.0-36.0 g/dL Red Cell Distribution Width 13.3 11.0-15.5 % Platelet Count 278 130-400 K/uL Mean Platelet Volume 12.1 H 7.5-10.5 fL Immature Granulocyte % (Auto) 0.5 0-1 % Neutrophils (%) (Auto) 64.3 40.0-77.0 % Lymphocytes (%) (Auto) 20.8 L 21.0-51.0 % Monocytes (%) (Auto) 10.7 3.0-13.0 % Eosinophils (%) (Auto) 3.2 0.0-8.0 % Basophils (%) (Auto) 0.5 0.0-5.0 % Neutrophils # (Auto) 6.9 1.8-7.7 K/uL Lymphocytes # (Auto) 2.2 1.0-4.8 K/uL Monocytes # (Auto) 1.2 H 0.1-1.0 K/uL Eosinophils # (Auto) 0.34 0.00-0.70 K/uL Basophils # (Auto) 0.05 0.00-0.20 K/uL Absolute Immature Granulocyte (auto 0.05 0-1 K/uL Nucleated Red Blood Cells 0.0 0.0-0.19 % Prothrombin Time 9.8 9.6-11.6 SEC Prothromb Time International Ratio 0.91 0.85-1.15 Activated Partial Thromboplast Time 23.4 L 26.3-35.5 SEC Sodium Level 140 136-145 mmol/L Potassium Level 3.6 3.5-5.1 mmol/L Chloride Level 110 101-111 mmol/L Carbon Dioxide Level 25 21-32 mmol/L Blood Urea Nitrogen 46 H 7-18 mg/dL Creatinine 4.1 H 0.5-1.3 mg/dL Glomerular Filtration Rate Calc 17 >90 mL/min Random Glucose 113 H 70-105 mg/dL Total Calcium 7.8 L 8.5-10.1 mg/dL Magnesium Level 1.90 1.80-2.40 mg/dL Phosphorus Level 3.8 2.5-4.9 mg/dL Current Medications Medications (Trade) Dose Ordered Sig/Jyoti Route PRN Reason Start Time Stop Time Status Last Admin Dose Admin Acetaminophen (TYLenol 325MG TAB) 650 mg Q6H PRN PO MILD PAIN (1-3) 03/01/25 21:00 03/31/25 20:59 03/06/25 04:52 650 MG Amlodipine Besylate (NorvASC 5MG TAB) 5 mg DAILY PO 02/28/25 09:00 02/28/25 09:02 DC Amlodipine Besylate (NorvASC 5MG TAB) 10 mg DAILY PO 03/01/25 09:00 02/28/25 13:09 DC Amlodipine Besylate (NorvASC 5MG TAB) 10 mg DAILY PO 03/01/25 09:00 03/01/25 21:31 DC 03/01/25 10:10 10 MG Aspirin (Aspirin 81mg Chew Tab) 324 mg ONCE STAT PO 02/27/25 15:34 02/27/25 15:41 DC 02/27/25 16:02 324 MG Aspirin (Aspirin 81mg Ec Tab) 81 mg DAILY PO 02/28/25 13:30 03/06/25 09:20 DC 03/05/25 09:09 81 MG Atorvastatin Calcium (LIPItor 40MG) 40 mg HS PO 03/01/25 21:00 03/31/25 20:59 03/05/25 21:44 40 MG Clonidine HCl (CATApres 0.1 mg TAB) 0.1 mg Q8H PRN PO IF SBP GREATER THAN 160 03/01/25 21:00 03/31/25 20:59 03/02/25 04:11 0.1 MG Clopidogrel Bisulfate (plaVIX 75MG) 75 mg DAILY PO 03/04/25 09:00 04/03/25 08:59 03/06/25 10:01 75 MG Dextrose (D50w) 50 ml AD PRN IV HYPOGLYCEMIA PROTOCOL 02/27/25 20:00 03/29/25 19:59 Famotidine (Pepcid 20mg Vial) 20 mg DAILY IV 02/28/25 09:00 02/27/25 23:45 DC Famotidine (Pepcid 20mg Tab) 20 mg Q48H PO 03/01/25 21:00 03/03/25 08:00 DC 03/01/25 21:19 20 MG Fluoxetine HCl (FLUoxetine HCL 20 MG CAPSULE) 20 mg HS PO 03/01/25 21:00 03/31/25 20:59 03/05/25 21:45 20 MG Folic Acid (FOLic ACID 1 MG TABLET) 1 mg DAILY PO 03/02/25 09:00 04/01/25 08:59 03/06/25 10:00 1 MG Glucagon (Glucagon 1mg Kit) 1 mg AD PRN IM HYPOGLYCEMIA PROTOCOL 02/27/25 20:00 03/29/25 19:59 Hydralazine HCl (APRESOLine 20MG INJ) 10 mg ONCE STAT IV 02/27/25 15:06 02/27/25 15:08 DC 02/27/25 15:14 10 MG Hydralazine HCl ([id number] TAB) 25 mg QID PO 02/28/25 17:00 03/01/25 08:58 DC 02/28/25 19:46 25 MG Hydralazine HCl ([id number] TAB) 25 mg TID PO 02/28/25 14:00 02/28/25 15:49 DC 02/28/25 13:55 25 MG Hydralazine HCl ([id number] TAB) 50 mg TID PO 03/01/25 21:00 03/05/25 11:32 DC 03/05/25 09:10 50 MG Hydralazine HCl ([id number] TAB) 75 mg TID PO 03/05/25 14:00 04/04/25 13:59 03/06/25 10:02 75 MG Insulin Human Regular (humuLIN R 100 UNIT/ML 3ML) INSULIN SLIDING SCAL... ACHS SQ 02/27/25 21:00 03/29/25 20:59 03/05/25 16:46 2 UNIT Ipratropium [place] (AtrovENT UD) 0.5 MG Q8H PRN IH SHORTNESS OF BREATH 03/03/25 10:00 04/02/25 09:59 Isosorbide Mononitrate (Imdur 30mg Sr) 30 mg DAILY PO 02/28/25 13:30 03/03/25 17:17 DC 03/03/25 08:56 30 MG Isosorbide Mononitrate (Imdur 30mg Sr) 60 mg DAILY PO 03/04/25 09:00 04/03/25 08:59 03/06/25 10:01 60 MG Labetalol HCl (TRANdate 200 MG TABLET) 200 mg BID PO 03/06/25 21:00 04/05/25 20:59 Lactulose (Constulose 20gm/ 30ml Udcup) 20 gm BID PRN PO CONSTIPATION 03/03/25 10:30 04/02/25 10:29 Levofloxacin/ Dextrose 100 ml @ 100 mls/hr Q24H IV 02/28/25 06:30 02/28/25 06:46 DC Magnesium Sulfate 50 ml @ 0 mls/hr PROTOCOL PRN IV MAGNESIUM PROTOCOL 02/28/25 06:00 03/30/25 05:59 03/06/25 04:42 25 MLS/HR Metoprolol Succinate (TopROL XL) 100 mg DAILY PO 03/01/25 09:00 03/06/25 09:20 DC 03/05/25 09:10 100 MG Metoprolol Tartrate (loprESSOR) 5 mg Q4H PRN IV ADMINISTER FOR SBP > 150 02/28/25 00:00 03/30/25 00:00 02/28/25 22:09 5 MG Metoprolol Tartrate (loprESSOR) 12.5 mg TID PO 02/28/25 00:00 02/28/25 08:58 DC 02/28/25 00:17 12.5 MG Metoprolol Tartrate (loprESSOR) 25 mg BID PO 03/01/25 21:00 03/01/25 21:30 DC Metoprolol Tartrate (loprESSOR) 25 mg TID PO 02/28/25 09:00 03/01/25 08:58 DC 02/28/25 19:46 25 MG Morphine Sulfate (morPHINE 4MG SYG) 4 mg ONCE STAT IVP 02/27/25 15:41 02/27/25 15:42 DC 02/27/25 16:01 4 MG Nicardipine HCl 25 mg/Sodium Chloride 250 ml @ 0 mls/hr PROTOCOL IV 02/28/25 00:00 03/03/25 13:17 DC 03/01/25 12:24 20 MLS/HR Nicardipine HCl 50 mg/Sodium Chloride 250 ml @ 0 mls/hr PROTOCOL STAT IV 02/27/25 15:34 02/27/25 15:42 DC Nicardipine HCl 50 mg/Sodium Chloride 250 ml @ 0 mls/hr PROTOCOL STAT IV 02/27/25 15:45 02/27/25 15:46 DC 02/27/25 16:32 5 MLS/HR Nifedipine (adALAT 30MG) 60 mg BID PO 03/02/25 09:00 04/01/25 08:59 03/06/25 10:01 60 MG Nitroglycerin (Nitroglycerin 1gm Oint) 1 inch Q6H6 TD 03/01/25 15:00 03/03/25 17:17 DC 03/03/25 12:55 1 INCH Nitroglycerin (Nitroglycerin 1gm Oint) 1 inch Q8H TD 02/28/25 03:30 02/28/25 13:09 DC 02/28/25 03:53 1 INCH Nitroglycerin (Nitrostat) 0.4 mg AD PRN SL CHEST PAIN 02/27/25 16:00 03/29/25 15:59 Ondansetron HCl (zoFRAN 4MG TABLET) 4 mg Q6H6 PRN PO nausea/vomiting 03/01/25 21:00 03/31/25 20:59 Ondansetron HCl (zoFRAN 4MG INJ) 4 mg Q6H PRN IV NAUSEA/VOMITING 02/27/25 20:00 03/01/25 20:41 DC 02/27/25 22:25 4 MG Pantoprazole Sodium (PROTonix 40MG INJ) 40 mg BID IVP 02/28/25 00:00 03/03/25 07:57 DC 03/02/25 20:36 40 MG Pantoprazole Sodium (PROTonix 40MG TAB) 40 mg DAILY PO 03/03/25 09:00 04/02/25 08:59 03/06/25 10:01 40 MG Potassium Chloride 100 ml @ 100 mls/hr AD PRN IV POTASSIUM PROTOCOL 02/28/25 09:00 02/28/25 09:06 DC Potassium Chloride 100 ml @ 100 mls/hr AD PRN IV POTASSIUM PROTOCOL 02/28/25 09:00 03/30/25 08:59 03/02/25 06:53 100 MLS/HR Potassium Chloride (K-Dur 10meq Sr Tab) 10 meq AD PRN PO POTASSIUM PROTOCOL 02/28/25 16:30 03/30/25 08:59 03/06/25 06:36 10 MEQ Potassium Chloride (K-Dur/Klor-Con 20meq) 10 meq AD PRN PO POTASSIUM PROTOCOL 02/28/25 09:00 02/28/25 16:29 DC Potassium Chloride (KCl 10% Elixir 20meq/15ml) 10 meq AD PRN PO POTASSIUM PROTOCOL 02/28/25 09:00 03/30/25 08:59 03/03/25 10:16 10 MEQ Sodium Bicarbonate (Sodium Bicarbonate) 650 mg TID PO 02/28/25 09:00 03/30/25 08:59 03/06/25 10:01 650 MG Sodium Chloride 500 ml @ 0 mls/hr Q0M IV 02/28/25 01:30 02/28/25 08:58 DC Sodium Chloride 1,000 ml @ 75 mls/hr [id number] IV 02/27/25 14:30 03/02/25 11:18 DC 03/02/25 06:54 75 MLS/HR Sodium Chloride 1,000 ml @ 75 mls/hr [id number] IV 02/27/25 20:00 02/28/25 13:11 DC 02/28/25 09:27 75 MLS/HR Sodium Chloride 1,000 ml @ 1,000 mls/hr Q1H STAT IV 02/27/25 14:25 02/27/25 15:24 DC 02/27/25 15:36 1,000 MLS/HR Sucralfate (Carafate) 1 gm Q6H PO 03/01/25 12:00 03/31/25 11:59 03/06/25 12:48 1 GM Zolpidem Tartrate (AmbIEN) 5 mg HS PO 03/04/25 21:30 04/03/25 21:29 03/05/25 21:45 5 MG Diagnostics / Radiology: [COPY/PASTE HERE IF NO REPORTS PLEASE DELETE SECTION] Assessment: Hematemesis Epigastric pain CKD DM Plan: PIETER WILSON [employer] Mar 06, 2025 14:52
--- NOTE | 2025-03-06 14:59 | NUR ---
DISCHARGE HOME IV, ID BANDS, AND TELEPAK REMOVED. DISCHARGE INSTRUCTIONS GIVEN AND EXPLAINED TO PATIENT AND MOTHER. BELONGINGS PACKED AND TAKEN BY PATIENT. PATIENT WHEELED DOWN TO PRIVATE CAR.
--- NOTE | 2025-03-06 20:30 | PN ---
FOLLOWUP PROGRESS NOTE SUBJECTIVE: The patient is a 49-year-old male with a history of known advanced renal dysfunction. The patient initially admitted with hypertensive urgency. The patient has been noncompliant with his general medical care including his medications. The patient's blood pressure is under much better control. The patient was seen by Cardiology and felt not to be a candidate for coronary catheterization at this time. The patient is being seen as a followup visit for all of the above. REVIEW OF SYSTEMS: CONSTITUTIONAL: He is feeling improved since admission. HEENT: No change in vision. No change in hearing. CARDIOVASCULAR: There is no current chest pain or palpitations. PULMONARY: Denies any shortness of breath. GASTROINTESTINAL: The patient is tolerating a diet. MUSCULOSKELETAL: Complains of weakness. PHYSICAL EXAMINATION: VITAL SIGNS: Blood pressure is 153/72, pulse 60. He is afebrile. GENERAL: He is a chronically ill male, much older than appearing. HEENT: Head is atraumatic. Pupils are equal, roving to light. Oropharynx is without exudate. Nares clear. NECK: There is no JVP. There is no thyromegaly. No mass. CARDIOVASCULAR: Regular. There is no S3 or S4 gallop. LUNGS: Coarse with equal thoracic movement. ABDOMEN: Soft, nondistended, and nontender. EXTREMITIES: No clubbing, no cyanosis. NEUROLOGICAL: He is awake. He is alert. LABORATORY DATA: BUN 46, creatinine 4, hemoglobin 9.9, and hematocrit 29. IMPRESSION: * Advanced renal dysfunction. * Diabetic nephropathy. * Hypertension. * Anemia. * ____. * Uncontrolled hypertension, much improved. * Coronary artery disease. * Anemia. PLAN: I did have a long discussion with the patient. The patient now is agreeable to proceed with dialysis. The patient does have advancement of dysfunction, although no acute need for any form of renal replacement therapy. The patient was seen by Cardiology and felt not to be a candidate for coronary catheterization at this time. The patient could safely be discharged from a renal standpoint. The patient is encouraged in regard to his compliance upon discharge including his blood pressure medications. The patient can follow up in the renal clinic as an outpatient. We will continue to follow the patient closely. TID: [id number] RECEIPT: [id number]
[2025-03-06] MEDS ORDERED: LAbetaLOL HCL 200 MG TABLET PO SCH (21:00)
== END 2025-03-06 15:00 | disposition home or self-care (01) | DRG 380 ==
LOC: EDH 14:03 → EDHIP 18:39 → 2BH 02-28 01:08 → 2AH 03-02 16:30
PROVIDERS: ADMIT Internal Medicine; ATTEND Internal Medicine
PROC: 0DJ08ZZ Inspection of Upper Intestinal Tract, Via Natural or Artificial Opening Endoscopic (ICD-10-PCS; 2025-03-01)
PROC: 4A02XM4 Measurement of Cardiac Total Activity, External Approach (ICD-10-PCS; principal; 2025-03-02)
PROC: 3E073KZ Introduction of Other Diagnostic Substance into Coronary Artery, Percutaneous Approach (ICD-10-PCS; 2025-03-02)
DX: K22.11 Ulcer of esophagus with bleeding (principal); E43 Unspecified severe protein-calorie malnutrition; I21.4 Non-ST elevation (NSTEMI) myocardial infarction; I50.33 Acute on chronic diastolic (congestive) heart failure; I16.1 Hypertensive emergency; N17.9 Acute kidney failure, unspecified; E87.20 Acidosis, unspecified; N18.4 Chronic kidney disease, stage 4 (severe); I13.0 Hypertensive heart and chronic kidney disease with heart failure and stage 1 through stage 4 chronic kidney disease, or unspecified chronic kidney disease; D63.1 Anemia in chronic kidney disease; E11.22 Type 2 diabetes mellitus with diabetic chronic kidney disease; E86.0 Dehydration; K52.9 Noninfective gastroenteritis and colitis, unspecified; K31.89 Other diseases of stomach and duodenum; E78.5 Hyperlipidemia, unspecified; E88.09 Other disorders of plasma-protein metabolism, not elsewhere classified; F12.10 Cannabis abuse, uncomplicated; I25.10 Atherosclerotic heart disease of native coronary artery without angina pectoris; K57.30 Diverticulosis of large intestine without perforation or abscess without bleeding; N28.1 Cyst of kidney, acquired; Z79.02 Long term (current) use of antithrombotics/antiplatelets; Z79.4 Long term (current) use of insulin; I25.2 Old myocardial infarction; Z79.899 Other long term (current) drug therapy; Z91.199 Patient's noncompliance with other medical treatment and regimen due to unspecified reason; Z68.27 Body mass index [BMI] 27.0-27.9, adult
CPT/HCPCS: 36415; 36600; 43235; 70450; 71045; 71250; 74176; 76376; 78452; 80048; 80053; 80076; 80305; 81001; 82010; 82435; 82550; 82570; 82803; 82947; 82948; 83036; 83521; 83540; 83550; 83605; 83690; 83735; 83880; 84100; 84132; 84145; 84156; 84166; 84295; 84484; 85014; 85018; 85025; 85610; 85730; 86038; 86160; 86215; 86235; 86334; 86701; 86704; 86705; 86706; 86803; 87040; 87340; 87390; 87635; 87804; 87880; 93005; 93017; 93306; 93356; 93975; 94664; 99285; A9500; G0378; J0360; J1815; J1940; J2003; J2270; J2405; J2470; J2704; J2785; J3475; J3480; J3490; J7030; J7050; A4215; A4620